=== PATIENT | female | born 2000 | race Caucasian/White ===

== ENCOUNTER 2019-04-20 00:37 | Emergency (ER) | payer OTHER, SELFPAY ==
[2019-04-20 00:39] VITALS: BP 120/84; PULSE 88; RESP 16; TEMP 36.6; O2SAT 99; BMI 23.7
--- NOTE | 2019-04-20 00:55 | ED.VIS.GEN ---
History of Present Illness Chief Complaint: Abd Pain Informant: Patient, Family Onset: Days - 4 days Context: Gradual Onset Timing: Waxes and wanes Current Severity: Mild Maximum Severity: Moderate Narrative: Patient presents for day history of GI symptoms. On Tuesday she had nausea and vomiting. The following day she had a fever to 101 with some diarrhea. Yesterday she felt okay but today has had some lower abdominal pain and cramping and return of nausea. She is had no vomiting. She denies urinary symptoms. She has had no fever the past 2 days. Past Medical History - Allergies and Home Meds Allergies/Adverse Reactions: Allergies No Known Allergies Allergy (Verified 04/20/19 00:38) Primary Care Physician: NOT,DEFINED [NON-STAFF] - Past Medical History: None Lives: With Family Smoking Status: Never smoker Review of Systems General: Reports: Fever Eyes: Denies: Visual changes - bilaterally ENT: Denies: Bilateral ear pain Cardiovascular: Denies: Chest pain Respiratory: Denies: Dyspnea, Cough Gastrointestinal: Reports: Abdominal pain, Nausea, Vomiting, Diarrhea Genitourinary: Denies: Dysuria, Hematuria, Frequency Musculoskeletal: Denies: Back pain, Extremity Pain Skin: Denies: Rash Neurological: Denies: Headache Hematologic: Denies: Easy bruising Allergy: Denies: Uticaria Physical Exam Vital Signs/Narrative: Vital Signs Temp Pulse Resp BP Pulse Ox 04/20/19 00:39 97.8 F 88 16 120/84 H 99 Inital Vital Signs reviewed: Yes General: Well nourished, Well developed Head: Normocephalic ENT: Moist mucous membranes Neck: Supple Cardiovascular: Regular rate, Regular rhythm Respiratory: No distress, CTA bilaterally Abdomen: Soft, Nontender, Hypoactive bowel sounds Extremities: Nontender Skin: Normal color, No rash Neurological: Alert, Oriented x3 Psychological: Normal affect Diagnostic/Tx/Re-eval Laboratory Results 04/20/19 04/20/19 04/20/19 00:51 00:51 01:11 WBC 8.0 RBC 4.95 Hgb 14.6 Hct 41.9 MCV 84.6 MCH 29.5 MCHC 34.8 RDW Std Deviation 35.5 RDW Coeff of Davin 11.5 L Plt Count 189 MPV 9.8 Immature Gran % (Auto) 0.300 Neut % (Auto) 62.9 Lymph % (Auto) 23.0 [place] % (Auto) 12.5 H Eos % (Auto) 0.9 Baso % (Auto) 0.4 Absolute Neuts (auto) 5.0 Absolute Lymphs (auto) 1.83 Nucleated RBC % 0 Sodium Potassium Chloride Carbon Dioxide Anion Gap BUN Creatinine Estim Creat Clear Calc Est GFR (MDRD) Af Amer Est GFR (MDRD) Non-Af BUN/Creatinine Ratio Glucose Calcium Total Bilirubin Direct Bilirubin AST ALT Alkaline Phosphatase Total Protein Albumin Globulin Urine Color Yellow Urine Clarity Clear Urine pH 7.0 Ur Specific [place] 1.010 Urine Protein Negative Urine Glucose (UA) Normal Urine Ketones Negative Urine Occult Blood Negative Urine Nitrite Negative Urine Bilirubin Negative Urine Urobilinogen Normal Ur Leukocyte Esterase Negative Urine RBC 0 SEEN Urine WBC 0 SEEN Ur Squamous Epith Cells 0-5 SEEN Urine Bacteria RARE Urine Mucus 0 SEEN Urine Test Negative 04/20/19 01:11 WBC RBC Hgb Hct MCV MCH MCHC RDW Std Deviation RDW Coeff of [place] Plt Count MPV Immature Gran % (Auto) Neut % (Auto) Lymph % (Auto) [place] % (Auto) Eos % (Auto) Baso % (Auto) Absolute Neuts (auto) Absolute Lymphs (auto) Nucleated RBC % Sodium 140 Potassium 3.6 Chloride 106 Carbon Dioxide 27.0 Anion Gap 7 BUN 9 Creatinine 0.80 Estim Creat Clear Calc 93.56 Est GFR (MDRD) Af Amer 117 Est GFR (MDRD) Non-Af 97 BUN/Creatinine Ratio 11.2 Glucose 96 Calcium 8.9 Total Bilirubin 1.80 H Direct Bilirubin 0.40 H AST 18 ALT 31 Alkaline Phosphatase 50 Total Protein 7.4 Albumin 3.8 Globulin 3.6 Urine Color Urine Clarity Urine pH Ur Specific [place] Urine Protein Urine Glucose (UA) Urine Ketones Urine Occult Blood Urine Nitrite Urine Bilirubin Urine Urobilinogen Ur Leukocyte Esterase Urine RBC Urine WBC Ur Squamous Epith Cells Urine Bacteria Urine Mucus Urine Test - Medical Decision Making Patient was given Toradol, Zofran, and IV fluids. On repeat evaluation she does feel improved. Test results are discussed with the patient. Her bilirubin levels are mildly elevated, she has no white count or fever here. She has no focal tenderness in the right upper quadrant. I believe she likely has viral gastroenteritis. She will continue to monitor her symptoms and if she worsens she will return. She states she cannot take pills but will take liquid ibuprofen at home for pain. I will give her Zofran ODT tabs to help with nausea as needed. ED Disposition - Plan for ED Patient: Disposition: Home or Assisted Living Diagnosis: Viral gastroenteritis Instructions: GASTROENTERITIS, Viral (5y-Adult) Prescriptions: Ondansetron [Zofran Odt] 4 mg PO Q8H PRN PRN #10 tablet PRN Reason: Nausea Referrals: NOT,DEFINED [NON-STAFF] -
[2019-04-20 01:01] LABS: Mucous, Urine 0 SEEN /hpf (<or=2+); Red Blood Cells-Urine 0 SEEN /hpf (0-5); White Blood Cells 0 SEEN /hpf (0-5)
[2019-04-20 01:07] LABS: Color, Urine Yellow (Yellow); Glucose, Dipstick Normal (Normal); Ketone-Dipstick Negative (Negative); Leukocyte Esterase-Dipstick Negative /ul (Negative); Nitrite-Dipstick Negative (Negative); Occult Blood-Urine Negative /ul (Negative); Protein-Dipstick Negative (Negative); Urine Bilirubin Dipstick Negative (Negative); Urine Clarity Clear (Clear); Urine Urobilinogen Normal (Normal)
[2019-04-20 01:10] LABS: Internal QC Validated? YES +Cl - CLEAR BKGD; Pregnancy, Urine Negative Negative
[2019-04-20] MEDS: Ketorolac 30 MG/ML Syringe IV (01:12)
[2019-04-20] MEDS: Ondansetron 4 MG/2 ML Vial IV (01:12)
[2019-04-20] MEDS: 0.9% Normal Saline 1,000 ML 1000 ML IV (01:12)
[2019-04-20 01:14] LABS: Bacteria RARE /hpf (None Seen); Squamous Epithelial Cells - UA 0-5 SEEN /hpf (5-10)
[2019-04-20 01:18] LABS: Absolute Lymphocyte Count 1.83 X10^3/uL (0.83-4.51); Basophil# 0.03 X10^3/uL; Basophil% 0.4 % (0-1); Eosinophil# 0.07 X10^3/uL; Eosinophils% 0.9 % (0-5); Hematocrit 41.9 % (37-47); Hemoglobin 14.6 g/dL (12.0-15.0); Lymphocyte # 1.83 X10^3/ul (4.0); Mean Corp Hgb Conc 34.8 g/dL (32-36); Mean Corpuscular Hgb 29.5 pg (27.0-32.0); Mean Corpuscular Volume 84.6 fL (81-99); Mean Platelet Vol. 9.8 fl (6.2-12.0); Monocyte% 12.5 % (0-10); NRBC Flagged by Analyzer 0 % (0-5); Neutrophil # 5.02 X10^3/uL (2.7-7.7); Neutrophil % 62.9 % (47-70); Platelet Count 189 K/mm3 (150-450); RBC Distribution Width CV 11.5 % (11.6-14.6); RBC Distribution Width SD 35.5 fl (35.1-43.9); Red Blood Count 4.95 M/mm3 (4.2-5.4)
[2019-04-20 01:35] LABS: AST(SGOT) 18 U/L (15-37); Alanine Aminotransfer ALT/SGPT 31 U/L (13-56); Albumin, Serum 3.8 g/dL (3.2-5.0); Alkaline Phosphatase 50 U/L (45-117); Anion Gap 7 (5-15); BUN 9 mg/dL (7-18); BUN/Creat Ratio 11.2 RATIO (10-20); Calcium,Total 8.9 mg/dL (8.5-10.1); Chloride 106 mmol/L (98-107); EST Glomerular Filtration Rate 97 mL/min (>60); Est Glom Filt Rate - Afr Amer 117 mL/min (>60); Estimated Creatinine Clearance 93.56 ml/min; Globulin 3.6 g/dL (2.2-4.2); Glucose 96 mg/dL (74-106); Potassium 3.6 mmol/L (3.5-5.1); Protein, Total 7.4 g/dL (6.4-8.2); Sodium Level 140 mmol/L (136-145)
[2019-04-20 02:03] VITALS: BP 116/70; PULSE 87; RESP 16; O2SAT 97
== END 2019-04-20 02:04 | disposition home or self-care (01) ==
PROVIDERS: Emergency Provider Emergency Medicine
DX: A08.4 Viral intestinal infection, unspecified (principal)
CPT/HCPCS: 80048; 80076; 81001; 81025; 85025; 96361; 96374; 96375; 99283; J7030; J2405

== ENCOUNTER 2024-09-28 08:48 | Outpatient (CLI) | payer OTHER, SELFPAY ==
[2024-09-28 08:56] VITALS: BMI 33.1
[2024-09-28 09:35] LABS: Absolute Lymphocyte Count 0.62 X10^3/uL (0.83-4.51); Absolute Neutrophil Count 9.1 X10^3/uL (2.0-7.7); Basophil# 0.02 X10^3/uL; Basophil% 0.2 % (0-1); Eosinophil# 0.01 X10^3/uL; Eosinophils% 0.1 % (0-5); Hematocrit 33.6 % (37-47); Hemoglobin 11.9 g/dL (12.0-15.0); Lymphocyte # 0.62 X10^3/ul (0.83-4.51); Lymphocyte % 5.7 % (19-41); Mean Corp Hgb Conc 35.4 g/dL (32-36); Mean Corpuscular Hgb 30.4 pg (27.0-32.0); Mean Corpuscular Volume 85.7 fL (81-99); Monocyte% 9.3 % (0-10); NRBC Flagged by Analyzer 0 % (0-5); Neutrophil # 9.06 X10^3/uL (2.7-7.7); Platelet Count 179 K/mm3 (150-450); RBC Distribution Width SD 37.7 fl (35.1-43.9); Red Blood Count 3.92 M/mm3 (4.2-5.4); White Blood Count 10.8 K/mm3 (4.4-11.0)
[2024-09-28 09:55] LABS: ALB/GLOB Ratio 1.3 RATIO (0.9-2.4); AST(SGOT) 18 U/L (<=31); Alanine Aminotransfer ALT/SGPT 15 U/L (<=34); Albumin, Serum 3.6 g/dL (3.5-5.0); Alkaline Phosphatase 54 U/L (35-104); Anion Gap 10 (5-15); BUN 7 mg/dL (4-19); BUN/Creat Ratio 14.3 RATIO (10-20); Calcium,Total 8.9 mg/dL (7.6-11.0); Carbon Dioxide 18.6 mmol/L (21.0-32.0); Chloride 104 mmol/L (98-108); Creatinine, Serum 0.48 mg/dL (0.70-1.20); EST Glomerular Filtration Rate 135 (>60); Estimated Creatinine Clearance 178.02 ml/min (50-250); Globulin 2.8 g/dL (2.2-4.2); Glucose 101 mg/dL (70-99); Potassium 3.6 mmol/L (3.3-5.1); Protein, Total 6.4 g/dL (5.9-8.4); Sodium Level 133 mmol/L (133-145); Total Bilirubin 0.65 mg/dL (0.00-1.30)
--- NOTE | 2024-10-09 13:48 | OB.TRI.NOTE ---
HPI - General General Date of Service: 09/28/24 HPI Narrative GEORGE CRAIG, is a 24 F who presents at with VIKTOR 12/24/24 at 27w5d. Presented for increased heart rate. PFSH PFSH Home Medications ?Medication ?Instructions ?Recorded ?Last Taken ?Type vitamin 1 tab PO DAILY 09/28/24 09/27/24 History no.76-iron,carbonyl 29 mg iron-folic acid 1 mg tablet (Prenatabs Rx) Allergy/AdvReac Type Severity Reaction Status Date / Time No Known Allergies Allergy Verified 09/28/24 08:57 Social History Smoking Status: Never smoker NST FHR Rate Baby A Baseline: 150 NST Reactive:: Appropriate for gestational age Assessment & Plan (1) Tachycardia: (2) 27 weeks gestation of : PLAN: Plan 1) EKG NSR 2) No signs of labor 3) D/C home and follow up outpatient
== END 2024-09-28 10:25 | disposition home or self-care (01) ==
LOC: WPOUT 08:52 → WP 08:53
PROVIDERS: Advanced Practice Midwife; PCP Family Medicine; Referring Provider Obstetrics & Gynecology; Visit Provider Obstetrics & Gynecology
DX: O99.891 Other specified diseases and conditions complicating pregnancy (principal); R00.0 Tachycardia, unspecified; Z3A.27 27 weeks gestation of pregnancy
CPT/HCPCS: 59050; 80053; 85025; 93005; 99221; G0378

== ENCOUNTER 2024-12-10 16:53 | Outpatient (CLI) | payer OTHER, SELFPAY ==
[2024-12-10 17:21] VITALS: BMI 33.3
--- NOTE | 2024-12-10 17:27 | OB.TRI.HP_ITS ---
HPI - General HPI Narrative GEORGE CRAIG, is a 24 F at 38 weeks gestation who was sent over from the office at the end of the day for NST. complicated by mild polyhydramnios, obesity and LGA. She is scheduled for induction of labor next week. Maternal Data Information VIKTOR Calculator Estimated Delivery Date Method Current WG Current Estimate 12/24/24 Manual 38w 0d PFSH PFSH Home Medications ?Medication ?Instructions ?Recorded ?Last Taken ?Type vitamin 1 tab PO DAILY 09/28/24 05/0 01/14 History no.76-iron,carbonyl 29 mg iron-folic acid 1 mg tablet (Prenatabs Rx) Allergy/AdvReac Type Severity Reaction Status Date / Time No Known Allergies Allergy Verified 09/28/24 08:57 Social History Smoking Status: Never smoker NST FHR Rate Baby A Baseline: 120 Variability:: Moderate Accelerations:: 15 x 15 Decelerations:: None NST Reactive:: Yes FHR Category:: Category I Uterine Activity:: occasional Assessment & Plan (1) 38 weeks gestation of : (2) Obesity affecting : (3) Polyhydramnios: PLAN: Plan NST reactive Positive movements D/C home with follow up in office next week Induction of labor scheduled for next week
== END 2024-12-10 18:05 | disposition home or self-care (01) ==
LOC: WPOUT 16:56 → WP 16:57
PROVIDERS: PCP Family Medicine; Referring Provider Advanced Practice Midwife; Visit Provider Advanced Practice Midwife
DX: O40.3XX0 Polyhydramnios, third trimester, not applicable or unspecified (principal); O99.213 Obesity complicating pregnancy, third trimester; Z3A.38 38 weeks gestation of pregnancy
CPT/HCPCS: 59025; 59050; 99221; G0378

== ENCOUNTER 2024-12-17 04:32 | Inpatient (IN) | payer OTHER, SELFPAY ==
[2024-12-17] VITALS (55 sets, daily range): BP systolic 109–194; BP diastolic 57–107; PULSE 87–115; RESP 16–18; TEMP 36.6–37.4; O2SAT 89–100; BMI 33.8
--- OUTSIDE RECORDS SUMMARY | 2024-12-17 03:00 | XMS RPT_ITS | CCD ---
Author Organization [facility] Care Team Providers Care Home Aide Name Role Phone Jackelyn Singer MD Primary Care Provider Jackelyn Singer MD Primary Care Provider Podlogar COMBATANT DIVER QUALIFIED.Marah SCOTT Unavailable Knoble COMBATANT DIVER QUALIFIED.WILDLIFE ENFORCEMENT MAJORRand Unavailable [place] COMBATANT DIVER QUALIFIED.Rand SCOTT Unavailable Andrew ROBLEDO, Dr. Baird Attending Provider Andrew ROBLEDO, Dr. Baird Referring Provider Enmanuel ROBLEDO, Dr. Holbrook Primary Care Provider Kn[place]le COMBATANT DIVER QUALIFIED.Rand SCOTT Unavailable [place] COMBATANT DIVER QUALIFIED.WILDLIFE ENFORCEMENT MAJORRand Unavailable Ant ROBLEDO, Dr. Lucero Attending Provider Ant ROBLEDO, Dr. Lucero Referring Provider Summer Garduno CNM Attending Provider Summer Garduno CNM Referring Provider JACKELYN SINGER Primary Care Unavailab RACHEL Kessler Referring Unavailable JACKELYN SINGER Primary Care Unavailab LIBBY Hinojosa Referring Unavailable JACKELYN SINGER Primary Care Unavailab LIBBY Hinojosa Referring Unavailable TRINITY BURROWS Attending Unavailable JACKELYN SINGER Primary Care Unavailab TRINITY Diaz Attending Unavailable JACKELYN SINGER Primary Care Unavailab LIBBY Hinojosa Attending Unavailable RACHEL MORALES Referring Unavailable CRYSTAL BERRY Attending Unavail able ENMANUEL, IONER B Primary Care Unavailab le ENMANUEL, CHRISTOPHER B Primary Care Unavailab LIBBY Hinojosa Attending Unavailable ENMANUEL, PITEROPHER B Primary Care Unavailab le ZEHRALEY, CHRISTOPHER B Primary Care Unavailab le LAUREEN, SUMMER Attending Unavailable ENMANUEL, PITEROPHER B Primary Care Unavailab SUMMER Gray Attending Unavailable ENMANUEL, CHRISTOPHER B Primary Care Unavailab KIRSTIE Andrew Attending Unavailable ENMANUEL, CHRISTOPHER B Primary Care Unavailab le PLOTRAJIV, SUMMER Attending Unavailable LORNE MORALESCA Kendra Referring Unavailable RACHEL MORALES L Attending Unavailable ENMANUEL, IONER B Primary Care Unavailab le ENMANUEL, CHRISTOPHER B Primary Care Unavailab le PLOTRAJIV, SUMMER Referring Unavailable BURSLEY, CHRISTOPHER B Primary Care Unavailab le LAUREEN, SUMMER Referring Unavailable ENMANUEL, CHRISTOPHER B Primary Care Unavailab KIRSTIE Andrew Attending Unavailable LORNE MORALESCA L Referring Unavailable CRYSTAL BERRY Attending Unavail able ENMANUEL, CHRISTOPHER B Primary Care Unavailab le ZEHRALEY, CHRISTOPHER B Primary Care Unavailab le ANDREW, RACHEL L Referring Unavailable BURSLEY, CHRISTOPHER B Primary Care Unavailab QUINN Reardon Attending Unavailable ENMANUEL, PITEROPHER B Primary Care Unavailab LIBBY Hinojosa Attending Unavailable ENMANUEL, CHRISTOPHER B Primary Care Unavailab liza MORALES RACHEL L Referring Unavailable AntNic owen Referring Unavailable Enmanuel, Yusef Primary Care Unavailable Nic Cain Attending Unavailable Rachel Morales Attending Unavailable Andrew Rachel Referring Unavailable Bursley, Yusef Primary Care Unavailable Plotts, Summer Attending Unavailable Plotts, Summer Referring Unavailable Bursley, Yusef Primary Care Unavailable Allergies Allergy Classification Reported Allergen(s) Allergy Type Date of Onset Reaction(s) Facility (20 sources) Escitalopram; Translations: [ESCITALOPRAM] Drug Allergy 11-24-2022 Other: See Comments [facility] Work Phone: Medications Current Medications Medication Drug Class(es) Dates Sig (Normalized) Sig (Original) aspirin 81 mg delayed release oral tablet (20 sources) Platelet Aggregation Inhibitor, Nonsteroidal Anti-inflammatory Drug Start: 05-09-2024 take 1 tablet by mouth once daily aspirin, enteric coated (ECOTRIN LOW STRENGTH) 81 mg EC tablet Indications: 7 weeks gestation of (HCC) Take 1 tablet by mouth once daily. 90 tablet 3 05/09/2024 Active omeprazole 20 mg delayed release oral capsule (17 sources) Proton Pump Inhibitor Start: 10-19-2024 take 1 capsule by mouth once daily omeprazole (PRILOSEC) 20 mg capsule Take 1 capsule by mouth once daily. 60 capsule 2 10/19/2024 Active Vit,Dzio92-Assn-Eq lic (Prenatabs Rx) 29 mg iron- 1 mg tablet (2 sources) Start: 09-28-2024 Vit,Haxj69-Rqhj-Y olic (Prenatabs Rx) 29 mg iron- 1 mg tablet Active 1 {tbl} PO DAILY September 28, 2024 12:00am vit37/iron/folic acid (PRENATA ORAL) (20 sources) take 2 capsules by mouth once daily vit37/iron/folic acid (PRENATA ORAL) Take 2 capsules by mouth once daily. Active sertraline 50 mg oral tablet (20 sources) Serotonin Reuptake Inhibitor Start: 03-14-2024 End: 03-14-2025 take 1 tablet by mouth once daily sertraline (ZOLOFT) 50 mg tablet Indications: Anxiety with depression TAKE 1 TABLET BY MOUTH EVERY DAY 90 tablet 1 08/09/2024 Active Start: 08-24-2023 End: 03-14-2024 sertraline (ZOLOFT) 50 mg ta blet Indications: Anxiety with depression Take 1/2 tablet daily for one week then increase to one tablet daily 30 tablet 5 08/24/2023 03/14/2024 Discontinued Comment on above: Take 1/2 tablet steven y for one week then increase to one tablet daily Completed/Discontinued Medications Medication Drug Class(es) Dates Sig (Normalized) Sig (Original) Control (2 sources) Start: 04-20-2019 End: 09-28-2024 Control Discontinued 1 {tbl} PO DAILY April 20, 2019 1:00am September 28, 2024 8:57am 24 hr buPROPion hydrochloride 150 mg extended release oral tablet (4 sources) Aminoketone Start: 01-22-2022 End: 11-10-2022 take 1 tablet by mouth once daily buPROPion XL (WELLBUTRIN XL) 150 mg 24 hr tablet Indications: Anxiety and depression Take 1 tablet by mouth once daily. 90 tablet 1 01/22/2022 11/10/2022 Discontinued Start: 10-19-2021 End: 01-22-2022 take 1 tablet by mouth once daily buPROPion SR (ZYBAN SR; WELLBUTRIN SR) 150 mg 12 hr tablet Take 150 mg by mouth once daily. 0 10/19/2021 01/22/2022 Discontinued Comment on above: Take 1 tablet by luz maria once daily. Take 150 mg by mouth once daily. cholecalciferol 1.25 mg oral capsule (6 sources) Vitamin D Start: 02-26-20 End: 10-26-19 take 1 capsule by mouth every week cholecalciferol, Vitamin D3, (VITAMIN D3) 1,250 mcg (50,000 unit) cap capsule Indications: Vitamin D deficiency Take 1 capsule by mouth one time a week. 12 capsule 0 02/25/2023 10/26/2023 Discontinued (Course of therapy completed) Comment on above: Take 1 capsule by mo [facility] one time a week. cyclobenzaprine hydrochloride 5 mg oral tablet (7 sources) Muscle Relaxant Start: 04-20-20 End: 05-09-20 take 1 tablet by mouth three times daily cyclobenzaprine (FLEXERIL) 5 mg tablet Indications: Acute bilateral low back pain without sciatica Take 1 tablet by mouth three times a day. 30 tablet 04/20/2023 05/09/2024 Discontinued (Discontinued by Patient) Comment on above: Take 1 tablet by luz [facility] three times a day. doxycycline hyclate 100 mg delayed release oral tablet (5 sources) Tetracycline-cla ss Drug Start: 11-08-19 End: 11-20-19 take 2 tablets by mouth once Doxycycline Hyclate 100 mg EC tablet TAKE 2 TABLETS BY MOUTH FOR A ONE TIME DOSE 2 tablet 11/07/2024 11/19/2024 Discontinued (Discontinued by Patient) Start: 11-06-2024 End: 11-06-2024 take 1 tablet by mouth once doxycycline hyclate 200 mg TbEC Take 1 tablet by mouth one time only for 1 dose. 1 tablet 11/06/2024 11/06/2024 escitalopram 10 mg oral tablet (2 sources) Serotonin Reuptake Inhibitor Start: 11-10-2022 End: 11-24-2022 take 1 tablet by mouth once daily escitalopram oxalate (LEXAPRO) 10 mg tablet Indications: Anxiety with depression Take 1 tablet by mouth once daily. 30 tablet 1 11/10/2022 11/24/2022 Discontinued (Course of therapy completed) Comment on above: Take 1 tablet by luz maria th once daily. famotidine 40 mg oral tablet (20 sources) Histamine-2 Receptor Antagonist Start: 10-03-2024 End: 11-02-2024 take 1 tablet by mouth once daily famotidine (PEPCID) 40 mg tablet Take 1 tablet by mouth once daily. 30 tablet 3 10/03/2024 10/19/2024 Discontinued Start: 07-30-2024 End: 10-03-2024 take 1 tablet by mouth at bedtime as needed famotidine (PEPCID) 20 mg tablet Indications: Heartburn Take 1 tablet by mouth at bedtime as needed. 90 tablet 3 08/17/2024 10/03/2024 Discontinued (Course of therapy completed) Start: 08-24-2023 End: 07-27-2024 take 1 tablet by mouth at bedtime as needed famotidine (PEPCID) 20 mg tablet Indications: Heartburn Take 1 tablet by mouth at bedtime as needed. 90 tablet 3 08/24/2023 07/27/2024 Discontinued Start: 05-20-2021 End: 11-10-2022 take 1 tablet by mouth at bedtime as needed famotidine (PEPCID) 20 mg tablet Indications: Heartburn Take 1 tablet by mouth at bedtime as needed. 90 tablet 3 04/12/2022 11/10/2022 Discontinued (Discontinued by Patient) Comment on above: Take 1 tablet by luz maria th at bedtime as needed. hydrOXYzine pamoate 25 mg oral capsule (10 sources) Antihistamine Start: 11-25-19 End: 05-09-20 take 1 capsule by mouth every eight hours as needed hydrOXYzine pamoate (VISTARIL) 25 mg capsule Take 1 capsule by mouth three times daily as needed. 90 capsule 11/24/2022 05/09/2024 Discontinued (Discontinued by Patient) Comment on above: Take 1 capsule by mo ut three times daily as needed. ondansetron 4 mg disintegrating oral tablet (2 sources) Serotonin-3 Receptor Antagonist Start: 04-20-20 End: 09-29-19 take 1 tablet by mouth every eight hours as needed for nausea Ondansetron 4 MG tablet Discontinued 4 mg PO EVERY 8 HOURS NEEDED as needed for Nausea April 20, 2019 1:00am September 28, 2024 8:58am Problems Active Problems Problem Classification Problem Date Documented Da te Episodic/Chronic Anxiety disorders (20 sources) Mixed anxiety and depressive disorder; Translations: [Anxiety disorder, unspecified] Onset: 4 Resolved: 5 04-29-2020 Chronic Bacterial infection; unspecified site (2 sources) Bacteria present; Translations: [Streptococcus, group B, as the cause of diseases classified elsewhere] Onset: 5 12-04-2024 Episodic Cardiac dysrhythmias (3 sources) Tachycardia; Translations: [Tachycardia, unspecified] Onset: 5 10-09-2024 Episodic E Codes: Natural/environment (2 sources) Tick bite; Translations: [Bitten or stung by nonvenomous insect and other nonvenomous arthropods, initial encounter] Onset: 5 11-05-2024 Episodic Esophageal disorders (20 sources) Gastroesophageal reflux disease; Translations: [Gastro-esophageal reflux disease without esophagitis] Onset: 9 11-19-2018 Chronic Hypertension complicating ; childbirth and the puerperium (20 sources) Hypertension complicating ; Translations: [Unspecified maternal hypertension, second trimester] Onset: 5 10-19-2024 Chronic Immunizations and screening for infectious disease (2 sources) Vaccination needed; Translations: [Encounter for immunization] Onset: 5 10-03-2024 Episodic Intestinal infection (2 sources) Viral gastroenteritis; Translations: [Viral intestinal infection, unspecified] 04-21-2019 Episodic Malposition; malpresentation (20 sources) Breech presentation; Translations: [Maternal care for breech presentation, not applicable or unspecified] Onset: 5 Resolved: 5 10-19-2024 Episodic Nutritional deficiencies (3 sources) Vitamin D deficiency; Translations: [Vitamin D deficiency, unspecified] 02-23-2023 Chronic Other bone disease and musculoskeletal deformities (20 sources) Juvenile osteochondritis; 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] Onset: 9 10-07-2008 Chronic Other complications of (17 sources) Gestational proteinuria; Translations: [Gestational proteinuria, third trimester] Onset: 5 10-16-2024 Episodic Other complications of (2 sources) Supervision of high risk , unspecified, third trimester; Translations: [Supervision of high risk in third trimester (HCC)] Onset: 5 Episodic Other complications of (1 source) Gestational proteinuria, third trimester; Translations: [Gestational proteinuria, third trimester (HCC)] Onset: 5 Episodic Other ear and sense organ disorders (1 source) Impacted cerumen in left ear; Translations: [Impacted cerumen, left ear] 08-24-2023 Episodic Other gastrointestinal disorders (8 sources) Heartburn; Translations: [Heartburn] Episodic Other nervous system disorders (1 source) Impaired cognition; Translations: [Other symptoms and signs involving cognitive functions and awareness] 02-23-2023 Episodic Other and delivery including normal (20 sources) with uncertain dates; Translations: [Encounter for supervision of normal , unspecified, unspecified trimester] Onset: 4 05-09-2024 Episodic Other skin disorders (1 source) Loss of hair; Translations: [Nonscarring hair loss, unspecified] 02-23-2023 Episodic Polyhydramnios and other problems of amniotic cavity (20 sources) Polyhydramnios; Translations: [Polyhydramnios, third trimester, not applicable or unspecified] Onset: 5 10-19-2024 Episodic Residual codes; unclassified (1 source) Gestation period, 7 weeks; Translations: [Less than 8 weeks gestation of ] 05-07-2024 Episodic Residual codes; unclassified (2 sources) Gestation period, 12 weeks; Translations: [12 weeks gestation of ] 06-13-2024 Episodic Residual codes; unclassified (1 source) Gestation period, 16 weeks; Translations: [16 weeks gestation of ] 07-11-2024 Episodic Residual codes; unclassified (1 source) Gestation period, 20 weeks; Translations: [20 weeks gestation of ] 08-08-2024 Episodic Residual codes; unclassified (1 source) Gestation period, 24 weeks; Translations: [24 weeks gestation of ] 09-05-2024 Episodic Residual codes; unclassified (1 source) Gestation period, 28 weeks; Translations: [28 weeks gestation of ] 10-03-2024 Episodic Residual codes; unclassified (1 source) Gestation period, 30 weeks; Translations: [30 weeks gestation of ] 10-19-2024 Episodic Residual codes; unclassified (1 source) Gestation period, 33 weeks; Translations: [33 weeks gestation of ] 11-05-2024 Episodic Residual codes; unclassified (1 source) Gestation period, 34 weeks; Translations: [34 weeks gestation of ] 11-14-2024 Episodic Residual codes; unclassified (1 source) Gestation period, 35 weeks; Translations: [35 weeks gestation of ] 11-19-2024 Episodic Residual codes; unclassified (1 source) Gestation period, 36 weeks; Translations: [36 weeks gestation of ] 11-30-2024 Episodic Residual codes; unclassified (1 source) Gestation period, 37 weeks; Translations: [37 weeks gestation of ] 12-04-2024 Episodic Residual codes; unclassified (2 sources) Gestation period, 27 weeks; Translations: [27 weeks gestation of ] 10-09-2024 Episodic Residual codes; unclassified (1 source) Gestation period, 38 weeks; Translations: [38 weeks gestation of ] 12-10-2024 Episodic Residual codes; unclassified (1 source) 38 weeks gestation of ; Translations: [38 weeks gestation of (HCC)] Onset: Episodic Residual codes; unclassified (1 source) 37 weeks gestation of ; Translations: [37 weeks gestation of (HCC)] Onset: Episodic Residual codes; unclassified (1 source) 36 weeks gestation of ; Translations: [36 weeks gestation of (HCC)] Onset: Episodic Residual codes; unclassified (1 source) 35 weeks gestation of ; Translations: [35 weeks gestation of (HCC)] Onset: Episodic Residual codes; unclassified (1 source) 34 weeks gestation of ; Translations: [34 weeks gestation of (HCC)] Onset: 5 Episodic Residual codes; unclassified (1 source) 33 weeks gestation of ; Translations: [33 weeks gestation of (HCC)] Onset: 5 Episodic Residual codes; unclassified (1 source) 30 weeks gestation of ; Translations: [30 weeks gestation of (HCC)] Onset: 5 Episodic Residual codes; unclassified (1 source) 29 weeks gestation of ; Translations: [29 weeks gestation of (HCC)] Onset: 5 Episodic Residual codes; unclassified (1 source) 28 weeks gestation of ; Translations: [28 weeks gestation of (HCC)] Onset: Episodic Spondylosis; intervertebral disc disorders; other back problems (1 source) Acute low back pain; Translations: [Acute bilateral low back pain without sciatica] 04-20-2023 Episodic Unclassified (20 sources) [facility] Education - COMMON Onset: 4 05-09-2024 Unclassified (20 sources) Education - [place] Onset: 05-09-2024 Past or Other Problems Problem Classification Problem Date Documented Da te Episodic/Chronic Nausea and vomiting (20 sources) Nausea; Translations: [Nausea] Onset: 05-09-2024 Resolved: 07-11-2024 05-09-2024 Episodic Other complications of (20 sources) High risk ; Translations: [Supervision of high risk , unspecified, third trimester] Onset: 05-09-2024 10-19-2024 Episodic Other congenital anomalies (20 sources) Congenital pes planus; Translations: [Congenital pes planus, unspecified foot] Onset: 01-21-2010 Resolved: 10-12-2024 01-21-2010 Chronic Other connective tissue disease (20 sources) Pain in limb; Translations: [Pain in unspecified limb] Onset: 10-07-2008 Resolved: 10-12-2024 10-07-2008 Episodic Other screening for suspected conditions (not mental disorders or infectious disease) (8 sources) Cancer cervix screening status; Translations: [Encounter for screening for malignant neoplasm of cervix] Onset: 06-13-2024 10-14-2023 Episodic Residual codes; unclassified (1 source) 24 weeks gestation of ; Translations: [24 weeks gestation of (HCC)] Onset: 09-05-2024 Episodic Residual codes; unclassified (1 source) 20 weeks gestation of ; Translations: [20 weeks gestation of ] Onset: 08-08-2024 Episodic Residual codes; unclassified (1 source) Less than 8 weeks gestation of ; Translations: [7 weeks gestation of ] Onset: 05-09-2024 Episodic Results Test Name Value Interpretation Reference Range Facility OB Triage Physician Noteon 0 12-10-[address] [facility] Medical Records Department [address] [place] [address] OB Triage Physician Note 12/10/24 1727 MR#: [id number] Acct: [id number] Name: TALI CRAIG Rep #: [id number] : 2000 24 From: Summer JEAN PCP: Dr. Yusef Singer MD Status:DEP [facility] Location: [facility] HPI - General HPI Narrative TALI CRAIG, is a 24 F at 38 weeks gestation who was sent over from the office at the end of the day for NST. complicated by mild polyhydramnios, obesity and LGA. She is scheduled for induction of labor next week. Maternal Data Information VIKTOR Calculator Estimated Delivery Date Method Current WG Current Estimate 12/24/24 Manual 38w 0d PFSH PFSH Home Medications ???Medication ???Instructions ???Recorded ???Last Taken ???Type vitamin 1 tab PO DAILY 09/28/24 09/27/24 H istory no.76-iron,carbonyl 29 mg iron-folic acid 1 mg tablet (Prenatabs Rx) Allergy/AdvReac Type Severity Reaction Status Date / Time No Known Allergies Allergy Verified 09/28/24 08:57 Social History Smoking Status: Never smoker NST FHR Rate Baby A Baseline: 120 Variability:: Moderate Accelerations:: 15 x 15 Decelerations:: None NST Reactive:: Yes FHR Category:: Category I Uterine Activity:: occasional Assessment Plan (1) 38 weeks gestation of : (2) Obesity affecting : (3) Polyhydramnios: PLAN: Plan NST reactive Positive movements D/C home with follow up in office next week Induction of labor scheduled for next week 12/10/24 1845 Date Summer Laureen ROBYN Cosigner Signature (if applicable): Date CC: ROBYN Garduno; Dr. Yusef Singer MD Signed Normal [facility] URINE OB DIP B/Oon Glucose Ql (U) Negative Neg mg/dL [facility] Protein.monoclonal (U) [Mass/Vol] Negative Neg mg/dL [facility] Examination level ultrasound on 12-05-2024 [facility] CNPNon 12-04-2024 CNPN Telephone (OBGYWM) ----- TALI GIBSON ([id number]) 89 F Date Time Provider Department 12/04/24 KIRSTIE STRAUSS During your visit today, we recorded the following information about you: Idalia Tong MA 12/04/2024 4:15 PM Signed Received FMLA from patient 12/04/2024, form is completed and in providers mailbox awaiting signature. JOSE Weiss Reanna, MA 12/07/2024 7:17 AM Signed FMLA completed and signed by provider 12/07/2024 Idalia Tong MA Allergies As of Date: 12/04/2024 Noted Allergy Reaction LEXAPRO (ESCITALOPRAM) 11/24/2022 14 - Other: See Comments Comments: Sleeping difficulty Date Reviewed: 12/04/2024 Reviewed by: Kirstie Strauss MD - Fully Assessed Prescriptions as of 12/07/2024 - omeprazole (PRILOSEC) 20 mg capsule Take 1 capsule by mouth once daily. - sertraline (ZOLOFT) 50 mg tablet TAKE 1 TABLET BY MOUTH EVERY DAY - aspirin, enteric coated (ECOTRIN LOW STRENGTH) 81 mg EC tablet Take 1 tablet by mouth once daily. - vit37/iron/folic acid (PRENATA ORAL) Take 2 capsules by mouth once daily. Problem List As Of Date 12/04/2024 Noted Resolved JUV OSTEOCHONDROSIS NEC [M92.8] 10/07/2008 Pain in limb [M79.609] 10/07/2008 10/12/2024 Congenital pes planus [Q66.50] 01/21/2010 10/12/2024 Acid reflux [K21.9] 11/19/2018 Anxiety and depression [F41.9, F32.A] Supervision of high risk in third tri*05/09/2024 Anxiety [F41.9] 05/09/2024 10/12/2024 Nausea [R11.0] 05/09/2024 07/11/2024 Elevated blood pressure affecting in *10/09/2024 Gestational proteinuria, third trimester (HCC) *10/09/2024 Polyhydramnios affecting in third tri*10/12/2024 Breech presentation, no version (HCC) [O32.1XX0]10/19/2024 11/19/2024 Encounter Status:Closed by IDALIA TONG on 12/07/24 Normal [facility] Examination level ultrasound on 12-04-2024 Radiology Study observation (narrative) [facility] URINE OB DIP B/Oon Glucose Ql (U) Negative Neg mg/dL [facility] Interpretation and review of laboratory results Normal [facility] Protein.monoclonal (U) [Mass/Vol] Negative Neg mg/dL [facility] ROUTINE, GROUP B ST REPTOCOCCUS BY PCRon 11-30-2024 ROUTINE, GROUP B STREPTOCOCCUS BY PCR Detected Abnormal [facility] Comment on above: Performed By: #### G BPCR ####[facility] LABCLIA [id number] [place] [id number] [facility] Jose 11-27-2024 CNPN Telephone (OBGYWM) ----- PAIGETALI ([id number]) 89 F Date Time Provider Department 11/27/24 QUINN DAVIS OBGYWM During your visit today, we recorded the following information about you: Brian Stratton RN 11/27/2024 9:49 AM Signed Call placed to Pt this AM to reschedule her OB appt that is scheduled on 11/29/24 with as Pt is 36w1d. Pt unable to come in to office today. Needs PM appointments d/t work. Please advise where we can place Pt this week for appt with ROBYN/. MAURO Can Rebecca L, MD 11/27/2024 10:10 AM Signed I can see her this afternoon in one of my openings. MD Andrew Staton Rebecca L, MD 11/27/2024 11:36 AM Signed Ok for any 10 min opening w/ anyone. Schedules are very full right now. We only have so many options we can accommodate. MD Humza Staton Tara, RN 11/27/2024 11:50 AM Signed Appt scheduled with ENA 11/30 at 2:40pm. Brian Stratton RN Allergies As of Date: 11/27/2024 Noted Allergy Reaction LEXAPRO (ESCITALOPRAM) 11/24/2022 14 - Other: See Comments Comments: Sleeping difficulty Date Reviewed: 11/19/2024 Reviewed by: Diana Araujo MA - Fully Assessed Reason for Visit: Appointment [[id number]] Prescriptions as of 11/27/2024 - omeprazole (PRILOSEC) 20 mg capsule Take 1 capsule by mouth once daily. - sertraline (ZOLOFT) 50 mg tablet TAKE 1 TABLET BY MOUTH EVERY DAY - aspirin, enteric coated (ECOTRIN LOW STRENGTH) 81 mg EC tablet Take 1 tablet by mouth once daily. - vit37/iron/folic acid (PRENATA ORAL) Take 2 capsules by mouth once daily. 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] 10/07/2008 Pain in limb [M79.609] 10/07/2008 10/12/2024 Congenital pes planus [Q66.50] 01/21/2010 10/12/2024 Acid reflux [K21.9] 11/19/2018 Anxiety and depression [F41.9, F32.A] Supervision of high risk in third tri*05/09/2024 Anxiety [F41.9] 05/09/2024 10/12/2024 Nausea [R11.0] 05/09/2024 07/11/2024 Elevated blood pressure affecting in *10/09/2024 Gestational proteinuria, third trimester (HCC) *10/09/2024 Polyhydramnios affecting in third tri*10/12/2024 Breech presentation, no version (HCC) [O32.1XX0]10/19/2024 11/19/2024 Encounter Status:Closed by BRIAN STRATTON on 11/27/24 Normal [facility] URINE OB DIP B/Oon Glucose Ql (U) Negative Neg mg/dL [facility] Protein.monoclonal (U) [Mass/Vol] Negative Neg mg/dL [facility] CNPNon 11-07-2024 CNPN Telephone (OBGYWM) ----- TALI GIBSON ([id number]) 89 F Date Time Provider Department 11/07/24 LIBBY BOB OBMEGHA During your visit today, we recorded the following information about you: Glynn Jeong MA 11/07/2024 1:22 PM Signed [employer] message sent to patient regarding updating insurance info to submit PA for Doxycycline. JOSE Rangel Jessica, APRN.CNM 11/07/2024 1:36 PM Signed Ok. Because this is time sensitive can discuss with her using self pay and good rx. Doxycycline Hyclate DR Smith, Coupons AND Savings Tips - Trinity Lucas RN 11/07/2024 3:33 PM Signed Called and spoke with patient. Inquired if she picked up the prescription. She did not and does not plan on taking. She did some online research and spoke with a few people and has decided she doesn't feel comfortable taking.MAURO Blanchard Jessica, APRN.CNM 11/07/2024 3:45 PM Signed Sounds good thank you. Libby Bob APRN.CNM Allergies As of Date: 11/07/2024 Noted Allergy Reaction LEXAPRO (ESCITALOPRAM) 11/24/2022 14 - Other: See Comments Comments: Sleeping difficulty Date Reviewed: 11/05/2024 Reviewed by: Glynn Jeong MA - Fully Assessed Prescriptions as of 11/07/2024 - Doxycycline Hyclate 100 mg EC tablet TAKE 2 TABLETS BY MOUTH FOR A ONE TIME DOSE - omeprazole (PRILOSEC) 20 mg capsule Take 1 capsule by mouth once daily. - sertraline (ZOLOFT) 50 mg tablet TAKE 1 TABLET BY MOUTH EVERY DAY - aspirin, enteric coated (ECOTRIN LOW STRENGTH) 81 mg EC tablet Take 1 tablet by mouth once daily. - vit37/iron/folic acid (PRENATA ORAL) Take 2 capsules by mouth once daily. Problem List As Of Date 11/07/2024 Noted Resolved JUV OSTEOCHONDROSIS NEC [M92.8] 10/07/2008 Pain in limb [M79.609] 10/07/2008 10/12/2024 Congenital pes planus [Q66.50] 01/21/2010 10/12/2024 Acid reflux [K21.9] 11/19/2018 Anxiety and depression [F41.9, F32.A] Supervision of high risk in third tri*05/09/2024 Anxiety [F41.9] 05/09/2024 10/12/2024 Nausea [R11.0] 05/09/2024 07/11/2024 Elevated blood pressure affecting in *10/09/2024 Gestational proteinuria, third trimester ([facility]) *10/09/2024 Polyhydramnios affecting in third tri*10/12/2024 Breech presentation, no version (HCC) [O32.1XX0]10/19/2024 Encounter Status:Closed by ESTHER RECINOS on 11/07/24 Normal [facility] Examination level ultrasound on 11-06-2024 [facility] Examination level ultrasound on 11-05-2024 Radiology Study observation (narrative) [facility] CNPNon 10-30-2024 CNPN Telephone (OBGYWM) ----- TALI GIBSON ([id number]) 89 F Date Time Provider Department 10/30/24 [facility] OBARINWM During your visit today, we recorded the following information about you: Trinity Ortiz RN 10/30/2024 4:04 PM Signed Received breast pump RX from [employer]. To CP to sign. MAURO Blanchard Trisha, RN 10/31/2024 8:39 AM Signed Signed and faxed. Esther Recinos RN Allergies As of Date: 10/30/2024 Noted Allergy Reaction LEXAPRO (ESCITALOPRAM) 11/24/2022 14 - Other: See Comments Comments: Sleeping difficulty Date Reviewed: 10/19/2024 Reviewed by: Quinn Davis APRN.WILDLIFE ENFORCEMENT MAJOR - Fully Assessed Reason for Visit: Breast Pump [Other] Prescriptions as of 10/31/2024 - omeprazole (PRILOSEC) 20 mg capsule Take 1 capsule by mouth once daily. - sertraline (ZOLOFT) 50 mg tablet TAKE 1 TABLET BY MOUTH EVERY DAY - aspirin, enteric coated (ECOTRIN LOW STRENGTH) 81 mg EC tablet Take 1 tablet by mouth once daily. - vit37/iron/folic acid (PRENATA ORAL) Take 2 capsules by mouth once daily. Problem List As Of Date 10/30/2024 Noted Resolved JUV OSTEOCHONDROSIS NEC [M92.8] 10/07/2008 Pain in limb [M79.609] 10/07/2008 10/12/2024 Congenital pes planus [Q66.50] 01/21/2010 10/12/2024 Acid reflux [K21.9] 11/19/2018 Anxiety and depression [F41.9, F32.A] Supervision of high risk in third tri*05/09/2024 Anxiety [F41.9] 05/09/2024 10/12/2024 Nausea [R11.0] 05/09/2024 07/11/2024 Elevated blood pressure affecting in *10/09/2024 Gestational proteinuria, third trimester (HCC) *10/09/2024 Polyhydramnios affecting in third tri*10/12/2024 Breech presentation, no version (HCC) [O32.1XX0]10/19/2024 Encounter Status:Closed by ESTHER RECINOS on 10/31/24 Normal [facility] OB Triage Physician Noteon 0 10-09-[address] [facility] Medical Records Department [address] [place] [id number] OB Triage Physician Note 10/09/24 1348 MR#: [id number] Acct: [id number] Name: TALI CRAIG Rep #: [id number] : 2000 24 From: Libby Bob CNM PCP: Dr. Yusef Singer MD Status:DEP CLI Y Location: [facility] HPI - General General Date of Service: 09/28/24 HPI Narrative TALI CRAIG, is a 24 F who presents at with VIKTOR 12/24/24 at 27w5d. Presented for increased heart rate. PFSH PFSH Home Medications ???Medication ???Instructions ???Recorded ???Last Taken ???Type vitamin 1 tab PO DAILY 09/28/24 09/27/24 H istory no.76-iron,carbonyl 29 mg iron-folic acid 1 mg tablet (Prenatabs Rx) Allergy/AdvReac Type Severity Reaction Status Date / Time No Known Allergies Allergy Verified 09/28/24 08:57 Social History Smoking Status: Never smoker NST FHR Rate Baby A Baseline: 150 NST Reactive:: Appropriate for gestational age Assessment Plan (1) Tachycardia: (2) 27 weeks gestation of : PLAN: Plan 1) EKG NSR 2) No signs of labor 3) D/C home and follow up outpatient 10/09/24 1353 Date Libby Bob CNM Cosigner Signature (if applicable): Date CC: ROBYN Bob; Dr. Yusef Singer MD Signed Normal [facility] Prot 24h Ur-mRateon 10-10-19 25 Protein (24H U) [Mass/Time] 0.16 g/24 Hr High <0.15 [facility] Comment on above: Order Comment: Speci men Type: URINE SPECIMENOrdering Facility: [facility] Address: [address] [place] [address] Result Comment: Adul t Proteinuria Categories: <0.15 g/24 hours is considered normal to mildly increased 0.15 - 0.50 g/24 hours is considered moderately increased >0.50 g/24 hours is considered severely increased KDIGO. (2013). KDIGO 2012 Clinical Practice Guideline for the Evaluation and Management of Chronic Kidney Disease. Official Journal of the International Society of Nephrology, 3(1), 1-150. Performed By: #### 2 889-4 ####[facility] LABCLIA [id number] [id number] [place] [address] LABCLIA [id number] [facility] [address] [place] OF [facility] Protein (24H U) [Mass/Time]o n 10-09-2024 PERIOD (HRS) 24 hr Normal [facility] Comment on above: Order Comment: Speci men Type: URINE SPECIMENOrdering Facility: [facility] Address: [address] [place] [address] Performed By: #### 2 889-4 ####[facility] LABCLIA [id number] [address] LABIA [id number] [address] Specimen volume (24H U) 3.15 L Normal [facility] Comment on above: Order Comment: Speci men Type: URINE SPECIMENOrdering Facility: [facility] Address: [address] [place] [address] Performed By: #### 2 889-4 ####[facility] LABCLIA [id number] [address] LABCLIA [id number] [address] CBC W Auto Differential pane l (Bld)on 10-03-2024 Basophils (Bld) [#/Vol] 0.03 10*3/uL Normal <0.11 [facility] Comment on above: Order Comment: Speci men Type: BLOOD SPECIMENOrdering Facility: [facility] Address: [address] [place] [address] Performed By: #### 5 7021-8 ####[facility]OWN[facility]IA [id number] [address] [place] Basophils/100 WBC (Bld) 0.3 % Normal [facility] Comment on above: Order Comment: Speci men Type: BLOOD SPECIMENOrdering Facility: [facility] Address: [address] [place] [address] Performed By: #### 5 7021-8 ####[facility] [id number] [place] [address] [place] Differential cell count method Nom (Bld) Auto Normal [facility] Comment on above: Order Comment: Speci men Type: BLOOD SPECIMENOrdering Facility: [facility] Address: [address] [place] [address] Performed By: #### 5 7021-8 ####[facility] [id number] [place] [address] [place] Eosinophils (Bld) [#/Vol] 0.06 10*3/uL Normal <0.46 [facility] Comment on above: Order Comment: Speci men Type: BLOOD SPECIMENOrdering Facility: [facility] Address: [address] [place] [address] Performed By: #### 5 7021-8 ####[facility] [id number] [place] [address] [place] Eosinophils/100 WBC (Bld) 0.5 % Normal [facility] Comment on above: Order Comment: Speci men Type: BLOOD SPECIMENOrdering Facility: [facility] Address: [address] [place] [address] Performed By: #### 5 7021-8 ####[facility] [id number] [place] [address] [place] Erythrocyte distribution width (RBC) [Ratio] 12.1 % Normal 11.5-15.0 [facility] Comment on above: Order Comment: Speci men Type: BLOOD SPECIMENOrdering Facility: [facility] Address: [address] [place] [address] Performed By: #### 5 7021-8 ####[facility] [id number] [place] [address] [place] Hematocrit (Bld) [Volume fraction] 34.9 % Low 36.0-46.0 [facility] Comment on above: Order Comment: Speci men Type: BLOOD SPECIMENOrdering Facility: [facility] Address: [address] [place] [address] Performed By: #### 5 7021-8 ####[facility] ERPANDA [id number] [place] [address] [place] Hemoglobin (Bld) [Mass/Vol] 12.4 g/dL Normal 11.5-15.5 [facility] Comment on above: Order Comment: Speci men Type: BLOOD SPECIMENOrdering Facility: [facility] Address: [address] [place] [address] Performed By: #### 5 7021-8 ####[facility]NCS[facility] [id number] [place] [address] [place] Immature granulocytes (Bld) [#/Vol] 0.07 10*3/uL Normal <0.10 [facility] Comment on above: Order Comment: Speci men Type: BLOOD SPECIMENOrdering Facility: [facility] Address: [address] [place] [address] Performed By: #### 5 7021-8 ####[facility] [id number] [place] [address] [place] Immature granulocytes/100 WBC (Bld) 0.6 % Normal [facility] Comment on above: Order Comment: Speci men Type: BLOOD SPECIMENOrdering Facility: [facility] Address: [address] [place] [address] Performed By: #### 5 7021-8 ####[facility] ERNCLIA [id number] [place] [address] [place] Lymphocytes (Bld) [#/Vol] 1.56 10*3/uL Normal 1.00-4.00 [facility] Comment on above: Order Comment: Speci men Type: BLOOD SPECIMENOrdering Facility: [facility] Address: [address] [place] [address] Performed By: #### 5 7021-8 ####[facility] ERNCLIA [id number] [place] [address] [place] Lymphocytes/100 WBC (Bld) 14.2 % Normal [facility] Comment on above: Order Comment: Speci men Type: BLOOD SPECIMENOrdering Facility: [facility] Address: [address] [place] [address] Performed By: #### 5 7021-8 ####[facility] ERKAYLINLIA [id number] [place] [address] [place] MCH (RBC) [Entitic mass] 30.1 pg Normal 26.0-34.0 [facility] Comment on above: Order Comment: Speci men Type: BLOOD SPECIMENOrdering Facility: [facility] Address: [address] [place] [address] Performed By: #### 5 7021-8 ####[facility] [id number] [place] [address] [place] MCHC (RBC) [Mass/Vol] 35.5 g/dL Normal 30.5-36.0 [facility] Comment on above: Order Comment: Speci men Type: BLOOD SPECIMENOrdering Facility: [facility] Address: [address] [place] [address] Performed By: #### 5 7021-8 ####[facility] ERKAYLINLIA [id number] [place] [address] [place] MCV (RBC) [Entitic vol] 84.7 fL Normal 80.0-100.0 [facility] Comment on above: Order Comment: Speci men Type: BLOOD SPECIMENOrdering Facility: [facility] Address: [address] [place], [place] [address] Performed By: #### 5 7021-8 ####[facility] ERNCLIA [id number] [place] [address] [place] Monocytes (Bld) [#/Vol] 0.99 10*3/uL High <0.87 [facility] Comment on above: Order Comment: Speci men Type: BLOOD SPECIMENOrdering Facility: [facility] Address: [address] [place] [address] Performed By: #### 5 7021-8 ####[facility] ERNCA [id number] [place] [address] [place] Monocytes/100 WBC (Bld) 9.0 % Normal [facility] Comment on above: Order Comment: Speci men Type: BLOOD SPECIMENOrdering Facility: [facility] Address: [address] [place] [address] Performed By: #### 5 7021-8 ####[facility] ERNCLI [id number] [place] [address] [place] Neutrophils (Bld) [#/Vol] 8.31 10*3/uL High 1.45-7.50 [facility] Comment on above: Order Comment: Speci men Type: BLOOD SPECIMENOrdering Facility: [facility] Address: [address] [place] [address] Performed By: #### 5 7021-8 ####[facility]ILIA [id number] [place] [address] [place] Neutrophils/100 WBC (Bld) 75.4 % Normal [facility] Comment on above: Order Comment: Speci men Type: BLOOD SPECIMENOrdering Facility: [facility] Address: [address] [place] [address] Performed By: #### 5 7021-8 ####[facility] ERNCLIA [id number] [place] [address] [place] Nucleated RBC (Bld) [#/Vol] 10*3/uL Normal <0.01 [facility] Comment on above: Order Comment: Speci men Type: BLOOD SPECIMENOrdering Facility: [facility] Address: [address] [place] [address] Performed By: #### 5 7021-8 ####[facility] MAHENDRAJILLIAN [id number] [place] [address] [place] Nucleated RBC/100 WBC (Bld) [Ratio] 0.0 /100 WBC Normal [facility] Comment on above: Order Comment: Speci men Type: BLOOD SPECIMENOrdering Facility: [facility] Address: [address] [place] [address] Performed By: #### 5 7021-8 ####[facility] MAHENDRAGLIDDENNCLIA [id number] [place] [address] [place] Platelet mean volume (Bld) [Entitic vol] 9.9 fL Normal 9.0-12.7 [facility] Comment on above: Order Comment: Speci men Type: BLOOD SPECIMENOrdering Facility: [facility] Address: [address] [place] [address] Performed By: #### 5 7021-8 ####[facility] ERNCLIA [id number] [place] [address] [place] Platelets (Bld) [#/Vol] 217 10*3/uL Normal 150-400 [facility] Comment on above: Order Comment: Speci men Type: BLOOD SPECIMENOrdering Facility: [facility] Address: [address] [place] [address] Performed By: #### 5 7021-8 ####[facility] ERNCLIA [id number] [place] [address] [place] RBC (Bld) [#/Vol] 4.12 10*6/uL Normal 3.90-5.20 [facility] Comment on above: Order Comment: Speci men Type: BLOOD SPECIMENOrdering Facility: [facility] Address: [address] [place] [address] Performed By: #### 5 7021-8 ####[facility] DELANDWNCL[facility] [id number] [place], [place] [address] [place] [address] [place] WBC (Bld) [#/Vol] 11.02 10*3/uL High 3.70-11.00 [facility] Comment on above: Order Comment: Speci men Type: BLOOD SPECIMENOrdering Facility: [facility] Address: [address] [place] [address] Performed By: #### 5 7021-8 ####[facility] ERNCLIA [id number] [address] [place] Comprehensive metabolic 2000 panelOrdered By: Marah Damon on 10-03-2024 Albumin [Mass/Vol] 3.6 g/dL Low 3.9 - 4.9 g/dL [facility] ALP [Catalytic activity/Vol] 59 U/L 34 - 123 U/L [facility] ALT [Catalytic activity/Vol] 17 U/L 7 - 38 U/L [facility] Anion gap [Moles/Vol] 13 mmol/L 8 - 15 mmol/L [facility] AST [Catalytic activity/Vol] 15 U/L 13 - 35 U/L [facility] Bilirubin [Mass/Vol] 0.9 mg/dL 0.2 - 1 .3 mg/dL [facility] Calcium [Mass/Vol] 8.8 mg/dL 8.5 - 10. 2 mg/dL [facility] Chloride [Moles/Vol] 103 mmol/L 98 - 10 7 mmol/L [facility] CO2 [Moles/Vol] 18 mmol/L Low 22 - 30 mmol/L [facility] Creatinine [Mass/Vol] 0.55 mg/dL Low 0.58 - 0.96 mg/dL [facility] GFR/1.73 sq M.predicted among non-blacks MDRD (S/P/Bld) [Vol rate/Area] 131 mL/min/{1.73_m2} - PINF [facility] Comment on above: Estimated Glomerular Filtration Rate (eGFR) is calculated using the 2020 CKD-EPI creatinine equation. This equation utilizes serum creatinine, sex, and age as parameters. The creatinine assay has traceable calibration to isotope dilution-mass spectrometry. Refer to KDIGO guidelines for clinical interpretation. In patients with unstable renal function, e.g. those with acute kidney injury, the eGFR may not accurately reflect actual GFR. Glucose [Mass/Vol] 120 mg/dL High 74 - 99 mg/dL [facility] Comment on above: The [place] Diabete s Association (ADA) provides guidance for cutoff values for fasting glucose and random glucose. The ADA defines fasting as no caloric intake for at least 8 hours. Fasting plasma glucose results between 100 to 125 mg/dL indicate increased risk for diabetes (prediabetes). Fasting plasma glucose results greater than or equal to 126 mg/dL meet the criteria for diagnosis of diabetes. In the absence of unequivocal hyperglycemia, results should be confirmed by repeat testing. In a patient with classic symptoms of hyperglycemia or hyperglycemic crisis, random plasma glucose results greater than or equal to 200 mg/dL meet the criteria for diagnosis of diabetes. Reference: Standards of Medical Care in Diabetes 2016, [place] Diabetes Association. Diabetes Care. 2016.39(Suppl 1). Interpretation and review of laboratory results Abnormal [facility] Potassium [Moles/Vol] 3.6 mmol/L Low 3.7 - 5.1 mmol/L [facility] Protein [Mass/Vol] 6.6 g/dL 6.3 - 8.0 g/dL [facility] Sodium [Moles/Vol] 134 mmol/L Low 136 - 144 mmol/L [facility] Urea nitrogen [Mass/Vol] 8 mg/dL 7 - 21 mg/dL [facility] Comprehensive metabolic 2000 panelon 10-03-2024 Albumin [Mass/Vol] 3.6 g/dL Low 3.9-4.9 [facility] Comment on above: Order Comment: Laurence castellanos Type: BLOOD SPECIMENOrdering Facility: [facility] Address: [address] [place] [address] Performed By: #### 3 084-1, 59076-5 ####[facility] SUKH [facility]ENTERPANDA [id number] [place] [address] [place] ALP [Catalytic activity/Vol] 59 U/L Normal 34-123 [facility] Comment on above: Order Comment: Laurence men Type: BLOOD SPECIMENOrdering Facility: [facility] Address: [address] [place] [address] Performed By: #### 3 084-1, 48324-0 ####[facility] SUKH AISLINNA [id number] [address] [place] ALT [Catalytic activity/Vol] 17 U/L Normal 7-38 [facility] Comment on above: Order Comment: Speci men Type: BLOOD SPECIMENOrdering Facility: [facility] Address: [address] [place] [address] Performed By: #### 3 084-1, 09756-8 ####[facility] NELNCECHOA [id number] [place] [address] [place] Anion gap [Moles/Vol] 13 mmol/L Normal 8-15 [facility] Comment on above: Order Comment: Speci men Type: BLOOD SPECIMENOrdering Facility: [facility] Address: [address] [place] [address] Performed By: #### 3 084-1, 70434-7 ####[facility] MAHENDRAGLIDDENJEDA [id number] [address] [place] AST [Catalytic activity/Vol] 15 U/L Normal 13-35 [facility] Comment on above: Order Comment: Speci men Type: BLOOD SPECIMENOrdering Facility: [facility] Address: [address] [place] [address] Performed By: #### 3 084-1, 17353-0 ####[facility] MAHENDRAGLIDDENNCLIA [id number] [place] [address] [place] Bilirubin [Mass/Vol] 0.9 mg/dL Normal 0.2-1.3 [facility] Comment on above: Order Comment: Speci men Type: BLOOD SPECIMENOrdering Facility: [facility] Address: [address] [place] [address] Performed By: #### 3 084-1, 37770-8 ####[facility] MILLTOWNCLIA [id number] [place] [address] [place] Calcium [Mass/Vol] 8.8 mg/dL Normal 8.5-10.2 [facility] Comment on above: Order Comment: Speci men Type: BLOOD SPECIMENOrdering Facility: [facility] Address: [address] [place] [address] Performed By: #### 3 084-1, 60680-5 ####[facility] MILLWNCLIA [id number] [place] [address] [place] Chloride [Moles/Vol] 103 mmol/L Normal 98-107 [facility] Comment on above: Order Comment: Speci men Type: BLOOD SPECIMENOrdering Facility: [facility] Address: [address] [place] [address] Performed By: #### 3 084-1, 80884-8 ####[facility] [id number] [place] [address] [place] CO2 [Moles/Vol] 18 mmol/L Low 22-30 [facility] Comment on above: Order Comment: Speci men Type: BLOOD SPECIMENOrdering Facility: [facility] Address: [address] [place] [address] Performed By: #### 3 084-1, 63491-3 ####[facility]CL[facility] [id number] [place] [address] [place] Creatinine [Mass/Vol] 0.55 mg/dL Low 0.58-0.96 [facility] Comment on above: Order Comment: Speci men Type: BLOOD SPECIMENOrdering Facility: [facility] Address: [address] [place] [address] Performed By: #### 3 084-1, 64319-3 ####[facility] MILLWNCLIA [id number] [place] [address] [place] Creatinine and Glomerular filtration rate.predicted panel (S/P/Bld) 131 mL/min/1.73m??? Normal >=60 [facility] Comment on above: Order Comment: Laurence castellanos Type: BLOOD SPECIMENOrdering Facility: [facility] Address: [address] [place] [address] Result Comment: Destiny mated Glomerular Filtration Rate (eGFR) is calculated using the 2020 CKD-EPI creatinine equation. This equation utilizes serum creatinine, sex, and age as parameters. The creatinine assay has traceable calibration to isotope dilution-mass spectrometry. Refer to KDIGO guidelines for clinical interpretation. In patients with unstable renal function, e.g. those with acute kidney injury, the eGFR may not accurately reflect actual GFR. Performed By: #### 3 084-1, 75504-5 ####[facility] [id number] [place] [address] [place] Glucose [Mass/Vol] 120 mg/dL High 74-99 [facility] Comment on above: Order Comment: Laurence castellanos Type: BLOOD SPECIMENOrdering Facility: [facility] Address: [address] [place] [address] Result Comment: The [place] Diabetes Association (ADA) provides guidance for cutoff values for fasting glucose and random glucose. The ADA defines fasting as no caloric intake for at least 8 hours. Fasting plasma glucose results between 100 to 125 mg/dL indicate increased risk for diabetes (prediabetes). Fasting plasma glucose results greater than or equal to 126 mg/dL meet the criteria for diagnosis of diabetes. In the absence of unequivocal hyperglycemia, results should be confirmed by repeat testing. In a patient with classic symptoms of hyperglycemia or hyperglycemic crisis, random plasma glucose results greater than or equal to 200 mg/dL meet the criteria for diagnosis of diabetes. Reference: Standards of Medical Care in Diabetes 2016, [place] Diabetes Association. Diabetes Care. 2016.39(Suppl 1). Performed By: #### 3 084-1, 95264-1 ####[facility] [id number] [place] [address] [place] Potassium [Moles/Vol] 3.6 mmol/L Low 3.7-5.1 [facility] Comment on above: Order Comment: Speci men Type: BLOOD SPECIMENOrdering Facility: [facility] Address: [address] [place] [address] Performed By: #### 3 084-1, 96152-5 ####[facility] [id number] [place] [address] [place] Protein [Mass/Vol] 6.6 g/dL Normal 6.3-8.0 [facility] Comment on above: Order Comment: Speci men Type: BLOOD SPECIMENOrdering Facility: [facility] Address: [address] [place] [address] Performed By: #### 3 084-1, 93660-5 ####[facility] [id number] [place] [address] [place] Sodium [Moles/Vol] 134 mmol/L Low 136-144 [facility] Comment on above: Order Comment: Speci men Type: BLOOD SPECIMENOrdering Facility: [facility] Address: [address] [place] [address] Performed By: #### 3 084-1, 70790-1 ####[facility] ERPANDA [id number] [place] [address] [place] Urea nitrogen [Mass/Vol] 8 mg/dL Normal 7-21 [facility] Comment on above: Order Comment: Speci men Type: BLOOD SPECIMENOrdering Facility: [facility] Address: [address] [place] [address] Performed By: #### 3 084-1, 30533-3 ####[facility] ERNCLIA [id number] [place] [address] [place] GESTATIONAL GLUCOSE SCREEN, 1-HOUR, 50 GRAM, NON-FASTINGon 10-03-2024 Glucose [Mass/Vol] 127 mg/dL Normal 74-134 [facility] Comment on above: Order Comment: Speci men Type: BLOOD SPECIMENOrdering Facility: [facility] Address: [address] [id number] Result Comment: [facility] Congress of Obstetricians and Gynecologists (Chanel/Lila) guidelines state a gestational diabetes mellitus positive screen is made, in women not previously diagnosed with overt diabetes, when the 1 hr plasma glucose level is equal to or above 140 mg/dL. The [facility] Commodity Director and [facility] [place] recommends a 135 mg/dL cutoff. Performed By: #### G LTGST ####[facility] [id number] [place] [address] [place] No Panel InformationOrdered By: Marah Damon on 10-03-2024 [facility] Prot/Creat Uron 10-03-2024 Protein/Creatinine (U) [Mass ratio] mg/g High <0.15 [facility] Comment on above: Order Comment: Speci men Type: URINE SPECIMENOrdering Facility: [facility] Address: [address] [place] [address] Result Comment: Adul t Proteinuria Categories: <0.15 mg/mg is considered normal to mildly increased 0.15 - 0.50 mg/mg is considered moderately increased >0.50 mg/mg is considered severely increased KDIGO. (2013). KDIGO 2012 Clinical Practice Guideline for the Evaluation and Management of Chronic Kidney Disease. Official Journal of the International Society of Nephrology, 3(1), 1-150. Performed By: #### 2 890-2 ####[facility] LABCLIA [id number] [place] [address] [place] Protein/Creatinine (U) [Mass ratio]on 10-03-2024 Creatinine (U) [Mass/Vol] 10.1 mg/dL Low 20.0-300.0 [facility] Comment on above: Order Comment: Speci men Type: URINE SPECIMENOrdering Facility: [facility] Address: [address] [place] [address] Performed By: #### 2 890-2 ####[facility] LABIA [id number] [place] [id number] [place] Protein (U) [Mass/Vol] mg/dL Normal 0-20 [facility] Comment on above: Order Comment: Speci men Type: URINE SPECIMENOrdering Facility: [facility] Address: [address] [place] [address] Performed By: #### 2 890-2 ####[facility] LABIA [id number] [place] [id number] [place] Reagin and Treponema pallidu m IgG and IgM [Interp]on 10-03-2024 T. pallidum IgG+IgM IA Ql (S) Non-Reactive Normal Nonreactive [facility] Comment on above: Order Comment: Speci men Type: BLOOD SPECIMENOrdering Facility: [facility] Address: [address] [place] [address] Performed By: #### 7 3752-8 ####[facility] [id number] [place] [address] [place] Reagin+T pallidum IgG+IgM Se rPl-Impon 10-03-2024 Reagin and Treponema pallidum IgG and IgM [Interp] Cannot exclude recent Treponemal infection if specimen collected within 7-10 days after appearance of suspect lesions or 2-3 weeks after an exposure. Clinical correlation is required. Normal [facility] Comment on above: Order Comment: Speci men Type: BLOOD SPECIMENOrdering Facility: [facility] Address: [address] [place] [address] Performed By: #### 7 3752-8 ####[facility] [id number] [place] [id number] [place] URIC ACIDon 10-03-2024 Urate [Mass/Vol] 3.5 mg/dL 2.5 - 6.6 mg/dL [facility] Urate SerPl-mCncon Urate [Mass/Vol] 3.5 mg/dL Normal 2.5-6.6 [facility] Comment on above: Order Comment: Speci men Type: BLOOD SPECIMENOrdering Facility: [facility] Address: [address] [place] [address] Performed By: #### 3 084-1, 32805-9 ####[facility] [id number] [address] [place] Urate [Mass/Vol]on 5 Interpretation and review of laboratory results Normal [facility] Absolute lymphocyte countOrd ered By: Libby Bob on 09-28-2024 Lymphocytes Auto (Unsp spec) [#/Vol] 0.62 10*3/uL Low 0.83-4.51 [facility] Absolute neutrophil countOrd ered By: Libby Bob on 09-28-2024 Neutrophils (Bld) [#/Vol] 9.1 10*3/uL High 2.0-7.7 [facility] Anion gap in Serum or Plasma Ordered By: Libby Bob on 09-28-2024 Anion gap [Moles/Vol] 10 mmol/L 5-15 [facility] Automated lymphocyte count a s percentage of total leukocytesOrdered By: Libby Bob on 09-28-2024 Lymphocytes/100 WBC Auto (Unsp spec) 5.7 % Low 19-41 [facility] BUN/creatinine ratioOrdered By: Libby Bob on 09-28-2024 Urea nitrogen/Creatinine [Mass ratio] 14.3 mg/mg 10-20 [facility] Basophil percentageOrdered B y: Libby Bob on 09-28-2024 Basophils/100 WBC (Bld) 0.2 % 0-1 [facility] Bilirubin, totalOrdered By: Libby Bob on 09-28-2024 Bilirubin [Mass/Vol] 0.65 mg/dL 0.00-1.30 [facility] CBC W/Diff, Automatedon Absolute Lymph 0.62 X10 3/uL Low 0.83-4.51 [facility] Comment on above: Performed By: #### L 100.0100 #### [facility] [address] [place], [address] Absolute Neut 9.1 X10 3/uL High 2.0-7.7 [facility] Comment on above: Performed By: #### L 100.0100 #### [facility] [address] [place], [address] Basophils/100 WBC (Bld) 0.2 % Normal 0-1 [facility] Comment on above: Performed By: #### L 100.0100 #### [facility] [address] [place], [address] Eosinophils/100 WBC (Bld) 0.1 % Normal 0-5 [facility] Comment on above: Performed By: #### L 100.0100 #### [facility] [address] [place], [address] Erythrocyte distribution width (RBC) [Ratio] 12.0 % Normal 11.6-14.6 [facility] Comment on above: Performed By: #### L 100.0100 #### [facility] [address] [place], [address] Hematocrit (Bld) [Volume fraction] 33.6 % Low 37-47 [facility] Comment on above: Performed By: #### L 100.0100 #### [facility] [address] [place], [address] Hemoglobin (Bld) [Mass/Vol] 11.9 g/dL Low 12.0-15.0 [facility] Comment on above: Performed By: #### L 100.0100 #### [facility] [address] [place], [address] IG% 0.700 Normal 0.0-0.9 [facility] Comment on above: Result Comment: IG% - Immature Granulocytes (promyelocytes, myelocytes and metamyelocytes) > 1% indicates that a LEFT SHIFT is Present. Performed By: #### L 100.0100 #### [facility] [address] [place], [address] Lymphocytes/100 WBC (Bld) 5.7 % Low 19-41 [facility] Comment on above: Performed By: #### L 100.0100 #### [facility] [address] [place], [address] MCH (RBC) [Entitic mass] 30.4 pg Normal 27.0-32.0 [facility] Comment on above: Performed By: #### L 100.0100 #### [facility] [address] [place], [address] MCHC (RBC) [Mass/Vol] 35.4 g/dL Normal 32-36 [facility] Comment on above: Performed By: #### L 100.0100 #### [facility] [address] [place], [address] MCV (RBC) [Entitic vol] 85.7 fL Normal 81-99 [facility] Comment on above: Performed By: #### L 100.0100 #### [facility] [address] [place], [address] Monocytes/100 WBC (Bld) 9.3 % Normal 0-10 [facility] Comment on above: Performed By: #### L 100.0100 #### [facility] [address] [place], [address] Neutrophils/100 WBC (Bld) 84.0 % High 47-70 [facility] Comment on above: Performed By: #### L 100.0100 #### [facility] [address] [place], [address] Nucleated RBC (Bld) [#/Vol] 0 10*3/uL Normal 0-5 [facility] Comment on above: Performed By: #### L 100.0100 #### [facility] [address] [place], [address] Platelet mean volume (Bld) [Entitic vol] 10.0 fL Normal 6.2-12.0 [facility] Comment on above: Performed By: #### L 100.0100 #### [facility] [address] [place], [address] Platelets (Bld) [#/Vol] 179 10*3/uL Normal 150-450 [facility] Comment on above: Performed By: #### L 100.0100 #### [facility] [address] [place], [address] RBC (Bld) [#/Vol] 3.92 10*6/uL Low 4.2-5.4 [facility] Comment on above: Performed By: #### L 100.0100 #### [facility] [address] [place], [address] RDW SD 37.7 fl Normal 35.1-43.9 [facility] Comment on above: Performed By: #### L 100.0100 #### [facility] [address] [place], [address] WBC (Bld) [#/Vol] 10.8 10*3/uL Normal 4.4-11.0 [facility] Comment on above: Performed By: #### L 100.0100 #### [facility] [address] [place], [address] Jose 09-28-2024 ESTEPHANIA Telephone (OBGYW) ----- CUTLIPTALI ([id number]) 89 F Date Time Provider Department 09/28/24 LIBBY BOB During your visit today, we recorded the following information about you: Trinity Ortiz, MAURO 09/28/2024 8:27 AM Signed 27w4d Patient called with c/o tachycardia and elevated BP. 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 She checked her watch and at it's peak it was 164. Currently 125-130. BP 148/84 checked by a coworker. Patient denies SOB and CP. States she is on her way to the ER with her mom. Has anxiety and takes Zoloft. Took it this AM. No panic or anxiety attacks yet this . She felt nauseated and hot when it happened. Ate a banana with peanut butter and marshallese toast sticks this morning. MAURO Griffith Jennifer, RN 09/28/2024 4:56 PM Signed Patient was seen at [facility]. Trinity Ortiz RN Allergies As of Date: 09/28/2024 Noted Allergy Reaction LEXAPRO (ESCITALOPRAM) 11/24/2022 14 - Other: See Comments Comments: Sleeping difficulty Date Reviewed: 09/05/2024 Reviewed by: Kelly Minor MA - Fully Assessed Reason for Visit: OB Tachycardia [Other] Prescriptions as of 10/01/2024 - famotidine (PEPCID) 20 mg tablet Take 1 tablet by mouth at bedtime as needed. - sertraline (ZOLOFT) 50 mg tablet TAKE 1 TABLET BY MOUTH EVERY DAY - aspirin, enteric coated (ECOTRIN LOW STRENGTH) 81 mg EC tablet Take 1 tablet by mouth once daily. - vit37/iron/folic acid (PRENATA ORAL) Take 2 capsules by mouth once daily. 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 PAIN IN LIMB [M79.609] 10/07/2008 Congenital Pes Planus [Q66.50] 01/21/2010 Acid reflux [K21.9] 11/19/2018 Anxiety and depression [F41.9, F32.A] Encounter for supervision of normal first pregn*05/09/2024 Anxiety [F41.9] 05/09/2024 Nausea [R11.0] 05/09/2024 07/11/2024 Encounter Status:Closed by ESTHER RECINOS on 10/01/24 Normal [facility] Carbon dioxide, total [Moles /volume] in Central venous bloodOrdered By: Libby Bob on 09-28-2024 CO2 [Moles/Vol] 18.6 mmol/L Low 21.0-32.0 [facility] Chloride assayOrdered By: Brett Bob on 09-28-2024 Chloride [Moles/Vol] 104 mmol/L 98-108 [facility] Comprehensive Metabolic Prof ilon 09-28-2024 Albumin [Mass/Vol] 3.6 g/dL Normal 3.5-5.0 [facility] Comment on above: Performed By: #### L 500.4050 #### [facility] [address] [place], [address] Albumin/Globulin [Mass ratio] 1.3 {ratio} Normal 0.9-2.4 [facility] Comment on above: Performed By: #### L 500.4050 #### [facility] [address] [place], [address] ALK PHOS 54 U/L Normal 35-104 [facility] Comment on above: Performed By: #### L 500.4050 #### [facility] [address] [place], [address] ALT [Catalytic activity/Vol] 15 U/L Normal <=34 [facility] Comment on above: Performed By: #### L 500.4050 #### [facility] [address] [place], [address] AST [Catalytic activity/Vol] 18 U/L Normal <=31 [facility] Comment on above: Performed By: #### L 500.4050 #### [facility] [address] [place], [address] Bilirubin [Mass/Vol] 0.65 mg/dL Normal 0.00-1.30 [facility] Comment on above: Performed By: #### L 500.4050 #### [facility] [address] [place], [address] BUN/CRE 14.3 RATIO Normal 10-20 [facility] Comment on above: Performed By: #### L 500.4050 #### [facility] [address] [place], [address] Calcium [Mass/Vol] 8.9 mg/dL Normal 7.6-11.0 [facility] Comment on above: Performed By: #### L 500.4050 #### [facility] [address] [place], [address] Chloride [Moles/Vol] 104 mmol/L Normal 98-108 [facility] Comment on above: Performed By: #### L 500.4050 #### [facility] [address] [place], [address] CO2 [Moles/Vol] 18.6 mmol/L Low 21.0-32.0 [facility] Comment on above: Performed By: #### L 500.4050 #### [facility] [address] [place], [address] Creatinine [Mass/Vol] 0.48 mg/dL Low 0.70-1.20 [facility] Comment on above: Performed By: #### L 500.4050 #### [facility] [address] [place], [address] ECRCL 178.02 ml/min Normal 50-250 [facility] Comment on above: Performed By: #### L 500.4050 #### [facility] [address] [place], [address] GAP 10 Normal 5-15 [facility] Comment on above: Performed By: #### L 500.4050 #### [facility] [address] [place], [address] GFR/1.73 sq M.predicted among non-blacks MDRD (S/P/Bld) [Vol rate/Area] 135 mL/min/{1.73_m2} Normal >60 [facility] Comment on above: Result Comment: mL/m in/1.73m2 CKD-EPI Creatinine Equation (2020) Performed By: #### L 500.4050 #### [facility] [address] [place], [address] Globulin (S) [Mass/Vol] 2.8 g/dL Normal 2.2-4.2 [facility] Comment on above: Performed By: #### L 500.4050 #### [facility] [address] [place], [address] Glucose [Mass/Vol] 101 mg/dL High 70-99 [facility] Comment on above: Performed By: #### L 500.4050 #### [facility] [address] [place], [address] Potassium [Moles/Vol] 3.6 mmol/L Normal 3.3-5.1 [facility] Comment on above: Performed By: #### L 500.4050 #### [facility] [address] [place], [address] Sodium [Moles/Vol] 133 mmol/L Normal 133-145 [facility] Comment on above: Performed By: #### L 500.4050 #### [facility] [address] [place], [address] T PROT 6.4 g/dL Normal 5.9-8.4 [facility] Comment on above: Performed By: #### L 500.4050 #### [facility] [address] [place], [address] Urea nitrogen [Mass/Vol] 7 mg/dL Normal 4-19 [facility] Comment on above: Performed By: #### L 500.4050 #### [facility] [address] [place], [address] Eosinophil percentageOrdered By: Libby Bob on 09-28-2024 Eosinophils/100 WBC (Bld) 0.1 % 0-5 [facility] Erythrocyte distribution wid th ratioOrdered By: Libby Bob on 09-28-2024 Erythrocyte distribution width (RBC) [Ratio] 12.0 % 11.6-14.6 [facility] Erythrocyte distribution wid th standard deviationOrdered By: Libby Bob on 09-28-2024 Erythrocyte distribution width (RBC) [Ratio] 37.7 fl 35.1-43.9 [facility] Glomerular filtration rate ( GFR) estimation/1.73 sq m using serum, plasma, or whole bOrdered By: Libby Bob on 09-28-2024 GFR/1.73 sq M.predicted among non-blacks MDRD (S/P/Bld) [Vol rate/Area] 135 mL/min/{1.73_m2} >60 [facility] Comment on above: mL/min/1.73m2 CKD-EP I Creatinine Equation (2020) Hematocrit Auto (Bld) [Volum e fraction]Ordered By: Libby Bob on 09-28-2024 Hematocrit (Bld) [Volume fraction] 33.6 % Low 37-47 [facility] Hemoglobin measurementOrdere d By: Libby Bob on 09-28-2024 Hemoglobin (Bld) [Mass/Vol] 11.9 g/dL Low 12.0-15.0 [facility] Immature granulocytes/100 WB C Auto (Bld)Ordered By: Libby Bob on 09-28-2024 Immature granulocytes/100 WBC (Bld) 0.700 % 0.0-0.9 [facility] Comment on above: IG% - Immature Granu locytes (promyelocytes, myelocytes and metamyelocytes) > 1% indicates that a LEFT SHIFT is Present. Laboratory - Chemistry and C hemistry - challengeOrdered By: Libby Bob on 09-28-2024 AST [Catalytic activity/Vol] 18 U/L <32 [facility] MCV (mean corpuscular volume ) determinationOrdered By: Libby Bob on 09-28-2024 MCV (RBC) [Entitic vol] 85.7 fL 81-99 [facility] Mean corpuscular hemoglobin (MCH) determinationOrdered By: Libby Bob on 09-28-2024 MCH (RBC) [Entitic mass] 30.4 pg 27.0-32.0 [facility] Mean corpuscular hemoglobin concentration (MCHC) determinationOrdered By: Libby Bob on 09-28-2024 MCHC (RBC) [Mass/Vol] 35.4 g/dL 32-36 [facility] Mean platelet volume determi nationOrdered By: Libby Bob on 09-28-2024 Platelet mean volume (Bld) [Entitic vol] 10.0 fL 6.2-12.0 [facility] Monocyte percentageOrdered B y: Libby Bob on 09-28-2024 Monocytes/100 WBC (Bld) 9.3 % 0-10 [facility] Neutrophil percentageOrdered By: Libby Bob on 09-28-2024 Neutrophils/100 WBC (Bld) 84.0 % High 47-70 [facility] Nucleated red blood cell per centageOrdered By: Libby Bob on 09-28-2024 Nucleated RBC/100 WBC (Bld) [Ratio] 0 % 0-5 [facility] Platelet countOrdered By: Brett Bob on 09-28-2024 Platelets (Bld) [#/Vol] 179 10*3/uL 150-450 [facility] Potassium measurement (mass/ volume)Ordered By: Libby Bob on 09-28-2024 Potassium (Unsp spec) [Mass/Vol] 3.6 mmol/L 3.3-5.1 [facility] RBC Auto (Bld) [#/Vol]Ordere d By: Libby Bob on 09-28-2024 RBC (Bld) [#/Vol] 3.92 10*6/uL Low 4.2-5.4 [facility] Serum creatinine measurement (mass/volume)Ordered By: Libby Bob on 09-28-2024 Creatinine [Mass/Vol] 0.48 mg/dL Low 0.70-1.20 [facility] Serum globulin measurementOr dered By: Libby Bob on 09-28-2024 Globulin (S) [Mass/Vol] 2.8 g/dL 2.2-4.2 [facility] Serum glucose measurement (m ass/volume)Ordered By: Libby Bob on 09-28-2024 Glucose [Mass/Vol] 101 mg/dL High 70-99 [facility] Serum or plasma alanine valdes otransferase (ALT) measurementOrdered By: Libby Bob on 09-28-2024 ALT [Catalytic activity/Vol] 15 U/L <35 [facility] Serum or plasma albumin thomas urement (mass/volume)Ordered By: Libby Bob on 09-28-2024 Albumin [Mass/Vol] 3.6 g/dL 3.5-5.0 [facility] Serum or plasma albumin/glob ulin mass ratioOrdered By: Libby Bob on 09-28-2024 Albumin/Globulin [Mass ratio] 1.3 {ratio} 0.9-2.4 [facility] Serum or plasma alkaline [place] sphatase measurementOrdered By: Libby Bob on 09-28-2024 ALP [Catalytic activity/Vol] 54 U/L 35-104 [facility] Serum or plasma calcium thomas urement (mass/volume)Ordered By: Libby Bob on 09-28-2024 Calcium [Mass/Vol] 8.9 mg/dL 7.6-11.0 [facility] Serum or plasma urea nitroge n measurement (mass/volume)Ordered By: Libby Bob on 09-28-2024 Urea nitrogen [Mass/Vol] 7 mg/dL 4-19 [facility] Sodium levelOrdered By: Brenda Bob on 09-28-2024 Sodium [Moles/Vol] 133 mmol/L 133-145 [facility] Total proteinOrdered By: Toña Bob on 09-28-2024 Protein [Mass/Vol] 6.4 g/dL 5.9-8.4 [facility] White blood cell (WBC) count Ordered By: Libby Bob on 09-28-2024 WBC (Bld) [#/Vol] 10.8 10*3/uL 4.4-11.0 [facility] Examination level ultrasound on 08-08-2024 Indication Standard anatomic survey Impression REMOTE READ The patient is referred for a standard anatomic survey. - Single, live, intrauterine . - biometry is consistent with the established gestational age. - No malformations were visualized on a complete standard anatomic survey. - The amniotic fluid volume is normal amount. - The placenta is anterior, fundal. - The Transabdominal cervical length measures 32.9 mm with no evidence of funneling or other dynamic changes. - Not all structural malformations can be detected by ultrasound examination. Recommendations Additional follow-up as clinically indicated. Maternal Assessment Height 160 cm Height (ft) 5 ft Height (in) 3 in Physical Exam Initial weight (lb) 157 lb Initial BMI 27.81 kg/m Maternal assessment other: 1 Para 0 Method Transabdominal ultrasound examination. View: Adequate visualization Dodson . Number of fetuses: 1 Dating LMP on: 03/19/2024 GA by LMP 20 w + 2 d VIKTOR by LMP: 12/24/2024 GA by prior assessment 20 w + 2 d VIKTOR by prior assessment: 12/24/2024 Ultrasound examination on: 08/08/2024 GA by U/S based upon: AC, BPD, Femur, HC GA by U/S 20 w + 1 d VIKTOR by U/S: 12/25/2024 Assigned: based on stated VIKTOR, selected on 08/08/2024 Assigned GA 20 w + 2 d Assigned VIKTOR: 12/24/2024 General Evaluation Cardiac activity present. FHR 140 bpm. movements: present. Presentation: breech Placenta: Placental site: anterior, fundal Umbilical cord: Cord vessels: 3 vessel cord Amniotic fluid: Amount of AF: normal amount. MVP 5.8 cm Growth Overview Exam date GA BPD (mm) HC (mm) AC (mm) FL (mm) HL (mm) EFW (g) 08/08/2024 20w 2d 46.2 36% 172.2 34% 153.6 53% 32.2 55% 31.7 64% 339 40% Biometry Standard BPD 46.2 mm 20w 0d 36% Hadlock OFD 61.6 mm 19w 6d 51% Nicolaides HC 172.2 mm 19w 5d 34% Chloe Cerebellum tr 21.0 mm 20w 0d 61% Hill Nuchal fold 4.4 mm AC 153.6 mm 20w 4d 53% Hadlock Femur 32.2 mm 20w 1d 55% Chloe Humerus 31.7 mm 20w 4d 64% Chloe EFW 339 g 20w 1d 40% Hadlock EFW (lb) 0 lb EFW (oz) 12 oz EFW by: Hadlock (HC-AC-FL) Extended [employer] Upholsterer 5.8 mm CM 5.0 mm 49% Nicolaides Extremities / Bony Struc FL / HC 0.19 58% Hadlock Other Structures FHR 140 bpm Anatomy Cranium: normal Lateral ventricles: normal Choroid plexus: normal Midline falx: normal Cavum septi pellucidi: normal Cerebellum: normal Cisterna magna: normal Head / Neck Vermis: Normal but not required for a standard anatomy exam Neck: Normal but not required for a standard anatomy exam Nuchal fold: Normal but not required for a standard anatomy exam Lips: normal Profile: Normal but not required for a standard anatomy exam Nose: Normal but not required for a standard anatomy exam Face Maxilla: Normal but not required for a standard anatomy exam Mandible: Normal but not required for a standard anatomy exam Orbits: Normal but not required for a standard anatomy exam Lens: Normal but not required for a standard anatomy exam 4-chamber view: normal RVOT view: normal LVOT view: normal 3-vessel view: normal 2-cthwnr-dqrcvyw view: normal Heart / Thorax Situs: situs solitus (normal) Aortic arch view: Normal but not required for a standard anatomy exam SVC: Normal but not required for a standard anatomy exam IVC: Normal but not required for a standard anatomy exam Cardiac axis: normal Rt lung: Normal but not required for a standard anatomy exam Lt lung: Normal but not required for a standard anatomy exam Diaphragm: Normal but not required for a standard anatomy exam Cord insertion: normal Stomach: normal Kidneys: normal Bladder: normal Genitals: normal Abdomen Abdom. wall: normal Cervical spine: normal Thoracic spine: normal Lumbar spine: normal Sacral spine: normal Arms: normal Legs: normal Rt upper arm: normal Rt forearm: normal Rt hand: normal Rt fingers: normal Lt upper arm: normal Lt forearm: normal Lt hand: normal Lt fingers: normal Rt upper leg: normal Rt lower leg: normal Rt foot: normal Lt upper leg: normal Lt lower leg: normal Lt foot: normal sex: female Wants to know sex: yes Maternal Structures Uterus / Cervix Uterus: Visualized Cervix: Visualized Approach: Transabdominal Cervical length 32.9 mm Other: Patient declined transvaginal ultrasound for cervical length. Ovaries / Tubes / Adnexa Rt ovary: Not visualized Lt ovary: Not visualized Performed By: Lanny Santoyo, SHAUN, RVT Read By: Reshma Lentz M.D. MATERNAL MEDICINE [facility] Radiology Study observation (narrative) [facility] CBC W Auto Differential pane l (Bld)on 06-13-2024 Basophils (Bld) [#/Vol] 10*3/uL Normal <0.11 [facility] Comment on above: Order Comment: Speci men Type: BLOOD SPECIMENOrdering Facility: [facility] Address: [address] [place] [address] Performed By: #### 5 7021-8 ####[facility] [id number] [place] [address] [place] Basophils/100 WBC (Bld) 0.2 % Normal [facility] Comment on above: Order Comment: Speci men Type: BLOOD SPECIMENOrdering Facility: [facility] Address: [address] [place] [address] Performed By: #### 5 7021-8 ####[facility] [id number] [place] [address] [place] Differential cell count method Nom (Bld) Auto Normal [facility] Comment on above: Order Comment: Speci men Type: BLOOD SPECIMENOrdering Facility: [facility] Address: [address] [place] [address] Performed By: #### 5 7021-8 ####[facility] ERNCA [id number] [place] [address] [place] Eosinophils (Bld) [#/Vol] 0.06 10*3/uL Normal <0.46 [facility] Comment on above: Order Comment: Speci men Type: BLOOD SPECIMENOrdering Facility: [facility] Address: [address] [place] [address] Performed By: #### 5 7021-8 ####[facility] MAHENDRAJILLIAN [id number] [place] [address] [place] Eosinophils/100 WBC (Bld) 0.5 % Normal [facility] Comment on above: Order Comment: Speci men Type: BLOOD SPECIMENOrdering Facility: [facility] Address: [address] [place] [address] Performed By: #### 5 7021-8 ####[facility] ERNCNEL [id number] [place] [address] [place] Erythrocyte distribution width (RBC) [Ratio] 12.0 % Normal 11.5-15.0 [facility] Comment on above: Order Comment: Speci men Type: BLOOD SPECIMENOrdering Facility: [facility] Address: [address] [place] [address] Performed By: #### 5 7021-8 ####[facility] ERJEDA [id number] [place] [address] [place] Hematocrit (Bld) [Volume fraction] 38.1 % Normal 36.0-46.0 [facility] Comment on above: Order Comment: Speci men Type: BLOOD SPECIMENOrdering Facility: [facility] Address: [address] [place] [address] Performed By: #### 5 7021-8 ####[facility] ERNCLIA [id number] [place] [address] [place] Hemoglobin (Bld) [Mass/Vol] 13.7 g/dL Normal 11.5-15.5 [facility] Comment on above: Order Comment: Speci men Type: BLOOD SPECIMENOrdering Facility: [facility] Address: [address] [place] [address] Performed By: #### 5 7021-8 ####[facility] MILLWNCLIA [id number] [place] [address] [place] Immature granulocytes (Bld) [#/Vol] 0.05 10*3/uL Normal <0.10 [facility] Comment on above: Order Comment: Speci men Type: BLOOD SPECIMENOrdering Facility: [facility] Address: [address] [place] [address] Performed By: #### 5 7021-8 ####[facility] [id number] [place] [address] [place] Immature granulocytes/100 WBC (Bld) 0.4 % Normal [facility] Comment on above: Order Comment: Speci men Type: BLOOD SPECIMENOrdering Facility: [facility] Address: [address] [place] [address] Performed By: #### 5 7021-8 ####[facility] [id number] [place] [address] [place] Lymphocytes (Bld) [#/Vol] 2.38 10*3/uL Normal 1.00-4.00 [facility] Comment on above: Order Comment: Speci men Type: BLOOD SPECIMENOrdering Facility: [facility] Address: [address] [place] [address] Performed By: #### 5 7021-8 ####[facility] [id number] [place] [address] [place] Lymphocytes/100 WBC (Bld) 18.2 % Normal [facility] Comment on above: Order Comment: Speci men Type: BLOOD SPECIMENOrdering Facility: [facility] Address: [address] [place] [address] Performed By: #### 5 7021-8 ####[facility] [id number] [place] [address] [place] MCH (RBC) [Entitic mass] 30.2 pg Normal 26.0-34.0 [facility] Comment on above: Order Comment: Speci men Type: BLOOD SPECIMENOrdering Facility: [facility] Address: [address] [place] [address] Performed By: #### 5 7021-8 ####[facility]NCS[facility] [id number] [place] [address] [place] MCHC (RBC) [Mass/Vol] 36.0 g/dL Normal 30.5-36.0 [facility] Comment on above: Order Comment: Speci men Type: BLOOD SPECIMENOrdering Facility: [facility] Address: [address] [place] [address] Performed By: #### 5 7021-8 ####[facility] ERNCS[facility] [id number] [place] [address] [place] MCV (RBC) [Entitic vol] 84.1 fL Normal 80.0-100.0 [facility] Comment on above: Order Comment: Speci men Type: BLOOD SPECIMENOrdering Facility: [facility] Address: [address] [place] [address] Performed By: #### 5 7021-8 ####[facility] [id number] [place] [address] [place] Monocytes (Bld) [#/Vol] 0.98 10*3/uL High <0.87 [facility] Comment on above: Order Comment: Speci men Type: BLOOD SPECIMENOrdering Facility: [facility] Address: [address] [place], [place] [address] Performed By: #### 5 7021-8 ####[facility] [id number] [place] [address] [place] Monocytes/100 WBC (Bld) 7.5 % Normal [facility] Comment on above: Order Comment: Speci men Type: BLOOD SPECIMENOrdering Facility: [facility] Address: [address] [place] [address] Performed By: #### 5 7021-8 ####[facility] [id number] [place] [address] [place] Neutrophils (Bld) [#/Vol] 9.58 10*3/uL High 1.45-7.50 [facility] Comment on above: Order Comment: Speci men Type: BLOOD SPECIMENOrdering Facility: [facility] Address: [address] [place] [address] Performed By: #### 5 7021-8 ####[facility] [id number] [place] [address] [place] Neutrophils/100 WBC (Bld) 73.2 % Normal [facility] Comment on above: Order Comment: Speci men Type: BLOOD SPECIMENOrdering Facility: [facility] Address: [address] [place] [address] Performed By: #### 5 7021-8 ####[facility] [id number] [place] [address] [place] Nucleated RBC (Bld) [#/Vol] 10*3/uL Normal <0.01 [facility] Comment on above: Order Comment: Speci men Type: BLOOD SPECIMENOrdering Facility: [facility] Address: [address] [place] [address] Performed By: #### 5 7021-8 ####[facility] [id number] [place] [address] [place] Nucleated RBC/100 WBC (Bld) [Ratio] 0.0 /100 WBC Normal [facility] Comment on above: Order Comment: Speci men Type: BLOOD SPECIMENOrdering Facility: [facility] Address: [address] [place] [address] Performed By: #### 5 7021-8 ####[facility] [id number] [place] [address] [place] Platelet mean volume (Bld) [Entitic vol] 10.3 fL Normal 9.0-12.7 [facility] Comment on above: Order Comment: Speci men Type: BLOOD SPECIMENOrdering Facility: [facility] Address: [address] [place] [address] Performed By: #### 5 7021-8 ####[facility] MAHENDRAGLIDDENJEDA [id number] [place] [address] [place] Platelets (Bld) [#/Vol] 217 10*3/uL Normal 150-400 [facility] Comment on above: Order Comment: Speci men Type: BLOOD SPECIMENOrdering Facility: [facility] Address: [address] [place] [address] Performed By: #### 5 7021-8 ####[facility] [id number] [place] [address] [place] RBC (Bld) [#/Vol] 4.53 10*6/uL Normal 3.90-5.20 [facility] Comment on above: Order Comment: Speci men Type: BLOOD SPECIMENOrdering Facility: [facility] Address: [address] [place] [address] Performed By: #### 5 7021-8 ####[facility] ERKAYLINLIA [id number] [place] [address] [place] WBC (Bld) [#/Vol] 13.07 10*3/uL High 3.70-11.00 [facility] Comment on above: Order Comment: Speci men Type: BLOOD SPECIMENOrdering Facility: [facility] Address: [address] [place] [address] Performed By: #### 5 7021-8 ####[facility] ERNCLIA [id number] [place] [address] [place] nuchal translucency me asured by USon 06-13-2024 Indication First trimester anatomic survey Impression REMOTE READ The patient is referred for a first trimester anatomy scan including nuchal translucency measurement as clinically indicated. - Single, live, intrauterine . - Madison rump length measurement is consistent with the established gestational age. - A qualitative screen of the nuchal translucency and other anatomic structures was unremarkable on an incomplete first trimester anatomic assessment. - Not all structural malformations can be detected by ultrasound examination. Maternal Structures: Right Ovary: Size 34 mm x 21 mm x 16 mm Left Ovary: Size 35 mm x 37 mm x 25 mm Recommendations Return for anatomy ultrasound Maternal Assessment Height 160 cm Height (ft) 5 ft Height (in) 3 in Physical Exam Initial weight (lb) 157 lb Initial BMI 27.81 kg/m Maternal assessment other: 1 Para 0 Method Transabdominal ultrasound examination Dodson . Number of fetuses: 1 Dating LMP on: 03/19/2024 GA by LMP 12 w + 2 d VIKTOR by LMP: 12/24/2024 GA by prior assessment 12 w + 2 d VIKTOR by prior assessment: 12/24/2024 Ultrasound examination on: 06/13/2024 GA by U/S based upon: CRL GA by U/S 12 w + 6 d VIKTOR by U/S: 12/20/2024 Assigned: based on stated VIKTOR, selected on 06/13/2024 Assigned GA 12 w + 2 d Assigned VIKTOR: 12/24/2024 General Evaluation Cardiac activity present Placenta: anterior Cord vessels: 3 vessel cord Amniotic fluid: normal amount Biometry Standard FHR 163 bpm CRL 65.8 mm 12w 6d 84% Hadlock First Trimester Anatomy Calvarium: normal Falx cerebri: normal Choroid plexus: visualized Profile: suboptimal Nasal bone: normal Retronasal triangle: normal Maxilla: normal Mandible: normal Nuchal translucency: Unremarkable Situs: normal Cardiac position: normal Cardiac axis: normal 4-chamber view: suboptimal 4-chamber view with color: suboptimal 3-pufveo-rgqfnoo view: suboptimal Abdominal cord insertion: normal Stomach: normal Kidneys: suboptimal Bladder: normal Color doppler of perivesical umbilical arteries: normal Vertebral alignment: normal Arms: normal Hands: normal Legs: normal Feet: normal Maternal Structures Uterus / Cervix Uterus: Visualized Uterus length 109 mm Uterus width 115 mm Uterus height 68 mm Uterus Vol 442.3 cm Ovaries / Tubes / Adnexa Rt ovary: Visualized Rt ovary D1 34 mm Rt ovary D2 21 mm Rt ovary D3 16 mm Rt ovary Vol 6.0 cm Lt ovary: Visualized Lt ovary D1 35 mm Lt ovary D2 37 mm Lt ovary D3 25 mm Lt ovary Vol 16.5 cm Performed By: Lanny Santoyo, SHAUN, RVT Read By: Reshma Lentz M.D. MATERNAL MEDICINE [facility] Radiology Study observation (narrative) [facility] HBV surface Ag Ser Qlon 05-24 HBV surface Ag Ql (S) Negative Normal Negative [facility] Comment on above: Order Comment: Speci men Type: BLOOD SPECIMENOrdering Facility: [facility] Address: [address] [place] [address] Performed By: #### 7 3752-8, 66569-4, 5195-3 ####[facility]ITAL[facility] [id number] [place] [address] [place] HCV Ab Ser Qlon 06-13-2024 HCV Ab Ql (S) Negative Normal Negative [facility] Comment on above: Order Comment: Speci men Type: BLOOD SPECIMENOrdering Facility: [facility] Address: [address] [place] [address] Result Comment: The result suggests no evidence of active infection with Hepatitis C virus. Should recent infection be suspected, repeat testing may be considered 4-6 weeks after this draw. Performed By: #### 1 6128-1 ####[facility] LABIA [id number] [place] [address] [place] HIV 1+2 Ab IA Qlon HIV 1 and 2 Ab IA.rapid Nom (S/P/Bld) Normal [facility] Comment on above: Order Comment: Speci men Type: BLOOD SPECIMENOrdering Facility: [facility] Address: [address] [place] [address] Result Comment: Test not indicated. Performed By: #### 7 3752-8, 15593-0, 5194-3 ####[facility] LABCLIA [id number] [place] [address] [place] HIV 1+2 Ab+HIV1 p24 Ag IA Ql Non-Reactive Normal Nonreactive [facility] Comment on above: Order Comment: Speci men Type: BLOOD SPECIMENOrdering Facility: [facility] Address: [address] [place] [address] Performed By: #### 7 3752-8, 29540-0, 5194-07 ####[facility] LABIA [id number] [place] [address] [place] HIV immunoassay testing algorithm interpretation (S/P/Bld) [Interp] Normal [facility] Comment on above: Order Comment: Speci men Type: BLOOD SPECIMENOrdering Facility: [facility] Address: [address] [place] [address] Result Comment: No e vidence of HIV-1 or HIV-2 infection. Should recent infection be suspected, repeat testing may be considered 2-3 weeks after this draw. [place] Rev. Code 3701.243(E): This information has been disclosed to you from confidential records protected from disclosure by state law. ???You shall make no further disclosure of this information without the specific, written, and informed release of the individual to whom it pertains or as otherwise permitted by state law. A general authorization for the release of medical or other information is not sufficient for the purpose of the release of HIV test results or diagnoses. Performed By: #### 7 3752-8, 73790-7, 3 ####[facility] LABCLIA [id number] [place] [id number] [place] HbA1c (Bld)on 06-13-2024 Average glucose Estimated from glycated hemoglobin (Bld) [Mass/Vol] 77 mg/dL Normal [facility] Comment on above: Order Comment: Speci men Type: BLOOD SPECIMENOrdering Facility: [facility] Address: [address] [place] [address] Result Comment: eAG: (Estimated average glucose) is a calculated value from HgbA1c and is malt liquors sales representative of the average blood glucose level in the last 2-3 month period. Performed By: #### 5 5454-3 ####[facility] LABCLIA [id number] [place] [address] [place] HbA1c (Bld) [Mass fraction] 4.3 % Normal 4.3-5.6 [facility] Comment on above: Order Comment: Speci men Type: BLOOD SPECIMENOrdering Facility: [facility] Address: [address] [place] [address] Result Comment: [place] Diabetes Association guidelines indicate that patients with HgbA1c in the range 5.7-6.4% are at increased risk for development of diabetes, and intervention by lifestyle modification may be beneficial. HgbA1c greater or equal to 6.5% is considered diagnostic of diabetes. Performed By: #### 5 5454-3 ####[facility] LABCLIA [id number] [place] [address] [place] [id number] PLUSon 06-13-2024 Cell-free DNA./Cell-free DNA.total Dosage of chromosome-specific cfDNA (cfDNA) [Molar fraction] 19% Normal [facility] Comment on above: Order Comment: Speci men Type: BLOOD SPECIMENOrdering Facility: [facility] Address: [address] [place] [address] Performed By: #### M AT21 ####[facility] LABCLIA [id number] [place] [address] Chr 13+18+21+X+Y aneuploidy Dosage of chromosome-specific cfDNA Ql (cfDNA) Negative Normal [facility] Comment on above: Order Comment: Speci men Type: BLOOD SPECIMENOrdering Facility: [facility] Address: [address] [place] [address] Performed By: #### M AT21 ####[facility]Blue Water Technologies[facility] LABCLIA [id number] [place] [address] Chr 21 trisomy Dosage of chromosome-specific cfDNA Ql (cfDNA) Negative Normal [facility] Comment on above: Order Comment: Speci men Type: BLOOD SPECIMENOrdering Facility: [facility] Address: [address] [place] [address] Performed By: #### M AT21 ####[facility] LABCLIA [id number] [place] [address] Chr X and Y aneuploidy risk Sequencing Ql (cfDNA) [Interp] Not detected Normal [facility] Comment on above: Order Comment: Speci men Type: BLOOD SPECIMENOrdering Facility: [facility] Address: [address] [place] [address] Result Comment: Not Detected Not Detected Performed By: #### M AT21 ####[facility] LABCLIA [id number] [place] [address] Citation Juan Ramon (Reference lab test) Comment Normal [facility] Comment on above: Order Comment: Speci men Type: BLOOD SPECIMENOrdering Facility: [facility] Address: [address] [place] [address] Result Comment: 1. P george HUGGINS, et al. Jina Med. 2012;14(3):296-305. 2. Devi RODRIGUEZ, et al. Prenat Diag. 2013;33(6):591-597. 3. Bryson C, et al. Clin Chem. 2015 Apr;61(4):608-616. 4. Glo HUGGINS, et al. Jina Med. 2011;13(11):913-920. 5. ACOG/SMFM Practice Bulletin No. 226, Feb 2020. Performed By: #### M AT21 ####[facility] LABCLIA [id number] [place] [address] Gestational age Estimated from conception date Dodson Normal [facility] Comment on above: Order Comment: Speci men Type: BLOOD SPECIMENOrdering Facility: [facility] Address: [address] [place] [address] Performed By: #### M AT21 ####[facility] LABCLIA [id number] [place] [address] GESTATIONALAGE AGE > OR = 9W Yes Normal [facility] Comment on above: Order Comment: Laurence castellanos Type: BLOOD SPECIMENOrdering Facility: [facility] Address: [address] [place] [address] Performed By: #### M AT21 ####[facility] LABCLIA [id number] [place] [id number] Laboratory comment Juan Ramon (Report) Comment Normal [facility] Comment on above: Order Comment: Laurence castellanos Type: BLOOD SPECIMENOrdering Facility: [facility] Address: [address] [place] [address] Result Comment: The MaterniT(R) 21 PLUS laboratory-developed test (LDT) analyzes circulating cell-free DNA from a maternal blood sample. This test is used for screening purposes and not diagnostic. Clinical correlation is recommended. Validation data on twin pregnancies is limited and the ability of this test to detect aneuploidy in higher multiple gestations has not yet been validated. Performed By: #### M AT21 ####[employer] V[employer] Micro FinanceIA [id number] [place] [id number] director it name Nom (Provider) Comment Normal [facility] Comment on above: Order Comment: Laurence castellanos Type: BLOOD SPECIMENOrdering Facility: [facility] Address: [address] [place] [address] Result Comment: This specimen showed an expected representation of chromosome 21, 18 and 13 material. Clinical correlation is suggested. Comment Ari Sheppard MD, PhD, Director, crossvertise Performed By: #### M AT21 ####[employer] LABSyntonic WirelessIA [id number] [place] [id number] LIMITATIONS OF THE TEST Comment Normal [facility] Comment on above: Order Comment: Laurence castellanos Type: BLOOD SPECIMENOrdering Facility: [facility] Address: [address] [place] [address] Result Comment: Julian blanco the results of these tests are highly reliable, discordant results, including inaccurate sex prediction, may occur due to placental, maternal, or mosaicism or neoplasm; vanishing twin; prior maternal organ transplant; or other causes. These tests are screening tests and not diagnostic; they do not replace the accuracy and precision of diagnosis with CVS or amniocentesis. A patient with a positive test result should be referred for genetic counseling and offered invasive diagnosis for confirmation of test results.[5] The results of this testing, including the benefits and limitations, should be discussed with a qualified healthcare provider. management decisions, including termination of the , should not be based on the results of these tests alone. The healthcare provider is responsible for the use of this information in the management of their patient. Sex chromosomal aneuploidies are not reportable for known multiple gestations. A negative result does not ensure an unaffected nor does it exclude the possibility of other chromosomal abnormalities or defects which are not a part of these tests. An uninformative result may be reported, the causes of which may include, but are not limited to, insufficient sequencing coverage, noise or artifacts in the region, amplification or sequencing bias, or insufficient fraction. These tests are not intended to identify pregnancies at risk for neural tube defects or ventral wall defects. Testing for whole chromosome abnormalities (including sex chromosomes) and for subchromosomal abnormalities could lead to the potential discovery of both and maternal genomic abnormalities that could have major, minor, or no, clinical significance. Evaluating the significance of a positive or a non-reportable result may involve both invasive testing and additional studies on the mother. Such investigations may lead to a diagnosis of maternal chromosomal or subchromosomal abnormalities, which on occasion may be associated with benign or malignant maternal neoplasms. These tests may not accurately identify triploidy, balanced rearrangements, or the precise location of subchromosomal duplications or deletions; these may be detected by diagnosis with CVS or amniocentesis. The ability to report results may be impacted by maternal BMI, maternal weight, maternal systemic lupus erythematosus (SLE) and/or by certain pharmaceutical agents such as low molecular weight heparin (for example: Lovenox(R), Xaparin(R), Clexane(R) and Fragmin(R)). Performed By: #### M AT21 ####[employer] LABCLIA [id number] [facility] [place] [address] Monosomy X risk Dosage of chromosome-specific cfDNA Ql (Plasma cell-free+WBC DNA) [Interp] Not detected Normal [facility] Comment on above: Order Comment: Speci men Type: BLOOD SPECIMENOrdering Facility: [facility] Address: [address] [place] [address] Performed By: #### M AT21 ####[facility] LABCLIA [id number] [place] [address] NEGATIVE PREDICTIVE VALUE Note Normal [facility] Comment on above: Order Comment: Speci men Type: BLOOD SPECIMENOrdering Facility: [facility] Address: [address] [place] [address] Result Comment: The Negative Predictive Value (NPV) for trisomy 21, 18, and 13 is greater than 99%. The NPV for SCA and ESS cannot be calculated as SCA and ESS are only reported when an abnormality is detected. Performed By: #### M AT21 ####[facility] LABCLIA [id number] [place] [address] NOTE Comment Normal [facility] Comment on above: Order Comment: Speci men Type: BLOOD SPECIMENOrdering Facility: [facility] Address: [address] [place] [address] Result Comment: See Notes [facility]. is a subsidiary of [employer], using the brand [employer]. This test was developed and its performance characteristics determined by [employer]. It has not been cleared or approved by the Food and Drug Administration. This laboratory is certified under the Clinical Laboratory Improvement Amendments (CLIA) as qualified to perform high complexity clinical laboratory testing and accredited by the [employer] (CAP). If there is future clinical need for adding MaterniT GENOME testing, this specimen will be available until term. [facility] samples will not be retained beyond 60 days. [facility] patients will have to send a new sample for re-sequencing ([facility] Test Code: 516572). Performed By: #### M AT21 ####[facility] LABCLIA [id number] [place] [address] PERFORMANCE CHARACTERISTICS Note Normal [facility] Comment on above: Order Comment: Speci men Type: BLOOD SPECIMENOrdering Facility: [facility] Address: [address] [place] [address] Result Comment: ! Sex ! Accuracy: 99.4% ! ! ! ! Region (associated syndrome) ! Est. Sens# ! Est. Spec ! ! ! ! Trisomy 21 (Down Syndrome) ! 99.1% ! 99.9% ! ! ! ! Trisomy 18 (Herrmann Syndrome) ! >99.9% ! 99.6% ! ! ! ! Trisomy 13 (Patau Syndrome) ! 91.7% ! 99.7% ! ! ! ! Sex Chromosome Aneuploidies## ! 96.2% ! 99.7% ! ! ! * As reported in [facility] database nstd37 [https://www.ncbi.nlm.nih.gov/dbvar/studies/nstd37/ ] # Estimated Sensitivity. Sensitivity estimated across the observed size distribution of each syndrome [per [facility] database nstd37] and across the range of fractions observed in routine clinical NIPT. Actual sensitivity can also be influenced by other factors such as the size of the event, total sequence counts, amplification bias, or sequence bias. ## Dodson gestation only. Performed By: #### M AT21 ####[employer] LABCLIA [id number] [place] [address] POSITIVE PREDICTIVE VALUE N/A Normal [facility] Comment on above: Order Comment: Speci men Type: BLOOD SPECIMENOrdering Facility: [facility] Address: [address] [place] [address] Performed By: #### M AT21 ####[employer] LABCLIA [id number] [place] [address] Reference Lab Test Method Comment Normal [facility] Comment on above: Order Comment: Speci men Type: BLOOD SPECIMENOrdering Facility: [facility] Address: [address] [place] [address] Result Comment: See Notes Circulating cell-free DNA was purified from the plasma component of maternal blood. The extracted DNA was then converted into a genomic DNA library for aneuploidy analysis of chromosomes 21, 18, and 13 via next generation sequencing.[1] Optional findings based on the test order include sex chromosome aneuploidy (SCA)[2], and enhanced sequencing series (ESS)[3], which will only be reported on as an additional finding when an abnormality is detected. SCA testing includes information on X and Y representation, while ESS testing includes deletions in selected regions (22q, 15q, 11q, 8q, 5p, 4p, 1p) and trisomy of chromosomes 16 and 22. Performed By: #### M AT21 ####[facility] LABCLIA [id number] [place] [address] Sex Dosage of chromosome-specific cfDNA Nom (cfDNA) Comment Normal [facility] Comment on above: Order Comment: Speci men Type: BLOOD SPECIMENOrdering Facility: [facility] Address: [address] [place] [address] Result Comment: Cons istent with Female Performed By: #### M AT21 ####[facility] LABCLIA [id number] [place] [address] Test performance information Juan Ramon (Unsp spec) Comment Normal [facility] Comment on above: Order Comment: Speci men Type: BLOOD SPECIMENOrdering Facility: [facility] Address: [address] [place] [address] Result Comment: The performance characteristics of the MaterniT(R) 21 PLUS laboratory-developed test (LDT) have been determined in a clinical validation study with women at increased risk for chromosomal aneuploidy.[1-4] Performed By: #### M AT21 ####[facility] LABCLIA [id number] [place] [address] Trisomy 13 risk Dosage of chromosome-specific cfDNA Ql (cfDNA) [Interp] Negative Normal [facility] Comment on above: Order Comment: Speci men Type: BLOOD SPECIMENOrdering Facility: [facility] Address: [address] [place] [address] Performed By: #### M AT21 ####[facility] LABCLIA [id number] [place] [address] Trisomy 18 risk Dosage of chromosome-specific cfDNA Ql (Plasma cell-free+WBC DNA) [Interp] Negative Normal [facility] Comment on above: Order Comment: Speci men Type: BLOOD SPECIMENOrdering Facility: [facility] Address: [address] [place] [address] Performed By: #### M AT21 ####[facility] LABCLIA [id number] [place] [address] RUBELLA IGG ANTIBODYon 06-13 RUBELLA IGG AB, QUAL Positive Normal Positive [facility] Comment on above: Order Comment: Lakishai emanuel Type: BLOOD SPECIMENOrdering Facility: [facility] Address: [address] [place] [address] Result Comment: The result suggests recent or past exposure to Rubella virus or history of Rubella vaccination. Positive result may also be seen due to presence of passively-transferred antibodies. Please correlate with patient's history. Performed By: #### R UBIGG ####[facility] LABCLIA [id number] [place] [address] [place] Reagin and Treponema pallidu m IgG and IgM [Interp]on 06-13-2024 T. pallidum IgG+IgM IA Ql (S) Non-Reactive Normal Nonreactive [facility] Comment on above: Order Comment: Speci men Type: BLOOD SPECIMENOrdering Facility: [facility] Address: [address] [place] [address] Performed By: #### 7 3752-8, 17502-2, 5195-3 ####[facility] LABCLIA [id number] [place] [address] [place] Reagin+T pallidum IgG+IgM Se rPl-Impon 06-13-2024 Reagin and Treponema pallidum IgG and IgM [Interp] Cannot exclude recent Treponemal infection if specimen collected within 7-10 days after appearance of suspect lesions or 2-3 weeks after an exposure. Clinical correlation is required. Normal [facility] Comment on above: Order Comment: Speci men Type: BLOOD SPECIMENOrdering Facility: [facility] Address: [address] [place] [address] Performed By: #### 7 3752-8, 07636-1, 5195-3 ####[facility] LABIA [id number] [place] [address] [place] TYPE + SCREEN PRENATALon ABO A Normal [facility] Comment on above: Order Comment: Speci men Type: BLOOD SPECIMENOrdering Facility: [facility] Address: [address] [place] [address] Result Comment: Trino ected result: Previously reported as Invalid on 06/14/2024 at 11:50 AM EST. Performed By: #### T SPN ####[facility] BLOOD BANKIA [id number] [address] Rh Nom (Bld) Positive Normal [facility] Comment on above: Order Comment: Speci men Type: BLOOD SPECIMENOrdering Facility: [facility] Address: [address] [place] [address] Result Comment: Trino ected result: Previously reported as Invalid on 06/14/2024 at 11:50 AM EST. Performed By: #### T SPN ####[facility] BLOOD BANKIA [id number] [address] TYPE AND SCREEN EXPIRATION 06/16/2024 23:59 Normal [facility] Comment on above: Order Comment: Speci men Type: BLOOD SPECIMENOrdering Facility: [facility] Address: [address] [place] [address] Performed By: #### T SPN ####CC MAIN BLOOD BANKCLIA [id number] [address] CNPNon 06-12-2024 CNPN Telephone (OBGYWM) ----- TALI GIBSON ([id number]) 89 F Date Time Provider Department 06/12/24 RACHEL MORALES OBGYWM During your visit today, we recorded the following information about you: Tabitha Herman 06/12/2024 2:04 PM Signed Patient called asking what all is going to happen at her appointment on 06/13 Also asking about genetic testing and ultrasound Can be reached at [phone] Please advise Esther Recinos RN 06/12/2024 2:36 PM Signed Spoke to patient and questions answered. She will try to contact [employer] today regarding carrier screen. Esther Giauque, RN Allergies As of Date: 06/12/2024 Noted Allergy Reaction LEXAPRO (ESCITALOPRAM) 11/24/2022 14 - Other: See Comments Comments: Sleeping difficulty Date Reviewed: 05/09/2024 Reviewed by: Glynn Jeong MA - Fully Assessed Reason for Visit: Patient Question [0427] Cmt: What will happen at her apt on 06/13 Prescriptions as of 06/12/2024 - aspirin, enteric coated (ECOTRIN LOW STRENGTH) 81 mg EC tablet Take 1 tablet by mouth once daily. - vit37/iron/folic acid (PRENATA ORAL) Take 2 capsules by mouth once daily. - famotidine (PEPCID) 20 mg tablet Take 1 tablet by mouth at bedtime as needed. 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] 10/07/2008 PAIN IN LIMB [M79.609] 10/07/2008 Congenital Pes Planus [Q66.50] 01/21/2010 Acid reflux [K21.9] 11/19/2018 Anxiety and depression [F41.9, F32.A] Encounter for supervision of normal first pregn*05/09/2024 Anxiety [F41.9] 05/09/2024 Nausea [R11.0] 05/09/2024 Encounter Status:Closed by ESTHER RECINOS on 06/12/24 Normal [facility] Bacteria Ur Culton Bacteria identified Cx Nom (U) CULTURE, URINE: No growth (<1,000 CFU/ml) Normal [facility] Comment on above: Performed By: #### 6 30-4 ####[facility] LABCLIA [id number] [facility] [id number] [place] [address] [place] C. trachomatis+N. gonorrhoea e DNA NAHUM+probe Ql (Unsp spec)on 05-09-2024 C. trachomatis rRNA NAHUM+probe Ql (Unsp spec) Not detected Normal Not detected [facility] Comment on above: Order Comment: Speci men Type: SWABOrdering Facility: [facility] Address: [address] [place] [address] [place] [address] Performed By: #### 3 6902-5 ####[facility] LABCLIA [id number] [place] [address] [place] N. gonorrhoeae rRNA NAHUM+probe Ql (Unsp spec) Not detected Normal Not detected [facility] Comment on above: Order Comment: Speci men Type: SWABOrdering Facility: [facility] Address: [address] [place] [address] Performed By: #### 3 6902-5 ####[facility] LABCLIA [id number] [place] [address] [place] POC JEWEL INSERTER ULTRASOUNDon 05-09-20 Indication Viability; confirm cardiac activity Impression Single intrauterine gestational sac, CRL is appropriate for clinical dates, corresponding to VIKTOR cardiac activity is visualized Recommendations Follow up for NT scan if desired Method Transvaginal ultrasound examination Dodson . Number of embryos: 1 Dating LMP on: 03/19/2024 GA by LMP 7 w + 2 d VIKTOR by LMP: 12/24/2024 Ultrasound examination on: 05/09/2024 GA by U/S based upon: CRL GA by U/S 7 w + 0 d VIKTOR by U/S: 12/26/2024 Assigned: based on the LMP, selected on 05/09/2024 Assigned GA 7 w + 2 d Assigned VIKTOR: 12/24/2024 Biometry Standard CRL 9.7 mm 7w 0d 38% [facility]lock Assessment Gestational sac: visualized Location: intrauterine Yolk sac: visualized Embryo: visualized CRL 9.7 mm 7w 0d 38% [place] Cardiac activity: present General Evaluation Cardiac activity present Performed By: Summer Garduno CNM Read By: Summer Garduno CNM MATERNAL MEDICINE [facility] Radiology Study observation (narrative) [facility] CBC W Auto Differential pane l (Bld)on 02-23-2023 Basophils (Bld) [#/Vol] 0.03 10*3/uL <0.11 k/uL [facility] Basophils/100 WBC (Bld) 0.4 % [facility] Differential cell count method Nom (Bld) Auto [facility] Eosinophils (Bld) [#/Vol] 0.07 10*3/uL <0.46 k/uL [facility] Eosinophils/100 WBC (Bld) 0.9 % [facility] Erythrocyte distribution width (RBC) [Ratio] 11.9 % 11.5 - 15.0 % [facility] Hematocrit (Bld) [Volume fraction] 44.0 % 36.0 - 46.0 % [facility] Hemoglobin (Bld) [Mass/Vol] 15.1 g/dL 11.5 - 15.5 g/dL [facility] Immature granulocytes (Bld) [#/Vol] <0.10 k/uL [facility] Immature granulocytes/100 WBC (Bld) 0.1 % [facility] Lymphocytes (Bld) [#/Vol] 1.96 10*3/uL 1.00 - 4.00 k/uL [facility] Lymphocytes/100 WBC (Bld) 24.7 % [facility] MCH (RBC) [Entitic mass] 29.8 pg 26.0 - 34.0 pg [facility] MCHC (RBC) [Mass/Vol] 34.3 g/dL 30.5 - 36.0 g/dL [facility] MCV (RBC) [Entitic vol] 87.0 fL 80.0 - 100.0 fL [facility] Monocytes (Bld) [#/Vol] 0.79 10*3/uL <0.87 k/uL [facility] Monocytes/100 WBC (Bld) 10.0 % [facility] Neutrophils (Bld) [#/Vol] 5.07 10*3/uL 1.45 - 7.50 k/uL [facility] Neutrophils/100 WBC (Bld) 63.9 % [facility] Nucleated RBC (Bld) [#/Vol] <0.01 k/uL [facility] Nucleated RBC/100 WBC (Bld) [Ratio] 0.0 /100 WBC [facility] Platelet mean volume (Bld) [Entitic vol] 10.7 fL 9.0 - 12.7 fL [facility] Platelets (Bld) [#/Vol] 228 10*3/uL 150 - 400 k/uL [facility] RBC (Bld) [#/Vol] 5.06 10*6/uL 3.90 - 5.2 0 m/uL [facility] WBC (Bld) [#/Vol] 7.93 10*3/uL 3.70 - 11. 00 k/uL [facility] Comprehensive metabolic 2000 panelon 02-23-2023 Albumin [Mass/Vol] 4.5 g/dL 3.9 - 4.9 g/dL [facility] ALP [Catalytic activity/Vol] 60 U/L 34 - 123 U/L [facility] ALT [Catalytic activity/Vol] 17 U/L 7 - 38 U/L [facility] Anion gap [Moles/Vol] 13 mmol/L 9 - 18 mmol/L [facility] AST [Catalytic activity/Vol] 17 U/L 13 - 35 U/L [facility] Bilirubin [Mass/Vol] 1.2 mg/dL 0.2 - 1 .3 mg/dL [facility] Calcium [Mass/Vol] 9.7 mg/dL 8.5 - 10. 2 mg/dL [facility] Chloride [Moles/Vol] 103 mmol/L 97 - 10 5 mmol/L [facility] CO2 [Moles/Vol] 24 mmol/L 22 - 30 mmol/L [facility] Creatinine [Mass/Vol] 0.71 mg/dL 0.58 - 0.96 mg/dL [facility] Estimated Glomerular Filtration Rate 123 mL/min/1.73m >=60 mL/min/1.73m [facility] Glucose [Mass/Vol] 84 mg/dL 74 - 99 mg/dL [facility] Potassium [Moles/Vol] 4.6 mmol/L 3.7 - 5.1 mmol/L [facility] Protein [Mass/Vol] 7.5 g/dL 6.3 - 8.0 g/dL [facility] Sodium [Moles/Vol] 140 mmol/L 136 - 144 mmol/L [facility] Urea nitrogen [Mass/Vol] 11 mg/dL 7 - 21 mg/dL [facility] FERRITIN [facility] 02-23-2023 Ferritin [Mass/Vol] 68.0 ng/mL 14.7 - 2 05.1 ng/mL [facility] Iron and Iron binding capaci ty panelon 02-23-2023 Iron [Mass/Vol] 52 ug/dL 41 - 186 ug/dL [facility] Iron binding capacity [Mass/Vol] 294 ug/dL 232 - 386 ug/dL [facility] Iron/TIBC [Molar ratio] 17.7 % 15.0 - 57.0 % [facility] TSH BLDon 02-23-2023 TSH Qn 1.250 m[IU]/L 0.270 - 4.200 mIU/L [facility] VITAMIN B12 BLOODon 02-24-20 Cobalamin (Vitamin B12) [Mass/Vol] 368 pg/mL 232 - 1,245 pg/mL [facility] VITAMIN D 25 HYDROXYon 02-23 25-hydroxyvitamin D3 [Mass/Vol] 21.7 ng/mL Low 31.0 - 80.0 ng/mL [facility] CORONAVIRUS 2019 BY PCRon SARS-CoV-2 (COVID-19) RNA NAHUM+probe Ql (Unsp spec) Detected Abnormal Not Detected [facility] Comment on above: Order Comment: [employer] +COVID CALLED MEGAN KIRK, 01/02/2021 04:38 Result Comment: . This assay is designed to detect the N, ORF1ab and/or S genes of SARS-CoV-2 via nucleic acid amplification. A Negative (NOT DETECTED) result does not preclude 2019-nCoV infection since the adequacy of sample collection and/or low viral burden may result in presence of viral nucleic acids below the clinical sensitivity of this test method. Negative (NOT DETECTED) result should not be used as the sole basis for treatment or other patient management decisions. Rather negative results should be combined with clinical observations, patient history, and epidemiological information to make patient management decisions. Fact sheet for providers: https://www.fda.gov/media/268469/download Fact sheet for patients: https://www.fda.gov/media/744502/download This test has received FDA Emergency Use Authorization (EUA) and has been verified by [facility] ([facility]). This test is only authorized for the duration of time that circumstances exist to justify the authorization of the emergency use of in vitro diagnostic tests for the detection of SARS-CoV-2 virus and/or diagnosis of COVID-19 infection under section 564(b)(1) of the Act, 21 U.S.C. 360bbb-3(b)(1), unless the authorization is terminated or revoked sooner. [facility] is certified under CLIA-88 as qualified to perform high complexity testing. Testing is performed in the [facility] laboratories located at [address] [place] [address]. +COVID CALLED MEGAN KIRK 01/02/2021 04:38 Performed By: #### C OV19 #### [facility] [address] [place] [address] CORONAVIRUS 2019 BY PCRon DATE OF SYMPTOM ONSET [[id number]]? N/A Normal [facility] Comment on above: Order Comment: [employer] +COVID CALLED MEGAN KIRK, 01/02/2021 04:38 Performed By: #### C OV19 #### [facility] [address] [place] [address] Lab Specimen Source Nasal, Nasopharyngeal [facility] Comment on above: Order Comment: [employer]EE +COVID CALLED MEGAN KIRK, 01/02/2021 04:38 Performed By: #### C OV19 #### [facility] [address] [place] [address] Coronavirus 2019 RNA by PCR, Symptomaticon 01-01-2021 Date and time of symptom onset N/A -[facility] Work Phone: Coronavirus 2019 RNA by PCR, Symptomatic Detected Abnormal See Below [facility] [place] Work Phone: Comment on above: SOURCE: Nasal, Nasop haryngealReference Range: Not Detected.This assay is designed to detect the N, ORF1ab and/or S genes of SARS-CoV-2 via nucleic acid amplification. A Negative (NOT DETECTED) result does not preclude 2019-nCoV infection since the adequacy of sample collection and/or low viral burden may result in presence of viral nucleic acids below the clinical sensitivity of this test method. Negative (NOT DETECTED) result should not be used as the sole basis for treatment or other patient management decisions. Rather negative results should be combined with clinical observations, patient history, and epidemiological information to make patient management decisions.Fact sheet for providers: https://www.fda.gov/media/386740/downloadFact sheet for patients: https://www.fda.gov/media/576221/downloadThis test has received FDA Emergency Use Authorization (EUA) and has been verified by [facility] ([facility]). This test is only authorized for the duration of time that circumstances exist to justify the authorization of the emergency use of in vitro diagnostic tests for the detection of SARS-CoV-2 virus and/or diagnosis of COVID-19 infection under section 564(b)(1) of the Act, 21 U.S.C. 360bbb-3(b)(1), unless the authorization is terminated or revoked sooner. [facility] is certified under CLIA-88 as qualified to perform high complexity testing. Testing is performed in the [facility] laboratories located at [address] [place] [address].+COVID CALLED MEGAN KIRK, 01/02/2021 04:38 Provider Note - ED v2on 12-22 Provider Note - ED v2 Provider Note - ED v2: Chart Review: ED NOTES ED NOTES: Patient came in with complaints of sore throat. Patient says she woke up this morning with it. Patient denies any headaches blurred vision nausea vomiting fever cough shortness of breath chest pain constipation diarrhea. HISTORY OF PRESENTING ILLNESS TALI is a 19 year old Female and was seen by me at 16-Jan-2020 13:37. The historian is the patient. Triage Information: Most recent Vital Sign Value Date PAST MEDICAL HISTORY ATTESTATION: I have reviewed and confirmed nurse's/medic's notes for patient's medications, allergies, medical history, and surgical history PSYCHOSOCIAL SCREENING: NO: concerns for safety at home, feelings of depression, feels like hurting others and feels like hurting self ALLERGIES/INTOLERANCES: No Known Allergies HEALTH HISTORY: No documented data. OUTPATIENT MEDICATIONS: Home Medications Review Status for Reconciliation: Complete Med Status: Patient Currently Takes Medications Drug Name: BIRTHCONTROL Instructions: once a day SIGNIFICANT EVENTS: Past Medical History Description:NONE PER PT Past Surgical History Description:WISDOM TEETH X 4 IMPROVEMENT RN: Is : no Is : no REVIEW OF SYSTEMS ENMT Throat/Neck: POSITIVE for: throat pain All other systems reviewed and are negative RESULTS/VITAL SIGNS VITAL SIGNS: T PRBP SpO2O2(LPM) %FiO2 Method 16-Jan-2020 13:22:[id number] PHYSICAL EXAM CONSTITUTIONAL: Well appearing, well nourished, awake, alert, oriented to person, place, time/situation and in no apparent distress. HENMT: Airway patent, ears with clear tympanic membranes bilaterally. Nasal mucosa clear. Mouth with normal mucosa. Throat has no vesicles, no oropharyngeal exudates and uvula is midline. Face with no lymph node enlargement. EYES: pupils are accommodating CARDIOVASCULAR: Normal rate, regular rhythm. RESPIRATORY: Breath sounds clear and equal bilaterally and unlabored. no Rales rhonchi or crackles. MUSCULOSKELETAL: range of motion is not limited, no muscle or joint tenderness. NEUROLOGICAL: Alert and oriented, no focal deficits, no motor or sensory deficits. SKIN: Skin normal color for race, warm, dry and intact. No evidence of trauma. PSYCHIATRIC: Alert and oriented to person, place, time/situation. normal mood and affect. No apparent risk to self or others. HEME/LYMPH: No cervical adenopathy. CLINICAL IMPRESSION Diagnosis/Annotation: ED Dx Name:Sore throat Code:J02.9 Dispostion: discharged Type: home ATTESTATION Comments/Additional Findings: At this time patient's throat looks okay. Patient was instructed to monitor for signs and symptoms of worsening. Patient was instructed to follow-up in 2-3 days if symptoms seem to be getting worse not better. Patient was okay with this care plan. CRITICAL CARE TIME Is this a critically ill patient: no Electronic Signatures: Siri Strauss (COMBATANT DIVER QUALIFIED-WILDLIFE ENFORCEMENT MAJOR) (Signed 16-Jan-2020 13:38) Authored: Provider Note - ED v2 Last Updated: 16-Jan-2020 13:38 by Siri Strauss (COMBATANT DIVER QUALIFIED-WILDLIFE ENFORCEMENT MAJOR) [facility] Vital Signs Date Time Vital Sign Value Performing Clinician Antonio de la rosa 12-10-2024 17:21-0400 Body height 162.[address] Rachel Morales MD Work Phone: [facility] 12-10-2024 17:21-0400 Body mass index (BMI) [Ratio] 33.3 kg/m2 Dr. Rachel Morales MD Work Phone: [facility] 12-10-2024 17:21-0400 Body weight 87.[address] Rachel Morales MD Work Phone: [facility] 12-10-2024 16:16-0400 Body mass index (BMI) [Ratio] 34.37 kg/m2 Crystal Liao MD Work Phone: [facility] 12-10-2024 16:16-0400 Body weight 88 kg Crystal Liao MD Work Phone: [facility] 12-10-2024 16:16-0400 Diastolic blood pressure 70 mm[Hg] Crystal Liao MD Work Phone: [facility] 12-10-2024 16:16-0400 Systolic blood pressure 120 mm[Hg] Crystal Liao MD Work Phone: [facility] 12-04-2024 14:54-0400 Body mass index (BMI) [Ratio] 34.01 kg/m2 Kirstie Strauss MD Work Phone: [facility] 12-04-2024 14:54-0400 Body weight 87.09 kg Kirstie Strauss MD Work Phone: [facility] 12-04-2024 14:54-0400 Diastolic blood pressure 68 mm[Hg] Kirstie Strauss MD Work Phone: [facility] 12-04-2024 14:54-0400 Systolic blood pressure 120 mm[Hg] Kirstie Strauss MD Work Phone: [facility] 11-30-2024 14:40-0400 Body mass index (BMI) [Ratio] 34.01 kg/m2 Kirstie Strauss MD Work Phone: [facility] 11-30-2024 14:40-0400 Body weight 87.09 kg Kirstie Strauss MD Work Phone: [facility] 11-30-2024 14:40-0400 Diastolic blood pressure 76 mm[Hg] Kirstie Strauss MD Work Phone: [facility] 11-30-2024 14:40-0400 Systolic blood pressure 122 mm[Hg] Kirstie Strauss MD Work Phone: [facility] 11-19-2024 15:06-0400 Body mass index (BMI) [Ratio] 33.3 kg/m2 Summer Garduno APRN.CNM Work Phone: [facility] 11-19-2024 15:06-0400 Body weight 85.28 kg Summer Wurajiv COMBATANT DIVER QUALIFIED.CNM Work Phone: [facility] 11-19-2024 15:06-0400 Diastolic blood pressure 76 mm[Hg] Summer Wurajiv COMBATANT DIVER QUALIFIED.CNM Work Phone: [facility] 11-19-2024 15:06-0400 Systolic blood pressure 118 mm[Hg] Summer Garduno COMBATANT DIVER QUALIFIED.CNM Work Phone: [facility] 11-14-2024 15:26-0400 Body mass index (BMI) [Ratio] 33.3 kg/m2 Trinity Burrows MD Work Phone: [facility] 11-14-2024 15:26-0400 Body weight 85.28 kg Trinity Burrows MD Work Phone: [facility] 11-14-2024 15:26-0400 Diastolic blood pressure 68 mm[Hg] Trinity Burrows MD Work Phone: [facility] 11-14-2024 15:26-0400 Systolic blood pressure 114 mm[Hg] Trinity Burrows MD Work Phone: [facility] 11-05-2024 15:00-0400 Body mass index (BMI) [Ratio] 32.95 kg/m2 Libby Bob COMBATANT DIVER QUALIFIED.CNM Work Phone: [facility] 11-05-2024 15:00-0400 Body weight 84.37 kg Libby Bob COMBATANT DIVER QUALIFIED.CNM Work Phone: [facility] 11-05-2024 15:00-0400 Diastolic blood pressure 68 mm[Hg] Libby Bob COMBATANT DIVER QUALIFIED.CNM Work Phone: [facility] 11-05-2024 15:00-0400 Systolic blood pressure 114 mm[Hg] Libby Bob COMBATANT DIVER QUALIFIED.CNM Work Phone: [facility] 10-19-2024 15:39-0400 Body mass index (BMI) [Ratio] 32.06 kg/m2 Quinn Sharmacarla COMBATANT DIVER QUALIFIED.WILDLIFE ENFORCEMENT MAJOR Work Phone: [facility] 10-19-2024 15:39-0400 Body weight 82.1 kg Quinn Sharmacarla COMBATANT DIVER QUALIFIED.WILDLIFE ENFORCEMENT MAJOR Work Phone: [facility] 10-19-2024 15:39-0400 Diastolic blood pressure 66 mm[Hg] Quinn Sharmacarla COMBATANT DIVER QUALIFIED.WILDLIFE ENFORCEMENT MAJOR Work Phone: [facility] 10-19-2024 15:39-0400 Heart rate 98 /min Quinn Sharmacarla COMBATANT DIVER QUALIFIED.WILDLIFE ENFORCEMENT MAJOR Work Phone: [facility] 10-19-2024 15:39-0400 Systolic blood pressure 110 mm[Hg] Quinn Sharmacarla COMBATANT DIVER QUALIFIED.WILDLIFE ENFORCEMENT MAJOR Work Phone: [facility] 10-03-2024 10:27-0400 Body mass index (BMI) [Ratio] 31.71 kg/m2 Libby Bob COMBATANT DIVER QUALIFIED.CNM Work Phone: [facility] 10-03-2024 10:27-0400 Body weight 81.19 kg Libby Bob COMBATANT DIVER QUALIFIED.CNM Work Phone: [facility] 10-03-2024 10:27-0400 Diastolic blood pressure 72 mm[Hg] Libby Bob COMBATANT DIVER QUALIFIED.CNM Work Phone: [facility] 10-03-2024 10:27-0400 Systolic blood pressure 110 mm[Hg] Libby Bob COMBATANT DIVER QUALIFIED.CNM Work Phone: [facility] 09-28-2024 08:56-0400 Body height 157.[address] Rachel Morales MD Work Phone: [facility] 09-28-2024 08:56-0400 Body mass index (BMI) [Ratio] 33.1 kg/m2 Dr. Rachel Morales MD Work Phone: [facility] 09-28-2024 08:56-0400 Body weight 82.[address] Rachel Morales MD Work Phone: [facility] 09-05-2024 15:44-0400 Body mass index (BMI) [Ratio] 31 kg/m2 Crystal Liao MD Work Phone: [facility] 09-05-2024 15:44-0400 Body weight 79.38 kg Crystal Liao MD Work Phone: [facility] 09-05-2024 15:44-0400 Diastolic blood pressure 64 mm[Hg] Crystal Liao MD Work Phone: [facility] 09-05-2024 15:44-0400 Systolic blood pressure 116 mm[Hg] Crystal Liao MD Work Phone: [facility] 08-08-2024 16:06-0400 Body mass index (BMI) [Ratio] 29.76 kg/m2 Libby Bob APRN.CNM Work Phone: [facility] 08-08-2024 16:06-0400 Body weight 76.2 kg Libby Bob APRN.CNM Work Phone: [facility] 08-08-2024 16:06-0400 Diastolic blood pressure 66 mm[Hg] Libby Bob COMBATANT DIVER QUALIFIED.CNM Work Phone: [facility] 08-08-2024 16:06-0400 Systolic blood pressure 118 mm[Hg] Libby Bob APRN.CNM Work Phone: [facility] 07-11-2024 14:58-0500 Body mass index (BMI) [Ratio] 29.33 kg/m2 Summer Garduno COMBATANT DIVER QUALIFIED.CNM Work Phone: [facility] 07-11-2024 14:58-0500 Body weight 75.12 kg Summer Garduno COMBATANT DIVER QUALIFIED.CNM Work Phone: [facility] 07-11-2024 14:58-0500 Diastolic blood pressure 60 mm[Hg] Summer Garduno COMBATANT DIVER QUALIFIED.CNM Work Phone: [facility] 07-11-2024 14:58-0500 Systolic blood pressure 106 mm[Hg] Summer Plotts COMBATANT DIVER QUALIFIED.CNM Work Phone: [facility] 06-13-2024 13:11-0500 Body mass index (BMI) [Ratio] 27.99 kg/m2 Rachel Morales MD Work Phone: [facility] 06-13-2024 13:11-0500 Body weight 71.67 kg Rachel Morales MD Work Phone: [facility] 06-13-2024 13:11-0500 Diastolic blood pressure 68 mm[Hg] Rachel Morales MD Work Phone: [facility] 06-13-2024 13:11-0500 Systolic blood pressure 110 mm[Hg] Rachel Morales MD Work Phone: [facility] 05-09-2024 08:36-0500 Body height 160 cm Summer Plotts COMBATANT DIVER QUALIFIED.CNM Work Phone: [facility] 05-09-2024 08:36-0500 Body mass index (BMI) [Ratio] 27.81 kg/m2 Summer Plotts COMBATANT DIVER QUALIFIED.CNM Work Phone: [facility] 05-09-2024 08:36-0500 Body weight 71.22 kg Summer Plotts COMBATANT DIVER QUALIFIED.CNM Work Phone: [facility] 05-09-2024 08:36-0500 Diastolic blood pressure 64 mm[Hg] Summer Plotts COMBATANT DIVER QUALIFIED.CNM Work Phone: [facility] 05-09-2024 08:36-0500 Systolic blood pressure 118 mm[Hg] Summer Plotts COMBATANT DIVER QUALIFIED.CNM Work Phone: [facility] 10-26-2023 17:38-0400 Body height 164.8 cm Marah Garcia COMBATANT DIVER QUALIFIED.WILDLIFE ENFORCEMENT MAJOR Work Phone: [facility] 10-26-2023 17:38-0400 Body mass index (BMI) [Ratio] 25.02 kg/m2 Marah Woodardlogjennifer COMBATANT DIVER QUALIFIED.WILDLIFE ENFORCEMENT MAJOR Work Phone: [facility] 10-26-2023 17:38-0400 Body weight 67.95 kg Marah Podlogar COMBATANT DIVER QUALIFIED.WILDLIFE ENFORCEMENT MAJOR Work Phone: [facility] 10-26-2023 17:38-0400 Diastolic blood pressure 68 mm[Hg] Marah Podlogar COMBATANT DIVER QUALIFIED.WILDLIFE ENFORCEMENT MAJOR Work Phone: [facility] 10-26-2023 17:38-0400 Heart rate 77 /min Marah Podlogar COMBATANT DIVER QUALIFIED.WILDLIFE ENFORCEMENT MAJOR Work Phone: [facility] 10-26-2023 17:38-0400 Respiratory rate 16 /min Marah Podlogar COMBATANT DIVER QUALIFIED.WILDLIFE ENFORCEMENT MAJOR Work Phone: [facility] 10-26-2023 17:38-0400 SaO2% (BldA) [Mass fraction] 98 % Marah Podlogar COMBATANT DIVER QUALIFIED.WILDLIFE ENFORCEMENT MAJOR Work Phone: [facility] 10-26-2023 17:38-0400 Systolic blood pressure 96 mm[Hg] Marah Podlogar COMBATANT DIVER QUALIFIED.WILDLIFE ENFORCEMENT MAJOR Work Phone: [facility] 10-14-2023 13:16-0400 Body height 162.6 cm Crystal Liao MD Work Phone: [facility] 10-14-2023 13:16-0400 Body mass index (BMI) [Ratio] 25.23 kg/m2 Crystal Liao MD Work Phone: [facility] 10-14-2023 13:16-0400 Body weight 66.68 kg Crystal Liao MD Work Phone: [facility] 10-14-2023 13:16-0400 Diastolic blood pressure 76 mm[Hg] Crystal Liao MD Work Phone: [facility] 10-14-2023 13:16-0400 Systolic blood pressure 120 mm[Hg] Crystal Liao MD Work Phone: [facility] 08-24-2023 17:01-0400 Body weight 66.77 kg Marah Podlogar COMBATANT DIVER QUALIFIED.WILDLIFE ENFORCEMENT MAJOR Work Phone: [facility] 08-24-2023 17:01-0400 Diastolic blood pressure 82 mm[Hg] Marah Podlogar COMBATANT DIVER QUALIFIED.WILDLIFE ENFORCEMENT MAJOR Work Phone: [facility] 08-24-2023 17:01-0400 Heart rate 79 /min Marah Podlogar COMBATANT DIVER QUALIFIED.WILDLIFE ENFORCEMENT MAJOR Work Phone: [facility] 08-24-2023 17:01-0400 Respiratory rate 18 /min Marah Podlogar COMBATANT DIVER QUALIFIED.WILDLIFE ENFORCEMENT MAJOR Work Phone: [facility] 08-24-2023 17:01-0400 SaO2% (BldA) [Mass fraction] 98 % Marah Podlogar COMBATANT DIVER QUALIFIED.WILDLIFE ENFORCEMENT MAJOR Work Phone: [facility] 08-24-2023 17:01-0400 Systolic blood pressure 118 mm[Hg] Marah Podlogar COMBATANT DIVER QUALIFIED.WILDLIFE ENFORCEMENT MAJOR Work Phone: [facility] 04-20-2023 17:54-0500 Body weight 68.49 kg Marah Podlogar COMBATANT DIVER QUALIFIED.WILDLIFE ENFORCEMENT MAJOR Work Phone: [facility] 04-20-2023 17:54-0500 Diastolic blood pressure 74 mm[Hg] Marah Podlogar COMBATANT DIVER QUALIFIED.WILDLIFE ENFORCEMENT MAJOR Work Phone: [facility] 04-20-2023 17:54-0500 Heart rate 92 /min Marah Podlogar COMBATANT DIVER QUALIFIED.WILDLIFE ENFORCEMENT MAJOR Work Phone: [facility] 04-20-2023 17:54-0500 Respiratory rate 16 /min Marah Podlogar COMBATANT DIVER QUALIFIED.WILDLIFE ENFORCEMENT MAJOR Work Phone: [facility] 04-20-2023 17:54-0500 SaO2% (BldA) [Mass fraction] 95 % Marah Podlogar COMBATANT DIVER QUALIFIED.WILDLIFE ENFORCEMENT MAJOR Work Phone: [facility] 04-20-2023 17:54-0500 Systolic blood pressure 98 mm[Hg] Marah Podlogar COMBATANT DIVER QUALIFIED.WILDLIFE ENFORCEMENT MAJOR Work Phone: [facility] 02-23-2023 07:54-0400 Body weight 70.03 kg Marah Podlogar COMBATANT DIVER QUALIFIED.WILDLIFE ENFORCEMENT MAJOR Work Phone: [facility] 02-23-2023 07:54-0400 Diastolic blood pressure 80 mm[Hg] Marah Podlogar COMBATANT DIVER QUALIFIED.WILDLIFE ENFORCEMENT MAJOR Work Phone: [facility] 02-23-2023 07:54-0400 Heart rate 100 /min Marah Podlogar COMBATANT DIVER QUALIFIED.WILDLIFE ENFORCEMENT MAJOR Work Phone: [facility] 02-23-2023 07:54-0400 Respiratory rate 16 /min Marah Podlogar COMBATANT DIVER QUALIFIED.WILDLIFE ENFORCEMENT MAJOR Work Phone: [facility] 02-23-2023 07:54-0400 SaO2% (BldA) [Mass fraction] 98 % Marah Podlogar COMBATANT DIVER QUALIFIED.WILDLIFE ENFORCEMENT MAJOR Work Phone: [facility] 02-23-2023 07:54-0400 Systolic blood pressure 112 mm[Hg] Marah Podlogar COMBATANT DIVER QUALIFIED.WILDLIFE ENFORCEMENT MAJOR Work Phone: [facility] 01-22-2022 14:16-0400 Body weight 69.94 kg Marah Podlogar COMBATANT DIVER QUALIFIED.WILDLIFE ENFORCEMENT MAJOR Work Phone: [facility] 01-22-2022 14:16-0400 Diastolic blood pressure 78 mm[Hg] Marah Podlogar COMBATANT DIVER QUALIFIED.WILDLIFE ENFORCEMENT MAJOR Work Phone: [facility] 01-22-2022 14:16-0400 Heart rate 96 /min Marah Podlogar COMBATANT DIVER QUALIFIED.WILDLIFE ENFORCEMENT MAJOR Work Phone: [facility] 01-22-2022 14:16-0400 Respiratory rate 16 /min Marah Podlogar COMBATANT DIVER QUALIFIED.WILDLIFE ENFORCEMENT MAJOR Work Phone: [facility] 01-22-2022 14:16-0400 SaO2% (BldA) [Mass fraction] 98 % Marah Podlogar COMBATANT DIVER QUALIFIED.WILDLIFE ENFORCEMENT MAJOR Work Phone: [facility] 01-22-2022 14:16-0400 Systolic blood pressure 106 mm[Hg] Marah Podlogar COMBATANT DIVER QUALIFIED.WILDLIFE ENFORCEMENT MAJOR Work Phone: [facility] Encounters Encounter Date Encounter Type Care Provider Facility Start: 12-11-2024 End: 12-11-2024 ambulatory Cheryl Page MA [facility] Start: 12-11-2024 End: 12-11-2024 Patient encounter procedure Cheryl Page MA [facility] Comment on above: Population Health Na vigation Outreach (Ob/peds) Start: 12-10-2024 End: 12-10-2024 Patient encounter procedure Summer Wurajiv CN -[facility] Work Phone: Comment on above: Encounter for superv ision of high risk in third trimester, antepartum (HCC) (Primary Dx); Polyhydramnios affecting in third trimester (HCC); 38 weeks gestation of (HCC) Start: 12-10-2024 End: 12-10-[address] Rachel Morales MD Work Phone: -[facility] Start: 12-07-2024 End: 12-07-2024 ambulatory Kirstie Strauss MD Work Phone: OB/Gynecology Comment on above: FMLA paperwork Start: 12-07-2024 End: 12-07-2024 E-mail encounter from caregiver Kirstie Strauss MD Work Phone: OB/Gynecology Start: 12-04-2024 End: 12-04-2024 Patient encounter procedure Kirstie Strauss MD Work Phone: OB/Gynecology Comment on above: Polyhydramnios affec ting in third trimester (HCC) (Primary Dx); Encounter for supervision of high risk in third trimester, antepartum (HCC); Group beta Strep positive; 37 weeks gestation of (HCC) Elevated blood press ure affecting in second trimester, antepartum (HCC); Polyhydramnios affecting in third trimester (HCC); Supervision of high risk in third trimester (HCC) Start: 12-04-2024 End: 12-04-2024 ambulatory JACKELYN SINGER Facility:[facility] [place] Start: 12-04-2024 End: 12-07-2024 Telephone encounter Kirstie Strauss MD Work Phone: OB/Gynecology Start: 11-30-2024 End: 11-30-2024 Patient encounter procedure Kirstie Strauss MD Work Phone: OB/Gynecology Comment on above: 36 weeks gestation o f ([facility]) (Primary Dx); Encounter for supervision of high risk in third trimester, antepartum ([facility]); Polyhydramnios affecting in third trimester ([facility]) Start: 11-30-2024 End: 11-30-2024 ambulatory [facility] Facility:[facility] [place] Start: 11-27-2024 End: 11-27-2024 Telephone encounter Quinn Davis APRN.CNP Work Phone: OB/Gynecology Comment on above: Appointment Start: 11-19-2024 End: 11-19-2024 Patient encounter procedure Summer Garduno APRN.CNDurga Work Phone: OB/Gynecology Comment on above: Encounter for superv ision of high risk in third trimester, antepartum ([facility]) (Primary Dx); Polyhydramnios affecting in third trimester ([facility]); 35 weeks gestation of ([facility]) Start: 11-19-2024 End: 11-19-2024 [facility] Facility:[facility] [place] Start: 11-14-2024 End: 11-14-2024 Patient encounter procedure Trinity Burrows MD Work Phone: OB/Gynecology Comment on above: Encounter for superv ision of high risk in third trimester, antepartum ([facility]) (Primary Dx); Polyhydramnios affecting in third trimester ([facility]); Breech presentation, single or unspecified fetus (HCC); Gastroesophageal reflux disease without esophagitis; 34 weeks gestation of ([facility]) Start: 11-14-2024 End: 11-14-2024 ambulatory Summer Garduno APRN.CNDurga Work Phone: OB/Gynecology Comment on above: Abdominal pain Start: 11-07-2024 End: 11-07-2024 Telephone encounter Libby Bob APRN.CNM Work Phone: OB/Gynecology Start: 11-05-2024 End: 11-05-2024 Patient encounter procedure [employer] Geriatric Nursing Assistant [facility] Comment on above: Elevated blood press ure affecting in second trimester, antepartum (HCC); Polyhydramnios affecting in third trimester (HCC); Supervision of high risk in third trimester (HCC) Encounter for superv ision of high risk in third trimester, antepartum (HCC) (Primary Dx); 33 weeks gestation of (HCC); Polyhydramnios affecting in third trimester (HCC); Breech presentation, single or unspecified fetus (HCC); Gastroesophageal reflux disease without esophagitis; Tick bite, unspecified site, initial encounter Start: 11-05-2024 End: 11-06-2024 ambulatory Libby Bob APRN.CNM Work Phone: OB/Gynecology Comment on above: Tick bite treatment Start: 10-30-2024 End: 10-31-2024 Telephone encounter Summer Plotrajiv GABRIEL Work Phone: OB/Gynecology Comment on above: Breast Pump Start: 10-19-2024 End: 10-19-2024 Patient encounter procedure Quinn Davis APRN.WILDLIFE ENFORCEMENT MAJOR Work Phone: OB/Gynecology Comment on above: Encounter for superv ision of high risk in third trimester, antepartum (HCC) (Primary Dx); 30 weeks gestation of (HCC); Polyhydramnios affecting in third trimester (HCC); Elevated blood pressure affecting in second trimester, antepartum (HCC); Breech presentation, single or unspecified fetus (HCC); Gastroesophageal reflux disease without esophagitis Start: 10-19-2024 End: 10-19-2024 ambulatory JACKELYN SINGER Facility:[facility] [place] Start: 10-11-2024 End: 10-11-2024 ambulatory JACKELYN SINGER Facility:[facility] [place] Start: 10-03-2024 End: 10-03-2024 Patient encounter procedure Libby Bob APRN.CNM Work Phone: OB/Gynecology Comment on above: Encounter for superv ision of normal first in third trimester (HCC) (Primary Dx); 28 weeks gestation of (HCC); Anxiety with depression; Need for vaccination; Gastroesophageal reflux disease without esophagitis Start: 10-03-2024 End: 10-03-2024 ambulatory JACKELYN SINGER Facility:[facility] [place] Start: 09-28-2024 End: 10-01-2024 Telephone encounter Libby Bob APRN.CNM Work Phone: OB/Gynecology Comment on above: OB Tachycardia Start: 09-28-2024 End: 09-28-2024 ambulatory Nic Cain Facility:[facility] Start: 09-28-2024 End: 09-28-2024 Non-patient / Non-visit Dr. Nic Cain MD -[facility] Work Phone: Start: 09-28-2024 End: 09-28-[address] Rachel Morales MD Work Phone: [facility] Work Phone: Start: 09-28-2024 End: 09-28-[address] Rachel Morales MD [facility] Work Phone: Start: 09-05-2024 End: 09-05-2024 Patient encounter procedure Crystal Liao MD Work Phone: OB/Gynecology Comment on above: Encounter for superv ision of normal first in second trimester (HCC) (Primary Dx); 24 weeks gestation of (HCC); Screening for diabetes mellitus Start: 09-05-2024 End: 09-05-2024 ambulatory CRYSTAL LIAO Facility:[facility] [place] Start: 08-17-2024 End: 08-17-2024 Refill Marah Garcia APRN.WILDLIFE ENFORCEMENT MAJOR Work Phone: [facility] [place] Comment on above: Refill Request Start: 08-09-2024 End: 08-09-2024 Refill Summer Garduno APRN.CNM Work Phone: OB/Gynecology Comment on above: Med Change Request Start: 08-08-2024 End: 08-08-2024 ambulatory JACKELYN SINGER Facility:[facility] [place] Start: 08-08-2024 End: 08-08-2024 Patient encounter procedure Libby Bob APRN.CNM Work Phone: OB/Gynecology Comment on above: Encounter for superv ision of normal first in first trimester (Primary Dx); Anxiety and depression; Heartburn during in second trimester Encounter for anatomic survey (Primary Dx); 20 weeks gestation of Start: 08-08-2024 End: 08-08-2024 ambulatory [facility] Facility:[facility] [place] Start: 08-08-2024 End: 10-08-2024 Follow-up encounter Rachel Morales MD Work Phone: OB/Gynecology Start: 07-27-2024 End: 07-30-2024 Refill Marah Garcia APRN.WILDLIFE ENFORCEMENT MAJOR Work Phone: Family [facility] [place] Comment on above: Refill Request Start: 07-11-2024 End: 07-11-2024 ambulatory [facility] Facility:[facility] [place] Start: 07-11-2024 End: 07-11-2024 Patient encounter procedure Summer Garduno APRN.CNM Work Phone: OB/Gynecology Comment on above: 16 weeks gestation o f (Primary Dx); Encounter for supervision of normal first in first trimester; Anxiety with depression; Anxiety; Gastroesophageal reflux disease without esophagitis Start: 06-13-2024 End: 06-13-2024 Patient encounter procedure Whi Tech 1 Geriatric Nursing Assistant Mfm Wstr Mob Maternal Medicine Comment on above: Encounter for antena christopher screening for malformation using ultrasound (Primary Dx); 12 weeks gestation of Start: 06-13-2024 End: 06-13-2024 [facility] [place] Start: 06-13-2024 End: 06-13-2024 Patient encounter procedure Rachel Morales MD Work Phone: OB/Gynecology Comment on above: Encounter for superv ision of normal first in first trimester (Primary Dx); 12 weeks gestation of ; Encounter for screening of mother Start: 06-12-2024 End: 06-12-2024 Telephone encounter Rachel Morales MD Work Phone: OB/Gynecology Comment on above: Patient Question (Wh at will happen at her apt on 06/13) Start: 05-20-2024 End: 05-21-2024 ambulatory Crystal Liao MD Work Phone: OB/Gynecology Comment on above: Anxiety medication q uestion Start: 05-09-2024 End: 05-09-2024 ambulatory JACKELYN SHAHIDMICHAEL Facility:[facility] [place] Start: 05-09-2024 End: 05-09-2024 Patient encounter procedure Summer Wurajiv COMBATANT DIVER QUALIFIED.CNM Work Phone: OB/Gynecology Comment on above: 7 weeks gestation of (Primary Dx); with uncertain dates, antepartum; Encounter for supervision of normal first in first trimester; Gastroesophageal reflux disease without esophagitis; Anxiety; Nausea Start: 04-16-2024 End: 04-17-2024 ambulatory Marah Podlogar COMBATANT DIVER QUALIFIED.TYLER Work Phone: Family Medicine [place] Comment on above: Anxiety medication Start: 03-14-2024 End: 03-14-2024 Refill Marah Podlogar COMBATANT DIVER QUALIFIED.WILDLIFE ENFORCEMENT MAJOR Work Phone: Family [facility] [place] Comment on above: Refill Request Start: 10-26-2023 End: 10-26-2023 Patient encounter procedure Marah Podlogar COMBATANT DIVER QUALIFIED.WILDLIFE ENFORCEMENT MAJOR Work Phone: Family [facility] [place] Comment on above: Annual physical exam (Primary Dx); Vitamin D insufficiency; Anxiety with depression Start: 10-14-2023 End: 10-14-2023 Patient encounter procedure Crystal Liao MD Work Phone: OB/Gynecology Comment on above: Encounter for gyneco logical examination (general) (routine) without abnormal findings (Primary Dx); Screening for cervical cancer Start: 10-14-2023 End: 10-14-2023 Patient encounter status Crystal Liao MD Work Phone: [facility] Start: 08-24-2023 End: 08-24-2023 Patient encounter procedure Marah Podlogar COMBATANT DIVER QUALIFIED.WILDLIFE ENFORCEMENT MAJOR Work Phone: [facility] [place] Comment on above: Anxiety with depress ion (Primary Dx); Impacted cerumen of left ear; Heartburn Start: 04-20-2023 End: 04-20-2023 Patient encounter procedure Marah Podlogar COMBATANT DIVER QUALIFIED.WILDLIFE ENFORCEMENT MAJOR Work Phone: [facility] [place] Comment on above: Acute bilateral low back pain without sciatica (Primary Dx) Start: 02-25-2023 Telephone encounter Marah Podl ogar COMBATANT DIVER QUALIFIED.WILDLIFE ENFORCEMENT MAJOR Work Phone: [facility] [place] Comment on above: Results Start: 02-23-2023 End: 02-23-2023 Patient encounter procedure Marah Podlogar COMBATANT DIVER QUALIFIED.WILDLIFE ENFORCEMENT MAJOR Work Phone: [facility] [place] Comment on above: Hair loss (Primary D x); Brain fog; Vitamin D deficiency Start: 11-22-2022 ambulatory Marah Podlogar COMBATANT DIVER QUALIFIED.WILDLIFE ENFORCEMENT MAJOR Work Phone: [facility] [place] Comment on above: medication Start: 11-10-2022 End: 11-10-2022 ambulatory Marah Podlogar COMBATANT DIVER QUALIFIED.WILDLIFE ENFORCEMENT MAJOR Work Phone: [facility] [place] Comment on above: Anxiety with depress ion (Primary Dx) Start: 11-10-2022 End: 11-10-2022 Telemedicine consultation with patient Marah Podlogar COMBATANT DIVER QUALIFIED.WILDLIFE ENFORCEMENT MAJOR Work Phone: [facility] [place] Start: 04-12-2022 Refill Jackelyn Singer MD Work Phone: [facility] [place] Comment on above: Refill Request Start: 01-22-2022 End: 01-22-2022 Patient encounter procedure Marah Podlogar COMBATANT DIVER QUALIFIED.WILDLIFE ENFORCEMENT MAJOR Work Phone: [facility] [place] Comment on above: Anxiety and depressi on (Primary Dx) Start: 01-13-2022 Refill Jackelyn Singer MD Work Phone: [facility] [place] Start: 01-09-2022 Refill Marah Podlogar COMBATANT DIVER QUALIFIED.WILDLIFE ENFORCEMENT MAJOR Work Phone: [facility] [place] Comment on above: Refill Request Start: 09-25-2021 Telephone encounter Yusef Singer MD Work Phone: Family [facility] [place] Comment on above: Results Start: 09-21-2021 Refill Jackelyn Singer MD Work Phone: [facility] [place] Comment on above: Refill Request Start: 01-19-2021 Telephone encounter Yusef Singer MD Work Phone: [facility] [place] Comment on above: Appointment Start: 01-02-2021 Chart Update Skinny blankenship MD Work Phone: [facility] Work Phone: Procedures Date Procedure Procedure Detail Performing Clinician Start: 12-10-2024 Urnls dip stick/tabl et rgnt non-auto w/o micrscp Crystal Liao MD Work Phone: Start: 12-04-2024 Urnls dip stick/tabl et rgnt non-auto w/o micrscp Kirstie Strauss MD Work Phone: Start: 12-04-2024 Us preg uterus after 1st trimest 05/23 gestation Rachel Morales MD Work Phone: Start: 11-14-2024 Urnls dip stick/tabl et rgnt non-auto w/o micrscp Trinity Burrows MD Work Phone: Start: 11-05-2024 Us preg uterus after 1st trimest 05/23 gestation Rachel Morales MD Work Phone: Start: 09-28-[address] Rachel Morales MD Work Phone: Start: 08-08-2024 Us preg uterus after 1st trimest 05/23 gestation Rachel Morales MD Work Phone: Start: 06-13-2024 Us nuchal francis slucency 1st gestation Summer Wurajiv PULIDON.CNM Work Phone: Start: 06-13-2024 Antibody screen TISH SINGER Comment on above: Order Comment: Speci men Type: BLOOD SPECIMENOrdering Facility: [facility] Address: [address] [place] [address] Result Comment: Trino ected result: Previously reported as Invalid on 06/14/2024 at 11:50 AM EST. Performed By: #### T SPN ####CC MAIN BLOOD BANKCLIA [id number] [place] [address] [place] Start: 05-09-2024 Us uterus l imited fetuses Summer Garduno COMBATANT DIVER QUALIFIED.CNM Work Phone: Start: 01-22-2022 Adult depression scr eening assessment Marah Garcia COMBATANT DIVER QUALIFIED.WILDLIFE ENFORCEMENT MAJOR Work Phone: Start: 02-02-2021 Adult depression scr eening assessment Jackelyn Singer MD Work Phone: Plan of Treatment Date Care Activity Detail Author Start: 10-03-2034 Urine microalbumin profile DTaP,Tdap,Td Vaccine (8 - Td or Tdap) [facility] Start: 10-13-2026 Screening for malign ant neoplasm of cervix Cervical Cancer Screening [facility] Start: 01-21-2025 Influenza vaccination Influenza Vacc ine (#1) [facility] Start: 12-31-2024 End: 12-31-2024 Patient encounter procedure 12/31/2024 3:10 PM EDT Routine Office Visit OB/Gynecology [address] [place] [address] Trinity Burrows MD [address] [place] [address] OB OB/Gynecology Comment on above: OB Start: 12-24-2024 End: 12-24-2024 Patient encounter procedure 12/24/2024 3:15 PM EDT Routine Office Visit OB/Gynecology [address] [place] [address] Summer Garduno APRN.CNM [address] [place] [address] OB OB/Gynecology Comment on above: OB Start: 12-17-2024 End: 12-17-2024 Patient encounter procedure 12/17/2024 3:10 PM EDT Routine Office Visit OB/Gynecology [address] [place] [address] Trinity Burrows MD [address] [place] [address] OB OB/Gynecology Comment on above: OB Start: 12-10-2024 Patient discharge [facility] Start: 12-10-2024 Nonstress test [facility] Start: 12-10-2024 Obstetric monitoring [facility] Start: 12-10-2024 Vital signs measurements [facility] Start: 12-10-2024 [facility] Start: 12-10-2024 End: 12-10-2024 Patient encounter procedure 12/10/2024 4:20 PM EDT Routine Office Visit OB/Gynecology [address] [place] [address] Crystal Berry MD [address] [place] [address] OB OB/Gynecology Comment on above: OB Start: 12-04-2024 End: 12-04-2024 Patient encounter procedure Maternal Medicine Comment on above: Growth Growth/OB Start: 11-30-2024 End: 11-30-2024 Patient encounter procedure 11/30/2024 2:40 PM EDT Routine Office Visit OB/Gynecology [address] [place] [address] Kirstie Strauss MD [address] [place] [address] OB OB/Gynecology Comment on above: OB Start: 11-29-2024 End: 11-29-2024 Patient encounter procedure 11/29/2024 3:45 PM EDT Routine Office Visit OB/Gynecology [address] [place] [address] Quinn Davsi APRN.WILDLIFE ENFORCEMENT MAJOR [address] [place] [address] OB OB/Gynecology Comment on above: OB Start: 11-19-2024 End: 11-19-2024 Patient encounter procedure 11/19/2024 3:15 PM EDT Routine Office Visit OB/Gynecology [address] [place] [address] Summer Garduno APRN.CNM [address] [place] [address] OB OB/Gynecology Comment on above: OB Start: 11-05-2024 End: 11-05-2024 Patient encounter procedure OB/Gynecology Comment on above: Growth US @3:30 / OB Growth Start: 10-19-2024 End: 10-19-2024 Patient encounter procedure 10/19/2024 3:45 PM EDT Routine Office Visit OB/Gynecology [address] [place] [address] Quinn Davis APRN.WILDLIFE ENFORCEMENT MAJOR [address] [place] [address] OB OB/Gynecology Comment on above: OB Start: 10-18-2024 End: 10-18-2024 Patient encounter procedure 10/18/2024 11:20 AM EDT Office Visit OB/Gynecology [address] [place] [address] Crystal Berry MD [address] [place] [address] Annual OB/Gynecology Comment on above: Annual Start: 10-05-2024 End: 01-04-2025 ANEMIA REFLEX PANEL ANEMIA REFLEX PANEL Lab Routine Encounter for supervision of normal first in second trimester (HCC) Expected: 10/05/2024, Expires: 01/04/2025 [facility] Comment on above: Expected: 10/05/2024 , Expires: 01/04/2025 Start: 10-05-2024 End: 09-05-2025 GESTATIONAL GLUCOSE SCREEN, 1-HOUR, 50 GRAM, NON-FASTING GESTATIONAL GLUCOSE SCREEN, 1-HOUR, 50 GRAM, NON-FASTING Lab Routine Screening for diabetes mellitus Expected: 10/05/2024, Expires: 09/05/2025 [facility] Work Phone: Comment on above: Expected: 10/05/2024 , Expires: 09/05/2025 Start: 10-05-2024 End: 09-05-2025 SYPHILIS TREPONEMAL W/REFLEX SYPHILIS TREPONEMAL W/REFLEX Lab Routine Encounter for supervision of normal first in second trimester (HCC) Expected: 10/05/2024, Expires: 09/05/2025 [facility] Comment on above: Expected: 10/05/2024 , Expires: 09/05/2025 Start: 10-03-2024 End: 01-02-2025 Protein/Creatinine [Mass Ratio] in Urine [facility] Work Phone: Comment on above: Expected: 10/03/2024 , Expires: 01/02/2025 Start: 10-03-2024 End: 10-03-2024 Patient encounter procedure 10/03/2024 10:30 AM EDT Routine Office Visit OB/Gynecology [address] [place] [address] Libby Bob APRN.CN [address] [place] [address] OB Routine OB/Gynecology Comment on above: OB Routine Start: 10-03-2024 End: 10-03-2024 ambulatory 10/03/2024 10:15 AM EDT Results Only [facility] [address] [place] [address] Glucose Test and LABs [facility] Comment on above: Glucose Test and LAB s Start: 09-28-2024 Nonstress test [facility] Start: 09-28-2024 Obstetric monitoring [facility] Start: 09-28-2024 Vital signs measurements [facility] Start: 09-28-2024 [facility] Start: 09-28-2024 Patient discharge [facility] Start: 09-05-2024 End: 09-05-2024 Patient encounter procedure 09/05/2024 3:50 PM EDT Routine Office Visit OB/Gynecology [address] [place] [address] Crystal Berry MD [address] [place] [address] OB OB/Gynecology Comment on above: OB Start: 08-08-2024 End: 08-08-2024 Patient encounter procedure Maternal Medicine Comment on above: Anatomy Scan OB Routine Start: 07-11-2024 End: 07-11-2024 Patient encounter procedure 07/11/2024 3:15 PM EST Routine Office Visit OB/Gynecology [address] [place] [address] Summer Garduno APRN.CN [address] [place] [address] OB Routine OB/Gynecology Comment on above: OB Routine Start: 06-13-2024 End: 06-13-2024 Patient encounter procedure 06/13/2024 2:30 PM EST Routine Office Visit Maternal Medicine [address] [place] [address] Nuchal Maternal Medicine Comment on above: Nuchal Start: 06-13-2024 End: 09-12-2024 Chromosome 21 trisomy [Presence] in Blood or Tissue by Cytogenetics [facility] Comment on above: Expected: 06/13/2024 , Expires: 09/12/2024 Start: 06-13-2024 End: 06-13-2025 OBSTETRIC ULTRASOUND WHI OBSTETRIC ULTRASOUND WHI Anc Imaging Routine Encounter for supervision of normal first in first trimester 12 weeks gestation of Expected: 06/13/2024, Expires: 06/13/2025 [facility] Work Phone: Comment on above: Expected: 06/13/2024 , Expires: 06/13/2025 Start: 06-13-2024 End: 06-13-2024 Patient encounter procedure 06/13/2024 1:10 PM EST Routine Office Visit OB/Gynecology [address] [place] [address] Rachel Morales MD [address] [place] [address] 1st OB OB/Gynecology Comment on above: 1st OB Start: 05-09-2024 End: 08-08-2024 ANEMIA REFLEX PANEL ANEMIA REFLEX PANEL Lab Routine 7 weeks gestation of Expected: 05/09/2024, Expires: 08/08/2024 [facility] Work Phone: Comment on above: Expected: 05/09/2024 , Expires: 08/08/2024 Start: 05-09-2024 End: 08-08-2024 Hemoglobin A1c in Blood HEMOGLOBIN A1C Lab Routine 7 weeks gestation of Expected: 05/09/2024, Expires: 08/08/2024 [facility] Comment on above: Expected: 05/09/2024 , Expires: 08/08/2024 Start: 05-09-2024 End: 08-08-2024 Hepatitis B virus surface Ag [Presence] in Serum HEPATITIS B SURFACE ANTIGEN Lab Routine 7 weeks gestation of Expected: 05/09/2024, Expires: 08/08/2024 [facility] Comment on above: Expected: 05/09/2024 , Expires: 08/08/2024 Start: 05-09-2024 End: 08-08-2024 Hepatitis C virus Ab [Presence] in Serum HEPATITIS C ANTIBODY IA WITH CONFIRMATION Lab Routine 7 weeks gestation of Expected: 05/09/2024, Expires: 08/08/2024 [facility] Comment on above: Expected: 05/09/2024 , Expires: 08/08/2024 Start: 05-09-2024 End: 08-08-2024 HIV 1+2 Ab [Presence] in Serum or Plasma by Immunoassay HIV 1/2 COMBO WITH REFLEX TO DIFFERENTIATION Lab Routine 7 weeks gestation of Expected: 05/09/2024, Expires: 08/08/2024 [facility] Comment on above: Expected: 05/09/2024 , Expires: 08/08/2024 Start: 05-09-2024 End: 05-09-2025 NUCHAL TRANSLUCENCY WHI NUCHAL TRANSLUCENCY WHI Anc Imaging Routine 7 weeks gestation of Expected: 05/09/2024, Expires: 05/09/2025 [facility] Comment on above: Expected: 05/09/2024 , Expires: 05/09/2025 Start: 05-09-2024 End: 05-09-2025 OBSTETRIC ULTRASOUND WHI OBSTETRIC ULTRASOUND WHI Anc Imaging Routine 7 weeks gestation of Expected: 05/09/2024, Expires: 05/09/2025 [facility] Comment on above: Expected: 05/09/2024 , Expires: 05/09/2025 Start: 05-09-2024 End: 08-08-2024 RUBELLA IGG ANTIBODY RUBELLA IGG ANTIBODY Lab Routine 7 weeks gestation of Expected: 05/09/2024, Expires: 08/08/2024 [facility] Comment on above: Expected: 05/09/2024 , Expires: 08/08/2024 Start: 05-09-2024 End: 08-08-2024 SYPHILIS TREPONEMAL W/REFLEX SYPHILIS TREPONEMAL W/REFLEX Lab Routine 7 weeks gestation of Expected: 05/09/2024, Expires: 08/08/2024 [facility] Comment on above: Expected: 05/09/2024 , Expires: 08/08/2024 Start: 05-09-2024 End: 08-08-2024 TYPE + SCREEN TYPE + SCREEN Blood Bank Routine 7 weeks gestation of Expected: 05/09/2024, Expires: 08/08/2024 [facility] Comment on above: Expected: 05/09/2024 , Expires: 08/08/2024 Start: 01-22-2024 Covid-19 Vaccine () Covid-19 Vaccine () [facility] Start: 01-22-2024 Covid-19 Vaccine () Covid-19 Vaccine () [facility] Start: 01-22-2024 Influenza vaccination C [facility] Start: 10-26-2023 End: 10-26-2023 Patient encounter procedure 10/26/2023 5:40 PM EDT Office Visit Family Medicine [place] [address] [place] [address] PodlogMarah rodriguez APRN.WILDLIFE ENFORCEMENT MAJOR [address] [place] [address] Physical Family Medicine [place] Comment on above: Physical Start: 10-26-2023 End: 01-25-2024 25-hydroxyvitamin D3 [Mass/volume] in Serum or Plasma VITAMIN D 25 HYDROXY Lab Routine Vitamin D insufficiency Expected: 10/26/2023, Expires: 01/25/2024 [facility] Work Phone: Comment on above: Expected: 10/26/2023 , Expires: 01/25/2024 Start: 06-30-2023 PAP TESTING PAP TESTING [facility] Start: 06-30-2023 Screening for malign ant neoplasm of cervix Pap Testing [facility] Start: 2023 End: 07-27-2023 25-hydroxyvitamin D3 [Mass/volume] in Serum or Plasma VITAMIN D 25 HYDROXY Lab Routine Vitamin D deficiency Expected: 2023, Expires: 07/27/2023 [facility] Work Phone: Comment on above: Expected: 2023 , Expires: 07/27/2023 Start: 01-22-2023 Adult depression screening assessment DEPRESSION SCREENING [facility] Start: 01-21-2023 Covid-19 Vaccine ( season) Covid-19 Vaccine ( season) [facility] Start: 01-21-2023 Influenza vaccination C [facility] Start: 02-02-2022 Adult depression screening assessment DEPRESSION SCREENING [facility] Start: 01-21-2022 Influenza vaccination C [facility] Start: 11-26-2021 Urine microalbumin profile [facility] Start: 10-09-2021 COVID-19 VACCINE (3 - Booster for Pfizer series) COVID-19 VACCINE (3 - Booster for Pfizer series) [facility] Start: 06-30-2021 CHLAMYDIA SCREENING (18-24) CHLAMYDIA SCREENING (18-24) [facility] Start: 06-30-2021 GC (GONORRHEA) SCREE WARREN (18-24) GC (GONORRHEA) SCREENING (18-24) [facility] Start: 2015 Meningococcal B Vacc ine: Consider Based On Risk (1 of 2 - Patient Seeks Protection) Meningococcal B Vaccine: Consider Based On Risk (1 of 2 - Patient Seeks Protection) [facility] Start: 2014 HPV Vaccine (1 - 3-d ose series) HPV Vaccine (1 - 3-dose series) [facility] Start: 2013 PEDS TO ADULT TRANSI TION ANNUAL ASSESSMENT PEDS TO ADULT TRANSITION ANNUAL ASSESSMENT [facility] Start: 2011 PEDS TO ADULT TRANSI TION INITIAL DISCUSSION PEDS TO ADULT TRANSITION INITIAL DISCUSSION [facility] Start: 2010 HPV VACCINE (1 - 2-d ose series) HPV VACCINE (1 - 2-dose series) [facility] Start: 2009 MENINGOCOCCAL B: Con machine fastener based on risk (1 of 2 - Risk Bexsero 2-dose series) MENINGOCOCCAL B: Consider based on risk (1 of 2 - Risk Bexsero 2-dose series) [facility] Start: 2008 HPV VACCINE (1 - 2-d ose series) HPV VACCINE (1 - 2-dose series) [facility] Bacteria identified in Urine by Culture URINE CULTURE Microbiology Routine 7 weeks gestation of 05/09/2024 9:26 AM EST [facility] Chlamydia trachomatis+Neisseria gonorrhoeae DNA [Presence] in Unspecified specimen by NAHUM with probe detection GONORRHEA/CHLAMYDIA NAAT Lab Routine 7 weeks gestation of 05/09/2024 9:26 AM EST [facility] PAP TEST PAP TEST Lab [facility] Screening for cervical cancer 10/14/2023 1:43 PM EDT [facility] Work Phone: Patient Education Kick Counts ED False Labor OB Triage: Return to Hospital or Notify Physician if you Experience: [facility] Work Phone: Patient referral [facility] Work Phone: Removal impacted cer umen instrumentation unilat REMOVAL OF IMPACTED CERUMEN - INSTRUMENTATION Procedures Routine Impacted cerumen of left ear Ordered: 08/24/2023 [facility] Work Phone: Comment on above: Ordered: 08/24/2023 ROUTINE, GR OUP B STREPTOCOCCUS BY PCR ROUTINE, GROUP B STREPTOCOCCUS BY PCR Microbiology Routine 36 weeks gestation of ([facility]) 11/30/2024 3:42 PM EDT [facility] URINE OB DIP B/O URINE OB DIP B/ O Lab Routine Encounter for supervision of high risk in third trimester, antepartum ([facility]) Polyhydramnios affecting in third trimester ([facility]) 35 weeks gestation of ([facility]) Ordered: 11/19/2024 [facility] Work Phone: Comment on above: Ordered: 11/19/2024 URINE OB DIP B/O URINE OB DIP B/ O Lab Routine 36 weeks gestation of ([facility]) Encounter for supervision of high risk in third trimester, antepartum ([facility]) Polyhydramnios affecting in third trimester ([facility]) Ordered: 11/30/2024 [facility] Work Phone: Comment on above: Ordered: 11/30/2024 [facility] Immunizations Immunization Date Immunization Notes Care Provider Santy loza 10-03-2024 tetanus toxoid, redu chantell diphtheria toxoid, and acellular pertussis vaccine, adsorbed Libby Bob COMBATANT DIVER QUALIFIED.CNM Work Phone: [facility] 06-20-2024 Seasonal trivalent influenza vaccine, adjuvanted, preservative free Summer Garduno COMBATANT DIVER QUALIFIED.CNM Work Phone: [facility] 06-20-2024 influenza virus vaccine, unspecified formulation Quinn Davis COMBATANT DIVER QUALIFIED.WILDLIFE ENFORCEMENT MAJOR Work Phone: [facility] 03-10-2022 influenza, injectabl e, quadrivalent, preservative free Rachel [place] MD Work Phone: [facility] 03-10-2022 influenza virus vaccine, unspecified formulation Marah Garcia COMBATANT DIVER QUALIFIED.WILDLIFE ENFORCEMENT MAJOR Work Phone: [facility] 10-05-2022 COVID-19 booster vaccine, age 12+ yr, bivalent (PFIZER-BIONTECH) Jackelyn Singer MD Work Phone: [facility] 02-24-2022 COVID-19 vaccine, ag e 12+ yr, bivalent (MODERNA) Rachel [place]ales MD Work Phone: [facility] 04-20-2021 COVID-19 vaccine, ag e 12+ yr (PFIZER-BIONTECH - PURPLE TOP) Jackelyn Singer MD Work Phone: [facility] 05-13-2020 influenza, injectabl e, quadrivalent, preservative free Rachel [place] MD Work Phone: [facility] 02-18-2019 Influenza, injectabl e, Madin [place] Canine Kidney, preservative free, quadrivalent Rachel [place]ales MD Work Phone: [facility] 12-29-2015 meningococcal polysaccharide (groups A, C, Y and W-135) diphtheria toxoid conjugate vaccine (MCV4P) Jackelyn Singer MD Work Phone: [facility] Work Phone: 12-08-2012 varicella virus vaccine Tarahi elle Singer MD Work Phone: [facility] 11-27-2011 Meningococcal, MCV4, unspecified conjugate formulation(groups A, C, Y and W-135) Jackelyn Singer MD Work Phone: [facility] Work Phone: 11-27-2011 tetanus toxoid, redu chantell diphtheria toxoid, and acellular pertussis vaccine, adsorbed Jackelyn Singer MD Work Phone: [facility] Work Phone: 04-01-2005 influenza virus vaccine, live, attenuated, for intranasal use Jackelyn Singer MD Work Phone: [facility] Work Phone: 10-30-2004 diphtheria, tetanus toxoids and acellular pertussis vaccine Jackelyn Singer MD Work Phone: [facility] Work Phone: 10-30-2004 measles, mumps and rubella virus vaccine Jackelyn Singer MD Work Phone: [facility] Work Phone: 10-30-2004 poliovirus vaccine, inactivated Jackelyn Singer MD Work Phone: [facility] Work Phone: 12-13-2000 haemophilus influenz ae type b vaccine, HbOC conjugate Jackelyn Singer MD Work Phone: [facility] Work Phone: 12-13-2000 pneumococcal conjuga te vaccine, 7 valent Jackelyn Singer MD Work Phone: [facility] Work Phone: 09-06-2000 diphtheria, tetanus toxoids and acellular pertussis vaccine Jackelyn Singer MD Work Phone: [facility] Work Phone: 09-06-2000 hepatitis B vaccine, pediatric or pediatric/adolescent dosage Jackelyn Singer MD Work Phone: [facility] Work Phone: 09-06-2000 poliovirus vaccine, inactivated Jackelyn Singer MD Work Phone: [facility] Work Phone: 05-31-2000 measles, mumps and rubella virus vaccine Jackelyn Singer MD Work Phone: [facility] Work Phone: 05-31-2000 pneumococcal conjuga te vaccine, 7 valent Jackelyn Singer MD Work Phone: [facility] Work Phone: 05-31-2000 varicella virus vaccine Melba Singer MD Work Phone: [facility] Work Phone: 02-29-2000 hepatitis B vaccine, pediatric or pediatric/adolescent dosage Jackelyn Singer MD Work Phone: [facility] Work Phone: 02-29-2000 pneumococcal conjuga te vaccine, 7 valent Jackelyn Singer MD Work Phone: [facility] Work Phone: 1999 diphtheria, tetanus toxoids and acellular pertussis vaccine Jackelyn Singer MD Work Phone: [facility] Work Phone: 1999 haemophilus influenz ae type b vaccine, HbOC conjugate Jackelyn Singer MD Work Phone: [facility] Work Phone: 1999 hepatitis B vaccine, pediatric or pediatric/adolescent dosage Jackelyn Singer MD Work Phone: [facility] Work Phone: 1999 diphtheria, tetanus toxoids and acellular pertussis vaccine Jackelyn Singer MD Work Phone: [facility] Work Phone: 1999 haemophilus influenz ae type b vaccine, HbOC conjugate Jackelyn Singer MD Work Phone: [facility] Work Phone: 1999 poliovirus vaccine, inactivated Jackelyn Singer MD Work Phone: [facility] Work Phone: 1999 diphtheria, tetanus toxoids and acellular pertussis vaccine Jackelyn Singer MD Work Phone: [facility] Work Phone: 1999 haemophilus influenz ae type b vaccine, HbOC conjugate Jackelyn Singer MD Work Phone: [facility] Work Phone: 1999 poliovirus vaccine, inactivated Jackelyn Singer MD Work Phone: [facility] Work Phone: Payers Date Payer Category Payer Self-pay 2018 Unknown MMO MMO [employer] [id number] 2018-Present [phone] [address] [place] [address] PPO [id number] 2018 Private Health Insurance MMO SUP [employer] PPO [id number] 2018 Unknown 2018 Unknown [id number] Unknown COMMERCIAL OTHER [id number] Unknown [id number] Unknown [id number] Unknown [id number] Social History Date Type Detail Facility Start: 04-19-2019 End: 01-22-2022 Tobacco smoking status NHIS Never smoked tobacco [facility] Start: 08-25-2021 End: 12-04-2024 Alcohol intake Current non-drinker of alcohol (finding) [facility] Start: 2000 Sex Assigned At Not on file [facility] Start: 08-07-2021 End: 08-17-2021 Exposure to SARS-CoV-2 (event) Not sure [facility] Start: 01-22-2022 Tobacco use and exposure Smokeless tobacco non-user [facility] Start: 11-09-2022 History SDOH Alcohol Frequency 2 [facility] Start: 11-09-2022 History SDOH Alcohol Binge 1 [facility] Start: 11-09-2022 History SDOH Social Connections Phone 5 [facility] Start: 11-09-2022 History SDOH Social Connections Get Together 3 [facility] Start: 11-09-2022 History SDOH Physical Activity MPS 6 [facility] Start: 11-09-2022 History SDOH Stress 4 [facility] Start: 11-08-2022 End: 08-24-2023 History of Social function [facility] Start: 11-08-2022 End: 08-24-2023 Social connection and isolation panel [facility] Do you belong to any clubs or organizations such as jehovah's witness groups, unions, fraternal or athletic groups, or school groups? No [facility] Are you now , , , , never or living with a partner? [facility] How often to you hav e a drink containing alcohol? Monthly or less [facility] How many standard dr inks containing alcohol do you have on a typical day? 3 or 4 [facility] How often do you hav e 6 or more drinks on 1 occasion? Never [facility] How hard is it for y ou to pay for the very basics like food, housing, medical care, and heating Not very hard [facility] Adult Depression Screening Assessment 2 [facility] Work Phone: Do you feel stress - tense, restless, nervous, or anxious, or unable to sleep at night because your mind is troubled all the time - these days [OSQ] Rather much [facility] (I/We) worried wheth er (my/our) food would run out before (I/we) got money to buy more. Never true [facility] Start: 05-07-2024 Education 15 [facility] Start: 04-02-2024 [facility] Start: 2000 Sex assigned at Female [facility] Start: 05-07-2024 Gender identity Identifies as female gender (finding) [facility] Start: 05-07-2024 Sexual orientation Heterosexual (finding) [facility] Start: 04-20-2019 Lives Lives [facility] Goals Date Patient Goal Desired Activity /State Personal health goal Functional Status Date Assessment Result Facility 12-26-2014 Are you deaf, or do you have serious difficulty hearing No 12/26/2014 7:59 AM EDT Randy Irving RN No [facility] 12-26-2014 Are you blind, or do you have serious difficulty seeing, even when wearing glasses No 12/26/2014 7:59 AM EDT Randy Irving RN No [facility] 12-26-2014 Do you have serious difficulty walking or climbing stairs No 12/26/2014 7:59 AM EDT Randy Irving RN No [facility] 12-26-2014 Do you have difficul ty dressing or bathing No 12/26/2014 7:59 AM EDT Randy Irving RN No [facility] 12-26-2014 Because of a physica l, mental, or emotional condition, do you have difficulty doing errands alone such as visiting a physician's office or shopping No 12/26/2014 7:59 AM EDT Randy Irving RN No [facility] Mental Status Date Assessment Result Facility 12-26-2014 Because of a physica l, mental, or emotional condition, do you have serious difficulty concentrating, remembering, or making decisions No 12/26/2014 7:59 AM EDT Randy Irving RN No [facility] Clinical Notes 09-21-2021 to 12-11-2024 Cheryl Page MA - 12/11/2024 2:44 PM EDTPrenatal Quick Notes - Crystal Berry MD - 12/10/2024 4:42 PM EDTPrenatal Quick Notes - Crystal Berry MD - 12/10/2024 4:42 PM EDT Note Date & Type Note Facility 12-11-2024 Note HNO ID: [id number] Author: CHERYL PAGE MA Service: ? Author Type: Biochemical Engineer Type: Progress Notes Filed: 12/11/2024 14:47 Note Text: POPULATION HEALTH NAVIGATION OUTREACH Action/FYI Called and spoke with pt and states she will outreach back via with selection. Reason for Outreach Medicaid OB/Peds Care Gaps due: N/A Patient Contacted: Spoke to patient/parent/or legal guardian Patient identified by name and : Yes Medicaid OB/Peds actions taken: Patient declined: Patient requested call back from navigator/ will call navigator back Navigation Signature: Cheyrl Wang MA December 11, 2024 2:45 PM [facility] 12-11-2024 History of Presen t illness Narrative POPULATION HEALTH NAVIGATION OUTREACH Action/FYI Called and spoke with pt and states she will outreach back via with selection. Reason for Outreach Medicaid OB/Peds Care Gaps due: N/A Patient Contacted: Spoke to patient/parent/or legal guardian Patient identified by name and : Yes Medicaid OB/Peds actions taken: Patient declined: Patient requested call back from navigator/ will call navigator back Navigation Signature: Cheryl Wang MA December 11, 2024 2:45 PM documented in this encounter [facility] 12-11-2024 Note Patient Outreach (NE TNAV) TALI GIBSON ([id number]) 89 F Date Time Provider Department 12/11/24 CHERYL PAGE During your visit today, we recorded the following information about you: Cheryl Page MA 12/11/2024 2:47 PM Signed POPULATION HEALTH NAVIGATION OUTREACH Action/FYI Called and spoke with pt and states she will outreach back via with selection. Reason for Outreach Medicaid OB/Peds Care Gaps due: N/A Patient Contacted: Spoke to patient/parent/or legal guardian Patient identified by name and : Yes Medicaid OB/Peds actions taken: Patient declined: Patient requested call back from navigator/ will call navigator back Navigation Signature: Cheryl Wang MA December 11, 2024 2:45 PM Allergies As of Date: 12/11/2024 Noted Allergy Reaction LEXAPRO (ESCITALOPRAM) 11/24/2022 14 - Other: See Comments Comments: Sleeping difficulty Date Reviewed: 12/10/2024 Reviewed by: Kelly Minor MA - Fully Assessed Reason for Visit: Population Health Navigation Outreach [3910] Cmt: Ob/peds Prescriptions as of 12/11/2024 - omeprazole (PRILOSEC) 20 mg capsule Take 1 capsule by mouth once daily. - sertraline (ZOLOFT) 50 mg tablet TAKE 1 TABLET BY MOUTH EVERY DAY - aspirin, enteric coated (ECOTRIN LOW STRENGTH) 81 mg EC tablet Take 1 tablet by mouth once daily. - vit37/iron/folic acid (PRENATA ORAL) Take 2 capsules by mouth once daily. Problem List As Of Date 12/11/2024 Noted Resolved JUV OSTEOCHONDROSIS NEC [M92.8] 10/07/2008 Pain in limb [M79.609] 10/07/2008 10/12/2024 Congenital pes planus [Q66.50] 01/21/2010 10/12/2024 Acid reflux [K21.9] 11/19/2018 Anxiety and depression [F41.9, F32.A] Supervision of high risk in third tri*05/09/2024 Anxiety [F41.9] 05/09/2024 10/12/2024 Nausea [R11.0] 05/09/2024 07/11/2024 Elevated blood pressure affecting in *10/09/2024 Gestational proteinuria, third trimester (HCC) *10/09/2024 Polyhydramnios affecting in third tri*10/12/2024 Breech presentation, no version (HCC) [O32.1XX0]10/19/2024 11/19/2024 Encounter Status:Closed by CHERYL PAGE on 12/11/24 [facility] 12-10-2024 Progress note Formatting of t his note might be different from the original. DM-Pt doing well. Denies vaginal Bleeding, Leaking fluid, or regular Contractions. Pt reports good movement Physical Exam: Gen: female in no apparent distress Abd: soft, Gravid. Non tender to palpation. See flow sheet Participation of a fellow, resident, medical student, or advanced practice provider student in performing the sensitive examination was discussed with the patient or authorized malt liquors sales representative. The patient or authorized malt liquors sales representative has agreed to proceed with the sensitive examination. @ 38 weeks Assessment & Plan Encounter for supervision of high risk in third trimester, antepartum (HCC) Orders: URINE OB DIP B/O Polyhydramnios affecting in third trimester (HCC) D/w patient LGA (AC>99%)/Obesity- will do NST today- at [facility] due to time at appt. - reviewed IOL 39-40 weeks pt agreeable and scheduled Orders: URINE OB DIP B/O 38 weeks gestation of (HCC) RTO next week Kick counts and labor reviewed Orders: URINE OB DIP B/O Crystal Cantrell MD [facility] 12-10-2024 Miscellaneous Notes DM-Pt doing well. Denies vaginal Bleeding, Leaking fluid, or regular Contractions. Pt reports good movement Physical Exam: Gen: female in no apparent distress Abd: soft, Gravid. Non tender to palpation. See flow sheet Participation of a fellow, resident, medical student, or advanced practice provider student in performing the sensitive examination was discussed with the patient or authorized malt liquors sales representative. The patient or authorized malt liquors sales representative has agreed to proceed with the sensitive examination. @ 38 weeks Assessment & Plan Encounter for supervision of high risk in third trimester, antepartum (HCC) Orders: URINE OB DIP B/O Polyhydramnios affecting in third trimester (HCC) D/w patient LGA (AC>99%)/Obesity- will do NST today- at [facility] due to time at appt. - reviewed IOL 39-40 weeks pt agreeable and scheduled Orders: URINE OB DIP B/O 38 weeks gestation of (HCC) RTO next week Kick counts and labor reviewed Orders: URINE OB DIP B/O Crystal Cantrell MD documented in this encounter [facility] 12-10-2024 Instructions Kelly Minor MA - 12/10/2024 4:10 PM EDT SEQUENTIAL SCREENINGS The [facility] offers sequential screenings for women who are interested in screenings for chromosomal abnormalities and certain defects during a . The sequential screen combines ultrasound and blood tests to determine the risk of chromosomal abnormalities, including Down's Syndrome (Trisomy 21) and Trisomy 18, as well as open neural tube defects including spina bifida. Ultrasound examination is performed between 11 weeks and 13 weeks gestational age. Blood tests are drawn after the ultrasound and again later in the between 15 and 21 weeks gestational age. Please let your physician know if you are interested in this testing. It will require an appointment with our boiler control technician. This is not an ultrasound performed by a physician in our office during a routine visit. SIGNS AND SYMPTOMS OF LABOR 1. Contractions every 10 minutes or more often 2. Clear, pink, or brownish fluid (water) leaking from vagina 3. Feeling that baby is pushing down, pressure 4. Low, dull backache 5. Cramps that feel like a period 6. Cramps with or without diarrhea If you notice any of the above symptoms, contact our office at [phone] and ask to speak with a nurse. After hours, you can call doctors registry at [phone] OR call [facility] at [phone] and ask to have the doctor agronomy supervisor paged. If you consider this an emergency, dial 9-1-1 or go to your nearest emergency department. NEED HELP? Are you dealing with a violent or abusive relationship? Are you a victim of rape or sexual assult? Call [facility] ([place]) 24 hour Crisis Hotline: 532.836.6036 or 537-693-6794. MANUAL Your Guide to a Healthy manual is now on-line. Visit [email or web address] [email or web address] to download your free copy documented in this encounter [facility] 12-07-2024 Telephone encounter Note FMLA completed and signed by provider 12/07/2024 Idalia Tong MA [facility] 12-07-2024 Miscellaneous Notes FMLA completed and signed by provider 12/07/2024 Idalia Tong MA Received FMLA from patient 12/04/2024, form is completed and in providers mailbox awaiting signature. Idalia Tong MA documented in this encounter [facility] 12-05-2024 Note Indication Evaluation of growth Impression - Single, live, intrauterine . - presentation is cephalic. - The biometry is consistent with the assigned gestational dating. - The EFW is 3320 g, at the 74%. AC is at the 99%. - Amniotic fluid volume is mild polyhydramnios with an MVP of 8 cm and JERRY of 22.9 cm. - The placenta is anterior, fundal. - No malformations visualized on a limited survey as detailed below. Recommendations Additional follow-up as clinically indicated. Maternal Assessment Height 160 cm Height (ft) 5 ft Height (in) 3 in Physical Exam Initial weight (lb) 157 lb Initial BMI 27.81 kg/m Maternal assessment other: 1 Para 0 REMOTE READ Method Transabdominal ultrasound examination [place] . Number of fetuses: 1 Dating LMP on: 03/19/2024 GA by LMP 37 w + 1 d VIKTOR by LMP: 12/24/2024 GA by prior assessment 37 w + 1 d VIKTOR by prior assessment: 12/24/2024 Ultrasound examination on: 12/04/2024 GA by U/S based upon: AC, BPD, Femur, HC GA by U/S 36 w + 1 d VIKTOR by U/S: 12/31/2024 Assigned: based on stated VIKTOR, selected on 12/04/2024 Assigned GA 37 w + 1 d Assigned VIKTOR: 12/24/2024 General Evaluation Cardiac activity present. FHR 144 bpm. movements: present. Presentation: cephalic Placenta: Placental site: anterior, fundal Umbilical cord: Cord vessels: 3 vessel cord Amniotic fluid: Amount of AF: mild polyhydramnios. MVP 8.0 cm. JERRY 22.9 cm. Q1 6.4 cm, Q2 8.0 cm, Q3 3.4 cm, Q4 5.1 cm Growth Overview Exam date GA BPD (mm) HC (mm) AC (mm) FL (mm) HL (mm) EFW (g) 08/08/2024 20w 2d 46.2 36% 172.2 34% 153.6 53% 32.2 55% 31.7 64% 339 40% 10/11/2024 29w 3d 73.2 36% 270.8 38% 262.5 73% 54.4 43% 1444 47% 11/05/2024 33w 0d 82.8 53% 308.4 59% 324.6 >99% 60.6 21% 2477 86% 12/04/2024 37w 1d 85 4% 318.5 20% 356.7 99% 70 48% 3320 74% Biometry Standard BPD 85.0 mm 34w 2d 4% Hadlock OFD 113.3 mm 35w 1d 36% Nicolaides HC 318.5 mm 35w 0d 20% Chloe AC 356.7 mm 39w 4d 99% Hadlock Femur 70.0 mm 35w 3d 48% Chloe EFW 3,320 g 38w 3d 74% Hadlock EFW (lb) 7 lb EFW (oz) 5 oz EFW by: Hadlock (HC-AC-FL) Extended Limousine [employer] Hearse Upholsterer 5.4 mm Extremities / Bony Struc FL / HC 0.22 Other Structures FHR 144 bpm Anatomy Lateral ventricles: normal Cavum septi pellucidi: normal Cerebellum: normal Cisterna magna: normal 4-chamber view: normal RVOT view: normal LVOT view: normal 3-vessel view: normal Heart / Thorax Situs: situs solitus (normal) Diaphragm: normal Stomach: normal Kidneys: normal Bladder: normal sex: female Wants to know sex: yes Performed By: Lanny Santoyo RDMS, RVT Read By: Kiley Villafana M.D. [facility] 12-04-2024 Telephone encounter Note Received FMLA from patient 12/04/2024, form is completed and in providers mailbox awaiting signature. Idalia Tong MA [facility] 12-04-2024 Progress note Formatting of t his note might be different from the original. KJ - S: Tali denies LOF, contractions or vaginal bleeding. O: 37w1d, see flow sheet SENSITIVE EXAM: Sensitive exam not performed. A/P: Assessment & Plan Polyhydramnios affecting in third trimester ([facility]) US today shows vertex, AGA infant at 74% with JERRY of 23. Encounter for supervision of high risk in third trimester, antepartum ([facility]) Orders: URINE OB DIP B/O Group beta Strep positive All questions answered & discussed treatment in labor. 37 weeks gestation of ([facility]) Orders: URINE OB DIP B/O Reviewed labor & FM precautions. Kirstie Strauss MD [facility] 12-04-2024 Miscellaneous Notes KJ - S: Tali denies LOF, contractions or vaginal bleeding. O: 37w1d, see flow sheet SENSITIVE EXAM: Sensitive exam not performed. A/P: Assessment & Plan Polyhydramnios affecting in third trimester ([facility]) US today shows vertex, AGA at 74% with JERRY of 23. Encounter for supervision of high risk in third trimester, antepartum ([facility]) Orders: URINE OB DIP B/O Group beta Strep positive All questions answered & discussed treatment in labor. 37 weeks gestation of ([facility]) Orders: URINE OB DIP B/O Reviewed labor & FM precautions. Kirstie Strauss MD documented in this encounter [facility] 12-04-2024 Instructions Idalia Tong MA - 12/04/2024 2:35 PM EDT SEQUENTIAL SCREENINGS The [facility] offers sequential screenings for women who are interested in screenings for chromosomal abnormalities and certain defects during a . The sequential screen combines ultrasound and blood tests to determine the risk of chromosomal abnormalities, including Down's Syndrome (Trisomy 21) and Trisomy 18, as well as open neural tube defects including spina bifida. Ultrasound examination is performed between 11 weeks and 13 weeks gestational age. Blood tests are drawn after the ultrasound and again later in the between 15 and 21 weeks gestational age. Please let your physician know if you are interested in this testing. It will require an appointment with our boiler control technician. This is not an ultrasound performed by a physician in our office during a routine visit. SIGNS AND SYMPTOMS OF LABOR 1. Contractions every 10 minutes or more often 2. Clear, pink, or brownish fluid (water) leaking from vagina 3. Feeling that baby is pushing down, pressure 4. Low, dull backache 5. Cramps that feel like a period 6. Cramps with or without diarrhea If you notice any of the above symptoms, contact our office at [phone] and ask to speak with a nurse. After hours, you can call [employer] registry at [phone] OR call [facility] at [phone] and ask to have the doctor agronomy supervisor paged. If you consider this an emergency, dial 9-1-6 or go to your nearest emergency department. NEED HELP? Are you dealing with a violent or abusive relationship? Are you a victim of rape or sexual assult? Call [facility] ([facility] 24 hour Crisis Hotline: 971.112.1207 or 505-670-5369. MANUAL Your Guide to a Healthy manual is now on-line. Visit [email or web address] [email or web address] to download your free copy documented in this encounter [facility] 11-30-2024 Progress note Formatting of t his note might be different from the original. KJ - S: Tali denies LOF, contractions or vaginal bleeding. O: 36w4d, see flow sheet SENSITIVE EXAM: The sensitive examination was discussed with the Patient or Patient's Authorized Wax Pumper. As applicable, any other physician, advance practice provider, medical student, or other health professional student that will be observing or involved in the sensitive examination for educational or training purposes was discussed with the Patient or Authorized Wax Pumper. The Patient or Authorized Wax Pumper has agreed to proceed with the sensitive examination. (Sensitive examination includes inspection and/or palpation of the breasts, pelvis, prostate and anorectal regions). A/P: Assessment & Plan 36 weeks gestation of ([facility]) Orders: URINE OB DIP B/O ROUTINE, GROUP B STREPTOCOCCUS BY PCR Encounter for supervision of high risk in third trimester, antepartum ([facility]) Orders: URINE OB DIP B/O Polyhydramnios affecting in third trimester ([facility]) Repeat US next week Orders: URINE OB DIP B/O Reviewed labor & FM precautions Kirstie Strauss MD [facility] 11-30-2024 Miscellaneous Notes KJ - S: Tali denies LOF, contractions or vaginal bleeding. O: 36w4d, see flow sheet SENSITIVE EXAM: The sensitive examination was discussed with the Patient or Patient's Authorized Wax Pumper. As applicable, any other physician, advance practice provider, medical student, or other health professional student that will be observing or involved in the sensitive examination for educational or training purposes was discussed with the Patient or Authorized Wax Pumper. The Patient or Authorized Wax Pumper has agreed to proceed with the sensitive examination. (Sensitive examination includes inspection and/or palpation of the breasts, pelvis, prostate and anorectal regions). A/P: Assessment & Plan 36 weeks gestation of ([facility]) Orders: URINE OB DIP B/O ROUTINE, GROUP B STREPTOCOCCUS BY PCR Encounter for supervision of high risk in third trimester, antepartum ([facility]) Orders: URINE OB DIP B/O Polyhydramnios affecting in third trimester ([facility]) Repeat US next week Orders: URINE OB DIP B/O Reviewed labor & FM precautions Kirstie Strauss MD documented in this encounter [facility] 11-30-2024 Instructions Diana Araujo MA - 11/30/2024 2:45 PM EDT SEQUENTIAL SCREENINGS The [facility] offers sequential screenings for women who are interested in screenings for chromosomal abnormalities and certain defects during a . The sequential screen combines ultrasound and blood tests to determine the risk of chromosomal abnormalities, including Down's Syndrome (Trisomy 21) and Trisomy 18, as well as open neural tube defects including spina bifida. Ultrasound examination is performed between 11 weeks and 13 weeks gestational age. Blood tests are drawn after the ultrasound and again later in the between 15 and 21 weeks gestational age. Please let your physician know if you are interested in this testing. It will require an appointment with our boiler control technician. This is not an ultrasound performed by a physician in our office during a routine visit. SIGNS AND SYMPTOMS OF LABOR 1. Contractions every 10 minutes or more often 2. Clear, pink, or brownish fluid (water) leaking from vagina 3. Feeling that baby is pushing down, pressure 4. Low, dull backache 5. Cramps that feel like a period 6. Cramps with or without diarrhea If you notice any of the above symptoms, contact our office at [phone] and ask to speak with a nurse. After hours, you can call doctors registry at [phone] OR call [facility] at [phone] and ask to have the doctor agronomy supervisor paged. If you consider this an emergency, dial 8-6-7 or go to your nearest emergency department. NEED HELP? Are you dealing with a violent or abusive relationship? Are you a victim of rape or sexual assult? Call [facility] ([place]) 24 hour Crisis Hotline: 625.924.9413 or 448-422-7036. MANUAL Your Guide to a Healthy manual is now on-line. Visit [email or web address] ancyGuide to download your free copy documented in this encounter [facility] 11-27-2024 Telephone encounter Note Appt scheduled with ENA 11/30 at 2:40pm. Brian Stratton RN [facility] 11-27-2024 Miscellaneous Notes Appt scheduled with ENA 11/30 at 2:40pm. Brian Stratton RN Ok for any 10 min opening w/ anyone. Schedules are very full right now. We only have so many options we can accommodate. Rachel Morales MD I can see her this afternoon in one of my openings. Rachel Morales MD Call placed to Pt this AM to reschedule her OB appt that is scheduled on 11/29/24 with EH as Pt is 36w1d. Pt unable to come in to office today. Needs PM appointments d/t work. Please advise where we can place Pt this week for appt with CNM/. Brian Stratton RN documented in this encounter [facility] 11-27-2024 Telephone encounter Note Ok for any 10 min opening w/ anyone. Schedules are very full right now. We only have so many options we can accommodate. Rachel Morales MD [facility] 11-27-2024 Telephone encounter Note I can see her this afternoon in one of my openings. Rachel Morales MD [facility] 11-27-2024 Telephone encounter Note Call placed to Pt this AM to reschedule her OB appt that is scheduled on 11/29/24 with EH as Pt is 36w1d. Pt unable to come in to office today. Needs PM appointments d/t work. Please advise where we can place Pt this week for appt with ROBYN/. Brian Stratton, RN T [facility] 11-19-2024 Progress note Formatting of t his note might be different from the original. S: Tali Gibson is a 24 year old female who presents at 35 weeks gestation for a routine visit. Positive movements. Denies any cramps or contractions. Denies headache, visual changes, chest pain, shortness of breath, vaginal bleeding, leakage of fluid, or dysuria. Feeling well, no complaints. O: See flow sheet Gen: No apparent distress Abd: Gravid, nontender ASSESSMENT/PLAN: 1. Encounter for supervision of high risk in third trimester 2. Polyhydramnios affecting in third trimester 3. 35 weeks gestation of - Growth US at 33 weeks- EFW 86% AC>99%- repeat in 2 weeks - JERRY 26 - mild polyhydramnios - Desires physiological onset of labor - Reviewed postdates IOL vs expectant management. Wanting unmedicated and to await spontaneous labor. Discussed recomendation for IOL at 41 weeks.Risks of stillbirth, aging placenta, macrosomia, meconium and distress discussed. Recommend twice weekly testing with BPP and NST if continues past 41 weeks. - PTL precautions and kick counts reviewed - Educated on cervical exams and expectations - RTO 1 week Summer Garduno APRN.CNM T [facility] 11-19-2024 Miscellaneous Notes S: Tali Gibson is a 24 year old female who presents at 35 weeks gestation for a routine visit. Positive movements. Denies any cramps or contractions. Denies headache, visual changes, chest pain, shortness of breath, vaginal bleeding, leakage of fluid, or dysuria. Feeling well, no complaints. O: See flow sheet Gen: No apparent distress Abd: Gravid, nontender ASSESSMENT/PLAN: 1. Encounter for supervision of high risk in third trimester 2. Polyhydramnios affecting in third trimester 3. 35 weeks gestation of - Growth US at 33 weeks- EFW 86% AC>99%- repeat in 2 weeks - JERRY 26 - mild polyhydramnios - Desires physiological onset of labor - Reviewed postdates IOL vs expectant management. Wanting unmedicated and to await spontaneous labor. Discussed recomendation for IOL at 41 weeks.Risks of stillbirth, aging placenta, macrosomia, meconium and distress discussed. Recommend twice weekly testing with BPP and NST if continues past 41 weeks. - PTL precautions and kick counts reviewed - Educated on cervical exams and expectations - RTO 1 week Summer Garduno APRN.CNM documented in this encounter [facility] 11-19-2024 Instructions Summer Garduno APRN.CNM - 11/19/2024 3:06 PM EDT Images from the original note were not included. Preparing for labor: Eat dates to promote spontaneous labor! Has an oxytocin-like effect on the body, leading to increased sensitivity of the uterus. Stimulates uterine contractions. Reduces hemorrhage the way oxytocin does. Date fruit contains saturated and unsaturated fatty acids such as oleic, linoleic, and linolenic acids, which are involved in saving and supplying energy and construction of prostaglandins. In addition, serotonin, tannin, and calcium in date fruit contribute to the contraction of smooth muscles of the uterus. Date fruit also has a laxative effect, which stimulates uterine contractions. Six dates per day is the magic number--provided that you re eating smaller deglet noor dates. Deglet noor dates are about 1 inch long. Medjool dates can be up to 2 inches long. If you re eating medjool dates, you only need about 3 dates to reach the 75 grams recommended in the studies. Not sure which type of date you have in your refrigerator? It s probably a deglet noor. How to Eat Dates During Dates are a healthy and delicious snack, so how can you add them to your diet? Add dates during in this awesome oatmeal recipe. Add dates to replace sugar in your favorite recipe or to art your homemade almond milk. Use dates and nuts to make an easy pie crust in the prepared foods service team member. Add soaked dates to homemade nut butter for a sweet treat. Add dates to art homemade salad dressing. Add dates during easily with these yummy (paleo friendly) bars made from dates. What Is Red Raspberry Arjay Tea? Red raspberry leaf tea comes from the leaves of the red raspberry plant. This herbal tea has been used for centuries to support respiratory, digestive and uterine health, particularly during and childbearing years. While usually known as a female herb, red raspberry leaf tea can also help support the prostate and various stomach ailments in children. How It Can Help and Red raspberry leaf tea can help to make labor faster and reduce complications and interventions during . One study found that women who consumed RRL tea regularly are less likely to go overdue or give prematurely. These women may also be less likely to receive an artificial rupture of their membranes or require a section, forceps, or vacuum than the women in the control group. Red raspberry leaf has many other benefits to , , and too. How Much Red Raspberry Arjay Tea to Drink? With your doctor or corporate communications associate s approval, start with 1 cup of red raspberry leaf tea per day starting in the second trimester. Watch for any uterine cramping or other reactions. If you don t experience any, you can talk to your healthcare provider about increasing to 2 cups per day. Again, watch for any uterine cramping. If you notice any, cut back on your dosage for two weeks and try again. Keep in mind, some moms have irritable uteruses and can only drink red raspberry leaf tea once they reach their due date because of uterine cramping. Is Red Raspberry Arjay Tea the Same as Raspberry Arjay Tea? How About Plain Old Raspberry Tea? Sometimes. You really need to look at the ingredients to be sure. Note that there is no difference between red raspberry leaf and raspberry leaf. [employer] or Cream Style Raspberry Arjay Tea are two good brands. The red raspberry leaf teas that we recommend are 100% red raspberry leaf. Other teas labeled as raspberry are often a blend of rosehips, hibiscus, raspberry leaves, and raspberry flavor. So they may not be as effective. The teas to avoid are raspberry-flavored herbal teas, which may have ingredients like hibiscus, dustin hips, apples, elderberries, natural and artificial raspberry flavors. Teas like this don t contain raspberry leaf at all and thus won t offer any of the potential benefits of RRLT outlined in this article. The [employer] www.Ubooly I named this 'circuit' after my friend Margret Mistry, who shared and discussed it with me when I was working with a client whose labor seemed to be stalled out and no longer progressing... This circuit is useful to help get the baby lined up, ideally, in the Left Occiput Anterior (RAMANA) Position, both before labor begins and when some corrections need to be done during labor. Prenatally, this position set can help to rotate a baby. As a natural method of induction, this can help get things going if baby just needed a gentle nudge of position to set things off. To the best of my knowledge, this group of positions will not hurt a baby that is already lined up correctly. - Radha Hall Before you Begin..... This circuit takes at least 90 minutes to complete so clear your schedule and make mental preparations so you can relax in your environment. The second step requires a lot of pillows so gather them up before beginning Before starting, you should empty your bladder! Have a nice drink nearby, and make sure it has a straw! If you are having contractions, this circuit should bedone through contractions, try not to change positions between steps Step One: Open-knee Chest Stay in this position for 30 minutes, start in cat/cow, then drop your chest as low as you can to the bed or the floor and your bottom as high as you can. Knees should be fairly wide apart, and the angle between the torso/thighs should be wider than 90 degrees. Wiggle around, prop with lots of pillows and use this time to get totally relaxed. This position allows the baby to scoot out of the pelvis a bit and gives them room to rotate, shift their head position, etc. If the person finds it helpful,careful positioning with a rebozo under the belly, with gentle tension from a support person behindcan help maintain this position for the full 30minutes. Step Two: Exaggerated Left Side Lying Roll to your left side, bringing your top leg as high as possible and keeping your bottom leg straight. Roll forward as much as possible,again using a lot of pillows. Sink into the bed and relax some more. If you fall asleep, that's totally okay and you can stay there! If not, stay here for at least another half an hour. Try and get your top right leg up towards your head and get as rolled over onto your belly as much as possible. If you repeat the circuit during labor, try alternating left and right sides. We know the photo the left is actually right side... just flip the image in your head. Step Three: Moving and Lunges Lunge, walk stairs facing sideways, 2 at a time, (have a dock manager downstairs of you!), take a walk outside with one foot on the curb and the other on the street, sit on a ball and hula- anything that's upright and putting your pelvis in open, asymmetrical positions. Spend at least 30 minutes doing this one as well to give your baby a chance to move down. If you are lunging or stair or curb walking, you should lunge/walk/go up stairs in the direction that feels better to you. The mccray with the lunge is that the toes of the higher leg and mom's belly button should be at right angles. Do not lunge over your knee, that closes the pelvis. Margret Mistry: Circuit Creator - [email or web address].Nubity Radha Hall, CD, BDT (LOC), LCCE, FACCE: Supporting Content - [email or web address] Quinn Leahy: Photography - [email or web address].AdMoment Bhumika Hillman CD/CDT (FRANCY): Print and Oss Architect - www.[email or web address].MarginLeft Circuit Masterminds The [employer] www.[email or web address].AdMoment SEQUENTIAL SCREENINGS The [facility] offers sequential screenings for women who are interested in screenings for chromosomal abnormalities and certain defects during a . The sequential screen combines ultrasound and blood tests to determine the risk of chromosomal abnormalities, including Down's Syndrome (Trisomy 21) and Trisomy 18, as well as open neural tube defects including spina bifida. Ultrasound examination is performed between 11 weeks and 13 weeks gestational age. Blood tests are drawn after the ultrasound and again later in the between 15 and 21 weeks gestational age. Please let your physician know if you are interested in this testing. It will require an appointment with our boiler control technician. This is not an ultrasound performed by a physician in our office during a routine visit. SIGNS AND SYMPTOMS OF LABOR 1. Contractions every 10 minutes or more often 2. Clear, pink, or brownish fluid (water) leaking from vagina 3. Feeling that baby is pushing down, pressure 4. Low, dull backache 5. Cramps that feel like a period 6. Cramps with or without diarrhea If you notice any of the above symptoms, contact our office at [phone] and ask to speak with a nurse. After hours, you can call doctors registry at [phone] OR call [facility] at [phone] and ask to have the doctor agronomy supervisor paged. If you consider this an emergency, dial 9-1-0 or go to your nearest emergency department. NEED HELP? Are you dealing with a violent or abusive relationship? Are you a victim of rape or sexual assult? Call [facility] ([place]) 24 hour Crisis Hotline: 261.591.1361 or 284-723-1680. MANUAL Your Guide to a Healthy manual is now on-line. Visit [email or web address] ancyGuide to download your free copy documented in this encounter [facility] 11-14-2024 Progress note Formatting of t his note might be different from the original. S: Tali Gibson is a 24 year old female who presents at 12/24/2024, by Last Menstrual Period for a routine visit. Denies headache, visual changes, chest pain, shortness of breath, vaginal bleeding, leakage of fluid, or dysuria. Feeling well, no complaints. Good movement, No contractions O: See flow sheet Gen: No apparent distress Abd: Gravid, nontender Pain over the left cornua. parts palpated in the area. No pain lateral to uterine fundus. Baby feels large No bleeding. No contractions Repeat growth scheduled in 2 weeks ASSESSMENT/PLAN: 1. Encounter for supervision of high risk in third trimester, antepartum ([facility]) - ICD9: V23.9, ICD10: O09.93 (primary diagnosis) - URINE OB DIP B/O 2. Polyhydramnios affecting in third trimester ([facility]) - ICD9: 657.03, ICD10: O40.3XX0 Repeat US at 36 weeks - URINE OB DIP B/O 3. Breech presentation, single or unspecified fetus ([facility]) - ICD9: 652.20, ICD10: O32.1XX0 Vtx today Has repeat at 36 weeks - URINE OB DIP B/O 4. Gastroesophageal reflux disease without esophagitis - ICD9: 530.81, ICD10: K21.9 - URINE OB DIP B/O 5. 34 weeks gestation of ([facility]) - ICD9: V22.2, ICD10: Z3A.34 - URINE OB DIP B/O Trinity Burrows MD [facility] 11-14-2024 Miscellaneous Notes S: Tali Gibson is a 24 year old female who presents at 12/24/2024, by Last Menstrual Period for a routine visit. Denies headache, visual changes, chest pain, shortness of breath, vaginal bleeding, leakage of fluid, or dysuria. Feeling well, no complaints. Good movement, No contractions O: See flow sheet Gen: No apparent distress Abd: Gravid, nontender Pain over the left cornua. parts palpated in the area. No pain lateral to uterine fundus. Baby feels large No bleeding. No contractions Repeat growth scheduled in 2 weeks ASSESSMENT/PLAN: 1. Encounter for supervision of high risk in third trimester, antepartum ([facility]) - ICD9: V23.9, ICD10: O09.93 (primary diagnosis) - URINE OB DIP B/O 2. Polyhydramnios affecting in third trimester ([facility]) - ICD9: 657.03, ICD10: O40.3XX0 Repeat US at 36 weeks - URINE OB DIP B/O 3. Breech presentation, single or unspecified fetus ([facility]) - ICD9: 652.20, ICD10: O32.1XX0 Vtx today Has repeat at 36 weeks - URINE OB DIP B/O 4. Gastroesophageal reflux disease without esophagitis - ICD9: 530.81, ICD10: K21.9 - URINE OB DIP B/O 5. 34 weeks gestation of ([facility]) - ICD9: V22.2, ICD10: Z3A.34 - URINE OB DIP B/O Trinity Burrows MD documented in this encounter [facility] 11-14-2024 Instructions Kelly Minor MA - 11/14/2024 3:21 PM EDT SEQUENTIAL SCREENINGS The [facility] offers sequential screenings for women who are interested in screenings for chromosomal abnormalities and certain defects during a . The sequential screen combines ultrasound and blood tests to determine the risk of chromosomal abnormalities, including Down's Syndrome (Trisomy 21) and Trisomy 18, as well as open neural tube defects including spina bifida. Ultrasound examination is performed between 11 weeks and 13 weeks gestational age. Blood tests are drawn after the ultrasound and again later in the between 15 and 21 weeks gestational age. Please let your physician know if you are interested in this testing. It will require an appointment with our boiler control technician. This is not an ultrasound performed by a physician in our office during a routine visit. SIGNS AND SYMPTOMS OF LABOR 1. Contractions every 10 minutes or more often 2. Clear, pink, or brownish fluid (water) leaking from vagina 3. Feeling that baby is pushing down, pressure 4. Low, dull backache 5. Cramps that feel like a period 6. Cramps with or without diarrhea If you notice any of the above symptoms, contact our office at [phone] and ask to speak with a nurse. After hours, you can call doctors registry at [phone] OR call [facility] at [phone] and ask to have the doctor agronomy supervisor paged. If you consider this an emergency, dial or go to your nearest emergency department. NEED HELP? Are you dealing with a violent or abusive relationship? Are you a victim of rape or sexual assult? Call [facility] ([place]) 24 hour Crisis Hotline: 288.759.7441 or 399-201-8602. MANUAL Your Guide to a Healthy manual is now on-line. Visit [email or web address]/HealthyPregn ancyGuide to download your free copy documented in this encounter [facility] 11-14-2024 Telephone encounter Note Patient called back and appointment given for appointment in office. Lanny Bhakta RN [facility] 11-14-2024 Miscellaneous Notes Patient called back and appointment given for appointment in office. Lanny Bhakta RN Patient 34w2d having abdomen pain in LUQ pain since 1230 that is constant and sharp. Currently rating pain at a 6-7 out of 10. Pain increases with touch and bending. Per patient baby is active, denies any contractions or cramping. Denies any vaginal bleeding or leaking. Patient currently at work and it would take her 30 minutes to get here. Do you want patient to be evaluated in the office? Next appointment is not until 11/19. Lanny Bhakta RN documented in this encounter [facility] 11-14-2024 Telephone encounter Note Patient 34w2d having abdomen pain in LUQ pain since 1230 that is constant and sharp. Currently rating pain at a 6-7 out of 10. Pain increases with touch and bending. Per patient baby is active, denies any contractions or cramping. Denies any vaginal bleeding or leaking. Patient currently at work and it would take her 30 minutes to get here. Do you want patient to be evaluated in the office? Next appointment is not until 11/19. Lanny Bhakta RN [facility] 11-07-2024 Telephone encounter Note Sounds good thank you. Libby Bob APRN.CNM [facility] 11-07-2024 Miscellaneous Notes Sounds good thank you. Libby Bob APRN.CNM Called and spoke with patient. Inquired if she picked up the prescription. She did not and does not plan on taking. She did some online research and spoke with a few people and has decided she doesn't feel comfortable taking.Trinity Ortiz RN Ok. Because this is time sensitive can discuss with her using self pay and good rx. Doxycycline Hyclate DR Smith, Coupons & Savings Tips - GoodRx [employer] message sent to patient regarding updating insurance info to submit PA for Doxycycline. Glynn Jeong MA documented in this encounter [facility] 11-07-2024 Telephone encounter Note Called and spoke with patient. Inquired if she picked up the prescription. She did not and does not plan on taking. She did some online research and spoke with a few people and has decided she doesn't feel comfortable taking.Trinity Ortiz RN [facility] 11-07-2024 Telephone encounter Note Ok. Because this is time sensitive can discuss with her using self pay and good rx. Doxycycline Hyclate DR Smith, Coupons & Savings Tips - GoodRx [facility] 11-07-2024 Telephone encounter Note [employer] message sent to patient regarding updating insurance info to submit PA for Doxycycline. Glynn Jeong MA [facility] 11-06-2024 Telephone encounter Note Sent. Libby Bob APRN.CNM [facility] 11-06-2024 Miscellaneous Notes Sent. Libby Bob APRN.CNM documented in this encounter [facility] 11-06-2024 Note Indication Evaluation of growth Impression - Single, live, intrauterine . - presentation is cephalic. - The biometry is consistent with the assigned gestational dating. - The EFW is 2477 g, at the 86%. AC is at the >99%. - Amniotic fluid volume is mild polyhydramnios with an MVP of 7.9 cm and JERRY of 26.7 cm. - The placenta is anterior, fundal. - No malformations visualized on a limited survey as detailed below. Recommendations - growth scan in 4 weeks - Additional follow up as clinically indicated. Maternal Assessment Height 160 cm Height (ft) 5 ft Height (in) 3 in Physical Exam Initial weight (lb) 157 lb Initial BMI 27.81 kg/m Maternal assessment other: 1 Para 0 REMOTE READ Method Transabdominal ultrasound examination [place] . Number of fetuses: 1 Dating LMP on: 03/19/2024 GA by LMP 33 w + 0 d VIKTOR by LMP: 12/24/2024 GA by prior assessment 33 w + 0 d VIKTOR by prior assessment: 12/24/2024 Ultrasound examination on: 11/05/2024 GA by U/S based upon: AC, BPD, Femur, HC GA by U/S 33 w + 5 d VIKTOR by U/S: 12/19/2024 Assigned: based on stated VIKTOR, selected on 10/11/2024 Assigned GA 33 w + 0 d Assigned VIKTOR: 12/24/2024 General Evaluation Cardiac activity present. FHR 141 bpm. movements: present. Presentation: cephalic Placenta: Placental site: anterior, fundal Umbilical cord: Cord vessels: 3 vessel cord Amniotic fluid: Amount of AF: mild polyhydramnios. MVP 7.9 cm. JERRY 26.7 cm. Q1 4.6 cm, Q2 7.9 cm, Q3 7.0 cm, Q4 7.1 cm Growth Overview Exam date GA BPD (mm) HC (mm) AC (mm) FL (mm) HL (mm) EFW (g) 08/08/2024 20w 2d 46.2 36% 172.2 34% 153.6 53% 32.2 55% 31.7 64% 339 40% 10/11/2024 29w 3d 73.2 36% 270.8 38% 262.5 73% 54.4 43% 1444 47% 11/05/2024 33w 0d 82.8 53% 308.4 59% 324.6 >99% 60.6 21% 2477 86% Biometry Standard BPD 82.8 mm 33w 2d 53% Hadlock OFD 110.5 mm 33w 2d 64% Nicolaides HC 308.4 mm 33w 3d 59% Chloe AC 324.6 mm 36w 3d >99% Hadlock Femur 60.6 mm 31w 3d 21% Chloe EFW 2,477 g 34w 3d 86% Hadlock EFW (lb) 5 lb EFW (oz) 7 oz EFW by: Hadlock (HC-AC-FL) Extended Limousine [employer]se Upholsterer 5.1 mm Extremities / Bony Struc FL / HC 0.20 Other Structures FHR 141 bpm Anatomy Lateral ventricles: normal Cavum septi pellucidi: normal Cerebellum: normal Cisterna magna: normal 4-chamber view: normal RVOT view: normal LVOT view: normal 3-vessel view: normal Heart / Thorax Situs: situs solitus (normal) Diaphragm: normal Stomach: normal Kidneys: normal Bladder: normal sex: female Wants to know sex: yes Performed By: Lanny Santoyo RDMS, RVT Read By: Kiley Villafana M.D. [facility] 11-05-2024 Note HNO ID: [id number] Author: LIBBY BOB APRN.CNM Service: ? Author Type: First Coat Operator Type: Progress Notes Filed: 11/07/2024 16:54 Note Text: JAMIE-S: Tali Gibson is a 24 year old female who presents at 28w2d with VIKTOR:12/24/2024, by Last Menstrual Period for a routine visit. Denies headache, visual changes, chest pain, shortness of breath, vaginal bleeding, leakage of fluid, or dysuria. Found a tick on her left ear today and pulled it off. 72hrs from tick bite. Does not think tick was bloated. O: See flow sheet Gen: No apparent distress Abd: Gravid, nontender ASSESSMENT/PLAN: 1. Encounter for supervision of normal first in third trimester 2. 33 weeks gestation of 3. Anxiety with depression -Continue Zoloft 50mg PO once daily 4.Gastroesophageal reflux disease without esophagitis -Improvement with omeprazole 5. Tick bite, unspecified site, initial encounter -Offered prophylaxis with single dose of doxycycline 200mg PO. Reviewed single dose unlikely to cause complications and can take if desires. Discussed potential risks vs benefit. She is uncertain but will notify office. PTL precautions reviewed and when to call Libby Bob APRN.CNM [facility] 11-05-2024 History of Presen t illness Narrative JAMIE-S: Tali Gibson is a 24 year old female who presents at 28w2d with VIKTOR:12/24/2024, by Last Menstrual Period for a routine visit. Denies headache, visual changes, chest pain, shortness of breath, vaginal bleeding, leakage of fluid, or dysuria. Found a tick on her left ear today and pulled it off. <Than 72hrs from tick bite. Does not think tick was bloated. O: See flow sheet Gen: No apparent distress Abd: Gravid, nontender ASSESSMENT/PLAN: 1. Encounter for supervision of normal first in third trimester 2. 33 weeks gestation of 3. Anxiety with depression -Continue Zoloft 50mg PO once daily 4.Gastroesophageal reflux disease without esophagitis -Improvement with omeprazole 5. Tick bite, unspecified site, initial encounter -Offered prophylaxis with single dose of doxycycline 200mg PO. Reviewed single dose unlikely to cause complications and can take if desires. Discussed potential risks vs benefit. She is uncertain but will notify office. PTL precautions reviewed and when to call Libby Bob APRN.CNM documented in this encounter [facility] 11-05-2024 Instructions Glynn Jeong MA - 11/05/2024 3:01 PM EDT SEQUENTIAL SCREENINGS The [facility] offers sequential screenings for women who are interested in screenings for chromosomal abnormalities and certain defects during a . The sequential screen combines ultrasound and blood tests to determine the risk of chromosomal abnormalities, including Down's Syndrome (Trisomy 21) and Trisomy 18, as well as open neural tube defects including spina bifida. Ultrasound examination is performed between 11 weeks and 13 weeks gestational age. Blood tests are drawn after the ultrasound and again later in the between 15 and 21 weeks gestational age. Please let your physician know if you are interested in this testing. It will require an appointment with our boiler control technician. This is not an ultrasound performed by a physician in our office during a routine visit. SIGNS AND SYMPTOMS OF LABOR 1. Contractions every 10 minutes or more often 2. Clear, pink, or brownish fluid (water) leaking from vagina 3. Feeling that baby is pushing down, pressure 4. Low, dull backache 5. Cramps that feel like a period 6. Cramps with or without diarrhea If you notice any of the above symptoms, contact our office at [phone] and ask to speak with a nurse. After hours, you can call [employer] registry at [phone] OR call [facility] at [phone] and ask to have the doctor agronomy supervisor paged. If you consider this an emergency, dial 9-1-1 or go to your nearest emergency department. NEED HELP? Are you dealing with a violent or abusive relationship? Are you a victim of rape or sexual assult? Call [facility] ([place]) 24 hour Crisis Hotline: 571.568.3717 or 819-190-7467. MANUAL Your Guide to a Healthy manual is now on-line. Visit [email or web address] ancyGuide to download your free copy documented in this encounter [facility] 10-31-2024 Telephone encounter Note Signed and faxed. Esther Recinos RN [facility] 10-31-2024 Miscellaneous Notes Signed and faxed. Esther Recinos RN Received breast pump RX from [employer]. To CP to sign. Trinity Ortiz RN documented in this encounter [facility] 10-30-2024 Telephone encounter Note Received breast pump RX from [employer]. To CP to sign. Trinity Ortiz RN [facility] 10-19-2024 Miscellaneous Notes EH - S: Tali is a 24 year old female who presents at 30w4d for a routine visit. Feeling movement. Denies headache, visual changes, chest pain, shortness of breath, vaginal bleeding, leakage of fluid, or dysuria. Feeling well, no complaints. O: See flow sheet Gen: No apparent distress Abd: Gravid, nontender, S>D ASSESSMENT/PLAN: 1. Encounter for supervision of high risk in third trimester, antepartum ([facility]) - ICD9: V23.9, ICD10: O09.93 (primary diagnosis) - Continue PNV and LDA 2. 30 weeks gestation of ([facility]) - ICD9: V22.2, ICD10: Z3A.30 3. Polyhydramnios affecting in third trimester ([facility]) - ICD9: 657.03, ICD10: O40.3XX0 - MVP 8.6 cm, JERRY 23.9 cm on 10/11 - Growth in 4 weeks 4. Elevated blood pressure affecting in second trimester, antepartum ([facility]) - ICD9: 642.93, ICD10: O16.2 - Has been keeping BP log at home - Averaging 110-120s/70s 5. Breech presentation, single or unspecified fetus ([facility]) - ICD9: 652.20, ICD10: O32.1XX0 - Recheck position at next growth - Discussed transition of care specialist and movements to promote cephalic position 6. Gastroesophageal reflux disease without esophagitis - ICD9: 530.81, ICD10: K21.9 - Pepcid not effective - Trial Omeprazole PTL precautions and kick counts reviewed. RTO in 2 weeks or sooner as needed. Quinn Davis APRN.WILDLIFE ENFORCEMENT MAJOR documented in this encounter [facility] 10-19-2024 Progress note Formatting of t his note might be different from the original. EH - S: Tali is a 24 year old female who presents at 30w4d for a routine visit. Feeling movement. Denies headache, visual changes, chest pain, shortness of breath, vaginal bleeding, leakage of fluid, or dysuria. Feeling well, no complaints. O: See flow sheet Gen: No apparent distress Abd: Gravid, nontender, S>D ASSESSMENT/PLAN: 1. Encounter for supervision of high risk in third trimester, antepartum ([facility]) - ICD9: V23.9, ICD10: O09.93 (primary diagnosis) - Continue PNV and LDA 2. 30 weeks gestation of ([facility]) - ICD9: V22.2, ICD10: Z3A.30 3. Polyhydramnios affecting in third trimester ([facility]) - ICD9: 657.03, ICD10: O40.3XX0 - MVP 8.6 cm, JERRY 23.9 cm on 10/11 - Growth in 4 weeks 4. Elevated blood pressure affecting in second trimester, antepartum ([facility]) - ICD9: 642.93, ICD10: O16.2 - Has been keeping BP log at home - Averaging 110-120s/70s 5. Breech presentation, single or unspecified fetus ([facility]) - ICD9: 652.20, ICD10: O32.1XX0 - Recheck position at next growth - Discussed transition of care specialist and movements to promote cephalic position 6. Gastroesophageal reflux disease without esophagitis - ICD9: 530.81, ICD10: K21.9 - Pepcid not effective - Trial Omeprazole PTL precautions and kick counts reviewed. RTO in 2 weeks or sooner as needed. Quinn Davis APRN.WILDLIFE ENFORCEMENT MAJOR [facility] 10-19-2024 Instructions Barbara Escalera LPN - 10/19/2024 3:34 PM EDT SEQUENTIAL SCREENINGS The [facility] offers sequential screenings for women who are interested in screenings for chromosomal abnormalities and certain defects during a . The sequential screen combines ultrasound and blood tests to determine the risk of chromosomal abnormalities, including Down's Syndrome (Trisomy 21) and Trisomy 18, as well as open neural tube defects including spina bifida. Ultrasound examination is performed between 11 weeks and 13 weeks gestational age. Blood tests are drawn after the ultrasound and again later in the between 15 and 21 weeks gestational age. Please let your physician know if you are interested in this testing. It will require an appointment with our boiler control technician. This is not an ultrasound performed by a physician in our office during a routine visit. SIGNS AND SYMPTOMS OF LABOR 1. Contractions every 10 minutes or more often 2. Clear, pink, or brownish fluid (water) leaking from vagina 3. Feeling that baby is pushing down, pressure 4. Low, dull backache 5. Cramps that feel like a period 6. Cramps with or without diarrhea If you notice any of the above symptoms, contact our office at [phone] and ask to speak with a nurse. After hours, you can call doctors registry at [phone] OR call [facility] at [phone] and ask to have the doctor agronomy supervisor paged. If you consider this an emergency, dial 9-1-4 or go to your nearest emergency department. NEED HELP? Are you dealing with a violent or abusive relationship? Are you a victim of rape or sexual assult? Call [facility] ([place]) 24 hour Crisis Hotline: 659.160.3864 or 937-204-6754. MANUAL Your Guide to a Healthy manual is now on-line. Visit [email or web address] ancyGuide to download your free copy documented in this encounter [facility] 10-03-2024 Progress note Formatting of t his note might be different from the original. JAMIE-S: Tali Gibson is a 24 year old female who presents at 28w2d with VIKTOR:12/24/2024, by Last Menstrual Period for a routine visit. Denies headache, visual changes, chest pain, shortness of breath, vaginal bleeding, leakage of fluid, or dysuria. Feeling well, no complaints. Was seen in L&D for tachycardia. EKG was normal sinus rhythm. Also states she had elevated BP 140/82 and at home 130/80. Not elevated in L&D or in office. O: See flow sheet Gen: No apparent distress Abd: Gravid, nontender ASSESSMENT/PLAN: 1. Encounter for supervision of normal first in third trimester - 1 hour GCT, CBC, and RPR today - A positive - LARC form reviewed and signed. Patient declines - Depression screen negative - Opioid screen negative - plan form discussed and given to patient. Does not plan to take CBE. Uncertain of labor and delivery plans. 2. 28 weeks gestation of 3. Anxiety with depression -Continue Zoloft 50mg PO once daily 4. Need for vaccination - TDAP today 5. Gastroesophageal reflux disease without esophagitis -Increase pepcid to 40mg PO once daily. If no improvement will switch to protonix PTL precautions reviewed and when to call RTO in 2 weeks Libby Bob APRN.CNM [facility] 10-03-2024 Miscellaneous Notes JAMIE-S: Tali Gibson is a 24 year old female who presents at 28w2d with VIKTOR:12/24/2024, by Last Menstrual Period for a routine visit. Denies headache, visual changes, chest pain, shortness of breath, vaginal bleeding, leakage of fluid, or dysuria. Feeling well, no complaints. Was seen in L&D for tachycardia. EKG was normal sinus rhythm. Also states she had elevated BP 140/82 and at home 130/80. Not elevated in L&D or in office. O: See flow sheet Gen: No apparent distress Abd: Gravid, nontender ASSESSMENT/PLAN: 1. Encounter for supervision of normal first in third trimester - 1 hour GCT, CBC, and RPR today - A positive - LARC form reviewed and signed. Patient declines - Depression screen negative - Opioid screen negative - plan form discussed and given to patient. Does not plan to take CBE. Uncertain of labor and delivery plans. 2. 28 weeks gestation of 3. Anxiety with depression -Continue Zoloft 50mg PO once daily 4. Need for vaccination - TDAP today 5. Gastroesophageal reflux disease without esophagitis -Increase pepcid to 40mg PO once daily. If no improvement will switch to protonix PTL precautions reviewed and when to call RTO in 2 weeks Libby Bob APRN.CNM documented in this encounter [facility] 10-03-2024 Note HNO ID: [id number] Author: GLYNN JEONG MA Service: ? Author Type: Resident Services Director Type: Progress Notes Filed: 10/03/2024 12:19 Note Text: Patient identified by name and date of . Tali Gibson presents today for a vaccination of Tdap. Patient denies an allergy to latex: yes Patient denies a severe (life-threatening) allergy to a previous dose of Tdap, DTP, DTaP, DT or Td vaccine. Yes Patient denies history of epilepsy or neurological problems: Yes Patient is afebrile and denies being moderately or severely ill: Yes Patient denies history of Guillain-Drake Syndrome (a severe paralytic illness): Yes Tdap Adacel injection was given without incident. See immunizations for details of immunizations administered today. VIS sheet provided: Yes Provider Libby Bob APRN CNM was present in office at time of injection. Glynn Jeong MA [facility] 10-03-2024 History of Presen t illness Narrative Patient identified by name and date of . Tali Gibson presents today for a vaccination of Tdap. Patient denies an allergy to latex: yes Patient denies a severe (life-threatening) allergy to a previous dose of Tdap, DTP, DTaP, DT or Td vaccine. Yes Patient denies history of epilepsy or neurological problems: Yes Patient is afebrile and denies being moderately or severely ill: Yes Patient denies history of Guillain-Drake Syndrome (a severe paralytic illness): Yes Tdap Adacel injection was given without incident. See immunizations for details of immunizations administered today. VIS sheet provided: Yes Provider Libby Bob APRN CNM was present in office at time of injection. Glynn Jeong MA documented in this encounter [facility] 10-03-2024 Instructions Libby Bob APRN.ROBYN - 10/03/2024 10:21 AM EDT If you have a severe, persistent headache, visual changes or severe right sided abdominal pain or any other changes please notify the office or go to labor and delivery for evaluation. If your blood pressure is above 160/100 twice within 30 minutes please notify us immediately or go to labor and delivery for evaluation. If 140/90 please notify the office the next morning COUNTING YOUR BABY'S MOVEMENTS Your Baby's regular movements are a sign of good health. Though babies may sleep for up to an hour, most of the time your baby is active and moving. On average, a healthy baby kicks or moves at least 10 times within a two-hour period. An easy way to check the health of your baby is to keep track of your baby's movements once a day (we call it kick counts). We think it is best to begin kick counts at 28 weeks of and continue once a day until your baby's . Please follow the directions below and record your baby's movements every day. Bring this Kick Count Record with you to all of your visits. How to count and record your baby's movements: Pick a time once a day to record your baby's movements. Your baby may be most active when you are at rest. Many women find after a meal to be the best time to record their baby's movements. Sit in a comfortable position and place your hands, palms down, on your baby. When you are ready to begin counting, look at the time. Andre the start time on the Kick Count Record. Count each time you feel your baby kick, move, roll, flutter, or swish. Continue counting until your baby has moved ten times. Andre the end time on the Kick Count Record. How many minutes did it take your baby to move ten times? Record this number in the box. If you do not count ten movements in two hours or less, call your health care provider right away for further instructions Day Date Day Start Start Start End End End Minutes to reach 10 kicks Minutes to reach 10 kicks Minutes to reach 10 kicks SIGNS AND SYMPTOMS OF LABOR 1. Contractions every 10 minutes or more often 2. Clear, pink, or brownish fluid (water) leaking from vagina 3. Feeling that baby is pushing down, pressure 4. Low, dull backache 5. Cramps that feel like a period 6. Cramps with or without diarrhea If you notice any of the above symptoms, contact our office at [phone] and ask to speak with a nurse. After hours, you can call doctors registry at [phone] OR call [facility] at [phone] and ask to have the doctor agronomy supervisor paged. If you consider this an emergency, dial or go to your nearest emergency department. NEED HELP? Are you dealing with a violent or abusive relationship? Are you a victim of rape or sexual assult? Call [facility] ([place]) 24 hour Crisis Hotline: 880.954.7780 or 503-771-7299. MANUAL Your Guide to a Healthy manual is now on-line. Visit [email or web address] ancyGuide to download your free copy documented in this encounter [facility] 09-28-2024 Telephone encounter Note Patient was seen at [facility]. Trinity Ortiz RN [facility] 09-28-2024 Miscellaneous Notes Patient was seen at [facility]. Trinity Ortiz RN 27w4d Patient called with c/o tachycardia and elevated BP. 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 She checked her watch and at it's peak it was 164. Currently 125-130. BP 148/84 checked by a coworker. Patient denies SOB and CP. States she is on her way to the ER with her mom. Has anxiety and takes Zoloft. Took it this AM. No panic or anxiety attacks yet this . She felt nauseated and hot when it happened. Ate a banana with peanut butter and marshallese toast sticks this morning. HANNY Ortiz RN documented in this encounter [facility] 09-28-2024 Evaluation note Diagnosis Onset Date Resolution 27 weeks gestation of acute September 28, 2024 8: 48am Tachycardia acute September 28, 2024 8:48am [facility] Work Phone: [phone]) 102-278505-09-2025 Telephone encounter Note* Telephone Encounter - Trinity Ortiz RN - 09/28/2024 8:24 AM EDT 27w4d Patient called with c/o tachycardia and elevated BP. 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 She checked her watch and at it's peak it was 164. Currently 125-130. BP 148/84 checked by a coworker. Patient denies SOB and CP. States she is on her way to the ER with her mom. Has anxiety and takes Zoloft. Took it this AM. No panic or anxiety attacks yet this . She felt nauseated and hot when it happened. Ate a banana with peanut butter and marshallese toast sticks this morning. HANNY Ortiz RN [facility]04-16-2025 Progress note* Quick Notes - Crystal Berry MD - 09/05/2024 4:28 PM EDT DM-Pt doing well. Denies vaginal Bleeding, Leaking fluid, or regular Contractions. Pt reports good movement Physical Exam: Gen: female in no apparent distress Abd: soft, Gravid. Non tender to palpation. See flow sheet @ 24.2 weeks Assessment & Plan Encounter for supervision of normal first in second trimester (HCC) Orders: SYPHILIS TREPONEMAL W/REFLEX; Future ANEMIA REFLEX PANEL; Future 24 weeks gestation of ([facility]) Screening for diabetes mellitus RTO 4 wks Orders: GESTATIONAL GLUCOSE SCREEN, 1-HOUR, 50 GRAM, NON-FASTING; Future Crystal Cantrell MD [facility]04-16-2025 Miscellaneous Notes* Quick Notes - Crystal Berry MD - 09/05/2024 4:28 PM EDT DM-Pt doing well. Denies vaginal Bleeding, Leaking fluid, or regular Contractions. Pt reports good movement Physical Exam: Gen: female in no apparent distress Abd: soft, Gravid. Non tender to palpation. See flow sheet @ 24.2 weeks Assessment & Plan Encounter for supervision of normal first in second trimester ([facility]CC) Orders: SYPHILIS TREPONEMAL W/REFLEX; Future ANEMIA REFLEX PANEL; Future 24 weeks gestation of ([facility]) Screening for diabetes mellitus RTO 4 wks Orders: GESTATIONAL GLUCOSE SCREEN, 1-HOUR, 50 GRAM, NON-FASTING; Future Crystal Cantrell MD [facility] Instructions* Patient Instructions* Kelly Minor MA - 09/05/2024 3:35 PM EDT SEQUENTIAL SCREENINGS The [facility] offers sequential screenings for women who are interested in screenings for chromosomal abnormalities and certain defects during a . The sequential screen combinesultrasound and blood tests to determine the risk of chromosomal abnormalities, including Down's Syndrome (Trisomy 21) and Trisomy 18, as well as open neural tube defects including spina bifida. Ultrasound examination is performed between 11 weeks and 13 weeks gestational age. Blood tests are drawn after the ultrasound and again later in the between 15 and 21 weeks gestational age. Please let your physician know if you are interested in this testing. It will require an appointment withour boiler control technician. This is not an ultrasound performed by a physician in our office during a routine visit. SIGNS AND SYMPTOMS OF LABOR 1. Contractions every 10 minutes or more often 2. Clear, pink, or brownish fluid (water) leaking from vagina 3. Feeling that baby is pushing down, pressure 4. Low, dull backache 5. Cramps that feel like a period 6. Cramps with or without diarrhea If you notice any of the above symptoms, contact our office at [phone] and ask to speak with anurse. After hours, you can call [employer] [facility] at [phone] OR call [facility] at [phone] ask to have the doctor agronomy supervisor paged. If you consider this an emergency, dial 9-1-1 or go to your nearest emergency department. NEED HELP? Are you dealing with a violent or abusive relationship? Are you a victim of rape or sexual assult? Call [facility] ([place]) 24 hour Crisis Hotline: 446.813.6491 or 509-522-8275. MANUAL Your Guide to a Healthy manual is now on-line. Visit [email or web address] to download your free copy [facility] Telephone encounter Note * Telephone Encounter - Isael Pike LPN - 08/17/2024 3:20 PM EDT Prescription Refill Information The patient has been identified by name and date of : Yes Caregiver verified no other encounters exist for this prescription request: Yes Caregiver confirmed with patient/requestor that no other refills are due, in the near future, with this provider at this time: Yes The last office visit in the department: 10/26/23 Does the patient have a future office visit with this provider/department: No Requested Prescriptions Pending Prescriptions Disp Refills famotidine (PEPCID) 20 mg tablet 90 tablet 3 Sig: Take 1 tablet by mouth at bedtime as needed. Isael Pike LPN August 17, 2024 3:21 PM [facility]03-28-2025 Miscellaneous Notes* Telephone Encounter - Isael Pike LPN - 08/17/2024 3:20 PM EDT Prescription Refill Information The patient has been identified by name and date of : Yes Caregiver verified no other encounters exist for this prescription request: Yes Caregiver confirmed with patient/requestor that no other refills are due, in the near future, with this provider at this time: Yes The last office visit in the department: 10/26/23 Does the patient have a future office visit with this provider/department: No Requested Prescriptions Pending Prescriptions Disp Refills famotidine (PEPCID) 20 mg tablet 90 tablet 3 Sig: Take 1 tablet by mouth at bedtime as needed. Isael Pike LPN August 17, 2024 3:21 PM documented in this [facility]03-20-2025 Telephone encounter Note * Telephone Encounter - Lanny Bhakta RN - 08/09/2024 12:42 PM EDT Request received from pharmacy for 90 day Rx. Patient 20w3d last seen in office on 08/08. Lanny Bhakta RN [facility]03-20-2025 Miscellaneous Notes* Telephone Encounter - Lanny Bhakta RN - 08/09/2024 12:42 PM EDT Request received from pharmacy for 90 day Rx. Patient 20w3d last seen in office on 08/08. Lanny Bhakta RN documented in this [facility]03-19-2025 Progress note* Result Encounter Note - Rachle Morales MD - 08/08/2024 4:52 PM EDT Anatomy ultrasound reviewed. No abnormalities identified. Follow up as clinically indicated. Pleaseplace copy in ob chart. Rachel Morales MD [facility]03-19-2025 Miscellaneous Notes* Result Encounter Note - Rachel Morales MD - 08/08/2024 4:52 PM EDT Anatomy ultrasound reviewed. No abnormalities identified. Follow up as clinically indicated. Pleaseplace copy in ob chart. Rachel Morales MD [facility] Progress note* Quick Notes - Libby Bob APRN.CNM - 08/08/2024 4:12 PM EDT JAMIE-S: Tali Gibson is a 24 year old female who presents at 20w2d with VIKTOR:12/24/2024, by Last Menstrual Period for a routine visit. Denies headache, visual changes, chest pain, shortness of breath,vaginal bleeding, leakage of fluid, or dysuria. Feeling well, no complaints. O: See flow sheet Gen: No apparent distress Abd: Gravid, nontender ASSESSMENT/PLAN: 1. Encounter for supervision of normal first in first trimester . -Continue PNV and ASA -Information given on CBE and classes 2. Anxiety and depression -Continue Zoloft 50mg PO once daily 3. Heartburn during in second trimester -Continue Pepcid PTL precautions reviewed and when to call RTO in 4 week Libby Bob APRN.CNM [facility]03-19-2025 Miscellaneous Notes* Quick Notes - Libby Bob APRN.CNM - 08/08/2024 4:12 PM EDT JAMIE-S: Tali Gibson is a 24 year old female who presents at 20w2d with VIKTOR:12/24/2024, by Last Menstrual Period for a routine visit. Denies headache, visual changes, chest pain, shortness of breath,vaginal bleeding, leakage of fluid, or dysuria. Feeling well, no complaints. O: See flow sheet Gen: No apparent distress Abd: Gravid, nontender ASSESSMENT/PLAN: 1. Encounter for supervision of normal first in first trimester . -Continue PNV and ASA -Information given on CBE and classes 2. Anxiety and depression -Continue Zoloft 50mg PO once daily 3. Heartburn during in second trimester -Continue Pepcid PTL precautions reviewed and when to call RTO in 4 week Libby Bob APRN.CNM [facility] this [facility] Telephone encounter Note * Telephone Encounter - Tabitha Alvarado LPN - 07/27/2024 2:52 PM EST Prescription Refill Information The patient has been identified by name and date of : Yes Caregiver verified no other encounters exist for this prescription request: Yes Caregiver confirmed with patient/requestor that no other refills are due, in the near future, with this provider at this time: Yes The last office visit in the department: 10/26/23 Does the patient have a future office visit with this provider/department: No Requested Prescriptions Pending Prescriptions Disp Refills famotidine (PEPCID) 20 mg tablet 90 tablet 3 Sig: Take 1 tablet by mouth at bedtime as needed. Tabitha Alvarado LPN July 27, 2024 2:52 PM [facility]03-07-2025 Miscellaneous Notes* Telephone Encounter - Tabitha Alvarado LPN - 07/27/2024 2:52 PM EST Prescription Refill Information The patient has been identified by name and date of : Yes Caregiver verified no other encounters exist for this prescription request: Yes Caregiver confirmed with patient/requestor that no other refills are due, in the near future, with this provider at this time: Yes The last office visit in the department: 10/26/23 Does the patient have a future office visit with this provider/department: No Requested Prescriptions Pending Prescriptions Disp Refills famotidine (PEPCID) 20 mg tablet 90 tablet 3 Sig: Take 1 tablet by mouth at bedtime as needed. Tabitha Alvarado LPN July 27, 2024 2:52 PM documented in this [facility] Progress note* Quick Notes - Summer Garduno APRN.CNM - 07/11/2024 3:05 PM EST S: Tali Gibson is a 24 year old female who presents at 16 weeks gestation for a routine visit.No movements to date. Anterior placenta. MaterniT 21 completed- negative and having a girl!. Pepcid helps with acid reflux and no longer has nausea. Denies headache, visual changes, chest pain,shortness of breath, vaginal bleeding, leakage of fluid, or dysuria. Started taking Zoloft 50 mg POdaily around 3 weeks ago and feels like anxiety has decreased. O: See flow sheet Gen: No apparent distress Abd: Gravid, nontender ASSESSMENT/PLAN: 1. 16 weeks gestation of 2. Encounter for supervision of normal first in first trimester 3. Anxiety 4. Heartburn in - Continue vitamin and ASA - Continue Pepcid 20 mg PO daily - Continue Zoloft 50 mg PO daily - Support provided - Continue with counseling - PTL / bleeding precautions reviewed - RTO 4 weeks for anatomy US with SARAH Garduno APRN.CNM [facility]02-19-2025 Miscellaneous Notes* Quick Notes - Summer Garduno APRN.CNM - 07/11/2024 3:05 PM EST S: Tali Gibson is a 24 year old female who presents at 16 weeks gestation for a routine visit.No movements to date. Anterior placenta. MaterniT 21 completed- negative and having a girl!. Pepcid helps with acid reflux and no longer has nausea. Denies headache, visual changes, chest pain,shortness of breath, vaginal bleeding, leakage of fluid, or dysuria. Started taking Zoloft 50 mg POdaily around 3 weeks ago and feels like anxiety has decreased. O: See flow sheet Gen: No apparent distress Abd: Gravid, nontender ASSESSMENT/PLAN: 1. 16 weeks gestation of 2. Encounter for supervision of normal first in first trimester 3. Anxiety 4. Heartburn in - Continue vitamin and ASA - Continue Pepcid 20 mg PO daily - Continue Zoloft 50 mg PO daily - Support provided - Continue with counseling - PTL / bleeding precautions reviewed - RTO 4 weeks for anatomy US with SARAH Garduno APRN.CNM documented in this [facility] Instructions* Patient Instructions* Cheryl Mejia MA - 07/11/2024 2:57 PM EST SEQUENTIAL SCREENINGS The [facility] offers sequential screenings for women who are interested in screenings for chromosomal abnormalities and certain defects during a . The sequential screen combinesultrasound and blood tests to determine the risk of chromosomal abnormalities, including Down's Syndrome (Trisomy 21) and Trisomy 18, as well as open neural tube defects including spina bifida. Ultrasound examination is performed between 11 weeks and 13 weeks gestational age. Blood tests are drawn after the ultrasound and again later in the between 15 and 21 weeks gestational age. Please let your physician know if you are interested in this testing. It will require an appointment withour boiler control technician. This is not an ultrasound performed by a physician in our office during a routine visit. SIGNS AND SYMPTOMS OF LABOR 1. Contractions every 10 minutes or more often 2. Clear, pink, or brownish fluid (water) leaking from vagina 3. Feeling that baby is pushing down, pressure 4. Low, dull backache 5. Cramps that feel like a period 6. Cramps with or without diarrhea If you notice any of the above symptoms, contact our office at [phone] and ask to speak with anurse. After hours, you can call doctors registry at [phone] OR call [facility] at [phone] ask to have the doctor agronomy supervisor paged. If you consider this an emergency, dial 9-0-3 or go to your nearest emergency department. NEED HELP? Are you dealing with a violent or abusive relationship? Are you a victim of rape or sexual assult? Call [facility] [place] ([facility] 24 hour Crisis Hotline: 551.653.2526 or 454-274-6592. MANUAL Your Guide to a Healthy manual is now on-line. Visit [email or web address] to download your free copy documented in this encounterGal[facility]01-[facility]25 Progress note* Quick Notes - Rachel Morales MD - 06/13/2024 1:28 PM EST RR- VB No. LOF No. CTXS No. Movement: present. Other c/o: No. Medication list reviewed. SENSITIVE EXAM: Sensitive exam not performed. Physical Exam See Flow Sheet Gen: no accute distress, well appearing A/P 12w2d Estimated Date of Delivery: 12/24/24 declines flu and covid vaccine today d/w her aneuploidy screening, elects for NIPT declines carrier screen for now Encounter for supervision of normal first in first trimester Orders: OBSTETRIC ULTRASOUND WHI; Future [id number] PLUS; Future 12 weeks gestation of Orders: OBSTETRIC ULTRASOUND WHI; Future Rachel Morales M.D. [facility]01-22-2025 Miscellaneous Notes* Quick Notes - Rachel Morales MD - 06/13/2024 1:28 PM EST RR- VB No. LOF No. CTXS No. Movement: present. Other c/o: No. Medication list reviewed. SENSITIVE EXAM: Sensitive exam not performed. Physical Exam See Flow Sheet Gen: no accute distress, well appearing A/P 12w2d Estimated Date of Delivery: 12/24/24 declines flu and covid vaccine today d/w her aneuploidy screening, elects for NIPT declines carrier screen for now <!--RTF_S--> Encounter for supervision of normal first in first trimester Orders: OBSTETRIC ULTRASOUND WHI; Future [id number] PLUS; Future 12 weeks gestation of Orders: OBSTETRIC ULTRASOUND WHI; Future <!--RTF_E--> Rachel Morales M.D. documented in this encounterGal[facility]01-22-2025 Instructions* Patient Instructions* Diana Araujo MA - 06/13/2024 1:09 PM EST SEQUENTIAL SCREENINGS The [facility] offers sequential screenings for women who are interested in screenings for chromosomal abnormalities and certain defects during a . The sequential screen combinesultrasound and blood tests to determine the risk of chromosomal abnormalities, including Down's Syndrome (Trisomy 21) and Trisomy 18, as well as open neural tube defects including spina bifida. Ultrasound examination is performed between 11 weeks and 13 weeks gestational age. Blood tests are drawn after the ultrasound and again later in the between 15 and 21 weeks gestational age. Please let your physician know if you are interested in this testing. It will require an appointment withour boiler control technician. This is not an ultrasound performed by a physician in our office during a routine visit. SIGNS AND SYMPTOMS OF LABOR 1. Contractions every 10 minutes or more often 2. Clear, pink, or brownish fluid (water) leaking from vagina 3. Feeling that baby is pushing down, pressure 4. Low, dull backache 5. Cramps that feel like a period 6. Cramps with or without diarrhea If you notice any of the above symptoms, contact our office at [phone] and ask to speak with anurse. After hours, you can call doctors registry at [phone] OR call [facility] at [phone] ask to have the doctor agronomy supervisor paged. If you consider this an emergency, dial 1-7-9 or go to your nearest emergency department. NEED HELP? Are you dealing with a violent or abusive relationship? Are you a victim of rape or sexual assult? Call [facility] ([place]) 24 hour Crisis Hotline: 501.514.3224 or 949-240-4445. MANUAL Your Guide to a Healthy manual is now on-line. Visit [email or web address] to download your free copy documented in this encounterGal[facility]01-[facility]25 Telephone encounter Note * Telephone Encounter - Esther Recinos RN - 06/12/2024 2:36 PM EST Spoke to patient and questions answered. She will try to contact [employer] today regarding carrier screen. Esther Recions RN [facility]01-21-2025 Miscellaneous Notes* Telephone Encounter - Esther Recinos RN - 06/12/2024 2:36 PM EST Spoke to patient and questions answered. She will try to contact [employer] today regarding carrier screen. Esther Recinos RN * Telephone Encounter - Tabitha Herman - 06/12/2024 2:01 PM EST Patient called asking what all is going to happen at her appointment on 06/13 Also asking about genetic testing and ultrasound Can be reached at [phone] Please advise documented in this encounterGalion [facility]01-[facility]-2025 Telephone encounter Note * Telephone Encounter - Tabitha Herman - 06/12/2024 2:01 PM EST Patient called asking what all is going to happen at her appointment on 06/13 Also asking about genetic testing and ultrasound Can be reached at [phone] Please advise [facility] Work Phone: 1(572) 804-622912-30-2024 Telephone encounter Note* Telephone Encounter - Trinity Ortiz RN - 05/21/2024 3:05 PM EST Patient notified. Trinity Ortiz RN [facility]12-30-2024 Miscellaneous Notes* Telephone Encounter - Trinity Ortiz RN - 05/21/2024 3:05 PM EST Patient notified. Trinity Ortiz RN * Telephone Encounter - Brian Stratton RN - 05/21/2024 2:57 PM EST Left message for patient to call office. Brian Stratton RN * Telephone Encounter - Crystal Berry MD - 05/21/2024 12:42 PM EST The patient can take sertraline if she needs to in - I never have them stop their medications if they are stable on them. She can restart her Zoloft (sertraline) I am happy to reorder for her if needed. She can take hydroxyzine but honestly if she was doing well with zoloft I would restart that and continue for remainder of and post . Try Magnesium 400mg at night first if that does not help then try Unisom 1/2 tab at night for sleepif needed. * Telephone Encounter - Brian Stratton RN - 05/21/2024 11:45 AM EST Please see Pt's [employer] message and address. [employer] message sent to Pt re: safe medications to help with sleep in . Brian Stratton RN documented in this encounterGalion [facility] Hospital12-30-2024 Telephone encounter Note * Telephone Encounter - Brian Stratton RN - 05/21/2024 2:57 PM EST Left message for patient to call office. Brian Stratton RN [facility]12-30-2024 Telephone encounter Note* Telephone Encounter - Crystal Berry MD - 05/21/2024 12:42 PM EST The patient can take sertraline if she needs to in - I never have them stop their medications if they are stable on them. She can restart her Zoloft (sertraline) I am happy to reorder for her if needed. She can take hydroxyzine but honestly if she was doing well with zoloft I would restart that and continue for remainder of and post . Try Magnesium 400mg at night first if that does not help then try Unisom 1/2 tab at night for sleepif needed. [facility] Work Phone: 1(303) 899-522312-30-2024 Telephone encounter Note* Telephone Encounter - Brian Stratton RN - 05/21/2024 11:45 AM EST Please see Pt's [employer] message and address. [employer] message sent to Pt re: safe medications to help with sleep in . Brian Stratton RN [facility]12-18-2024 Progress note* Quick Notes - Summer Garduno APRN.CNM - 05/09/2024 9:20 AM EST Patient seen for NOB. See progress note. Summer Garduno APRN.CNM [facility]12-18-2024 Miscellaneous Notes* Quick Notes - Summer Garduno APRN.CNM - 05/09/2024 9:20 AM EST Patient seen for NOB. See progress note. Summer Garduno APRN.CNM documented in this encounterGalion [facility] Hospital12-18-2024 NoteHNO ID: [id number] Author: GLYNN JEONG MA Service: ? Author Type: Resident Services Director Type: Progress Notes Filed: 05/09/2024 09:25 Note Text: OB point of care ultrasound was performed. See imaging tab for details. Glynn Jeong [facility]12-18-2024 History of Present illness Narrative* Glynn Jeong MA - 05/09/2024 7:57 AM EST OB point of care ultrasound was performed. See imaging tab for details. Glynn Jeong MA * Summer Garduno APRN.CN - 05/07/2024 3:04 PM EST INITIAL OB ASSESSMENT HPI: Tali is a 23 year old White Female here to establish Obstetrical Care. Patient's last menstrual period was 03/19/2024. from OB Dating Form. was unplanned but accepted Complaints: Occasional SOB, Heartburn, Nausea without emesis OB History T0 L0 SAB0 IAB0 Ectopic0 Multiple0 Live Births0 Previous history: Prior : never History of 4th degree laceration: NA History of shoulder dystocia: No History of Hypertensive disorders including pre-eclampsia or gestational hypertension: No History of gestational diabetes: NA Patient's Risk Screening for delivery: Have you had a prior dodson between 20w and 36w6d? No How many pregnancies have you had before? 0 Did you have a previous baby with a GBS Infection? No Please select all that apply for any prior : N/A MEDICAL/PSYCHOSOCIAL HISTORY: History of hemorrhage or bleeding concerns: No Thyroid Disease: No History of chronic hypertension: No History of pre-existing diabetes: No No results found for: ABORHD BMI 27.81 kg/(m^2) Last Pap: 10/31/2023 History of abnormal pap: No Prior treatment for cervical dysplasia: none. Last HPV: History of STDs: None Partner History of STDs: None Did you have a partner with Herpes? No Tobacco use: No E-Cigarette/Vaping Use: No Caffeine use: Yes Drug use: No Alcohol use: No Multivitamin with Folic acid: Yes Would refuse blood transfusion if medically necessary: No Social Needs: How often does this describe you? I don't have enough money to pay my bills: Never Within the past 12 months, have you worried that your food would run out before you had money to buy more? Never In the past 12 months, has lack of reliable transportation kept you from going to medical appointments or work, or from getting things needed for daily living? Never In the past 12 months, have you had any concerns about having a place to live, or about the condition or quality of your housing? Never Would you like more information on any of the following (please check all that apply)? Not interested Social History: Do you have any history of depression, anxiety, PTSD, or other mood problems? Yes Do you have a history of abuse or trauma that may impact your experience? No Are you currently employed? Yes Depression/Anxiety Screening: denies, admits to symptoms of depression. OB Depression and Anxiety Screening- This Encounter (since 05/08/2024) None Genetic Screening: Partner present: No Patient verbalized knowledge of partner family health history: Yes Do you or your partner have any personal or family history of defects not previously discussed: No Do you have history of a complicated by anomaly, genetic condition, or demise: No Preeclampsia Risk Screening: Screening for prevention of preeclampsia: High risk factors: None Moderate risk ractors: Nulliparity OB Risk Screening: Completed, no positive findings documented. 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 famotidine (PEPCID) 20 mg tablet Take 1 tablet by mouth at bedtime as needed. 90 tablet 3 sertraline (ZOLOFT) 50 mg tablet Take 1 tablet by mouth once daily. (Patient not taking: Reported on 05/07/2024) 90 tablet 3 cyclobenzaprine (FLEXERIL) 5 mg tablet Take 1 tablet by mouth three times a day. (Patient not taking: Reported on 05/07/2024) 30 tablet 0 hydrOXYzine pamoate (VISTARIL) 25 mg capsule Take 1 capsule by mouth three times daily as needed. (Patient not taking: Reported on 05/07/2024) 90 capsule 0 No current facility-administered medications for this visit. Allergies As of Date: 05/09/2024 Allergen Noted Reaction LEXAPRO [ESCITALOPRAM] 11/24/2022 Other: See Comments Fully Assessed 05/09/2024 Does patient have penicillin allergy: No REVIEW OF SYSTEMS: GENERAL: Negative for: Fever or Chills HEENT: Negative for: Headache, Impaired Vision, Ringing in Ears, Nosebleeds NECK: Negative for: Swelling, Pain, Stiffness RESPIRATORY: Negative for: Cough, Shortness of breath, Wheezing GASTROINTESTINAL: Negative for: Heartburn, Constipation, Diarrhea, Blood in stool, Vomiting and Positive for: Heartburn MUSCULOSKELETAL: Negative for: Muscle or joint pain, stiffness, Joint swelling NEUROLOGIC/PSYCHIATRIC: Negative for: Weakness, Paralysis, Numbness, Tingling, Tremor, Anxiety, Depression, Memory loss SKIN: Negative for: Rash, Itching GENITOURINARY: Negative for: vaginal itching, vaginal discharge, hematuria or dysuria and Positive for: urinary frequency SENSITIVE EXAM: The sensitive examination was discussed with the Patient or Patient's Authorized Wax Pumper. As applicable, any other physician, advance practice provider, medical student, or other health professional student that will be observing or involved in the sensitive examination for educational or training purposes was discussed with the Patient or Authorized Wax Pumper. The Patient or Authorized Wax Pumper has agreed to proceed with the sensitive examination. (Sensitive examination includes inspection and/or palpation of the breasts, pelvis, prostate and anorectal regions). PHYSICAL EXAM: BP 118/64 Ht 5' 3 (1.60m) Wt 157 lb (71.2kg) LMP 03/19/2024 BMI 27.82 kg/(m^2). GENERAL: pleasant in no apparent distress DERMATOLOGY: Normal and without lesions NECK: Supple and full range of motion CHEST: Normal inspiratory effort BREAST: deferred ABDOMEN: soft, non-tender, and no masses NEURO: alert and oriented x3,exam grossly non-focal PELVIS: External genitalia normal without lesions. Perineal body intact. No vaginal or cervical lesions. Cervix closed. Clinical Pelvimetry: Pelvimetry clinically assessed as adequate Limited OB ultrasound exam: single intrauterine , positive cardiac activity, and crown-rump length 7.1 week ASSESSMENT: 23 year old at 7w2d wks gestational age PLAN: 1) Patient oriented to practice. Patient given new OB orientation folder. Discussed nutrition, folic acid supplementation, dietary guidelines, exercise, smoking, alcohol, caffeine, and drug use. Discussed gestational weight gain guidelines. Discussed routine OB labs including STD/HIV. Discussed how to access Your guide to a health and the Automotive Engineering Technician. Reviewed midwifery and auctioneer automobile services that are available. 2) Screening: Hemoglobin A1C: declined Baby Aspirin: The patient has been counseled about the potential benefits of low dose aspirin in and our recommendation that this be offered to all patients, regardless of whether they meet the high risk criteria specified above. She Accepts Aneuploidy Screening: Discussed aneuploidy screening, nuchal translucency/first trimester early anatomy ultrasound and NIPT. The risks/benefits and limitations of NIPT/aneuploidy screening were reviewed including the potential for false negative and false positive results. The availability of genetic counseling was reviewed. Information on aneuploidy screening was provided. The patient is uncertain. She will call back if she wants to proceed with screening. Pt aware of timing. Myriad Carrier Screening: Discussed myriad carrier screening. We discussed the availability of professional-society guided carrier screening and reviewed the conditions screened and limitations of screening. The availability of genetic counseling was reviewed. Information on carrier screening was provided. The patient Declines 3) Patient offered option of Virtual Visits. Patient prefers in person visits. Follow up in 4 weeks for NT US , SARAH, and Labs Summer Garduno APRN.CNM documented [facility] NoteHNO ID: [id number] Author: SUMMER GARDUNO APRN.CNM Service: ? Author Type: First Coat Operator Type: Progress Notes Filed: 05/09/2024 09:25 Note Text: INITIAL OB ASSESSMENT HPI: Tali is a 23 year old White Female here to establish Obstetrical Care. Patient's last menstrual period was 03/19/2024. from OB Dating Form. was unplanned but accepted Complaints: Occasional SOB, Heartburn, Nausea without emesis OB History T0 L0 SAB0 IAB0 Ectopic0 Multiple0 Live Births0 Previous history: Prior : never History of 4th degree laceration: NA History of shoulder dystocia: No History of Hypertensive disorders including pre-eclampsia or gestational hypertension: No History of gestational diabetes: NA Patient's Risk Screening for delivery: Have you had a prior dodson between 20w and 36w6d? No How many pregnancies have you had before? 0 Did you have a previous baby with a GBS Infection? No Please select all that apply for any prior : N/A MEDICAL/PSYCHOSOCIAL HISTORY: History of hemorrhage or bleeding concerns: No Thyroid Disease: No History of chronic hypertension: No History of pre-existing diabetes: No No results found for: ABORHD BMI 27.81 kg/(m2) Last Pap: 10/31/2023 History of abnormal pap: No Prior treatment for cervical dysplasia: none. Last HPV: History of STDs: None Partner History of STDs: None Did you have a partner with Herpes? No Tobacco use: No E-Cigarette/Vaping Use: No Caffeine use: Yes Drug use: No Alcohol use: No Multivitamin with Folic acid: Yes Would refuse blood transfusion if medically necessary: No Social Needs: How often does this describe you? I don't have enough money to pay my bills: Never Within the past 12 months, have you worried that your food would run out before you had money to buy more? Never In the past 12 months, has lack of reliable transportation kept you from going to medical appointments or work, or from getting things needed for daily living? Never In the past 12 months, have you had any concerns about having a place to live, or about the condition or quality of your housing? Never Would you like more information on any of the following (please check all that apply)? Not interested Social History: Do you have any history of depression, anxiety, PTSD, or other mood problems? Yes Do you have a history of abuse or trauma that may impact your experience? No Are you currently employed? Yes Depression/Anxiety Screening: denies, admits to symptoms of depression. OB Depression and Anxiety Screening- This Encounter (since 05/08/2024) None Genetic Screening: Partner present: No Patient verbalized knowledge of partner family health history: Yes Do you or your partner have any personal or family history of defects not previously discussed: No Do you have history of a complicated by anomaly, genetic condition, or demise: No Preeclampsia Risk Screening: Screening for prevention of preeclampsia: High risk factors: None Moderate risk ractors: Nulliparity OB Risk Screening: Completed, no positive findings documented. 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 famotidine (PEPCID) 20 mg tablet Take 1 tablet by mouth at bedtime as needed. 90 tablet 3 sertraline (ZOLOFT) 50 mg tablet Take 1 tablet by mouth once daily. (Patient not taking: Reported on 05/07/2024) 90 tablet 3 cyclobenzaprine (FLEXERIL) 5 mg tablet Take 1 tablet by mouth three times a day. (Patient not taking: Reported on 05/07/2024) 30 tablet 0 hydrOXYzine pamoate (VISTARIL) 25 mg capsule Take 1 capsule by mouth three times daily as needed. (Patient not taking: Reported on 05/07/2024) 90 capsule 0 No current facility-administered medications for this visit. Allergies As of Date: 05/09/2024 Allergen Noted Reaction LEXAPRO [ESCITALOPRAM] 11/24/2022 Other: See Comments Fully Assessed 05/09/2024 Does patient have penicillin allergy: No REVIEW OF SYSTEMS: GENERAL: Negative for: Fever or Chills HEENT: Negative for: Headache, Impaired Vision, Ringing in Ears, Nosebleeds NECK: Negative for: Swelling, Pain, Stiffness RESPIRATORY: Negative for: Cough, Shortness of breath, Wheezing GASTROINTESTINAL: Negative for: Heartburn, Constipation, Diarrhea, Blood in (more content not included)...[facility]12-16-[facility]24 Instructions * Patient Instructions* Glynn Jeong MA - 05/07/2024 3:04 PM EST Please select the following link to access the [facility] Your Guide to a Healthy . [email or web address] Please select the following link to access the [facility] Your Guide to a Healthy . [email or web address] documented in this encounterGalion [facility]10-23-[facility] Telephone encounter Note * Telephone Encounter - Autumn Duff LPN - 03/14/2024 2:44 PM EDT The patient has been identified by name and date of : Yes Caregiver verified no other encounters exist for this prescription request: Yes Caregiver confirmed with patient/requestor that no other refills are due, in the near future, with this provider at this time: Yes The last office visit in the department: 10/26/2023 Does the patient have a future office visit with this provider/department: No pt to follow up in 1 year Requested Prescriptions Pending Prescriptions Disp Refills sertraline (ZOLOFT) 50 mg tablet 30 tablet 5 Sig: Take 1/2 tablet daily for one week then increase to one tablet daily Autumn Duff LPN March 14, 2024 2:44 PM [facility]10-[facility] Miscellaneous Notes* Telephone Encounter - Autumn Duff LPN - 03/14/2024 2:44 PM EDT The patient has been identified by name and date of : Yes Caregiver verified no other encounters exist for this prescription request: Yes Caregiver confirmed with patient/requestor that no other refills are due, in the near future, with this provider at this time: Yes The last office visit in the department: 10/26/2023 Does the patient have a future office visit with this provider/department: No pt to follow up in 1 year Requested Prescriptions Pending Prescriptions Disp Refills sertraline (ZOLOFT) 50 mg tablet 30 tablet 5 Sig: Take 1/2 tablet daily for one week then increase to one tablet daily Autumn Duff LPN March 14, 2024 2:44 PM documented in this encounterGal[facility]06-05-[facility]24 History of Present illness Narrative* Marah Garcia APRN.WILDLIFE ENFORCEMENT MAJOR - 10/26/2023 5:40 PM EDT 10/26/2023 Patient presents with: Physical SUBJECTIVE: This is a 23 year old that is here today for Above Complaints. Since last office visit has been in good health without ER visits or hospitalizations. GERD: Pepcid as needed which works. ANXIETY/DEPRESSION: taking Zoloft as prescribed and feels improved. Still going to counseling everytwo weeks. Rare use of vistaril. Denies SI, H or insomnia Admits to feeling tired after work PAST MEDICAL HISTORY Diagnosis Date Anxiety and depression Chest tightness 2013 Resolved-placed on Inhaler, None Since, EKG Normal Congenital pes planus 01/21/2010 NEGATIVE HISTORY OF 11/20/2009 Normal color vision Pain in limb 10/07/2008 Pneumonia, organism unspecified(486) @ 2months of age ALLERGIES Lexapro [Escitalopram] MEDICATIONS Current Outpatient Medications Medication Sig sertraline (ZOLOFT) 50 mg tablet Take 1/2 tablet daily for one week then increase to one tablet daily famotidine (PEPCID) 20 mg tablet Take 1 tablet by mouth at bedtime as needed. cyclobenzaprine (FLEXERIL) 5 mg tablet Take 1 tablet by mouth three times a day. cholecalciferol, Vitamin D3, (VITAMIN D3) 1,250 mcg (50,000 unit) cap capsule Take 1 capsule by mouth one time a week. hydrOXYzine pamoate (VISTARIL) 25 mg capsule Take 1 capsule by mouth three times daily as needed. No current facility-administered medications for this visit. Medications and allergies reviewed by this provider. SOCIAL HISTORY Social History Tobacco Use Smoking status: Never Smokeless tobacco: Never Vaping Use Vaping Use: Never used Substance Use Topics Alcohol use: No Drug use: No REVIEW OF SYSTEMS GENERAL: No weight loss, malaise or fevers HEENT: Negative for frequent or significant headaches, No changes in hearing or vision, no nose bleeds or other nasal problems NECK: Negative for lumps, goiter, pain and significant neck swelling RESPIRATORY: Negative for cough, hemoptysis, wheezing, COPD, dyspnea or shortness of breath CARDIOVASCULAR: Negative for chest pain, leg swelling, hypertension, CHF or palpitations GI: No nausea, vomiting, or diarrhea : No history of dysuria, frequency or incontinence, Feels she is urainting more frequently SPEECH LANGUAGE ASSISTANT: Negative for abnormal vaginal bleeding, abnormal vaginal discharge MUSCULOSKELETAL: Negative for joint pain or swelling, back pain or muscle pain SKIN: Negative for lesions, rash, and itching PSYCH: Negative for sleep disturbance, mood disorder and recent psychosocial stressors, See HPI HEMATOLOGY/LYMPHOLOGY: Negative for prolonged bleeding,or swollen nodes. Bruises easily ENDOCRINE: Negative for cold or heat intolerance, polyuria, polydipsia and goiter NEURO: No history of headaches, syncope, paralysis, seizures or tremors All other reviewed and negative other than HPI. OBJECTIVE: BP 96/68 Pulse 77 Resp 16 Ht 164.8 cm (5' 4.88) Wt 67.9 kg (149 lb 12.8 oz) LMP 09/30/2023 SpO2 98% BMI 25.02 kg/m . Vital signs reviewed by this provider. APPEARANCE Well appearing, alert, in no acute distress, well-hydrated, well nourished. EYES PERRLA, conjunctiva and sclera normal. EARS External ears normal, canals clear NECK Supple, no adenopathy; thyroid symmetric, normal size, no bruits HEART RRR with normal S1 and S2, no murmurs, no gallops, no JVD appreciated LUNG clear to auscultation. No wheezes, rhonchi or rales ABDOMEN bowel sounds normoactive, no bruits, soft, non-tender, non-distended EXTREMITIES Extremities normal, No deformities, No skin discoloration, and No edema SKIN Skin color, texture, turgor normal, no suspicious rashes or lesions to exposed skin HPV Vaccine(1 - 3-dose series) Never done Meningococcal B Vaccine: Consider Based On Risk(1 of 2 - Patient Seeks Protection) Never done DTaP,Tdap,Td Vaccine(7 - Td or Tdap) due on 11/26/2021 Covid-19 Vaccine( season) due on 01/21/2023 Pap Testing due on 06/30/2023 Influenza Vaccine(Season Ended) due on 01/22/2024 Hepatitis B Vaccine Completed Hepatitis C Screening Completed HIV Screening Completed ASSESSMENT/PLAN: 1. Annual physical exam - ICD9: V70.0, ICD10: Z00.00 (primary diagnosis) - Counseled on healthy diet and regular exercise - Follow up for annual exam in one year 2. Vitamin D insufficiency - ICD9: 268.9, ICD10: E55.9 - VITAMIN D 25 HYDROXY 3. Anxiety with depression - ICD9: 300.4, ICD10: F41.8 - stable on current regime - continue with counseling - follow-up as needed Marah Garcia APRN.TYLER Prescription instructions reviewed with patient as applicable. Patient advised if symptoms do not improve or if symptoms worsen sooner, to contact their primary care physician. Potential red flag symptoms discussed with the patient. Reviewed appropriate action plan to take if red flag symptoms occur. Patient agreeable to treatment plan. documented in [facility]05-[facility] History of Present illness Narrative* Crystal Berry MD - 10/14/2023 1:12 PM EDT Special Services Director offered: Patient declines. Tali is a 23 year old who presents for an annual gynecologic exam without complaints. Recently , doing home renovations. Menses: cycles every 28-30 days and 5-6 days of flow. Contraception: none HPV vaccine: No Last Pap: 07/10/2020 normal HPV: N/A History of abnormal pap: No Last mammogram: never Sexually active: Yes History of STDS: None Patient concerns for STD exposure: No. Pain with intercourse: yes but improved Postcoital bleeding: No Exercise: Diet: balanced OB History T0 L0 SAB0 IAB0 Ectopic0 Multiple0 Live Births0 Manager Public History LMP: 09/30/2023, Having periods Age at Menarche: Age at First : Age at Menopause: Manager Public History Comments: Sexual Activity: Yes; Male Contraception: No contraception data on record PAST MEDICAL HISTORY Diagnosis Date Anxiety and depression Chest tightness 2013 Resolved-placed on Inhaler, None Since, EKG Normal Congenital pes planus 01/21/2010 NEGATIVE HISTORY OF 11/20/2009 Normal color vision Pain in limb 10/07/2008 Pneumonia, organism unspecified(486) @ 2months of age PAST SURGICAL HISTORY Procedure Laterality Date NONE FAMILY HISTORY Problem Relation Age of Onset None Mother Diabetes Father Type II other (elevated BP) Sister obesity Hypertension Maternal Grandmother Diabetes Maternal Grandfather Diet controlled Hypertension Maternal Grandfather Breast Cancer Paternal Grandmother Lipids Paternal Grandmother Diet controlled None Paternal Grandfather Depression Other mom, sister, MGM, [place] Anxiety disorder Other mom, sister, MGM, [place] SOCIAL HISTORY Social History Tobacco Use Smoking status: Never Smokeless tobacco: Never Vaping Use Vaping Use: Never used Substance Use Topics Alcohol use: No Drug use: No REVIEW OF SYSTEMS Abdomen: has bloating- thinks more diet related. Bladder: No dysuria, gross hematuria, urinary frequency, urinary urgency, or incontinence. Breast: No breast lumps, nipple d/c, overlying skin changes, redness or skin retraction. Allergies and current medication updated:Yes EXAM: BP 120/76 Ht 5' 4 (1.63m) Wt 147 lb (66.7kg) LMP 09/30/2023 BMI 25.22 kg/(m^2). GENERAL: pleasant, female in no apparent distress HEENT: Normocephalic, atraumatic, mucus membranes moist, and no lesions NECK: Supple, full range of motion, no adenopathy, and thyroid normal DERMATOLOGY: Normal, without lesions, non-icteric, and non-hirsute BREAST: soft, non-tender, symmetric, no dominant mass, normal nipple-areolar complex, no lymphadenopathy, and no nipple discharge ABDOMEN: soft, non-tender, and no masses PELVIC: external genitalia normal, normal Bartholin's glands, urethra, Boyd's glands, no vulvar lesions, no cervical lesions, good vaginal support, physiologic discharge present, normal appearing perineal body and perianal region BIMANUAL: uterus normal size, shape and consistency, no adnexal masses, and non-tender RECTOVAGINAL: deferred. NEURO: alert and oriented x3,exam grossly non-focal EXTREMITIES: normal ASSESSMENT/PLAN: 1) Health maintenance: Pap done with reflex HPV. Nutrition, exercise and routine health maintenance exams reviewed. Calcium/Vitamin D supplementation information provided. HPV vaccine: discussed, not interested 2) Contraception: none. Contraceptive options reviewed and information provided. 3) STD screening: Declined STD check. 4) Follow up one year or sooner as needed 5) elimination diet reviewed Crystal Cantrell MD documented in this encounterGal[facility]04-[facility] History of Present illness Narrative* Podlogar, KORY Crystal.WILDLIFE ENFORCEMENT MAJOR - 08/24/2023 5:03 PM EDT 08/24/2023 Patient presents with: Anxiety Ear Problem: Would like ears cleaned SUBJECTIVE: This is a 23 year old that is here today for Above Complaints.. Wants to get back on daily medicine for anxiety. Is currently seeing counselor at [facility]. 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 Denies SI,HI or insomnia PHQ9: 9 LOU : 8 Ears feels clogged. Thinks she may need them cleaned out. Hearing is muffled Needs refill for Pepcid. Takes as needed PAST MEDICAL HISTORY Diagnosis Date Anxiety and depression Chest tightness 2013 Resolved-placed on Inhaler, None Since, EKG Normal Congenital pes planus 01/21/2010 NEGATIVE HISTORY OF 11/20/2009 Normal color vision Pain in limb 10/07/2008 Pneumonia, organism unspecified(486) @ 2months of age ALLERGIES Lexapro [Escitalopram] MEDICATIONS Current Outpatient Medications Medication Sig cyclobenzaprine (FLEXERIL) 5 mg tablet Take 1 tablet by mouth three times a day. cholecalciferol, Vitamin D3, (VITAMIN D3) 1,250 mcg (50,000 unit) cap capsule Take 1 capsule by mouth one time a week. hydrOXYzine pamoate (VISTARIL) 25 mg capsule Take 1 capsule by mouth three times daily as needed. No current facility-administered medications for this visit. Medications and allergies reviewed by this provider. SOCIAL HISTORY Social History Tobacco Use Smoking status: Never Smokeless tobacco: Never Vaping Use Vaping Use: Never used Substance Use Topics Alcohol use: No Drug use: No REVIEW OF SYSTEMS All other reviewed and negative other than HPI. OBJECTIVE: BP 118/82 Pulse 79 Resp 18 Wt 66.8 kg (147 lb 3.2 oz) LMP 06/23/2021 SpO2 98% BMI 25.27kg/m . Vital signs reviewed by this provider. APPEARANCE Well appearing, alert, in no acute distress, well-hydrated, well nourished. EYES conjunctiva and sclera normal. EARS external ear bilaterally WNL. Left ear with small amount of non-obstructing cerumen. Right earwith large amount of obstructing cerumen. Bilateral ear canal clear after irrigation. TM's WNL SKIN Skin color, texture, turgor normal, no suspicious rashes or lesions to exposed skin PSYCH: Posture and motor behavior: normal posture and motor behavior Dress, grooming, personal hygiene: normal dress and grooming Facial expression: good eye contact Speech: normal speech Mood: cheerful Coherency and relevance of thought: normal thought processes Memory: normal memory HPV Vaccine(1 - 3-dose series) Never done Meningococcal B Vaccine: Consider Based On Risk(1 of 2 - Patient Seeks Protection) Never done DTaP,Tdap,Td Vaccine(7 - Td or Tdap) due on 11/26/2021 Covid-19 Vaccine( - 2022- season) due on 01/21/2023 Pap Testing due on 06/30/2023 Influenza Vaccine(Season Ended) due on 01/22/2024 Hepatitis B Vaccine Completed Hepatitis C Screening Completed HIV Screening Completed ASSESSMENT/PLAN: 1. Anxiety with depression - ICD9: 300.4, ICD10: F41.8 (primary diagnosis) - continue with counseling - SERTRALINE 50 MG TABLET - follow-up if symptoms fail to improve 2. Impacted cerumen of left ear - ICD9: 380.4, ICD10: H61.22 - resolved - REMOVAL OF IMPACTED CERUMEN - INSTRUMENTATION 3. Heartburn - ICD9: 787.1, ICD10: R12 - FAMOTIDINE 20 MG TABLET Marah Garcia, KORY.WILDLIFE ENFORCEMENT MAJOR Prescription instructions reviewed with patient as applicable. Patient advised if symptoms do not improve or if symptoms worsen sooner, to contact their primary care physician. Potential red flag symptoms discussed with the patient. Reviewed appropriate action plan to take if red flag symptoms occur. Patient agreeable to treatment plan. Medical Decision Making: Problems: Low: Acute, uncomplicated illness or injury Moderate: 1+ chronic illnesses with change Risk: Moderate: Drug management Medical Decision Making Level: 4 - Moderate documented in this encounterGal[facility]11[facility]29[facility] History of Present illness Narrative* Marah Garcia APRN.TYLER - 04/20/2023 5:50 PM EST 04/20/2023 Patient presents with: Back Pain: Low back pain x1 month, no injury aware of. 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 SUBJECTIVE: This is a 22 year old that is here today for Above Complaints. 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 Denies hx of back injury or surgery, saddle anaesthesia, extremity numbness, tingling, weakness, urinary/bowel incontinence or inability PAST MEDICAL HISTORY Diagnosis Date Anxiety and depression Chest tightness 2013 Resolved-placed on Inhaler, None Since, EKG Normal Congenital pes planus 01/21/2010 NEGATIVE HISTORY OF 11/20/2009 Normal color vision Pain in limb 10/07/2008 Pneumonia, organism unspecified(486) @ 2months of age ALLERGIES Lexapro [Escitalopram] MEDICATIONS Current Outpatient Medications Medication Sig cholecalciferol, Vitamin D3, (VITAMIN D3) 1,250 mcg (50,000 unit) cap capsule Take 1 capsule by mouth one time a week. hydrOXYzine pamoate (VISTARIL) 25 mg capsule Take 1 capsule by mouth three times daily as needed. No current facility-administered medications for this visit. Medications and allergies reviewed by this provider. SOCIAL HISTORY Social History Tobacco Use Smoking status: Never Smokeless tobacco: Never Vaping Use Vaping Use: Never used Substance Use Topics Alcohol use: No Drug use: No REVIEW OF SYSTEMS All other reviewed and negative other than HPI. OBJECTIVE: BP 98/74 Pulse 92 Resp 16 Wt 68.5 kg (151 lb) LMP 06/23/2021 SpO2 95% BMI 25.92 kg/m . Vital signs reviewed by this provider. APPEARANCE Well appearing, alert, in no acute distress, well-hydrated, well nourished. EYES conjunctiva and sclera normal. BACK: Normal exam, good flexion and extension, negative SLR test EXTREMITIES Extremities normal, No deformities, No skin discoloration, and No edema NEURO Awake, alert and oriented x 3, Reflexes symmetrical, Normal gait, No involuntary motions., and negative findings: gait, including heel, toe, and tandem walking normal, muscle tone normal, muscle strength normal, reflexes normal and symmetric, plantar response downgoing bilaterally SKIN Skin color, texture, turgor normal, no suspicious rashes or lesions to exposed skin HPV Vaccine(1 - 2-dose series) Never done Meningococcal B Vaccine: Consider Based On Risk(1 of 2 - Patient Seeks Protection) Never done GC (Gonorrhea) Screening (18-24) due on 06/30/2021 Chlamydia Screening (18-24) due on 06/30/2021 DTaP,Tdap,Td Vaccine(7 - Td or Tdap) due on 11/26/2021 Influenza Vaccine(1) due on 01/21/2023 Covid-19 Vaccine(4 - 2022- season) due on 01/21/2023 Pap Testing due on 06/30/2023 Hepatitis B Vaccine Completed Hepatitis C Screening Completed HIV Screening Completed ASSESSMENT/PLAN: 1. Acute bilateral low back pain without sciatica - ICD9: 724.2, 338.19, ICD10: M54.50 - no red flag symptoms or exam findings - red flag symptoms discussed, verbalizes understanding - recommend OTC NSAID and topical products as directed on packaging. May also use heat for 15 minutes at a time- advised not to sleep on heating pad- verbalizes understanding - CYCLOBENZAPRINE 5 MG TABLET- discussed not to drive or operate heavy machinery while taking as medication can cause drowsiness, verbalizes understanding - follow-up if symptoms fail to improve to ER with red flag symptoms Marah Podlogar, COMBATANT DIVER QUALIFIED.WILDLIFE ENFORCEMENT MAJOR Prescription instructions reviewed with patient as applicable. Patient advised if symptoms do not improve or if symptoms worsen sooner, to contact their primary care physician. Potential red flag symptoms discussed with the patient. Reviewed appropriate action plan to take if red flag symptoms occur. Patient agreeable to treatment plan. I spent a total of 25 minutes on the date of the service which included preparing to see the patient, [id number] patient care, completing clinical documentation, obtaining and/or reviewing separately obtained history, performing a medically appropriate examination, counseling and educating the pat ient/family/caregiver, and ordering medications, tests, or procedures. documented in this encounterGalion [facility] Hospital10-06-2023 Miscellaneous Notes* Telephone Encounter - Pratibha Sanchez - 02/25/2023 9:13 AM EDT Pt informed, verbalized understanding Pratibha Sanchez * Telephone Encounter - Marah Garcia APRN.CNP - 02/25/2023 8:53 AM EDT Prescription sent to requested pharmacy. Marah Garcia APRN.CNP * Telephone Encounter - Kaitlynn Key LPN - 02/25/2023 8:27 AM EDT Patient notified of message below. Asking if you could send the medication to [facility] in [place] on [address] [employer]. Kaitlynn Key LPN * Telephone Encounter - Marah Garcia APRN.CNP - 02/25/2023 6:44 AM EDT Vitamin D low, will replace with 97525 units weekly. Will send in prescription. Is to take one tablet WEEKLY for 12 weeks then repeat level one week after completion. The rest of her blood work is normal. Marah Garcia APRN.CNP documented in this encounterGalion [facility] Hospital10-04-2023 History of Present illness Narrative* Marah Garcia APRN.CNP - 02/23/2023 7:55 AM EDT 02/23/2023 Patient presents with: Hair Loss: Concerned it may be thyroid issues. Accompanied with brain fog and fatigue. SUBJECTIVE: This is a 22 year old that is here today for Above Complaints. Concerned for hair loss more than she has had before. More coming out when washes. Does not think has bald spots. Denies using new hair products or chemical treating products. May use flat iron or curling iron once a week. Denies weight changes, diarrhea/constipation, brittle nails, or dry skin Feels her memory is terrible and brain fog. Forgot an appointment. Seems to be more short term- shereports it is hard to describe. Does have some anxiety for which she occasionally takes vistaril for. No recent COVID-19 infection. Not forgetting peoples names or getting lost while driving. No problems with job performance. Denies depressive symptoms, increasing anxiety or new stressors. She thinks the whites of her eyes are yellow some times. Denies yellowing of skin, dark urine, skinitching, levi colored stools, or abdominal pain PAST MEDICAL HISTORY Diagnosis Date Anxiety and depression Chest tightness 2013 Resolved-placed on Inhaler, None Since, EKG Normal Congenital pes planus 01/21/2010 NEGATIVE HISTORY OF 11/20/2009 Normal color vision Pain in limb 10/07/2008 Pneumonia, organism unspecified(486) @ 2months of age ALLERGIES Lexapro [Escitalopram] MEDICATIONS Current Outpatient Medications Medication Sig hydrOXYzine pamoate (VISTARIL) 25 mg capsule Take 1 capsule by mouth three times daily as needed. No current facility-administered medications for this visit. Medications and allergies reviewed by this provider. SOCIAL HISTORY Social History Tobacco Use Smoking status: Never Smokeless tobacco: Never Vaping Use Vaping Use: Never used Substance Use Topics Alcohol use: No Drug use: No REVIEW OF SYSTEMS All other reviewed and negative other than HPI. OBJECTIVE: BP 112/80 Pulse 100 Resp 16 Wt 70 kg (154 lb 6.4 oz) LMP 06/23/2021 SpO2 98% BMI 26.50 kg/m . Vital signs reviewed by this provider. APPEARANCE Well appearing, alert, in no acute distress, well-hydrated, well nourished. HAIR: no balding areas observed. Hair distribution normal. Negative hair pull test EYES conjunctiva and sclera normal. EARS External ears normal, canals clear NECK Supple, no adenopathy; thyroid symmetric, normal size HEART RRR with normal S1 and S2, no murmurs, no gallops, no JVD appreciated LUNG clear to auscultation. No wheezes, rhonchi or rales ABDOMEN bowel sounds normoactive, no bruits, soft, non-tender, non-distended EXTREMITIES Extremities normal, No deformities, No skin discoloration, and No edema SKIN Skin color, texture, turgor normal, no suspicious rashes or lesions to exposed skin HPV Vaccine(1 - 2-dose series) Never done Meningococcal B Vaccine: Consider Based On Risk(1 of 2 - Patient Seeks Protection) Never done GC (Gonorrhea) Screening (18-24) due on 06/30/2021 Chlamydia Screening (18-24) due on 06/30/2021 DTaP,Tdap,Td Vaccine(7 - Td or Tdap) due on 11/26/2021 Influenza Vaccine(1) due on 01/21/2023 Pap Testing due on 06/30/2023 Hepatitis B Vaccine Completed Hepatitis C Screening Completed HIV Screening Completed Covid-19 Vaccine Completed ASSESSMENT/PLAN: 1. Hair loss - ICD9: 704.00, ICD10: L65.9 (primary diagnosis) - hair appears normal without any balding areas - discussed avoiding hair dyes or using hot styling tools which can contribute to hair breakage - TSH BLD - follow-up as needed 2. Brain fog - ICD9: 799.59, ICD10: R41.89 - no red flag symptoms or exam findings - red flag symptoms discussed, verbalizes understanding - CBC + DIFF - FERRITIN BLD - IRON + TIBC - COMP METABOLIC PANEL - VITAMIN B12 BLOOD - follow-up as needed 3. Vitamin D deficiency - ICD9: 268.9, ICD10: E55.9 - VITAMIN D 25 HYDROXY Marah Podlogar, COMBATANT DIVER QUAL[employer]IED.WILDLIFE ENFORCEMENT MAJOR Prescription instructions reviewed with patient as applicable. Patient advised if symptoms do not improve or if symptoms worsen sooner, to contact their primary care physician. Potential red flag symptoms discussed with the patient. Reviewed appropriate action plan to take if red flag symptoms occur. Patient agreeable to treatment plan. I spent a total of 25 minutes on the date of the service which included preparing to see the patient, [id number] patient care, completing clinical documentation, obtaining and/or reviewing separately obtained history, performing a medically appropriate examination, counseling and educating the pat ient/family/caregiver, and ordering medications, tests, or procedures. documented in this encounterGalion Community Hospital06-21-2023 Instructions* Patient Instructions* Marah Garcia APRN.CNP - 11/10/2022 6:06 PM EDT Counseling and Psychiatry Services Replaced By [facility] [address] [place] [address] *counseling [facility] [address] [facility] [address] *counseling [address] [address] *counseling [facility] [address] [place] [address] *counseling and psychiatry [address] [address] *counseling [address] [address] *counseling [place] [address] [facility] [address] *counseling [place] [address] [place] [address] *counseling [facility] [address] [place] [address] [facility] [address] [facility] [address] [place] [address] *counseling [facility] [address] [place] [address] [facility] [address] [place], [place] [address] *counseling [facility] [address] [place] [address] [employer] [address] [facility] [place] [address] *counseling [facility] [address] [facility] [place] [address] *counseling [facility] [address] [place] [address] *counseling and psychiatry [facility], [address] [place], [place] [address] *psychiatry [facility] [phone] *grief counseling, individual and groups *If you ever experience a mental health crisis please call [phone] 911, Please verify with insurance provider for coverage documented in this encounterGalion Community Hospital06-21-2023 History of Present illness Narrative* Marah Garcia APRN.CNP - 11/10/2022 5:56 PM EDT 11/10/2022 Patient presents with: Depression I have communicated my name and active licensure. The patient's identity and physical location wereverified at the time of this visit. Either the patient or their legal malt liquors sales representative has been informed of the risks and benefits of -- and alternatives to -- treatment through a remote evaluation andconsents to proceed with the evaluation remotely. SUBJECTIVE: This is a 22 year old that is here today for Above Complaints.. Stopped her bupropion a few months ago. Increased stress in life at this time. Not attending counseling. Denies SI, HI or insomnia LOU:12 PHQ9: 8 PAST MEDICAL HISTORY Diagnosis Date Anxiety and depression Chest tightness 2013 Resolved-placed on Inhaler, None Since, EKG Normal Congenital pes planus 01/21/2010 NEGATIVE HISTORY OF 11/20/2009 Normal color vision Pain in limb 10/07/2008 Pneumonia, organism unspecified(486) @ 2months of age ALLERGIES Patient has no known allergies. MEDICATIONS Current Outpatient Medications Medication Sig escitalopram oxalate (LEXAPRO) 10 mg tablet Take 1 tablet by mouth once daily. famotidine (PEPCID) 20 mg tablet Take 1 tablet by mouth at bedtime as needed. No current facility-administered medications for this visit. Medications and allergies reviewed by this provider. SOCIAL HISTORY Social History Tobacco Use Smoking status: Never Smokeless tobacco: Never Vaping Use Vaping Use: Never used Substance Use Topics Alcohol use: No Drug use: No REVIEW OF SYSTEMS All other reviewed and negative other than HPI. OBJECTIVE: LMP 06/23/2021 . Vital signs reviewed by this provider. APPEARANCE Well appearing, alert, in no acute distress, well-hydrated, well nourished.PSYCH: Posture and motor behavior: normal posture and motor behavior Dress, grooming, personal hygiene: normal dress and grooming Facial expression: smiling and good eye contact Speech: normal speech Mood: cheerful Coherency and relevance of thought: normal thought processes Memory: normal memory HPV VACCINE(1 - 2-dose series) Never done MENINGOCOCCAL B: Consider based on risk(1 of 2 - Risk Bexsero 2-dose series) Never done GC (GONORRHEA) SCREENING (18-24) due on 06/30/2021 CHLAMYDIA SCREENING (18-24) due on 06/30/2021 DTAP,TDAP,TD(7 - Td or Tdap) due on 11/26/2021 PAP TESTING due on 06/30/2023 HEPATITIS B Completed INFLUENZA Completed HEPATITIS C SCREENING Completed HIV SCREENING Completed COVID-19 VACCINE Completed ASSESSMENT/PLAN: 1. Anxiety with depression - ICD9: 300.4, ICD10: F41.8 - medication options discussed - ESCITALOPRAM 10 MG TABLET- common side effects discussed, verbalizes understanding - counseling encouraged - follow-up if symptoms fail to improve Marah Garcia APRN.CNP Prescription instructions reviewed with patient as applicable. Patient advised if symptoms do not improve or if symptoms worsen sooner, to contact their primary care physician. Potential red flag symptoms discussed with the patient. Reviewed appropriate action plan to take if red flag symptoms occur. Patient agreeable to treatment plan. I spent a total of 15 minutes on the date of the service which included preparing to see the patient, [id number] patient care, completing clinical documentation, obtaining and/or reviewing separately obtained history, performing a medically appropriate examination, counseling and educating the pat ient/family/caregiver, and ordering medications, tests, or procedures. documented in this encounterGalion Community Hospital11-21-2022 Miscellaneous Notes* Telephone Encounter - Michelle Duff [facility] - 04/12/2022 11:50 AM EST Patient has been identified by name and date of : Yes Requested Prescriptions Pending Prescriptions Disp Refills famotidine (PEPCID) 20 mg tablet 90 tablet 3 Sig: Take 1 tablet by mouth at bedtime as needed. RANDA-01/22/22 Labs-08/29/21 NOV-none med filled 01/13/22 RX INSTRUCTIONS: Patient aware RX will be sent to pharmacy. No need to notify patient. Michelle Duff Pss documented in this encounterGalion Community Hospital09-02-2022 History of Present illness Narrative* Marah Garcia, KORY.WILDLIFE ENFORCEMENT MAJOR - 01/22/2022 2:33 PM EDT 01/22/2022 Patient presents with: Recheck SUBJECTIVE: This is a 21 year old that is here today for Above Complaints.. Started on Wellbutrin at last visit. Taking it daily instead of twice a day. Patient reports she wondered why she had so many left over. Feels improved and has lost some weight. Not feeling bloated like before. Denies SI, HI or insomnia LOU: 4 PHQ9: 3 PAST MEDICAL HISTORY Diagnosis Date Anxiety and depression Chest tightness 2013 Resolved-placed on Inhaler, None Since, EKG Normal Congenital pes planus 01/21/2010 NEGATIVE HISTORY OF 11/20/2009 Normal color vision Pain in limb 10/07/2008 Pneumonia, organism unspecified(486) @ 2months of age ALLERGIES Patient has no known allergies. MEDICATIONS Current Outpatient Medications Medication Sig buPROPion SR (ZYBAN SR; WELLBUTRIN SR) 150 mg 12 hr tablet Take 150 mg by mouth once daily. famotidine (PEPCID) 20 mg tablet Take 1 tablet by mouth at bedtime as needed. No current facility-administered medications for this visit. Medications and allergies reviewed by this provider. SOCIAL HISTORY Social History Tobacco Use Smoking status: Never Smokeless tobacco: Never Vaping Use Vaping Use: Never used Substance Use Topics Alcohol use: No Drug use: No REVIEW OF SYSTEMS All other reviewed and negative other than HPI. OBJECTIVE: BP 106/78 Pulse 96 Resp 16 Wt 69.9 kg (154 lb 3.2 oz) LMP 06/23/2021 SpO2 98% BMI 26.47kg/m . Vital signs reviewed by this provider. APPEARANCE Well appearing, alert, in no acute distress, well-hydrated, well nourished. EYES PERRLA, conjunctiva and sclera normal. HEART RRR with normal S1 and S2, no murmurs, no gallops, no JVD appreciated LUNG clear to auscultation SKIN Skin color, texture, turgor normal, no suspicious rashes or lesions to exposed skin PSYCH: Posture and motor behavior: normal posture and motor behavior Dress, grooming, personal hygiene: normal dress and grooming Facial expression: good eye contact Speech: normal speech Mood: cheerful Coherency and relevance of thought: normal thought processes Memory: normal memory MENINGOCOCCAL B: Consider based on risk(1 of 2 - Risk Bexsero 2-dose series) Never done HPV VACCINE(1 - 2-dose series) Never done GC (GONORRHEA) SCREENING (18-24) due on 06/30/2021 CHLAMYDIA SCREENING (18-24) due on 06/30/2021 COVID-19 VACCINE(3 - Booster for Pfizer series) due on 10/09/2021 DTAP,TDAP,TD(7 - Td or Tdap) due on 11/26/2021 INFLUENZA(1) due on 01/21/2022 DEPRESSION SCREENING due on 02/02/2022 PAP TESTING due on 06/30/2023 HEPATITIS B Completed HEPATITIS C SCREENING Completed HIV SCREENING Completed ASSESSMENT/PLAN: 1. Anxiety and depression - ICD9: 300.00, 311, ICD10: F41.9, F32.A - improved - changed to extended release since she is only taking it once a day - BUPROPION XL 150 MG TAB - follow-up yearly and as needed Marah Garcia APRN.CNP Prescription instructions reviewed with patient as applicable. Patient advised if symptoms do not improve or if symptoms worsen sooner, to contact their primary care physician. Potential red flag symptoms discussed with the patient. Reviewed appropriate action plan to take if red flag symptoms occur. Patient agreeable to treatment plan. I spent a total of 23 minutes on the date of the service which included preparing to see the patient, [id number] patient care, completing clinical documentation, obtaining and/or reviewing separately obtained history, performing a medically appropriate examination, counseling and educating the pat ient/family/caregiver, and ordering medications, tests, or procedures. documented in this encounterGalion Community Hospital08-24-2022 Miscellaneous Notes* Telephone Encounter - Анна Pollard - 01/13/2022 3:52 PM EDT Patient called and scheduled her appt for 01/22. Patient is asking if she can get her refill complete. Please return call to patient. documented in this encounterGalion Community Hospital08-20-2022 Miscellaneous Notes* Telephone Encounter - Jackelyn Singer MD - 01/09/2022 9:41 AM EDT Overdue for 3 month follow up. Please call to schedule OV. * Telephone Encounter - Tabitha Alvarado LPN - 01/09/2022 8:42 AM EDT NOV no upcoming appt scheduled * Telephone Encounter - Margret Johansen Pss - 01/09/2022 8:31 AM EDT Patient has been identified by name and date of : Yes Last office visit in this department: 07/27/2021 RX INSTRUCTIONS: Patient aware RX will be sent to pharmacy. No need to notify patient. Patient phones requesting refills as follows: Requested Prescriptions Pending Prescriptions Disp Refills famotidine (PEPCID) 20 mg tablet 90 tablet 0 Sig: Take 1 tablet by mouth at bedtime as needed. Please review and advise. Margret Johansen Pss documented in this encounterGalion Community Hospital05-06-2022 Miscellaneous Notes* Telephone Encounter - Bren Blood RN - 09/25/2021 10:00 AM EDT Patient notified of results and provider's instructions. Patient verbalizes understanding. Bren Blood RN * Telephone Encounter - Natty Perry Ma - 09/25/2021 9:53 AM EDT Tried calling patient no answer and not set up Natty Perry Ma * Telephone Encounter - Natty Perry Ma - 09/25/2021 9:53 AM EDT ----- Message from Jackelyn Singer MD sent at 09/25/2021 9:00 AM EDT ----- Lactose intolerance testing and celiac disease testing both negative. documented in this encounterGalion Community Hospital05-06-2022 Miscellaneous Notes* Telephone Encounter - Anny Mcgovern LPN - 09/25/2021 9:48 AM EDT Patient notified and voiced her understanding. * Telephone Encounter - SANDEE Pritchett - 09/25/2021 9:07 AM EDT TC to patient with no answer. VM is not yet set up, unable to leave a message. Please call again later. SANDEE Pritchett * Telephone Encounter - Jackelyn Singer MD - 09/25/2021 9:01 AM EDT Lactose intolerance testing and celiac disease testing both negative/normal. Continue dietary changes as discussed. documented in this encounterGalion Community Hospital05-02-2022 Miscellaneous Notes* Telephone Encounter - Durga Wang RN - 09/21/2021 10:12 AM EDT Patient has been identified by name and date of : Yes Pharmacy phones for refill(s): Pending Prescriptions Disp Refills FAMOTIDINE 20 MG TABLET 90 tablet 0 Sig: Take 1 tablet by mouth at bedtime as needed. IVAN: No Date of last office visit with pcp: 07-27-21. Next appt: 10-27-21 Last 2 Encounter Wt Readings: Date: Wt: 07/27/2021 75.3 kg (166 lb) 07/14/2021 73 kg (161 lb) Previous labs/tests for medication: Blood Pressure: BUN (mg/dL) Date Value 06/13/2021 13 Sodium (mmol/L) Date Value 06/13/2021 137 Last 1 Encounter BP Readings: Date: BP: 07/27/2021 120/70 Liver Function: ALT (U/L) Date Value 06/13/2021 23 AST (U/L) Date Value 06/13/2021 19 Please advise. Thank you. Durga Wang RN documented in [facility]Hol[facility]* Diagnosis Heartburn documented in this encounter [facility]* Diagnosis Heartburn documented in this encounter [facility]* Diagnosis Heartburn documented in this encounter [facility]* Diagnosis Anxiety and depression- Primary Dysthymic disorder documented in this encounter [facility]* Diagnosis Heartburn documented in this encounter [facility]* Diagnosis Anxiety with depression- Primary documented in this encounter [facility]* Diagnosis Hair loss- Primary Alopecia, unspecified Brain fog Vitamin D deficiency Unspecified vitamin D deficiency documented [facility] this encounter [facility]* Diagnosis Vitamin D deficiency- Primary Unspecified vitamin D deficiency documented [facility] this encounter [facility]* Diagnosis Acute bilateral low back pain without sciatica- Primary documented [facility] encounter [facility]* Diagnosis Anxiety with depression- Primary Impacted cerumen of left ear Impacted cerumen Heartburn documented in this encounter [facility]* Diagnosis Encounter for gynecological examination (general) (routine) without abnormal findings- Primary Screening for cervical cancer Screening for malignant neoplasm of the cervix documented in this encounter [facility]* Diagnosis Annual physical exam- Primary Routine general medical examination at a health care facility Vitamin D insufficiency Unspecified vitamin D deficiency Anxiety with depression documented in this encounter [facility]* Diagnosis Anxiety with depression [facility]* Diagnosis 7 weeks gestation of - Primary state, incidental with uncertain dates, antepartum state, incidental Encounter for supervision of normal first in first trimester Supervision of normal first Gastroesophageal reflux disease without esophagitis Esophageal reflux Anxiety Anxiety state, unspecified Nausea Nausea alone documented in this encounter [facility]* Diagnosis Encounter for supervision of normal first in first trimester- Primary Supervision of normal first 12 weeks gestation of state, incidental Encounter for screening of mother Unspecified screening * Assessment & Plan Note - Rachel Morales MD - 06/13/2024 1:31 PM EST Associated Problem(s): Encounter for supervision of normal first in first trimester Orders: OBSTETRIC ULTRASOUND WHI; Future [id number] PLUS; Future [facility]* Diagnosis Encounter for supervision of normal first in first trimester- Primary Supervision of normal first 12 weeks gestation of state, incidental Encounter for screening of mother Unspecified screening Encounter for screening for malformation using ultrasound- Primary 12 weeks gestation of state, incidental documented in this encounter [facility]* Diagnosis Encounter for supervision of normal first in first trimester- Primary Supervision of normal first 12 weeks gestation of state, incidental Encounter for screening of mother Unspecified screening 16 weeks gestation of - Primary state, incidental Encounter for supervision of normal first in first trimester Supervision of normal first Anxiety with depression Anxiety Anxiety state, unspecified Gastroesophageal reflux disease without esophagitis Esophageal reflux documented in this encounter [facility]* Diagnosis Encounter for supervision of normal first in first trimester- Primary Supervision of normal first 12 weeks gestation of state, incidental Encounter for screening of mother Unspecified screening Heartburn [facility]* Diagnosis Encounter for supervision of normal first in first trimester- Primary Supervision of normal first 12 weeks gestation of state, incidental Encounter for screening of mother Unspecified screening Encounter for supervision of normal first in first trimester- Primary Supervision of normal first Anxiety and depression Dysthymic disorder Heartburn during in second trimester documented in this encounter [facility] note* Diagnosis Encounter for supervision of normal first in first trimester- Primary Supervision of normal first 12 weeks gestation of state, incidental Encounter for screening of mother Unspecified screening Encounter for anatomic survey- Primary 20 weeks gestation of state, incidental documented in this encounter [facility] note* Diagnosis Encounter for supervision of normal first in first trimester- Primary Supervision of normal first 12 weeks gestation of state, incidental Encounter for screening of mother Unspecified screening Anxiety with depression documented in this encounter [facility] note* Diagnosis Encounter for supervision of normal first in first trimester (HCC)- Primary Supervision of normal first 12 weeks gestation of ([facility]) state, incidental Encounter for screening of mother ([facility]) Unspecified screening Heartburn documented in this encounter [facility] note* Diagnosis Encounter for supervision of normal first in first trimester (HCC)- Primary Supervision of normal first 12 weeks gestation of ([facility]) state, incidental Encounter for screening of mother ([facility]) Unspecified screening Encounter for supervision of normal first in second trimester ([facility])- Primary Supervision of normal first 24 weeks gestation of ([facility]) state, incidental Screening for diabetes mellitus * Assessment & Plan Note - Crystal Berry MD - 09/05/2024 4:28 PM EDT Associated Problem(s): Encounter for supervision of normal first in first trimester (HCC) Orders: SYPHILIS TREPONEMAL W/REFLEX; Future ANEMIA REFLEX PANEL; Future documented in this encounter [facility] noteNo assessment information availableWTrumbull [facility] Hospital Work Phone: Evaluation note* Diagnosis Encounter for supervision of normal first in first trimester (HCC)- Primary Supervision of normal first 12 weeks gestation of ([facility]) state, incidental Encounter for screening of mother ([facility]) Unspecified screening Encounter for supervision of normal first in second trimester ([facility])- Primary Supervision of normal first 24 weeks gestation of ([facility]) state, incidental Screening for diabetes mellitus Encounter for supervision of normal first in third trimester ([facility])- Primary Supervision of normal first 28 weeks gestation of ([facility]) state, incidental Anxiety with depression Need for vaccination Need for prophylactic vaccination and inoculation against unspecified single disease Gastroesophageal reflux disease without esophagitis Esophageal reflux [facility]* Diagnosis Encounter for supervision of normal first in first trimester ([facility])- Primary Supervision of normal first 12 weeks gestation of ([facility]) state, incidental Encounter for screening of mother ([facility]) Unspecified screening Encounter for supervision of normal first in second trimester ([facility])- Primary Supervision of normal first 24 weeks gestation of ([facility]) state, incidental Screening for diabetes mellitus Encounter for supervision of high risk in third trimester, antepartum ([facility])- Primary 30 weeks gestation of ([facility]) state, incidental Polyhydramnios affecting in third trimester ([facility]) Elevated blood pressure affecting in second trimester, antepartum ([facility]) Breech presentation, single or unspecified fetus ([facility]) Gastroesophageal reflux disease without esophagitis Esophageal reflux documented in this encounter [facility] note* Diagnosis Encounter for supervision of normal first in first trimester ([facility])- Primary Supervision of normal first 12 weeks gestation of ([facility]) state, incidental Encounter for screening of mother ([facility]) Unspecified screening Encounter for supervision of normal first in second trimester ([facility])- Primary Supervision of normal first 24 weeks gestation of ([facility]) state, incidental Screening for diabetes mellitus Elevated blood pressure affecting in second trimester, antepartum ([facility]) Polyhydramnios affecting in third trimester ([facility]) Supervision of high risk in third trimester ([facility]) Unspecified high-risk documented in this encounter [facility] note* Diagnosis Encounter for supervision of normal first in first trimester ([facility])- Primary Supervision of normal first 12 weeks gestation of ([facility]) state, incidental Encounter for screening of mother ([facility]) Unspecified screening Encounter for supervision of normal first in second trimester ([facility])- Primary Supervision of normal first 24 weeks gestation of ([facility]) state, incidental Screening for diabetes mellitus Encounter for supervision of high risk in third trimester, antepartum ([facility])- Primary 33 weeks gestation of ([facility]) state, incidental Polyhydramnios affecting in third trimester ([facility]) Breech presentation, single or unspecified fetus (HCC) Gastroesophageal reflux disease without esophagitis Esophageal reflux Tick bite, unspecified site, initial encounter [facility]* Diagnosis Encounter for supervision of normal first in first trimester ([facility])- Primary Supervision of normal first 12 weeks gestation of ([facility]) state, incidental Encounter for screening of mother ([facility]) Unspecified screening Encounter for supervision of normal first in second trimester ([facility])- Primary Supervision of normal first 24 weeks gestation of ([facility]) state, incidental Screening for diabetes mellitus Encounter for supervision of high risk in third trimester, antepartum ([facility])- Primary Polyhydramnios affecting in third trimester ([facility]) Breech presentation, single or unspecified fetus ([facility]) Gastroesophageal reflux disease without esophagitis Esophageal reflux 34 weeks gestation of ([facility]) state, incidental documented in this encounter [facility] note* Diagnosis Encounter for supervision of normal first in first trimester ([facility])- Primary Supervision of normal first 12 weeks gestation of ([facility]) state, incidental Encounter for screening of mother ([facility]) Unspecified screening Encounter for supervision of normal first in second trimester ([facility])- Primary Supervision of normal first 24 weeks gestation of ([facility]) state, incidental Screening for diabetes mellitus Encounter for supervision of high risk in third trimester, antepartum ([facility])- Primary Polyhydramnios affecting in third trimester ([facility]) 35 weeks gestation of ([facility]) state, incidental [facility]* Diagnosis Encounter for supervision of normal first in first trimester ([facility])- Primary Supervision of normal first 12 weeks gestation of ([facility]) state, incidental Encounter for screening of mother ([facility]) Unspecified screening Encounter for supervision of normal first in second trimester ([facility])- Primary Supervision of normal first 24 weeks gestation of ([facility]) state, incidental Screening for diabetes mellitus 36 weeks gestation of ([facility])- Primary state, incidental Encounter for supervision of high risk in third trimester, antepartum ([facility]) Polyhydramnios affecting in third trimester ([facility]) * Assessment & Plan Note - Kirstie Strauss MD - 11/30/2024 4:12 PM EDTAssociated Problem(s): Polyhydramnios affecting in third trimester (HCC) Repeat US next week Orders: URINE OB DIP B/O documented in this encounter [facility] note* Diagnosis Encounter for supervision of normal first in first trimester ([facility])- Primary Supervision of normal first 12 weeks gestation of ([facility]) state, incidental Encounter for screening of mother ([facility]) Unspecified screening Encounter for supervision of normal first in second trimester ([facility])- Primary Supervision of normal first 24 weeks gestation of ([facility]) state, incidental Screening for diabetes mellitus 36 weeks gestation of ([facility])- Primary state, incidental Encounter for supervision of high risk in third trimester, antepartum ([facility]) Polyhydramnios affecting in third trimester ([facility]) Polyhydramnios affecting in third trimester ([facility])- Primary Encounter for supervision of high risk in third trimester, antepartum ([facility]) Group beta Strep positive 37 weeks gestation of ([facility]) state, incidental * Assessment & Plan Note - Kirstie Strauss MD - 12/04/2024 3:04 PM EDTAssociated Problem(s): Polyhydramnios affecting in third trimester (HCC) US today shows vertex, AGA infant at 74% with JERRY of 23. * Assessment & Plan Note - Kirstie Strauss MD - 12/04/2024 3:04 PM EDTAssociated Problem(s): Acid reflux All questions answered & discussed treatment in labor. documented in this encounter [facility] note* Diagnosis Encounter for supervision of normal first in first trimester ([facility])- Primary Supervision of normal first 12 weeks gestation of ([facility]) state, incidental Encounter for screening of mother ([facility]) Unspecified screening Encounter for supervision of normal first in second trimester ([facility])- Primary Supervision of normal first 24 weeks gestation of ([facility]) state, incidental Screening for diabetes mellitus 36 weeks gestation of ([facility])- Primary state, incidental Encounter for supervision of high risk in third trimester, antepartum ([facility]) Polyhydramnios affecting in third trimester ([facility]) Elevated blood pressure affecting in second trimester, antepartum ([facility]) Polyhydramnios affecting in third trimester ([facility]) Supervision of high risk in third trimester ([facility]) Unspecified high-risk Polyhydramnios affecting in third trimester ([facility])- Primary Encounter for supervision of high risk in third trimester, antepartum ([facility]) Group beta Strep positive 37 weeks gestation of ([facility]) state, incidental [facility]* Diagnosis Encounter for supervision of normal first in first trimester ([facility])- Primary Supervision of normal first 12 weeks gestation of ([facility]) state, incidental Encounter for screening of mother ([facility]) Unspecified screening Encounter for supervision of normal first in second trimester ([facility])- Primary Supervision of normal first 24 weeks gestation of ([facility]) state, incidental Screening for diabetes mellitus 36 weeks gestation of ([facility])- Primary state, incidental Encounter for supervision of high risk in third trimester, antepartum ([facility]) Polyhydramnios affecting in third trimester ([facility]) Polyhydramnios affecting in third trimester ([facility])- Primary Encounter for supervision of high risk in third trimester, antepartum ([facility]) Group beta Strep positive 37 weeks gestation of ([facility]) state, incidental Encounter for supervision of high risk in third trimester, antepartum ([facility])- Primary Polyhydramnios affecting in third trimester ([facility]) 38 weeks gestation of ([facility]) state, incidental * Assessment & Plan Note - Crystal Berry MD - 12/10/2024 4:44 PM EDT Associated Problem(s): Polyhydramnios affecting in third trimester ([facility]) D/w patient LGA (AC>99%)/Obesity- will do NST today- at [facility] due to time at appt. - reviewed IOL 39-40 weeks pt agreeable and scheduled Orders: URINE OB DIP B/O documented in this encounter [facility] for referral (narrative)* Diagnostic Procedure Only (Routine) - Authorized Specialty Diagnoses / Procedures Referred By Contac t Referred To Contact [facility] Diagnoses 7 weeks gestation of Procedures NUCHAL TRANSLUCENCY WHI US NUCHAL TRANSLUCENCY 1ST GESTATION Summer Garduno APRN.CNM [address] [place] [address] [place] [id number] Referral ID Status Reason Start Date Expiration Date Visits Requested Visits Authorized [id number] Authorized Auto-Generat ed Referral 4 05/09/2025 1 1 * Diagnostic Procedure Only (Routine) - New Request Specialty Diagnoses / Procedures Referred By Contac t Referred To Contact [facility] Diagnoses 7 weeks gestation of Procedures OBSTETRIC ULTRASOUND WHI US PREG UTERUS AFTER 1ST TRIMEST GESTATION Summer Garduno APRN.CNM [address] [place] [address] [address] Referral ID Status Reason Start Date Expiration Date Visits Requested Visits Authorized [id number] New Request Auto-Generat ed Referral 4 05/09/2025 1 1 [facility] Diagnostic Procedure Only (Routine) - Authorized Specialty Diagnoses / Procedures Referred By Contac t Referred To Contact [facility] Diagnoses Encounter for supervision of normal first in first trimester 12 weeks gestation of Procedures OBSTETRIC ULTRASOUND WHI US PREG UTERUS AFTER 1ST TRIMEST GESTATION Rachel Morales MD [address] [place] [address] [facility] [address] [place] [address] Referral ID Status Reason Start Date Expiration Date Visits Requested Visits Authorized [id number] Authorized Auto-Generat ed Referral 06/13/2024 06/13/2025 1 1 [facility] for referral (narrative)No reason for referral information availableWTrumbull Memorial Hospital Work Phone: Summary Purpose Family History No Family History Records FoundNo Family History Records FoundNo Family History Records Found Advance Directives No Advanced Directives Records FoundNo Advanced Directives Records FoundNo Advanced Directives Records Found Chief Complaint and Reason for Visit Chief Complaint Admit Date ELEVATED HEART RATE September 28, 2024 8:48am Chief Complaint Admit Date ELEVATED HEART RATE September 28, 2024 8:48am EKG September 28, 2024 10:06a m NST December 10, 2024 4:53 pm Reason for Visit Admit Date 27 weeks gestation of September 28, 2024 8:48am Tachycardia September 28, 2024 8:48am Additional Source Comments INFORMATION SOURCE (unrecogn ized section and content) DATE CREATED AUTHOR 01/03/2021 [facility] DATE CREATED AUTHOR AUTHOR'S ORGANIZ ATION 12/15/2024 [facility] DATE CREATED AUTHOR AUTHOR'S ORGANIZ ATION 12/16/[address] [facility] Source Comments (unrecognize d section and content) In the event this informatio n is protected by the Federal Confidentiality of Alcohol and Drug Abuse Patient Records regulations: The Federal rules restrict any use of the information to criminally investigate or prosecute any alcohol or drug abuse patient.[facility] the event this information is protected by the Federal Confidentiality of Alcohol and Drug Abuse Patient Records regulations: The Federal rules restrict any use of the information to criminally investigate or prosecute any alcohol or drug abuse patient.[facility] the event this information is protected by the Federal Confidentiality of Alcohol and Drug Abuse Patient Records regulations: The Federal rules restrict any use of the information to criminally investigate or prosecute any alcohol or drug abuse patient.[facility]In the event this information is protected by the Federal Confidentiality of Alcohol and Drug Abuse Patient Records regulations: The Federal rules restrict any use of the information to criminally investigate or prosecute any alcohol or drug abuse patient.[facility] HospitalIn the event this information is protected by the Federal Confidentiality of Alcohol and Drug Abuse Patient Records regulations: The Federal rules restrict any use of the information to criminally investigate or prosecute any alcohol or drug abuse patient.[facility] HospitalIn the event this information is protected by the Federal Confidentiality of Alcohol and Drug Abuse Patient Records regulations: The Federal rules restrict any use of the information to criminally investigate or prosecute any alcohol or drug abuse patient.[facility] HospitalIn the event this information is protected by the Federal Confidentiality of Alcohol and Drug Abuse Patient Records regulations: The Federal rules restrict any use of the information to criminally investigate or prosecute any alcohol or drug abuse patient.[facility] HospitalIn the event this information is protected by the Federal Confidentiality of Alcohol and Drug Abuse Patient Records regulations: The Federal rules restrict any use of the information to criminally investigate or prosecute any alcohol or drug abuse patient.[facility] HospitalIn the event this information is protected by the Federal Confidentiality of Alcohol and Drug Abuse Patient Records regulations: The Federal rules restrict any use of the information to criminally investigate or prosecute any alcohol or drug abuse patient.[facility] HospitalIn the event this information is protected by the Federal Confidentiality of Alcohol and Drug Abuse Patient Records regulations: The Federal rules restrict any use of the information to criminally investigate or prosecute any alcohol or drug abuse patient.[facility] HospitalIn the event this information is protected by the Federal Confidentiality of Alcohol and Drug Abuse Patient Records regulations: The Federal rules restrict any use of the information to criminally investigate or prosecute any alcohol or drug abuse patient.[facility] HospitalIn the event this information is protected by the Federal Confidentiality of Alcohol and Drug Abuse Patient Records regulations: The Federal rules restrict any use of the information to criminally investigate or prosecute any alcohol or drug abuse patient.[facility] HospitalIn the event this information is protected by the Federal Confidentiality of Alcohol and Drug Abuse Patient Records regulations: The Federal rules restrict any use of the information to criminally investigate or prosecute any alcohol or drug abuse patient.[facility] HospitalIn the event this information is protected by the Federal Confidentiality of Alcohol and Drug Abuse Patient Records regulations: The Federal rules restrict any use of the information to criminally investigate or prosecute any alcohol or drug abuse patient.[facility] HospitalIn the event this information is protected by the Federal Confidentiality of Alcohol and Drug Abuse Patient Records regulations: The Federal rules restrict any use of the information to criminally investigate or prosecute any alcohol or drug abuse patient.[facility] HospitalIn the event this information is protected by the Federal Confidentiality of Alcohol and Drug Abuse Patient Records regulations: The Federal rules restrict any use of the information to criminally investigate or prosecute any alcohol or drug abuse patient.[facility] HospitalIn the event this information is protected by the Federal Confidentiality of Alcohol and Drug Abuse Patient Records regulations: The Federal rules restrict any use of the information to criminally investigate or prosecute any alcohol or drug abuse patient.[facility] HospitalIn the event this information is protected by the Federal Confidentiality of Alcohol and Drug Abuse Patient Records regulations: The Federal rules restrict any use of the information to criminally investigate or prosecute any alcohol or drug abuse patient.[facility] HospitalIn the event this information is protected by the Federal Confidentiality of Alcohol and Drug Abuse Patient Records regulations: The Federal rules restrict any use of the information to criminally investigate or prosecute any alcohol or drug abuse patient.[facility] HospitalIn the event this information is protected by the Federal Confidentiality of Alcohol and Drug Abuse Patient Records regulations: The Federal rules restrict any use of the information to criminally investigate or prosecute any alcohol or drug abuse patient.[facility] HospitalIn the event this information is protected by the Federal Confidentiality of Alcohol and Drug Abuse Patient Records regulations: The Federal rules restrict any use of the information to criminally investigate or prosecute any alcohol or drug abuse patient.[facility] HospitalIn the event this information is protected by the Federal Confidentiality of Alcohol and Drug Abuse Patient Records regulations: The Federal rules restrict any use of the information to criminally investigate or prosecute any alcohol or drug abuse patient.[facility] HospitalIn the event this information is protected by the Federal Confidentiality of Alcohol and Drug Abuse Patient Records regulations: The Federal rules restrict any use of the information to criminally investigate or prosecute any alcohol or drug abuse patient.[facility] HospitalIn the event this information is protected by the Federal Confidentiality of Alcohol and Drug Abuse Patient Records regulations: The Federal rules restrict any use of the information to criminally investigate or prosecute any alcohol or drug abuse patient.[facility] HospitalIn the event this information is protected by the Federal Confidentiality of Alcohol and Drug Abuse Patient Records regulations: The Federal rules restrict any use of the information to criminally investigate or prosecute any alcohol or drug abuse patient.[facility] HospitalIn the event this information is protected by the Federal Confidentiality of Alcohol and Drug Abuse Patient Records regulations: The Federal rules restrict any use of the information to criminally investigate or prosecute any alcohol or drug abuse patient.[facility] HospitalIn the event this information is protected by the Federal Confidentiality of Alcohol and Drug Abuse Patient Records regulations: The Federal rules restrict any use of the information to criminally investigate or prosecute any alcohol or drug abuse patient.[facility] HospitalIn the event this information is protected by the Federal Confidentiality of Alcohol and Drug Abuse Patient Records regulations: The Federal rules restrict any use of the information to criminally investigate or prosecute any alcohol or drug abuse patient.[facility] HospitalIn the event this information is protected by the Federal Confidentiality of Alcohol and Drug Abuse Patient Records regulations: The Federal rules restrict any use of the information to criminally investigate or prosecute any alcohol or drug abuse patient.[facility] HospitalIn the event this information is protected by the Federal Confidentiality of Alcohol and Drug Abuse Patient Records regulations: The Federal rules restrict any use of the information to criminally investigate or prosecute any alcohol or drug abuse patient.[facility] HospitalIn the event this information is protected by the Federal Confidentiality of Alcohol and Drug Abuse Patient Records regulations: The Federal rules restrict any use of the information to criminally investigate or prosecute any alcohol or drug abuse patient.[facility] HospitalIn the event this information is protected by the Federal Confidentiality of Alcohol and Drug Abuse Patient Records regulations: The Federal rules restrict any use of the information to criminally investigate or prosecute any alcohol or drug abuse patient.[facility] HospitalIn the event this information is protected by the Federal Confidentiality of Alcohol and Drug Abuse Patient Records regulations: The Federal rules restrict any use of the information to criminally investigate or prosecute any alcohol or drug abuse patient.[facility] HospitalIn the event this information is protected by the Federal Confidentiality of Alcohol and Drug Abuse Patient Records regulations: The Federal rules restrict any use of the information to criminally investigate or prosecute any alcohol or drug abuse patient.[facility] HospitalIn the event this information is protected by the Federal Confidentiality of Alcohol and Drug Abuse Patient Records regulations: The Federal rules restrict any use of the information to criminally investigate or prosecute any alcohol or drug abuse patient.[facility] HospitalIn the event this information is protected by the Federal Confidentiality of Alcohol and Drug Abuse Patient Records regulations: The Federal rules restrict any use of the information to criminally investigate or prosecute any alcohol or drug abuse patient.[facility] HospitalIn the event this information is protected by the Federal Confidentiality of Alcohol and Drug Abuse Patient Records regulations: The Federal rules restrict any use of the information to criminally investigate or prosecute any alcohol or drug abuse patient.[facility] HospitalIn the event this information is protected by the Federal Confidentiality of Alcohol and Drug Abuse Patient Records regulations: The Federal rules restrict any use of the information to criminally investigate or prosecute any alcohol or drug abuse patient.[facility] HospitalIn the event this information is protected by the Federal Confidentiality of Alcohol and Drug Abuse Patient Records regulations: The Federal rules restrict any use of the information to criminally investigate or prosecute any alcohol or drug abuse patient.[facility] HospitalIn the event this information is protected by the Federal Confidentiality of Alcohol and Drug Abuse Patient Records regulations: The Federal rules restrict any use of the information to criminally investigate or prosecute any alcohol or drug abuse patient.[facility] HospitalIn the event this information is protected by the Federal Confidentiality of Alcohol and Drug Abuse Patient Records regulations: The Federal rules restrict any use of the information to criminally investigate or prosecute any alcohol or drug abuse patient.[facility] HospitalIn the event this information is protected by the Federal Confidentiality of Alcohol and Drug Abuse Patient Records regulations: The Federal rules restrict any use of the information to criminally investigate or prosecute any alcohol or drug abuse patient.[facility] HospitalIn the event this information is protected by the Federal Confidentiality of Alcohol and Drug Abuse Patient Records regulations: The Federal rules restrict any use of the information to criminally investigate or prosecute any alcohol or drug abuse patient.[facility] HospitalIn the event this information is protected by the Federal Confidentiality of Alcohol and Drug Abuse Patient Records regulations: The Federal rules restrict any use of the information to criminally investigate or prosecute any alcohol or drug abuse patient.[facility] HospitalIn the event this information is protected by the Federal Confidentiality of Alcohol and Drug Abuse Patient Records regulations: The Federal rules restrict any use of the information to criminally investigate or prosecute any alcohol or drug abuse patient.[facility] HospitalIn the event this information is protected by the Federal Confidentiality of Alcohol and Drug Abuse Patient Records regulations: The Federal rules restrict any use of the information to criminally investigate or prosecute any alcohol or drug abuse patient.[facility] HospitalIn the event this information is protected by the Federal Confidentiality of Alcohol and Drug Abuse Patient Records regulations: The Federal rules restrict any use of the information to criminally investigate or prosecute any alcohol or drug abuse patient.[facility] HospitalIn the event this information is protected by the Federal Confidentiality of Alcohol and Drug Abuse Patient Records regulations: The Federal rules restrict any use of the information to criminally investigate or prosecute any alcohol or drug abuse patient.[facility] HospitalIn the event this information is protected by the Federal Confidentiality of Alcohol and Drug Abuse Patient Records regulations: The Federal rules restrict any use of the information to criminally investigate or prosecute any alcohol or drug abuse patient.[facility] HospitalIn the event this information is protected by the Federal Confidentiality of Alcohol and Drug Abuse Patient Records regulations: The Federal rules restrict any use of the information to criminally investigate or prosecute any alcohol or drug abuse patient.[facility] Reason for Visit (unrecogniz ed section and content) Reason Onset Date Comments Refill Request 09/21/2021 Reason Comments Results Reason Comments Appointment Reason Onset Date Comments Refill Request 01/09/2022 Reason Comments Recheck Reason Comments Refill Request Reason Comments Depression Reason Comments Hair Loss Concerned it may be thyroid issues. Accompanied with brain fog and fatigue. Reason Comments Back Pain Low back pain x1 mon th, no injury aware of. 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 Reason Comments Anxiety Ear Problem Would like ears sam lien Reason Comments Yearly Exam Reason Comments Physical Reason Onset Date Comments Refill Request 03/14/2024 Reason Comments Initial OB Visit Reason Comments Patient Question What will happen at her apt on 06/13 Reason Onset Date Comments Care 06/13/2024 Reason Comments US Specialty Diagnoses / Procedures Referred By Percy t Referred To Contact [facility] Diagnoses 7 weeks gestation of Procedures NUCHAL TRANSLUCENCY WHI US NUCHAL TRANSLUCENCY 1ST GESTATION Summer Garduno APRN.[facility] [address] [place] [address] [address] Referral ID Status Reason Start Date Expiration Date V isits Requested Visits Authorized [id number] Closed Auto-Generate d Referral 05/09/2024 05/09/2025 1 1 Reason Onset Date Comments Care 07/11/2024 Reason Onset Date Comments Refill Request 07/27/2024 Specialty Diagnoses / Procedures Referred By Percy t Referred To Contact [facility] Diagnoses Encounter for supervision of normal first in first trimester 12 weeks gestation of Procedures OBSTETRIC ULTRASOUND WHI US PREG UTERUS AFTER 1ST TRIMEST GESTATION Rachel Morales MD [address] [place] [address] Phone: tel: fax: [address] [address] Referral ID Status Reason Start Date Expiration Date V isits Requested Visits Authorized [id number] Closed Auto-Generate d Referral 06/13/2024 06/13/2025 1 1 Reason Comments Med Change Request Reason Onset Date Comments Refill Request 08/17/2024 Reason Onset Date Comments Care 09/05/2024 Reason Comments OB Tachycardia Reason Onset Date Comments Care 10/03/2024 Reason Onset Date Comments Care 10/19/2024 Reason Comments Breast Pump Specialty Diagnoses / Procedures Referred By Percy t Referred To Contact [facility] Diagnoses Elevated blood pressure affecting in second trimester, antepartum (HCC) Polyhydramnios affecting in third trimester (HCC) Supervision of high risk in third trimester (HCC) Procedures OBSTETRIC ULTRASOUND WHI US PREG UTERUS AFTER 1ST TRIMEST GESTATION Rachel Morales MD [address] [place] [address] Phone: tel: fax: [facility] [address] [place] [address] Referral ID Status Reason Start Date Expiration Date V isits Requested Visits Authorized [id number] Closed Auto-Generate d Referral 10/12/2024 10/12/2025 3 1 Reason Onset Date Comments Care 11/05/2024 Reason Onset Date Comments Care 11/14/2024 Reason Onset Date Comments Care 11/19/2024 Reason Onset Date Comments Care 11/30/2024 Reason Onset Date Comments Care 12/04/2024 Reason Onset Date Comments Care 12/10/2024 Reason Onset Date Comments Population Health Navigation Outreach 12/11/2024 Ob/peds Care Teams (unrecognized sec tion and content) Home Aide Relationship Specialty Start Date End Date Jackelyn Singer MD [address] [place], [place] [address] PCP - General Family Practice 07/28/20 Home Aide Relationship Specialty Start Date End Date Jackelyn Singer MD [address] [place], [place] [address] [phone] PCP - General Family Practice 07/28/20 Home Aide Relationship Specialty Start Date End Date Jackelyn Singer MD [address] [place], [place] [address] [phone] PCP - General Family Practice 07/28/20 Home Aide Relationship Specialty Start Date End Date Jackelyn Singer MD [address] [place], [place] [address] [phone] PCP - General Family Practice 07/28/20 Home Aide Relationship Specialty Start Date End Date Jackelyn Singer MD [address] [place] [address] PCP - General Family Practice 07/28/20 Home Aide Relationship Specialty Start Date End Date Jackelyn Singer MD [address] [place] [place] [address] PCP - General Family Medicine 07/28/20 Home Aide Relationship Specialty Start Date End Date Jackelyn Singer MD [address] [place] [place] [address] PCP - General Family Medicine 07/28/20 Home Aide Relationship Specialty Start Date End Date Jackelyn Singer MD [address] [place] [address] PCP - General Family Medicine 07/28/20 Home Aide Relationship Specialty Start Date End Date Jackelyn Singer MD [address] [place] [address] PCP - General Family Medicine 07/28/20 Home Aide Relationship Specialty Start Date End Date Jackelyn Singer MD [address] [place] [address] PCP - General Family Medicine 07/28/20 Home Aide Relationship Specialty Start Date End Date Jackelyn Singer MD [address] [place] [address] PCP - General Family Medicine 07/28/20 Home Aide Relationship Specialty Start Date End Date Jackelyn Singer MD [address] [place] [address] PCP - General Family Medicine 07/28/20 Home Aide Relationship Specialty Start Date End Date Jackelyn Singer MD [address] [place] [address] PCP - General Family Medicine 07/28/20 Home Aide Relationship Specialty Start Date End Date Jackelyn Singer MD [address] [facility], [place] [address] PCP - General Family Medicine 07/28/20 Podlogar, Marah COMBATANT DIVER QUALIFIED.WILDLIFE ENFORCEMENT MAJOR [address] [place] [place] [address] Electrophysiology Scientist Family Medicine 04/28/24 Home Aide Relationship Specialty Start Date End Date Jackelyn Singer MD [address] [place] [address] PCP - General Family Medicine 07/28/20 Podlogar, Marah COMBATANT DIVER QUALIFIED.WILDLIFE ENFORCEMENT MAJOR [address] [place] [place] [address] Electrophysiology Scientist Family Medicine 04/28/24 Home Aide Relationship Specialty Start Date End Date Jackelyn Singer MD [address] [place] [address] PCP - General Family Medicine 07/28/20 Podlogar, Marah, COMBATANT DIVER QUALIFIED.WILDLIFE ENFORCEMENT MAJOR [address] [place] [address] Electrophysiology Scientist Family Medicine 04/28/24 Home Aide Relationship Specialty Start Date End Date Jackelyn Singer MD [address] [place] [address] PCP - General Family Medicine 07/28/20 Podlogar, Marah, COMBATANT DIVER QUALIFIED.WILDLIFE ENFORCEMENT MAJOR [address] [place] [address] Electrophysiology Scientist Family Medicine 04/28/24 Home Aide Relationship Specialty Start Date End Date Jackelyn Singer MD [address] [place] [address] PCP - General Family Medicine 07/28/20 Podlogar, Marah, COMBATANT DIVER QUALIFIED.WILDLIFE ENFORCEMENT MAJOR [address] [place] [address] Electrophysiology Scientist Family Medicine 04/28/24 Home Aide Relationship Specialty Start Date End Date Jackelyn Singer MD [address] [place] [address] PCP - General Family Medicine 07/28/20 Podlogar, Marah, COMBATANT DIVER QUALIFIED.WILDLIFE ENFORCEMENT MAJOR [address] [place] [address] Electrophysiology Scientist Family Medicine 04/28/24 Home Aide Relationship Specialty Start Date End Date Jackelyn Singer MD [address] [place] [address] PCP - General Family Medicine 07/28/20 Podlogar, Marah, COMBATANT DIVER QUALIFIED.WILDLIFE ENFORCEMENT MAJOR [address] [place] [address] Electrophysiology Scientist Family Medicine 04/28/24 Rand Ashley, COMBATANT DIVER QUALIFIED.WILDLIFE ENFORCEMENT MAJOR [address] [facility] [place] [address] Electrophysiology Scientist Family Medicine 08/03/24 Home Aide Relationship Specialty Start Date End Date Jackelyn Singer MD [address] [place] [place] [address] PCP - General Family Medicine 07/28/20 Podlogar, Marah, COMBATANT DIVER QUALIFIED.WILDLIFE ENFORCEMENT MAJOR [address] [place] [address] Electrophysiology Scientist Family Medicine 04/28/24 Rand Ashley APRN.WILDLIFE ENFORCEMENT MAJOR [address] [place] [address] Electrophysiology Scientist Family Medicine 08/03/24 Home Aide Relationship Specialty Start Date End Date Jackelyn Singer MD [address] [place] [address] PCP - General Family Medicine 07/28/20 PodlogMarah rodriguez APRN.WILDLIFE ENFORCEMENT MAJOR [address] [place] [address] Electrophysiology Scientist Family Medicine 04/28/24 Rand Ashley APRN.WILDLIFE ENFORCEMENT MAJOR [address] [place] [address] Electrophysiology Scientist Family Medicine 08/13/24 Home Aide Relationship Specialty Start Date End Date Jackelyn Singer MD [address] [place] [address] PCP - General Family Medicine 07/28/20 PodlogarMarah APRN.WILDLIFE ENFORCEMENT MAJOR [address] [place] [address] Electrophysiology Scientist Family Medicine 04/28/24 Rand Ashley APRN.WILDLIFE ENFORCEMENT MAJOR [address] [place] [address] Electrophysiology Scientist Family Medicine 08/13/24 Team Status: Active Member Role Status Dates No Primary Care Physician Family Provider Active Dr. Yusef Singer MD Primary Care Provider Acti ve Team Status: Inactive Member Role Status Dates Dr. Rachel Morales MD Attending Provider Active Start: September 28, 2024 End: September 28, 2024 Dr. Rachel Morales MD Referring Provider Active Start: September 28, 2024 End: September 28, 2024 Dr. Yusef Singer MD Primary Care Provider Acti ve Start: September 28, 2024 End: September 28, 2024 Home Aide Relationship Specialty Start Date End Date Jackelyn Singer MD [address] [place] [place] [address] PCP - General Family Medicine 07/28/20 PodlogarMarah APRN.WILDLIFE ENFORCEMENT MAJOR [address] [place] [address] Electrophysiology Scientist Family Medicine 04/28/24 Rand Ashley APRN.WILDLIFE ENFORCEMENT MAJOR [address] [place] [address] Electrophysiology Scientist Family Medicine 08/13/24 Home Aide Relationship Specialty Start Date End Date Jackelyn Singer MD [address] [place] [address] PCP - General Family Medicine 07/28/20 PodlogarMarah COMBATANT DIVER QUALIFIED.WILDLIFE ENFORCEMENT MAJOR [address] [place] [address] Electrophysiology Scientist Family Medicine 04/28/24 Rand Ashley COMBATANT DIVER QUALIFIED.WILDLIFE ENFORCEMENT MAJOR [address] [place] [address] [facility] Medicine 08/13/24 Home Aide Relationship Specialty Start Date End Date Jackelyn Singer MD [address] [place] [address] PCP - General Family Medicine 07/28/20 PodlogarMarah APRN.WILDLIFE ENFORCEMENT MAJOR [address] [place], [place] [address] Electrophysiology Scientist Family [facility] 04/28/24 Rand Ashley, COMBATANT DIVER QUALIFIED.WILDLIFE ENFORCEMENT MAJOR [address] [place], [place] [address] [facility] 08/03/24 08/12/24 Rand Ashley, COMBATANT DIVER QUALIFIED.WILDLIFE ENFORCEMENT MAJOR [address] [place], [place] [address] [facility] Home Aide Relationship Specialty Start Date End Date Jackelyn Singer MD [address] [place] [address] PCP - General Family Medicine 07/28/20 PodlogarMarah, COMBATANT DIVER QUALIFIED.WILDLIFE ENFORCEMENT MAJOR [address] [place] [address] [facility] 04/28/24 Home Aide Relationship Specialty Start Date End Date Jackelyn Singer MD [address] [place], [place] [address] PCP - General Family Medicine 07/28/20 PodlogarMarah, COMBATANT DIVER QUALIFIED.WILDLIFE ENFORCEMENT MAJOR [address] [place] [address] [facility] Medicine 04/28/24 Home Aide Relationship Specialty Start Date End Date Jackelyn Singer MD [address] [place] [address] PCP - General Family Medicine 07/28/20 Podlogar, KORY Crystal.WILDLIFE ENFORCEMENT MAJOR [address] [place] [address] Electrophysiology Scientist Family Medicine 04/28/24 Rand Ashley APRN.WILDLIFE ENFORCEMENT MAJOR [address] [place], [place] [address] [facility] 11/01/24 Home Aide Relationship Specialty Start Date End Date Jackelyn Singer MD [address] [place] [address] PCP - General Family Medicine 07/28/20 Podlogar, KORY Crystal.WILDLIFE ENFORCEMENT MAJOR [address] [place] [address] [facility] 04/28/24 Rand Ashely COMBATANT DIVER QUALIFIED.WILDLIFE ENFORCEMENT MAJOR [address] [place] [address] [facility] 11/01/24 Home Aide Relationship Specialty Start Date End Date Jackelyn Singer MD [address] [place] [address] PCP - General Family Medicine 07/28/20 PodlogarMarah COMBATANT DIVER QUALIFIED.WILDLIFE ENFORCEMENT MAJOR [address] [place] [address] [facility] Family Medicine 04/28/24 Rand Ashley APRN.WILDLIFE ENFORCEMENT MAJOR [address] [place] [address] [facility] Medicine 11/01/24 Home Aide Relationship Specialty Start Date End Date Jackelyn Singer MD [address] [place] [place] [address] PCP - General Family Medicine 07/28/20 PodlogarMarah APRN.WILDLIFE ENFORCEMENT MAJOR [address] [place] [address] Electrophysiology Scientist Family Medicine 04/28/24 Rand Ashley APRN.WILDLIFE ENFORCEMENT MAJOR [address] [facility] [place] [address] Electrophysiology Scientist Family Medicine 11/01/24 Home Aide Relationship Specialty Start Date End Date Jackelyn Singer MD [address] [facility] [place] [address] PCP - General Family Medicine 07/28/20 Podlogar, Marah COMBATANT DIVER QUALIFIED.WILDLIFE ENFORCEMENT MAJOR [address] [place] [address] Electrophysiology Scientist Family Medicine 04/28/24 Rand Ashley COMBATANT DIVER QUALIFIED.WILDLIFE ENFORCEMENT MAJOR [address] [facility] [place] [address] Electrophysiology Scientist Family Medicine 11/01/24 Home Aide Relationship Specialty Start Date End Date Jackelyn Singer MD [address] [place] [address] PCP - General Family Medicine 07/28/20 PodlogarMarah APRN.WILDLIFE ENFORCEMENT MAJOR [address] [place] [place] [address] Electrophysiology Scientist Family Medicine 04/28/24 Rand Ashley APRN.WILDLIFE ENFORCEMENT MAJOR [address] [place] [address] Electrophysiology Scientist Family Medicine 11/01/24 Home Aide Relationship Specialty Start Date End Date Jackelyn Singer MD [address] [place] [address] PCP - General Family Medicine 07/28/20 Podlogar, KORY Crystal.WILDLIFE ENFORCEMENT MAJOR [address] [place] [address] Electrophysiology Scientist Family Medicine 04/28/24 Rand Ashley APRN.WILDLIFE ENFORCEMENT MAJOR [address] [place] [address] [facility] 11/01/24 Home Aide Relationship Specialty Start Date End Date Jackelyn Singer MD [address] [place] [address] PCP - General Family Medicine 07/28/20 PodlogarMarah APRN.WILDLIFE ENFORCEMENT MAJOR [address] [place] [address] Electrophysiology Scientist Family Medicine 04/28/24 Rand Ashley COMBATANT DIVER QUALIFIED.WILDLIFE ENFORCEMENT MAJOR [address] [place] [address] Electrophysiology Scientist Family Medicine 11/01/24 Home Aide Relationship Specialty Start Date End Date Jackelyn Singer MD [address] [place] [address] PCP - General Family Medicine 07/28/20 Podlogar, Marah COMBATANT DIVER QUALIFIED.WILDLIFE ENFORCEMENT MAJOR [address] [place] [address] Electrophysiology Scientist Family Medicine 04/28/24 Rand Ashley COMBATANT DIVER QUALIFIED.WILDLIFE ENFORCEMENT MAJOR [address] [place] [address] [facility] 11/01/24 Home Aide Relationship Specialty Start Date End Date Jackelyn Singer MD [address] [place] [address] PCP - General Family Medicine 07/28/20 PodlogarMarah COMBATANT DIVER QUALIFIED.WILDLIFE ENFORCEMENT MAJOR [address] [place] [address] Electrophysiology Scientist Family Medicine 04/28/24 Rand Ashley COMBATANT DIVER QUALIFIED.WILDLIFE ENFORCEMENT MAJOR [address] [place] [address] [facility] 11/01/24 Home Aide Relationship Specialty Start Date End Date Jackelyn Singer MD [address] [place] [address] PCP - General Family Medicine 07/28/20 PodlogarMarah COMBATANT DIVER QUALIFIED.WILDLIFE ENFORCEMENT MAJOR [address] [place] [address] Electrophysiology Scientist Family Medicine 04/28/24 Rand Ashley, COMBATANT DIVER QUALIFIED.WILDLIFE ENFORCEMENT MAJOR [address] [place] [address] [facility] Medicine 11/01/24 Home Aide Relationship Specialty Start Date End Date Jackelyn Singer MD [address] [place] [address] PCP - General Family Medicine 07/28/20 Marah Gracia, COMBATANT DIVER QUALIFIED.WILDLIFE ENFORCEMENT MAJOR [address] [place], [place] [id number] [facility] 04/28/24 Rand Ashley, COMBATANT DIVER QUALIFIED.WILDLIFE ENFORCEMENT MAJOR [address] [place], [place] [address] [facility] 11/01/24 Team Status: Active Member Role/Relationship Status Dates No Primary Care Physician Family Provider Active Dr. Yusef Singer MD Primary Care Provider Acti ve Team Status: Inactive Member Role/Relationship Status Dates Dr. Rachel Morales MD Attending Provider Active Start: September 28, 2024 End: September 28, 2024 Dr. Rachel Morales MD Referring Provider Active Start: September 28, 2024 End: September 28, 2024 Dr. Yusef Singer MD Primary Care Provider Acti ve Start: September 28, 2024 End: September 28, 2024 Team Status: Active Member Role/Relationship Status Dates Dr. Yusef Singer MD Primary Care Provider Acti ve Start: September 28, 2024 End: September 28, 2024 Dr. Nic Cain MD Attending Provider Active Start: September 28, 2024 End: September 28, 2024 Dr. Nic Cain MD Referring Provider Active Start: September 28, 2024 End: September 28, 2024 Team Status: Inactive Member Role/Relationship Status Dates Dr. Yusef Singer MD Primary Care Provider Acti ve Start: December 10, 2024 End: December 10, 2024 Summer Garduno CNM Attending Provider Active Start: December 10, 2024 End: December 10, 2024 Summer Garduno CNM Referring Provider Active Start: December 10, 2024 End: December 10, 2024 Home Aide Relationship Specialty Start Date End Date Jackelyn Singer MD [address] [place], [place] [id number] PCP - General Family Medicine 07/28/20 VancelogarMarah APRN.WILDLIFE ENFORCEMENT MAJOR [address] [place], [place] [address] [facility] 04/28/24 Rand Ashley APRN.WILDLIFE ENFORCEMENT MAJOR [address] [place], [place] [id number] [facility] 11/01/24 Home Aide Relationship Specialty Start Date End Date Jackelyn Singer MD [address] [place], [place] [id number] PCP - General Family Medicine 07/28/20 PodlogarMarah APRN.WILDLIFE ENFORCEMENT MAJOR [address] [place], [place] [id number] [facility] 04/28/24 Rand Ashley APRN.WILDLIFE ENFORCEMENT MAJOR [address] [place] [id number] [facility] 11/01/24 Goals (unrecognized section and content) Goals may be documented in a n alternate sectionGoals may be documented in an alternate section FOR RECORDS PERTAINING TO PATIENTS WHO ARE OR HAVE BEEN ENROLLED IN A CHEMICAL DEPENDENCY/SUBSTANCEABUSE PROGRAM, SOME INFORMATION MAY BE OMITTED. This clinical summary was aggregated from multiple sources. Caution should be exercised in using it in the provision of clinical care. This summary normalizes information from multiple sources, and as a consequence, information in this document may materially change the coding, format and clinical context of patient data. In addition, data may be omitted in some cases. CLINICAL DECISIONS SHOULD BE BASED ON THE PRIMARY CLINICAL RECORDS. [employer] provides no warranty or guarantee of the accuracy or completeness of information in this document.
[2024-12-17] MEDS: Lactated Ringers 1,000 ML 999 ML IV (04:45)
[2024-12-17] MEDS: Lactated Ringers 1,000 ML 50 ML IV (04:45)
--- OUTSIDE RECORDS SUMMARY | 2024-12-17 04:57 | XMS RPT_ITS | CCD ---
Author Organization [facility] Care Team Providers Care Bioengineer Name Role Phone Jackelyn Singer MD Primary Care Provider Jackelyn Singer MD Primary Care Provider Podlogar FINAL INSPECTOR TRUCK TRAILER.[employer] FACTORY WORKERMarah Unavailable Knoble FINAL INSPECTOR TRUCK TRAILER.[employer] FACTORY WORKERRand Unavailable Knoble FINAL INSPECTOR TRUCK TRAILER.[employer] FACTORY WORKERRand Unavailable Andrew ROBLEDO, Dr. Baird Attending Provider Dr. Rachel Morales MD Referring Provider Enmanuel ROBLEDO, Dr. Holbrook Primary Care Provider Knoble FINAL INSPECTOR TRUCK TRAILER.[employer] FACTORY WORKERRand Unavailable Knoble FINAL INSPECTOR TRUCK TRAILER.[employer] FACTORY WORKERRand Unavailable Ant ROBLEDO, Dr. Lucero Attending Provider [...] Referring Unavailable CRYSTAL BERRY Attending Unavail able BURSLEY, CHRISTOPHER B Primary Care Unavailab le BURSLEY, CHRISTOPHER B Primary Care Unavailab LIBBY Hinojosa Attending Unavailable BURSLEY, CHRISTOPHER B Primary Care Unavailab le BURSLEY, CHRISTOPHER B Primary Care Unavailab le PLOTTS, SUMMER Attending Unavailable BURSLEY, CHRISTOPHER B Primary Care Unavailab SUMMER Gray Attending Unavailable BURSLEY, CHRISTOPHER B Primary Care Unavailab KIRSTIE Andrew Attending Unavailable BURSLEY, CHRISTOPHER B Primary Care Unavailab le PLOTTS, SUMMER Attending Unavailable RACHEL MORALES Referring Unavailable ANDREW RACHEL L Attending Unavailable BURSLEY, CHRISTOPHER B Primary Care Unavailab le BURSLEY, CHRISTOPHER B Primary Care Unavailab le PLOTTS, SUMMER Referring Unavailable BURSLEY, CHRISTOPHER B Primary Care Unavailab le PLOTTS, SUMMER Referring Unavailable BURSLEY, CHRISTOPHER B Primary Care Unavailab KIRSTIE Andrew Attending Unavailable RACHEL MORALES L Referring Unavailable CRYSTAL BERRY Attending Unavail able BURSLEY, CHRISTOPHER B Primary Care Unavailab le BURSLEY, CHRISTOPHER B Primary Care Unavailab le ANDREW RACHEL L Referring Unavailable BURSLEY, CHRISTOPHER B Primary Care Unavailab QUINN Reardon Attending Unavailable BURSLEY, CHRISTOPHER B Primary Care Unavailab LIBBY Hinojosa Attending Unavailable BURSLEY, CHRISTOPHER B Primary Care Unavailab le LORNE MORALESCA L Referring Unavailable Plotts, Summer Attending Unavailable Plotts, Summer Referring Unavailable Bursley, Yusef Primary Care Unavailable Plotts, Summer Admitting Unavailable PlottsSummer Attending Unavailable Plotts, Summer Referring Unavailable Bursley, Yusef Primary Care Unavailable Rachel Morales Attending Unavailable Andrew Rachel Referring Unavailable Bursley, Yusef Primary Care Unavailable Nic Cain Attending Unavailable Nic Cain Referring Unavailable Bursley, Yusef Primary Care Unavailable Allergies Allergy Classification Reported Allergen(s) Allergy Type Date of Onset Reaction(s) Facility (20 sources) Escitalopram; Translations: [ESCITALOPRAM] Drug Allergy 3 Other: See Comments [facility] Work Phone: (1 source) Escitalopram Drug Allergy 5 [facility] Repository Medications Current Medications Medication Drug Class(es) Dates [...] once daily. 60 capsule 2 10/19/2024 Active Vit,Jcoa59-Maot-Ft lic (Prenatabs Rx) 29 mg iron- 1 mg tablet (2 sources) Start: 09-28-2024 Vit,Lihm15-Dktn-Y olic (Prenatabs Rx) 29 mg iron- 1 [...] on above: Take [address] [facility] one time a week. cyclobenzaprine hydrochloride 5 [...] above: Take 1 tablet by luz maria three times a day. doxycycline hyclate 100 [...] (2 sources) Serotonin-3 Receptor Antagonist Start: 04-20-20 19 End: 09-29-19 take 1 tablet by mouth [...] high risk in third trimester (HCC)] Onset: Episodic Other complications of (1 source) Gestational proteinuria, third trimester; Translations: [Gestational proteinuria, third trimester (HCC)] Onset: Episodic Other ear and sense organ disorders [...] Translations: [35 weeks gestation of (HCC)] Onset: 5 Episodic Residual codes; unclassified (1 source) 34 [...] Unclassified (20 sources) Education - [place] Onset: 4 05-09-2024 Past or Other Problems Problem Classification [...] Noteon 0 12-10-2024 OB Triage Physician Note [facility] Medical Records Department [address] [place] [address] OB Triage Physician Note 12/10/24 1727 MR#: [id number] Acct: [id number] Name: TALI CRAIG Rep #: [id number] : 2000 24 From: Summer Garduno [facility] PCP: Dr. Yusef Singer MD Status:DEP CL Y Location: [facility] HPI - General HPI Narrative TALI CRAIG, [...] Induction of labor scheduled for next week 12/10/241844 Date Summer Felipeignjulianne Signature (if applicable): Date CC: ROBYN Garduno; Dr. Yusef Singer MD Signed Normal [facility] URINE OB DIP B/Oon Glucose Ql (U) Negative Neg mg/dL [facility] Protein.monoclonal (U) [Mass/Vol] Negative Neg mg/dL [facility] Examination level ultrasound on 12-05-2024 [facility] CNPNon 12-04-2024 CNPN Telephone (OBGYWM) ----- TALI GIBSON ([id number]) 89 F Date Time Provider Department 12/04/24 KIRSTIE STRAUSS OBGYWM During your visit today, we recorded [...] Status:Closed by IDALIA TONG on 12/07/24 Normal [facility] Examination level ultrasound on 12-04-2024 Radiology Study observation (narrative) [facility] URINE OB DIP B/Oon Glucose Ql (U) Negative Neg mg/dL [facility] Interpretation and review of laboratory results Normal [facility] Protein.monoclonal (U) [Mass/Vol] Negative Neg mg/dL [facility] ROUTINE, GROUP B ST REPTOCOCCUS BY PCRon 11-30-2024 ROUTINE, GROUP B STREPTOCOCCUS BY PCR Detected Abnormal [facility] Comment on above: Performed By: #### G BPCR ####[facility] LABCLIA [id number] [address] [place] CNPNon 11-27-2024 CNPN Telephone (OBGYWM) ----- PAIGETALI Calixto ([id number]) 89 F Date Time Provider Department 11/27/24 [...] 11/27/2024 11:50 AM Signed Appt scheduled with 11/30 at 2:40pm. Brian Stratton RN Allergies [...] Status:Closed by BRIAN STRATTON on 11/27/24 Normal [facility] URINE OB DIP B/Oon Glucose Ql (U) Negative Neg mg/dL [facility] Protein.monoclonal (U) [Mass/Vol] Negative Neg mg/dL [facility] CNPNon 11-07-2024 CNPN Telephone (OBGYWM) ----- TALI GIBSON ([id number]) 89 F Date Time Provider Department 11/07/24 LIBBY BOB During your visit today, we recorded the following information about you: Glynn Jeong MA 11/07/2024 1:22 PM Signed [employer] message sent to patient regarding updating insurance [...] Status:Closed by ESTHER RECINOS on 11/07/24 Normal [facility] Examination level ultrasound on 11-06-2024 [facility] Examination level ultrasound on 11-05-2024 Radiology Study observation (narrative) [facility] Jose 10-30-2024 CNPN Telephone (OBGYWM) ----- TALI GIBSON ([id number]) 89 F Date Time Provider Department 10/30/24 SUMMER GARDUNO OBGYWM During your visit today, we recorded the following information about you: Trinity Ortiz RN 10/30/2024 4:04 PM Signed Received breast pump RX from [employer]. To to sign. MAURO Blanchard Trisha, RN 10/31/2024 8:39 AM Signed Signed and faxed. Esther Recinos RN Allergies As of Date: 10/30/2024 Noted Allergy Reaction LEXAPRO (ESCITALOPRAM) 11/24/2022 14 - Other: See Comments Comments: Sleeping difficulty Date Reviewed: 10/19/2024 Reviewed by: Quinn Davis 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 - Fully Assessed Reason for Visit: Breast [...] Status:Closed by ESTHER RECINOS on 10/31/24 Normal [facility] OB Triage Physician Noteon 0 10-09-2024 OB Triage Physician Note [facility] Medical Records Department [address] [place] [address] OB Triage Physician Note 10/09/24 1348 MR#: [id number] Acct: [id number] Name: TALI CRAIG Rep #: [id number] : 2000 24 From: Libby Bob CNM PCP: Dr. Yusef Singer MD Status:DEP CLI Y Location: [facility] HPI - General General Date of Service: [...] Bob; Dr. Yusef Singer MD Signed Normal [facility] Prot 24h Ur-mRateon 10-10-19 25 Protein (24H U) [Mass/Time] 0.16 g/24 Hr High <0.15 [facility] Comment on above: Order Comment: Speci men Type: URINE SPECIMENOrdering Facility: [facility] Address: [address] [place] [address] Result Comment: Adul t Proteinuria Categories: <0.15 g/24 hours is considered normal to mildly increased 0.15 - 0.50 g/24 hours is considered moderately increased >0.50 g/24 hours is considered severely increased KDIGO. (2013). KDIGO 2012 Clinical Practice Guideline for the Evaluation and Management of Chronic Kidney Disease. Official Journal of the International Society of Nephrology, 3(1), 1-150. Performed By: #### 2 889-4 ####[facility] LABCLIA [id number] [address] OF [facility] [place] LABIA [id number] [place] [id number] [place] Protein (24H U) [Mass/Time]o n 10-09-2024 PERIOD (HRS) 24 hr Normal [facility] Comment on above: Order Comment: Speci men Type: URINE SPECIMENOrdering Facility: [facility] Address: [address] [place] [address] Performed By: #### 2 889-4 ####[facility] LABIA [id number] [address] [facility] [id number] [place] [id number] [place] [facility] Specimen volume (24H U) 3.15 L Normal [facility] Comment on above: Order Comment: Speci men Type: URINE SPECIMENOrdering Facility: [facility] Address: [address] [place] [address] Performed By: #### 2 889-4 ####[facility] LABCLIA [id number] [address] [facility] [id number] [place] [id number] [place] CBC W Auto Differential pane l (Bld)on 10-03-2024 Basophils (Bld) [#/Vol] 0.03 10*3/uL Normal <0.11 [facility] Comment on above: Order Comment: Speci men Type: BLOOD SPECIMENOrdering Facility: [facility] Address: [address] [place] [address] Performed By: #### 5 7021-8 ####[facility] [id number] [place] [address] [place] Basophils/100 WBC (Bld) 0.3 % Normal [facility] Comment on above: Order Comment: Speci men Type: BLOOD SPECIMENOrdering Facility: [facility] Address: [address] [place] [address] Performed By: #### 5 7021-8 ####[facility] MAHENDRAPERRYKAYLINLIA [id number] [place] [address] [place] Differential cell count method Nom (Bld) Auto Normal [facility] Comment on above: Order Comment: Speci men Type: BLOOD SPECIMENOrdering Facility: [facility] Address: [address] [place] [address] Performed By: #### 5 7021-8 ####[facility]OS[facility]ITALKAYLINLIA [id number] [place] [address] [place] Eosinophils (Bld) [#/Vol] 0.06 10*3/uL Normal <0.46 [facility] Comment on above: Order Comment: Speci men Type: BLOOD SPECIMENOrdering Facility: [facility] Address: [address] [place] [address] Performed By: #### 5 7021-8 ####[facility] HOSPITALJEDA [id number] [place] [address] [place] Eosinophils/100 WBC (Bld) 0.5 % Normal [facility] Comment on above: Order Comment: Speci men Type: BLOOD SPECIMENOrdering Facility: [facility] Address: [address] [place] [address] Performed By: #### 5 7021-8 ####[facility] HOSPITALKAYLINLIA [id number] [place] [address] [place] Erythrocyte distribution width (RBC) [Ratio] 12.1 % Normal 11.5-15.0 [facility] Comment on above: Order Comment: Speci men Type: BLOOD SPECIMENOrdering Facility: [facility] Address: [address] [place] [address] Performed By: #### 5 7021-8 ####[facility] HOSPITALNCLIA [id number] [place] [address] [place] Hematocrit (Bld) [Volume fraction] 34.9 % Low 36.0-46.0 [facility] Comment on above: Order Comment: Speci men Type: BLOOD SPECIMENOrdering Facility: [facility] Address: [address] [place] [address] Performed By: #### 5 7021-8 ####[facility] HOSPITALNCNEL [id number] [place] [address] [place] Hemoglobin (Bld) [Mass/Vol] 12.4 g/dL Normal 11.5-15.5 [facility] Comment on above: Order Comment: Speci men Type: BLOOD SPECIMENOrdering Facility: [facility] Address: [address] [place] [address] Performed By: #### 5 7021-8 ####[facility] HOSPITALNCLIJenna [id number] [place] [address] [place] Immature granulocytes (Bld) [#/Vol] 0.07 10*3/uL Normal <0.10 [facility] Comment on above: Order Comment: Speci men Type: BLOOD SPECIMENOrdering Facility: [facility] Address: [address] [place] [address] Performed By: #### 5 7021-8 ####[facility] HOSPITALNCLIA [id number] [place] [address] [place] Immature granulocytes/100 WBC (Bld) 0.6 % Normal [facility] Comment on above: Order Comment: Speci men Type: BLOOD SPECIMENOrdering Facility: [facility] Address: [address] [place] [address] Performed By: #### 5 7021-8 ####[facility] HOSPITALNCLIA [id number] [place] [address] [place] Lymphocytes (Bld) [#/Vol] 1.56 10*3/uL Normal 1.00-4.00 [facility] Comment on above: Order Comment: Speci men Type: BLOOD SPECIMENOrdering Facility: [facility] Address: [address] [place] [address] Performed By: #### 5 7021-8 ####[facility] ALAN [id number] [place] [address] [place] Lymphocytes/100 WBC (Bld) 14.2 % Normal [facility] Comment on above: Order Comment: Speci men Type: BLOOD SPECIMENOrdering Facility: [facility] Address: [address] [place] [address] Performed By: #### 5 7021-8 ####[facility] HOSPITALNCNEL [id number] [place] [address] [place] MCH (RBC) [Entitic mass] 30.1 pg Normal 26.0-34.0 [facility] Comment on above: Order Comment: Speci men Type: BLOOD SPECIMENOrdering Facility: [facility] Address: [address] [place] [address] Performed By: #### 5 7021-8 ####[facility] HOSPITALNCNEL [id number] [place] [address] [place] MCHC (RBC) [Mass/Vol] 35.5 g/dL Normal 30.5-36.0 [facility] Comment on above: Order Comment: Speci men Type: BLOOD SPECIMENOrdering Facility: [facility] Address: [address] [place] [address] Performed By: #### 5 7021-8 ####[facility] HOSPITALNCLIA [id number] [place] [address] [place] MCV (RBC) [Entitic vol] 84.7 fL Normal 80.0-100.0 [facility] Comment on above: Order Comment: Speci men Type: BLOOD SPECIMENOrdering Facility: [facility] Address: [address] [place] [address] Performed By: #### 5 7021-8 ####[facility] MILLWNCLIA [id number] [place] [address] [place] Monocytes (Bld) [#/Vol] 0.99 10*3/uL High <0.87 [facility] Comment on above: Order Comment: Speci men Type: BLOOD SPECIMENOrdering Facility: [facility] Address: [address] [place] [address] Performed By: #### 5 7021-8 ####[facility] CENTERLIA [id number] [place] [address] [place] Monocytes/100 WBC (Bld) 9.0 % Normal [facility] Comment on above: Order Comment: Speci men Type: BLOOD SPECIMENOrdering Facility: [facility] Address: [address] [place] [address] Performed By: #### 5 7021-8 ####[facility] CENTERLIA [id number] [place] [address] [place] Neutrophils (Bld) [#/Vol] 8.31 10*3/uL High 1.45-7.50 [facility] Comment on above: Order Comment: Speci men Type: BLOOD SPECIMENOrdering Facility: [facility] Address: [address] [place] [address] Performed By: #### 5 7021-8 ####[facility] & BABIESWNCLIA [id number] [place] [address] [place] Neutrophils/100 WBC (Bld) 75.4 % Normal [facility] Comment on above: Order Comment: Speci men Type: BLOOD SPECIMENOrdering Facility: [facility] Address: [address] [place] [address] Performed By: #### 5 7021-8 ####[facility] HOSPITALNCLIA [id number] [place] [address] [place] Nucleated RBC (Bld) [#/Vol] 10*3/uL Normal <0.01 [facility] Comment on above: Order Comment: Speci men Type: BLOOD SPECIMENOrdering Facility: [facility] Address: [address] [place] [address] Performed By: #### 5 7021-8 ####[facility]DR[facility] HOSPITALNCA [id number] [place] [address] [place] Nucleated RBC/100 WBC (Bld) [Ratio] 0.0 /100 WBC Normal [facility] Comment on above: Order Comment: Speci men Type: BLOOD SPECIMENOrdering Facility: [facility] Address: [address] [place] [address] Performed By: #### 5 7021-8 ####[facility] HOSPITALNCBRIGHAM [facility] [id number] [place] [address] [place] Platelet mean volume (Bld) [Entitic vol] 9.9 fL Normal 9.0-12.7 [facility] Comment on above: Order Comment: Speci men Type: BLOOD SPECIMENOrdering Facility: [facility] Address: [address] [place] [address] Performed By: #### 5 7021-8 ####[facility] HOSPITALNCLIA [id number] [place] [address] [place] Platelets (Bld) [#/Vol] 217 10*3/uL Normal 150-400 [facility] Comment on above: Order Comment: Speci men Type: BLOOD SPECIMENOrdering Facility: [facility] Address: [address] [place] [address] Performed By: #### 5 7021-8 ####[facility] HOSPITALNCLIA [id number] [place] [address] [place] RBC (Bld) [#/Vol] 4.12 10*6/uL Normal 3.90-5.20 [facility] Comment on above: Order Comment: Speci men Type: BLOOD SPECIMENOrdering Facility: [facility] Address: [facility] [place] [address] Performed By: #### 5 7021-8 ####[facility] & BABIESWNCLIA [id number] [address] OF [facility] WBC (Bld) [#/Vol] 11.02 10*3/uL High 3.70-11.00 [facility] Comment on above: Order Comment: Speci men Type: BLOOD SPECIMENOrdering Facility: [facility] Address: [address] [place], [place] [address] [address] Performed By: #### 5 7021-8 ####[facility] HOSPITALNCLIA [id number] [address] OF [facility] Comprehensive metabolic 2000 panelOrdered By: Marah Damon on 10-03-2024 Albumin [Mass/Vol] 3.6 g/dL Low 3.9 - 4.9 g/dL [facility] ALP [Catalytic activity/Vol] 59 U/L 34 - 123 U/L [facility] ALT [Catalytic activity/Vol] 17 U/L 7 - 38 U/L [facility] Anion gap [Moles/Vol] 13 mmol/L 8 - 15 mmol/L [facility] AST [Catalytic activity/Vol] 15 U/L 13 - 35 U/L [facility] Bilirubin [Mass/Vol] 0.9 mg/dL 0.2 - 1 .3 mg/dL [facility] Calcium [Mass/Vol] 8.8 mg/dL 8.5 - 10. 2 mg/dL [facility] Chloride [Moles/Vol] 103 mmol/L 98 - 10 7 mmol/L [facility] CO2 [Moles/Vol] 18 mmol/L Low 22 - 30 mmol/L [facility] Creatinine [Mass/Vol] 0.55 mg/dL Low 0.58 - 0.96 mg/dL [facility] GFR/1.73 sq M.predicted among non-blacks MDRD (S/P/Bld) [Vol rate/Area] 131 mL/min/{1.73_m2} - PINF [facility] Comment on above: Estimated Glomerular Filtration Rate [...] 120 mg/dL High 74 - 99 mg/dL [facility] Comment on above: The [place] Diabete s Association (ADA) provides guidance for [...] Standards of Medical Care in Diabetes 2016, [place] Diabetes Association. Diabetes Care. 2016.39(Suppl 1). Interpretation and review of laboratory results Abnormal [facility] Potassium [Moles/Vol] 3.6 mmol/L Low 3.7 - 5.1 mmol/L [facility] Protein [Mass/Vol] 6.6 g/dL 6.3 - 8.0 g/dL [facility] Sodium [Moles/Vol] 134 mmol/L Low 136 - 144 mmol/L [facility] Urea nitrogen [Mass/Vol] 8 mg/dL 7 - 21 mg/dL [facility] Comprehensive metabolic 2000 panelon 10-03-2024 Albumin [Mass/Vol] 3.6 g/dL Low 3.9-4.9 [facility] Comment on above: Order Comment: Speci men Type: BLOOD SPECIMENOrdering Facility: [facility] Address: [address] [place] [address] Performed By: #### 3 084-1, 83544-9 ####[facility] [id number] [address] [place] ALP [Catalytic activity/Vol] 59 U/L Normal 34-123 [facility] Comment on above: Order Comment: Speci men Type: BLOOD SPECIMENOrdering Facility: [facility] Address: [address] [place] [address] Performed By: #### 3 084-1, 18321-5 ####[facility] MILLTOWNCLIA [id number] [place] [address] [place] ALT [Catalytic activity/Vol] 17 U/L Normal 7-38 [facility] Comment on above: Order Comment: Speci men Type: BLOOD SPECIMENOrdering Facility: [facility] Address: [address] [place] [address] Performed By: #### 3 084-1, 78465-0 ####[facility]ITALNCLIA [id number] [place] [address] [place] Anion gap [Moles/Vol] 13 mmol/L Normal 8-15 [facility] Comment on above: Order Comment: Speci men Type: BLOOD SPECIMENOrdering Facility: [facility] Address: [address] [place] [address] Performed By: #### 3 084-1, 62217-4 ####[facility] & BABIESWKAYLINLIA [id number] [address] STATES OF [facility] AST [Catalytic activity/Vol] 15 U/L Normal 13-35 [facility] Comment on above: Order Comment: Speci men Type: BLOOD SPECIMENOrdering Facility: [facility] Address: [address] [place] [address] Performed By: #### 3 084-1, 53771-8 ####[facility] HOS[facility]ITALNCLIA [id number] [place] [address] [place] Bilirubin [Mass/Vol] 0.9 mg/dL Normal 0.2-1.3 [facility] Comment on above: Order Comment: Speci men Type: BLOOD SPECIMENOrdering Facility: [facility] Address: [address] [place] [address] Performed By: #### 3 084-1, 14010-4 ####[facility] SUKH PHILLIPS [id number] [place] [address] [place] Calcium [Mass/Vol] 8.8 mg/dL Normal 8.5-10.2 [facility] Comment on above: Order Comment: Speci men Type: BLOOD SPECIMENOrdering Facility: [facility] Address: [address] [place] [address] Performed By: #### 3 084-1, 41950-8 ####[facility] [facility] MAHENDRAJILLIAN [id number] [place] [address] [place] Chloride [Moles/Vol] 103 mmol/L Normal 98-107 [facility] Comment on above: Order Comment: Speci men Type: BLOOD SPECIMENOrdering Facility: [facility] Address: [address] [place] [address] Performed By: #### 3 084-1, 26659-4 ####[facility] MAHENDRAMARISSALIA [id number] [place] [address] [place] CO2 [Moles/Vol] 18 mmol/L Low 22-30 [facility] Comment on above: Order Comment: Speci men Type: BLOOD SPECIMENOrdering Facility: [facility] Address: [address] [place] [address] Performed By: #### 3 084-1, 72504-9 ####[facility] MAHENDRAPERRYNCLIA [id number] [place] [address] [place] Creatinine [Mass/Vol] 0.55 mg/dL Low 0.58-0.96 [facility] Comment on above: Order Comment: Speci men Type: BLOOD SPECIMENOrdering Facility: [facility] Address: [address] [place] [address] Performed By: #### 3 084-1, 39896-7 ####[facility] [id number] [place] [address] [place] Creatinine and Glomerular filtration rate.predicted panel (S/P/Bld) 131 mL/min/1.73m??? Normal >=60 [facility] Comment on above: Order Comment: Laurence castellanos Type: BLOOD SPECIMENOrdering Facility: [facility] Address: [address] [place] [address] Result Comment: Destiny mated Glomerular Filtration Rate [...] actual GFR. Performed By: #### 3 084-1, 51814-2 ####[facility] [id number] [place] [address] [place] Glucose [Mass/Vol] 120 mg/dL High 74-99 [facility] Comment on above: Order Comment: Laurence castellanos Type: BLOOD SPECIMENOrdering Facility: [facility] Address: [address] [place] [address] Result Comment: The [place] Diabetes Association (ADA) provides guidance for cutoff [...] Standards of Medical Care in Diabetes 2016, [place] [employer] Association. Diabetes Care. 2016.39(Suppl 1). Performed By: #### 3 084-1, 06842-4 ####[facility] MILLTOWNCLIA [id number] [place] [address] [place] Potassium [Moles/Vol] 3.6 mmol/L Low 3.7-5.1 [facility] Comment on above: Order Comment: Speci men Type: BLOOD SPECIMENOrdering Facility: [facility] Address: [address] [place] [address] Performed By: #### 3 084-1, 91309-1 ####[facility] MILLTOWNCLIA [id number] [place] [address] [place] Protein [Mass/Vol] 6.6 g/dL Normal 6.3-8.0 [facility] Comment on above: Order Comment: Speci men Type: BLOOD SPECIMENOrdering Facility: [facility] Address: [address] [place] [address] Performed By: #### 3 084-1, 45464-5 ####[facility] MILLWNCLIA [id number] [place] [address] [place] Sodium [Moles/Vol] 134 mmol/L Low 136-144 [facility] Comment on above: Order Comment: Speci men Type: BLOOD SPECIMENOrdering Facility: [facility] Address: [address] [place] [address] Performed By: #### 3 084-1, 97198-1 ####[facility] MILLTOWNCLIA [id number] [place] [address] [place] Urea nitrogen [Mass/Vol] 8 mg/dL Normal 7-21 [facility] Comment on above: Order Comment: Speci men Type: BLOOD SPECIMENOrdering Facility: [facility] Address: [address] [place] [address] Performed By: #### 3 084-1, 17741-8 ####[facility] MILLTOWNCLIA [id number] [place] [address] [place] GESTATIONAL GLUCOSE SCREEN, 1-HOUR, 50 GRAM, NON-FASTINGon 10-03-2024 Glucose [Mass/Vol] 127 mg/dL Normal 74-134 [facility] Comment on above: Order Comment: Specben castellanos Type: BLOOD SPECIMENOrdering Facility: [facility] Address: [address] [place] [address] Result Comment: [facility] Congress of Obstetricians and Gynecologists (Chanel/Lila) guidelines state a gestational diabetes mellitus positive screen is made, in women not previously diagnosed with overt diabetes, when the 1 hr plasma glucose level is equal to or above 140 mg/dL. [facility] [employer] [facility] [place] recommends a 135 mg/dL cutoff. Performed By: #### G LTGST ####[facility] [id number] [address] [place] No Panel InformationOrdered By: Marah Damon on 10-03-2024 [facility] Prot/Creat Uron 10-03-2024 Protein/Creatinine (U) [Mass ratio] mg/g High <0.15 [facility] Comment on above: Order Comment: Speci men Type: URINE SPECIMENOrdering Facility: [facility] Address: [address] [place] [address] Result Comment: Adul t Proteinuria Categories: <0.15 mg/mg is considered normal to mildly increased 0.15 - 0.50 mg/mg is considered moderately increased >0.50 mg/mg is considered severely increased KDIGO. (2013). KDIGO 2012 Clinical Practice Guideline for the Evaluation and Management of Chronic Kidney Disease. Official Journal of the International Society of Nephrology, 3(1), 1-150. Performed By: #### 2 890-2 ####[facility] LABCLIA [id number] [address] [place] Protein/Creatinine (U) [Mass ratio]on 10-03-2024 Creatinine (U) [Mass/Vol] 10.1 mg/dL Low 20.0-300.0 [facility] Comment on above: Order Comment: Speci men Type: URINE SPECIMENOrdering Facility: [facility] Address: [address] [place] [address] Performed By: #### 2 890-2 ####[facility] LABIA [id number] [address] [place] [address] [place] Protein (U) [Mass/Vol] mg/dL Normal 0-20 [facility] Comment on above: Order Comment: Speci men Type: URINE SPECIMENOrdering Facility: [facility] Address: [address] [place] [address] Performed By: #### 2 890-2 ####[facility] LABIA [id number] [place] [address] [place] Reagin and Treponema pallidu m IgG and IgM [Interp]on 10-03-2024 T. pallidum IgG+IgM IA Ql (S) Non-Reactive Normal Nonreactive [facility] Comment on above: Order Comment: Speci men Type: BLOOD SPECIMENOrdering Facility: [facility] Address: [address] [place] [address] Performed By: #### 7 3752-8 ####[facility] LABIA [id number] [place] [id number] [place] Reagin+T pallidum IgG+IgM Se rPl-Impon 10-03-2024 Reagin and Treponema pallidum IgG and IgM [Interp] Cannot exclude recent Treponemal infection if specimen collected within 7-10 days after appearance of suspect lesions or 2-3 weeks after an exposure. Clinical correlation is required. Normal [facility] Comment on above: Order Comment: Speci men Type: BLOOD SPECIMENOrdering Facility: [facility] Address: [address] [place] [address] Performed By: #### 7 3752-8 ####[facility] LABIA [id number] [place] [id number] [place] URIC ACIDon 10-03-2024 Urate [Mass/Vol] 3.5 mg/dL 2.5 - 6.6 mg/dL [facility] Urate SerPl-mCncon Urate [Mass/Vol] 3.5 mg/dL Normal 2.5-6.6 [facility] Comment on above: Order Comment: Speci men Type: BLOOD SPECIMENOrdering Facility: [facility] Address: [address] [id number] Performed By: #### 3 084-1, 74749-8 ####[facility] SUKHSUMMIT [facility] EDMONDLIA [id number] [place] [address] [place] Urate [Mass/Vol]on Interpretation and review of laboratory results Normal [facility] Absolute lymphocyte countOrd ered By: Libby Bob on 09-28-2024 Lymphocytes Auto (Unsp spec) [#/Vol] 0.62 10*3/uL Low 0.83-4.51 [facility] Absolute neutrophil countOrd ered By: Libby Bob on 09-28-2024 Neutrophils (Bld) [#/Vol] 9.1 10*3/uL High 2.0-7.7 [facility] Anion gap in Serum or Plasma Ordered By: Libby Bob on 09-28-2024 Anion gap [Moles/Vol] 10 mmol/L 5-15 [facility] Automated lymphocyte count a s percentage of total leukocytesOrdered By: Libby Bob on 09-28-2024 Lymphocytes/100 WBC Auto (Unsp spec) 5.7 % Low 19-41 [facility] BUN/creatinine ratioOrdered By: Libby Bob on 09-28-2024 Urea nitrogen/Creatinine [Mass ratio] 14.3 mg/mg 10-20 [facility] Basophil percentageOrdered B y: Libby Bob on 09-28-2024 Basophils/100 WBC (Bld) 0.2 % 0-1 [facility] Bilirubin, totalOrdered By: Libby Bob on 09-28-2024 Bilirubin [Mass/Vol] 0.65 mg/dL 0.00-1.30 [facility] CBC W/Diff, Automatedon 05-0 9-5 Absolute Lymph 0.62 X10 3/uL Low 0.83-4.51 [facility] Comment on above: Performed By: #### L 100.0100 #### [facility] [address] [place], [address] Absolute Neut 9.1 X10 3/uL High 2.0-7.7 [facility] Comment on above: Performed By: #### L 100.0100 #### [facility] [address] [place], [address] Basophils/100 WBC (Bld) 0.2 % Normal 0-1 [facility] Comment on above: Performed By: #### L 100.0100 #### [facility] [address] [place], [address] Eosinophils/100 WBC (Bld) 0.1 % Normal 0-5 [facility] Comment on above: Performed By: #### L 100.0100 #### [facility] [address] [place], [address] Erythrocyte distribution width (RBC) [Ratio] 12.0 % Normal 11.6-14.6 [facility] Comment on above: Performed By: #### L 100.0100 #### [facility] [address] [place], [address] Hematocrit (Bld) [Volume fraction] 33.6 % Low 37-47 [facility] Comment on above: Performed By: #### L 100.0100 #### [facility] [address] [place], [address] Hemoglobin (Bld) [Mass/Vol] 11.9 g/dL Low 12.0-15.0 [facility] Comment on above: Performed By: #### L 100.0100 #### [facility] [address] [place], [address] IG% 0.700 Normal 0.0-0.9 [facility] Comment on above: Result Comment: IG% - Immature Granulocytes (promyelocytes, myelocytes and metamyelocytes) > 1% indicates that a LEFT SHIFT is Present. Performed By: #### L 100.0100 #### [facility] [address] [place], [address] Lymphocytes/100 WBC (Bld) 5.7 % Low 19-41 [facility] Comment on above: Performed By: #### L 100.0100 #### [facility] [address] [place], [address] MCH (RBC) [Entitic mass] 30.4 pg Normal 27.0-32.0 [facility] Comment on above: Performed By: #### L 100.0100 #### [facility] [address] [place], [address] MCHC (RBC) [Mass/Vol] 35.4 g/dL Normal 32-36 [facility] Comment on above: Performed By: #### L 100.0100 #### [facility] [address] [place], [address] MCV (RBC) [Entitic vol] 85.7 fL Normal 81-99 [facility] Comment on above: Performed By: #### L 100.0100 #### [facility] [address] [place], [address] Monocytes/100 WBC (Bld) 9.3 % Normal 0-10 [facility] Comment on above: Performed By: #### L 100.0100 #### [facility] [address] [place], [address] Neutrophils/100 WBC (Bld) 84.0 % High 47-70 [facility] Comment on above: Performed By: #### L 100.0100 #### [facility] [address] [place], [address] Nucleated RBC (Bld) [#/Vol] 0 10*3/uL Normal 0-5 [facility] Comment on above: Performed By: #### L 100.0100 #### [facility] [address] [place], [address] Platelet mean volume (Bld) [Entitic vol] 10.0 fL Normal 6.2-12.0 [facility] Comment on above: Performed By: #### L 100.0100 #### [facility] [address] [place], [address] Platelets (Bld) [#/Vol] 179 10*3/uL Normal 150-450 [facility] Comment on above: Performed By: #### L 100.0100 #### [facility] [address] [place], [address] RBC (Bld) [#/Vol] 3.92 10*6/uL Low 4.2-5.4 [facility] Comment on above: Performed By: #### L 100.0100 #### [facility] [address] [place], [address] RDW SD 37.7 fl Normal 35.1-43.9 [facility] Comment on above: Performed By: #### L 100.0100 #### [facility] [address] [place], [address] WBC (Bld) [#/Vol] 10.8 10*3/uL Normal 4.4-11.0 [facility] Comment on above: Performed By: #### L 100.0100 #### [facility] [address] [place], [address] Jose 09-28-2024 ESTEPHANIA Telephone (OBGYWM) ----- JESUS MANUELTALI KURTZ ([id number]) 89 F Date Time Provider Department 09/28/24 CRYSTAL LIBBYCLARISSA GONZALEZ During your visit today, we recorded the [...] Ate a banana with peanut butter and stateless toast sticks this morning. MAURO Griffith Jennifer, MAURO 09/28/2024 4:56 PM Signed Patient was seen at [facility]. Trinity Ortiz RN Allergies As of Date: [...] Status:Closed by ESTHER RECINOS on 10/01/24 Normal [facility] Carbon dioxide, total [Moles /volume] in Central venous bloodOrdered By: Libby Bob on 09-28-2024 CO2 [Moles/Vol] 18.6 mmol/L Low 21.0-32.0 [facility] Chloride assayOrdered By: Brett Bob on 09-28-2024 Chloride [Moles/Vol] 104 mmol/L 98-108 [facility] Comprehensive Metabolic Prof ilon 09-28-2024 Albumin [Mass/Vol] 3.6 g/dL Normal 3.5-5.0 [facility] Comment on above: Performed By: #### L 500.4050 #### [facility] [address] [place], [place], [id number] [phone] Albumin/Globulin [Mass ratio] 1.3 {ratio} Normal 0.9-2.4 [facility] Comment on above: Performed By: #### L 500.4050 #### [facility] [address] [place], [address] ALK PHOS 54 U/L Normal 35-104 [facility] Comment on above: Performed By: #### L 500.4050 #### [facility] [address] [place], [address] ALT [Catalytic activity/Vol] 15 U/L Normal <=34 [facility] Comment on above: Performed By: #### L 500.4050 #### [facility] [address] [place], [address] AST [Catalytic activity/Vol] 18 U/L Normal <=31 [facility] Comment on above: Performed By: #### L 500.4050 #### [facility] [address] [place], [address] Bilirubin [Mass/Vol] 0.65 mg/dL Normal 0.00-1.30 [facility] Comment on above: Performed By: #### L 500.4050 #### [facility] [address] [place], [address] BUN/CRE 14.3 RATIO Normal 10-20 [facility] Comment on above: Performed By: #### L 500.4050 #### [facility] [address] [place], [address] Calcium [Mass/Vol] 8.9 mg/dL Normal 7.6-11.0 [facility] Comment on above: Performed By: #### L 500.4050 #### [facility] [address] [place], [address] Chloride [Moles/Vol] 104 mmol/L Normal 98-108 [facility] Comment on above: Performed By: #### L 500.4050 #### [facility] [address] [place], [address] CO2 [Moles/Vol] 18.6 mmol/L Low 21.0-32.0 [facility] Comment on above: Performed By: #### L 500.4050 #### [facility] [address] [place], [address] Creatinine [Mass/Vol] 0.48 mg/dL Low 0.70-1.20 [facility] Comment on above: Performed By: #### L 500.4050 #### [facility] [address] [place], [address] ECRCL 178.02 ml/min Normal 50-250 [facility] Comment on above: Performed By: #### L 500.4050 #### [facility] [address] [place], [address] GAP 10 Normal 5-15 [facility] Comment on above: Performed By: #### L 500.4050 #### [facility] [address] [place], [address] GFR/1.73 sq M.predicted among non-blacks MDRD (S/P/Bld) [Vol rate/Area] 135 mL/min/{1.73_m2} Normal >60 [facility] Comment on above: Result Comment: mL/m in/1.73m2 CKD-EPI Creatinine Equation (2020) Performed By: #### L 500.4050 #### [facility] [address] [place], [address] Globulin (S) [Mass/Vol] 2.8 g/dL Normal 2.2-4.2 [facility] Comment on above: Performed By: #### L 500.4050 #### [facility] [address] [place], [address] Glucose [Mass/Vol] 101 mg/dL High 70-99 [facility] Comment on above: Performed By: #### L 500.4050 #### [facility] [address] [place], [address] Potassium [Moles/Vol] 3.6 mmol/L Normal 3.3-5.1 [facility] Comment on above: Performed By: #### L 500.4050 #### [facility] [address] [place], [address] Sodium [Moles/Vol] 133 mmol/L Normal 133-145 [facility] Comment on above: Performed By: #### L 500.4050 #### [facility] [address] [place], [address] T PROT 6.4 g/dL Normal 5.9-8.4 [facility] Comment on above: Performed By: #### L 500.4050 #### [facility] [address] [place], [place], [id number] Urea nitrogen [Mass/Vol] 7 mg/dL Normal 4-19 [facility] Comment on above: Performed By: #### L 500.4050 #### [facility] [address] [place], [place], [address] Eosinophil percentageOrdered By: Libby Bob on 09-28-2024 Eosinophils/100 WBC (Bld) 0.1 % 0-5 [facility] Erythrocyte distribution wid th ratioOrdered By: Libby Bob on 09-28-2024 Erythrocyte distribution width (RBC) [Ratio] 12.0 % 11.6-14.6 [facility] Erythrocyte distribution wid th standard deviationOrdered By: Libby Bob on 09-28-2024 Erythrocyte distribution width (RBC) [Ratio] 37.7 fl 35.1-43.9 [facility] Glomerular filtration rate ( GFR) estimation/1.73 sq m using serum, plasma, or whole bOrdered By: Libby Bob on 09-28-2024 GFR/1.73 sq M.predicted among non-blacks MDRD (S/P/Bld) [Vol rate/Area] 135 mL/min/{1.73_m2} >60 [facility] Comment on above: mL/min/1.73m2 CKD-EP I Creatinine Equation (2020) Hematocrit Auto (Bld) [Volum e fraction]Ordered By: Libby Bob on 09-28-2024 Hematocrit (Bld) [Volume fraction] 33.6 % Low 37-47 [facility] Hemoglobin measurementOrdere d By: Libby Bob on 09-28-2024 Hemoglobin (Bld) [Mass/Vol] 11.9 g/dL Low 12.0-15.0 [facility] Immature granulocytes/100 WB C Auto (Bld)Ordered By: Libby Bob on 09-28-2024 Immature granulocytes/100 WBC (Bld) 0.700 % 0.0-0.9 [facility] Comment on above: IG% - Immature Granu locytes (promyelocytes, myelocytes and metamyelocytes) > 1% indicates that a LEFT SHIFT is Present. Laboratory - Chemistry and C hemistry - challengeOrdered By: Libby Bob on 09-28-2024 AST [Catalytic activity/Vol] 18 U/L <32 [facility] MCV (mean corpuscular volume ) determinationOrdered By: Libby Bob on 09-28-2024 MCV (RBC) [Entitic vol] 85.7 fL 81-99 [facility] Mean corpuscular hemoglobin (MCH) determinationOrdered By: Libby Bob on 09-28-2024 MCH (RBC) [Entitic mass] 30.4 pg 27.0-32.0 [facility] Mean corpuscular hemoglobin concentration (MCHC) determinationOrdered By: Libby Bob on 09-28-2024 MCHC (RBC) [Mass/Vol] 35.4 g/dL 32-36 [facility] Mean platelet volume determi nationOrdered By: Libby Bob on 09-28-2024 Platelet mean volume (Bld) [Entitic vol] 10.0 fL 6.2-12.0 [facility] Monocyte percentageOrdered B y: Libby Bob on 09-28-2024 Monocytes/100 WBC (Bld) 9.3 % 0-10 [facility] Neutrophil percentageOrdered By: Libby Bob on 09-28-2024 Neutrophils/100 WBC (Bld) 84.0 % High 47-70 [facility] Nucleated red blood cell per centageOrdered By: Libby Bob on 09-28-2024 Nucleated RBC/100 WBC (Bld) [Ratio] 0 % 0-5 [facility] Platelet countOrdered By: Brett Bob on 09-28-2024 Platelets (Bld) [#/Vol] 179 10*3/uL 150-450 [facility] Potassium measurement (mass/ volume)Ordered By: Libby Bob on 09-28-2024 Potassium (Unsp spec) [Mass/Vol] 3.6 mmol/L 3.3-5.1 [facility] RBC Auto (Bld) [#/Vol]Ordere d By: Libby Bob on 09-28-2024 RBC (Bld) [#/Vol] 3.92 10*6/uL Low 4.2-5.4 [facility] Serum creatinine measurement (mass/volume)Ordered By: Libby Bob on 09-28-2024 Creatinine [Mass/Vol] 0.48 mg/dL Low 0.70-1.20 [facility] Serum globulin measurementOr dered By: Libby Bob on 09-28-2024 Globulin (S) [Mass/Vol] 2.8 g/dL 2.2-4.2 [facility] Serum glucose measurement (m ass/volume)Ordered By: Libby Bob on 09-28-2024 Glucose [Mass/Vol] 101 mg/dL High 70-99 [facility] Serum or plasma alanine valdes otransferase (ALT) measurementOrdered By: Libby Bob on 09-28-2024 ALT [Catalytic activity/Vol] 15 U/L <35 [facility] Serum or plasma albumin thomas urement (mass/volume)Ordered By: Libby Bob on 09-28-2024 Albumin [Mass/Vol] 3.6 g/dL 3.5-5.0 [facility] Serum or plasma albumin/glob ulin mass ratioOrdered By: Libby Bob on 09-28-2024 Albumin/Globulin [Mass ratio] 1.3 {ratio} 0.9-2.4 [facility] Serum or plasma alkaline [place] sphatase measurementOrdered By: Libby Bob on 09-28-2024 ALP [Catalytic activity/Vol] 54 U/L 35-104 [facility] Serum or plasma calcium thomas urement (mass/volume)Ordered By: Libby Bob on 09-28-2024 Calcium [Mass/Vol] 8.9 mg/dL 7.6-11.0 [facility] Serum or plasma urea nitroge n measurement (mass/volume)Ordered By: Libby Bob on 09-28-2024 Urea nitrogen [Mass/Vol] 7 mg/dL 4-19 [facility] Sodium levelOrdered By: Brenda Bob on 09-28-2024 Sodium [Moles/Vol] 133 mmol/L 133-145 [facility] Total proteinOrdered By: Toña Bob on 09-28-2024 Protein [Mass/Vol] 6.4 g/dL 5.9-8.4 [facility] White blood cell (WBC) count Ordered By: Libby Bob on 09-28-2024 WBC (Bld) [#/Vol] 10.8 10*3/uL 4.4-11.0 [facility] Examination level ultrasound on 08-08-2024 Indication Standard [...] 12 oz EFW by: Hadlock (HC-AC-FL) Extended Shoe Repairer Helper 5.8 mm CM 5.0 mm 49% Nicolaides [...] normal LVOT view: normal 3-vessel view: normal 9-vteopl-xvjekfz view: normal Heart / Thorax Situs: situs [...] Lt ovary: Not visualized Performed By: Lanny Santoyo RDMS, RVT Read By: Reshma Lentz M.D. MATERNAL MEDICINE [facility] Radiology Study observation (narrative) [facility] CBC W Auto Differential pane l (Bld)on 06-13-2024 Basophils (Bld) [#/Vol] 10*3/uL Normal <0.11 [facility] Comment on above: Order Comment: Speci men Type: BLOOD SPECIMENOrdering Facility: [facility] Address: [address] [place] [address] Performed By: #### 5 7021-8 ####[facility] [id number] [place] [address] [place] Basophils/100 WBC (Bld) 0.2 % Normal [facility] Comment on above: Order Comment: Speci men Type: BLOOD SPECIMENOrdering Facility: [facility] Address: [address] [place] [address] Performed By: #### 5 7021-8 ####[facility] BABIESWNCLIA [id number] [place] [address] [place] Differential cell count method Nom (Bld) Auto Normal [facility] Comment on above: Order Comment: Speci men Type: BLOOD SPECIMENOrdering Facility: [facility] Address: [address] [place] [address] Performed By: #### 5 7021-8 ####[facility]ITALNCLIA [id number] [place] [address] [place] Eosinophils (Bld) [#/Vol] 0.06 10*3/uL Normal <0.46 [facility] Comment on above: Order Comment: Speci men Type: BLOOD SPECIMENOrdering Facility: [facility] Address: [address] [place] [address] Performed By: #### 5 7021-8 ####[facility] HOSPITALNCECHOA [id number] [place] [address] [place] Eosinophils/100 WBC (Bld) 0.5 % Normal [facility] Comment on above: Order Comment: Speci men Type: BLOOD SPECIMENOrdering Facility: [facility] Address: [address] [place] [address] Performed By: #### 5 7021-8 ####[facility]ITALNCBRIGH[facility] [id number] [place] [address] [place] Erythrocyte distribution width (RBC) [Ratio] 12.0 % Normal 11.5-15.0 [facility] Comment on above: Order Comment: Speci men Type: BLOOD SPECIMENOrdering Facility: [facility] Address: [address] [place] [address] Performed By: #### 5 7021-8 ####[facility]ITALNCBRIGH[facility] [id number] [place] [address] [place] Hematocrit (Bld) [Volume fraction] 38.1 % Normal 36.0-46.0 [facility] Comment on above: Order Comment: Speci men Type: BLOOD SPECIMENOrdering Facility: [facility] Address: [address] [place] [address] Performed By: #### 5 7021-8 ####[facility] HOSPITALNCLIA [id number] [place] [address] [place] Hemoglobin (Bld) [Mass/Vol] 13.7 g/dL Normal 11.5-15.5 [facility] Comment on above: Order Comment: Speci men Type: BLOOD SPECIMENOrdering Facility: [facility] Address: [address] [place] [address] Performed By: #### 5 7021-8 ####[facility] ALAN [id number] [place] [address] [place] Immature granulocytes (Bld) [#/Vol] 0.05 10*3/uL Normal <0.10 [facility] Comment on above: Order Comment: Speci men Type: BLOOD SPECIMENOrdering Facility: [facility] Address: [address] [place] [address] Performed By: #### 5 7021-8 ####[facility] [id number] [place] [address] [place] Immature granulocytes/100 WBC (Bld) 0.4 % Normal [facility] Comment on above: Order Comment: Speci men Type: BLOOD SPECIMENOrdering Facility: [facility] Address: [address] [place] [address] Performed By: #### 5 7021-8 ####[facility] [id number] [place] [address] [place] Lymphocytes (Bld) [#/Vol] 2.38 10*3/uL Normal 1.00-4.00 [facility] Comment on above: Order Comment: Speci men Type: BLOOD SPECIMENOrdering Facility: [facility] Address: [address] [place] [address] Performed By: #### 5 7021-8 ####[facility] CENTERLIA [id number] [place] [address] [place] Lymphocytes/100 WBC (Bld) 18.2 % Normal [facility] Comment on above: Order Comment: Speci men Type: BLOOD SPECIMENOrdering Facility: [facility] Address: [address] [place] [address] Performed By: #### 5 7021-8 ####[facility] HOS[facility]ITALNCLIA [id number] [place] [address] [place] MCH (RBC) [Entitic mass] 30.2 pg Normal 26.0-34.0 [facility] Comment on above: Order Comment: Speci men Type: BLOOD SPECIMENOrdering Facility: [facility] Address: [address] [place] [address] Performed By: #### 5 7021-8 ####[facility] [id number] [place] [address] [place] MCHC (RBC) [Mass/Vol] 36.0 g/dL Normal 30.5-36.0 [facility] Comment on above: Order Comment: Speci men Type: BLOOD SPECIMENOrdering Facility: [facility] Address: [address] [place] [address] Performed By: #### 5 7021-8 ####[facility] [id number] [place] [address] [place] MCV (RBC) [Entitic vol] 84.1 fL Normal 80.0-100.0 [facility] Comment on above: Order Comment: Speci men Type: BLOOD SPECIMENOrdering Facility: [facility] Address: [address] [place] [address] Performed By: #### 5 7021-8 ####[facility] [id number] [place] [address] [place] Monocytes (Bld) [#/Vol] 0.98 10*3/uL High <0.87 [facility] Comment on above: Order Comment: Speci men Type: BLOOD SPECIMENOrdering Facility: [facility] Address: [address] [place] [address] Performed By: #### 5 7021-8 ####[facility]OSPITALNCBRIGH[facility] [id number] [place] [address] [place] Monocytes/100 WBC (Bld) 7.5 % Normal [facility] Comment on above: Order Comment: Speci men Type: BLOOD SPECIMENOrdering Facility: [facility] Address: [address] [place] [address] Performed By: #### 5 7021-8 ####[facility] CENTERLIA [id number] [place] [address] [place] Neutrophils (Bld) [#/Vol] 9.58 10*3/uL High 1.45-7.50 [facility] Comment on above: Order Comment: Speci men Type: BLOOD SPECIMENOrdering Facility: [facility] Address: [address] [place] [address] Performed By: #### 5 7021-8 ####[facility] [id number] [place] [address] [place] Neutrophils/100 WBC (Bld) 73.2 % Normal [facility] Comment on above: Order Comment: Speci men Type: BLOOD SPECIMENOrdering Facility: [facility] Address: [address] [place] [address] Performed By: #### 5 7021-8 ####[facility] CENTERLIA [id number] [place] [address] [place] Nucleated RBC (Bld) [#/Vol] 10*3/uL Normal <0.01 [facility] Comment on above: Order Comment: Speci men Type: BLOOD SPECIMENOrdering Facility: [facility] Address: [address] [place] [address] Performed By: #### 5 7021-8 ####[facility] [id number] [place] [address] [place] Nucleated RBC/100 WBC (Bld) [Ratio] 0.0 /100 WBC Normal [facility] Comment on above: Order Comment: Speci men Type: BLOOD SPECIMENOrdering Facility: [facility] Address: [address] [place] [address] Performed By: #### 5 7021-8 ####[facility] NELNCNEL [id number] [place] [address] [place] Platelet mean volume (Bld) [Entitic vol] 10.3 fL Normal 9.0-12.7 [facility] Comment on above: Order Comment: Speci men Type: BLOOD SPECIMENOrdering Facility: [facility] Address: [address] [place] [address] Performed By: #### 5 7021-8 ####[facility] HOSPITALNCA [id number] [place] [address] [place] Platelets (Bld) [#/Vol] 217 10*3/uL Normal 150-400 [facility] Comment on above: Order Comment: Speci men Type: BLOOD SPECIMENOrdering Facility: [facility] Address: [address] [place] [address] Performed By: #### 5 7021-8 ####[facility] HOSPITALNCLIA [id number] [place] [address] [place] RBC (Bld) [#/Vol] 4.53 10*6/uL Normal 3.90-5.20 [facility] Comment on above: Order Comment: Speci men Type: BLOOD SPECIMENOrdering Facility: [facility] Address: [address] [place] [address] Performed By: #### 5 7021-8 ####[facility] HOSPITALNCLIA [id number] [place] [address] [place] WBC (Bld) [#/Vol] 13.07 10*3/uL High 3.70-11.00 [facility] Comment on above: Order Comment: Speci men Type: BLOOD SPECIMENOrdering Facility: [facility] Address: [address] [place], [place] [address] Performed By: #### 5 7021-8 ####[facility] [id number] [place] [id number] [place] nuchal translucency me asured by Nisha 06-13-2024 Indication First trimester anatomic survey Impression REMOTE READ The patient is referred for a first trimester anatomy scan including nuchal translucency measurement as clinically indicated. - Single, live, intrauterine . - [place] rump length measurement is consistent with the [...] view: suboptimal 4-chamber view with color: suboptimal 4-muejfk-lstimhj view: suboptimal Abdominal cord insertion: normal Stomach: [...] ovary Vol 16.5 cm Performed By: Lanny Santoyo RDMS, RVT Read By: Reshma Lentz M.D. MATERNAL MEDICINE [facility] Radiology Study observation (narrative) [facility] HBV surface Ag Ser Qlon 05-24 HBV surface Ag Ql (S) Negative Normal Negative [facility] Comment on above: Order Comment: Speci men Type: BLOOD SPECIMENOrdering Facility: [facility] Address: [address] [place] [address] Performed By: #### 7 3752-8, 30252-3, 5195-3 ####[facility] [id number] [place] [address] [place] HCV Ab Ser Qlon 06-13-2024 HCV Ab Ql (S) Negative Normal Negative [facility] Comment on above: Order Comment: Speci men Type: BLOOD SPECIMENOrdering Facility: [facility] Address: [address] [place] [address] Result Comment: The result suggests no evidence of active infection with Hepatitis C virus. Should recent infection be suspected, repeat testing may be considered 4-6 weeks after this draw. Performed By: #### 1 6128-1 ####[facility] [id number] [place] [address] [place] HIV 1+2 Ab IA Qlon HIV 1 and 2 Ab IA.rapid Nom (S/P/Bld) Normal [facility] Comment on above: Order Comment: Speci men Type: BLOOD SPECIMENOrdering Facility: [facility] Address: [address] [place] [address] Result Comment: Test not indicated. Performed By: #### 7 3752-8, 82597-6, 5195-3 ####[facility] TOL[facility] [id number] [place] [address] [place] HIV 1+2 Ab+HIV1 p24 Ag IA Ql Non-Reactive Normal Nonreactive [facility] Comment on above: Order Comment: Speci men Type: BLOOD SPECIMENOrdering Facility: [facility] Address: [address] [place] [address] Performed By: #### 7 3752-8, 22710-4, 5195-3 ####[facility] TOL[facility] [id number] [place] [address] [place] HIV immunoassay testing algorithm interpretation (S/P/Bld) [Interp] Normal [facility] Comment on above: Order Comment: Speci men Type: BLOOD SPECIMENOrdering Facility: [facility] Address: [address] [place] [address] Result Comment: No e vidence of HIV-1 or HIV-2 infection. Should recent infection be suspected, repeat testing may be considered 2-3 weeks after this draw. [place] Rev. Code 3701.243(E): This information has been [...] or diagnoses. Performed By: #### 7 3752-8, 75551-9, 5195-3 ####[facility] LABIA [id number] [place] [address] [place] HbA1c (Bld)on 06-13-2024 Average glucose Estimated from glycated hemoglobin (Bld) [Mass/Vol] 77 mg/dL Normal [facility] Comment on above: Order Comment: Speci men Type: BLOOD SPECIMENOrdering Facility: [facility] Address: [address] [place] [address] Result Comment: eAG: (Estimated average glucose) is a calculated value from HgbA1c and is assistance representative of the average blood glucose level in the last 2-3 month period. Performed By: #### 5 5454-3 ####[facility] LABCLIA [id number] [place] [address] [place] HbA1c (Bld) [Mass fraction] 4.3 % Normal 4.3-5.6 [facility] Comment on above: Order Comment: Speci men Type: BLOOD SPECIMENOrdering Facility: [facility] Address: [address] [place] [address] Result Comment: Amer [place] Diabetes Association guidelines indicate that patients with HgbA1c in the range 5.7-6.4% are at increased risk for development of diabetes, and intervention by lifestyle modification may be beneficial. HgbA1c greater or equal to 6.5% is considered diagnostic of diabetes. Performed By: #### 5 5454-3 ####[facility] LABCLIA [id number] [place] [address] [place] [id number] PLUSon 06-13-2024 Cell-free DNA./Cell-free DNA.total Dosage of chromosome-specific cfDNA (cfDNA) [Molar fraction] 19% Normal [facility] Comment on above: Order Comment: Speci men Type: BLOOD SPECIMENOrdering Facility: [facility] Address: [address] [place] [address] Performed By: #### M AT21 ####[facility] [facility] LABCLIA [id number] [facility] [place] [address] Chr 13+18+21+X+Y aneuploidy Dosage of chromosome-specific cfDNA Ql (cfDNA) Negative Normal [facility] Comment on above: Order Comment: Speci men Type: BLOOD SPECIMENOrdering Facility: [facility] Address: [address] [place] [address] Performed By: #### M AT21 ####[facility] LABCLIA [id number] [place] [address] Chr 21 trisomy Dosage of chromosome-specific cfDNA Ql (cfDNA) Negative Normal [facility] Comment on above: Order Comment: Speci men Type: BLOOD SPECIMENOrdering Facility: [facility] Address: [address] [place] [address] Performed By: #### M AT21 ####[facility] LABCLIA [id number] [place] [address] Chr X and Y aneuploidy risk Sequencing Ql (cfDNA) [Interp] Not detected Normal [facility] Comment on above: Order Comment: Speci men Type: BLOOD SPECIMENOrdering Facility: [facility] Address: [address] [place] [address] Result Comment: Not Detected Not Detected Performed By: #### M AT21 ####[facility] LABCLIA [id number] [place] [id number] Citation Juan Ramon (Reference lab test) Comment Normal [facility] Comment on above: Order Comment: Speci men Type: BLOOD SPECIMENOrdering Facility: [facility] Address: [address] [place] [address] Result Comment: 1. P george HUGGINS, et al. Jina Med. 2012;14(3):296-305. 2. Devi RODRIGUEZ et al. Prenat Diag. 2013;33(6):591-597. 3. Bryson C, et al. Clin Chem. 2015 Apr;61(4):608-616. 4. Glo HUGGINS et al. Jina Med. 2011;13(11):913-920. 5. ACOG/SMFM Practice Bulletin No. 226, Feb 2020. Performed By: #### M AT21 ####[facility] [facility] LABCLIA [id number] [place] [address] Gestational age Estimated from conception date Dodson Normal [facility] Comment on above: Order Comment: Speci men Type: BLOOD SPECIMENOrdering Facility: [facility] Address: [address] [place] [address] Performed By: #### M AT21 ####[facility] LABCLIA [id number] [place] [address] GESTATIONALAGE AGE > OR = 9W Yes Normal [facility] Comment on above: Order Comment: Laurence castellanos Type: BLOOD SPECIMENOrdering Facility: [facility] Address: [address] [place] [address] Performed By: #### M AT21 ####[facility] LABCLIA [id number] [place] [id number] Laboratory comment Juan Ramon (Report) Comment Normal [facility] Comment on above: Order Comment: Laurence castellanos Type: BLOOD SPECIMENOrdering Facility: [facility] Address: [address] [place] [address] Result Comment: The MaterniT(R) 21 PLUS laboratory-developed test (LDT) analyzes circulating cell-free DNA from a maternal blood sample. This test is used for screening purposes and not diagnostic. Clinical correlation is recommended. Validation data on twin pregnancies is limited and the ability of this test to detect aneuploidy in higher multiple gestations has not yet been validated. Performed By: #### M AT21 ####[facility] LABCLIA [id number] [place] [id number] childcare director name Nom (Provider) Comment Normal [facility] Comment on above: Order Comment: Laurence castellanos Type: BLOOD SPECIMENOrdering Facility: [facility] Address: [address] [place] [address] Result Comment: This specimen showed an expected representation of chromosome 21, 18 and 13 material. Clinical correlation is suggested. Comment Ari Sheppard MD, PhD, Director, [employer] Performed By: #### M AT21 ####[facility] LABCLIA [id number] [place] [id number] LIMITATIONS OF THE TEST Comment Normal [facility] Comment on above: Order Comment: Laurence castellanos Type: BLOOD SPECIMENOrdering Facility: [facility] Address: [address] [place] [address] Result Comment: Whil e the results of these tests are highly [...] and Fragmin(R)). Performed By: #### M AT21 ####[facility] LABCLIA [id number] [place] [address] Monosomy X risk Dosage of chromosome-specific cfDNA Ql (Plasma cell-free+WBC DNA) [Interp] Not detected Normal [facility] Comment on above: Order Comment: Speci men Type: BLOOD SPECIMENOrdering Facility: [facility] Address: [address] [place] [address] Performed By: #### M AT21 ####[facility] [facility] LABCLIA [id number] [place] [address] NEGATIVE PREDICTIVE VALUE Note Normal [facility] Comment on above: Order Comment: Speci men Type: BLOOD SPECIMENOrdering Facility: [facility] Address: [address] [place] [address] Result Comment: The Negative Predictive Value (NPV) for trisomy 21, 18, and 13 is greater than 99%. The NPV for SCA and ESS cannot be calculated as SCA and ESS are only reported when an abnormality is detected. Performed By: #### M AT21 ####[facility] LABCLIA [id number] [place] [address] NOTE Comment Normal [facility] Comment on above: Order Comment: Speci men Type: BLOOD SPECIMENOrdering Facility: [facility] Address: [address] [place] [address] Result Comment: See Notes [employer] is a subsidiary of [employer], using the brand [employer]. This test was developed and its performance characteristics determined by [employer]. It has not been cleared or approved by the Food and Drug Administration. This laboratory is certified under the Clinical Laboratory Improvement Amendments (CLIA) as qualified to perform high complexity clinical laboratory testing and accredited by the [employer] (CAP). If there is future clinical need for adding MaterniT GENOME testing, this specimen will be available until term. [facility] samples will not be retained beyond 60 days. [facility] patients will have to send a new sample for re-sequencing ([facility] Test Code: [id number]). Performed By: #### M AT21 ####[facility] [facility] LABCLIA [id number] [place] [address] PERFORMANCE CHARACTERISTICS Note Normal [facility] Comment on above: Order Comment: Speci men Type: BLOOD SPECIMENOrdering Facility: [facility] Address: [address], [place] [address] Result Comment: ! Sex ! Accuracy: 99.4% [...] ! ! ! * As reported in [facility] database nstd37 [https://www.ncbi.nlm.nih.gov/dbvar/studies/nstd37/ ] # Estimated Sensitivity. Sensitivity estimated across the observed size distribution of each syndrome [per [employer] database nstd37] and across the range of fractions observed in routine clinical NIPT. Actual sensitivity can also be influenced by other factors such as the size of the event, total sequence counts, amplification bias, or sequence bias. ## Dodson gestation only. Performed By: #### M AT21 ####[facility] [id number] [place] [address] POSITIVE PREDICTIVE VALUE N/A Normal [facility] Comment on above: Order Comment: Specben castellanos Type: BLOOD SPECIMENOrdering Facility: [facility] Address: [address] [place] [address] Performed By: #### M AT21 ####[employer] LABmobilePeopleIA [id number] [place] [address] Reference Lab Test Method Comment Normal [facility] Comment on above: Order Comment: Laurence castellanos Type: BLOOD SPECIMENOrdering Facility: [facility] Address: [address] [place] [address] Result Comment: See Notes Circulating cell-free DNA [...] and 22. Performed By: #### M AT21 ####[employer] LABmobilePeopleIA [id number] [place] [address] Sex Dosage of chromosome-specific cfDNA Nom (cfDNA) Comment Normal [facility] Comment on above: Order Comment: Speci men Type: BLOOD SPECIMENOrdering Facility: [facility] Address: [address] [place] [address] Result Comment: Cons istent with Female Performed By: #### M AT21 ####[facility] LABCLIA [id number] [place] [address] Test performance information Juan Ramon (Unsp spec) Comment Normal [facility] Comment on above: Order Comment: Speci men Type: BLOOD SPECIMENOrdering Facility: [facility] Address: [address] [place] [address] Result Comment: The performance characteristics of the MaterniT(R) 21 PLUS laboratory-developed test (LDT) have been determined in a clinical validation study with women at increased risk for chromosomal aneuploidy.[1-4] Performed By: #### M AT21 ####[facility] LABCLIA [id number] [place] [address] Trisomy 13 risk Dosage of chromosome-specific cfDNA Ql (cfDNA) [Interp] Negative Normal [facility] Comment on above: Order Comment: Speci men Type: BLOOD SPECIMENOrdering Facility: [facility] Address: [address] [place] [address] Performed By: #### M AT21 ####[facility] LABCLIA [id number] [place] [address] Trisomy 18 risk Dosage of chromosome-specific cfDNA Ql (Plasma cell-free+WBC DNA) [Interp] Negative Normal [facility] Comment on above: Order Comment: Speci men Type: BLOOD SPECIMENOrdering Facility: [facility] Address: [address] [place] [address] Performed By: #### M AT21 ####[facility] [facility] LABCLIA [id number] [place] [address] RUBELLA IGG ANTIBODYon 06-13 RUBELLA IGG AB, QUAL Positive Normal Positive [facility] Comment on above: Order Comment: Speci men Type: BLOOD SPECIMENOrdering Facility: [facility] Address: [address] [place] [address] Result Comment: The result suggests recent or past exposure to Rubella virus or history of Rubella vaccination. Positive result may also be seen due to presence of passively-transferred antibodies. Please correlate with patient's history. Performed By: #### R UBIGG ####[facility] LABCLIA [id number] [place] [address] [place] Reagin and Treponema pallidu m IgG and IgM [Interp]on 06-13-2024 T. pallidum IgG+IgM IA Ql (S) Non-Reactive Normal Nonreactive [facility] Comment on above: Order Comment: Speci men Type: BLOOD SPECIMENOrdering Facility: [facility] Address: [address] [place] [address] Performed By: #### 7 3752-8, 35820-7, 5195-3 ####[facility] LABCLIA [id number] [place] [address] [place] Reagin+T pallidum IgG+IgM Se rPl-Impon 06-13-2024 Reagin and Treponema pallidum IgG and IgM [Interp] Cannot exclude recent Treponemal infection if specimen collected within 7-10 days after appearance of suspect lesions or 2-3 weeks after an exposure. Clinical correlation is required. Normal [facility] Comment on above: Order Comment: Speci men Type: BLOOD SPECIMENOrdering Facility: [facility] Address: [address] [place] [address] Performed By: #### 7 3752-8, 95516-0, 5195-3 ####[facility] LABIA [id number] [place] [address] [place] TYPE + SCREEN PRENATALon ABO A Normal [facility] Comment on above: Order Comment: Speci men Type: BLOOD SPECIMENOrdering Facility: [facility] Address: [address] [place] [address] Result Comment: Trino ected result: Previously reported as Invalid on 06/14/2024 at 11:50 AM EST. Performed By: #### T SPN ####[facility] BANKCLIA [id number] [address] Rh Nom (Bld) Positive Normal [facility] Comment on above: Order Comment: Speci men Type: BLOOD SPECIMENOrdering Facility: [facility] Address: [address] [place] [address] Result Comment: Trino ected result: Previously reported as Invalid on 06/14/2024 at 11:50 AM EST. Performed By: #### T SPN ####[facility] BLOOD BANKIA [id number] [address] TYPE AND SCREEN EXPIRATION 06/16/2024 23:59 Normal [facility] Comment on above: Order Comment: Speci men Type: BLOOD SPECIMENOrdering Facility: [facility] Address: [address] [place] [address] Performed By: #### T SPN ####[facility] BLOOD BANKIA [id number] [address] CNPJie 06-12-2024 CNPN Telephone (OBGYWM) ----- TALI GIBSON ([id number]) 89 F Date Time Provider Department 06/12/24 RACHEL MORALES OBMEGHA During your visit today, we recorded the following information about you: Tabitha Herman 06/12/2024 2:04 PM Signed Patient called asking what all is going to happen at her appointment on 06/13 Also asking about genetic testing and ultrasound Can be reached at [phone] Please advisEsther Grey RN 06/12/2024 2:36 PM Signed Spoke to patient and questions answered. She will try to contact [facility] today regarding carrier screen. Esther Recinos RN Allergies As of Date: 06/12/2024 Noted Allergy Reaction LEXAPRO (ESCITALOPRAM) 11/24/2022 14 - Other: See Comments Comments: Sleeping difficulty Date Reviewed: 05/09/2024 Reviewed by: Glynn Jeong MA - Fully Assessed Reason for Visit: Patient Question [1157] Cmt: What will happen at her apt [...] Status:Closed by ESTHER RECINOS on 06/12/24 Normal [facility] Bacteria Ur Culton Bacteria identified Cx Nom (U) CULTURE, URINE: No growth (<1,000 CFU/ml) Normal [facility] Comment on above: Performed By: #### 6 30-4 ####[facility] LABCLIA [id number] [place] [address] [place] C. trachomatis+N. gonorrhoea e DNA NAHUM+probe Ql (Unsp spec)on 05-09-2024 C. trachomatis rRNA NAHUM+probe Ql (Unsp spec) Not detected Normal Not detected [facility] Comment on above: Order Comment: Speci men Type: SWABOrdering Facility: [facility] Address: [address] [place] [address] Performed By: #### 3 6902-5 ####[facility] LABCLIA [id number] [address] [place] N. gonorrhoeae rRNA NAHUM+probe Ql (Unsp spec) Not detected Normal Not detected [facility] Comment on above: Order Comment: Speci men Type: SWABOrdering Facility: [facility] Address: [address] [place] [address] Performed By: #### 3 6902-5 ####[facility] LABCLIA [id number] [place] [address] [place] POC GRADE FOREMAN ULTRASOUNDon 05-09-20 Indication Viability; confirm cardiac activity [...] Read By: Summer Garduno CNM MATERNAL MEDICINE [facility] Radiology Study observation (narrative) [facility] CBC W Auto Differential pane l (Bld)on 02-23-2023 Basophils (Bld) [#/Vol] 0.03 10*3/uL <0.11 k/uL [facility] Basophils/100 WBC (Bld) 0.4 % [facility] Differential cell count method Nom (Bld) Auto [facility] Eosinophils (Bld) [#/Vol] 0.07 10*3/uL <0.46 k/uL [facility] Eosinophils/100 WBC (Bld) 0.9 % [facility] Erythrocyte distribution width (RBC) [Ratio] 11.9 % 11.5 - 15.0 % [facility] Hematocrit (Bld) [Volume fraction] 44.0 % 36.0 - 46.0 % [facility] Hemoglobin (Bld) [Mass/Vol] 15.1 g/dL 11.5 - 15.5 g/dL [facility] Immature granulocytes (Bld) [#/Vol] <0.10 k/uL [facility] Immature granulocytes/100 WBC (Bld) 0.1 % [facility] Lymphocytes (Bld) [#/Vol] 1.96 10*3/uL 1.00 - 4.00 k/uL [facility] Lymphocytes/100 WBC (Bld) 24.7 % [facility] MCH (RBC) [Entitic mass] 29.8 pg 26.0 - 34.0 pg [facility] MCHC (RBC) [Mass/Vol] 34.3 g/dL 30.5 - 36.0 g/dL [facility] MCV (RBC) [Entitic vol] 87.0 fL 80.0 - 100.0 fL [facility] Monocytes (Bld) [#/Vol] 0.79 10*3/uL <0.87 k/uL [facility] Monocytes/100 WBC (Bld) 10.0 % [facility] Neutrophils (Bld) [#/Vol] 5.07 10*3/uL 1.45 - 7.50 k/uL [facility] Neutrophils/100 WBC (Bld) 63.9 % [facility] Nucleated RBC (Bld) [#/Vol] <0.01 k/uL [facility] Nucleated RBC/100 WBC (Bld) [Ratio] 0.0 /100 WBC [facility] Platelet mean volume (Bld) [Entitic vol] 10.7 fL 9.0 - 12.7 fL [facility] Platelets (Bld) [#/Vol] 228 10*3/uL 150 - 400 k/uL [facility] RBC (Bld) [#/Vol] 5.06 10*6/uL 3.90 - 5.2 0 m/uL [facility] WBC (Bld) [#/Vol] 7.93 10*3/uL 3.70 - 11. 00 k/uL [facility] Comprehensive metabolic 2000 panelon 02-23-2023 Albumin [Mass/Vol] 4.5 g/dL 3.9 - 4.9 g/dL [facility] ALP [Catalytic activity/Vol] 60 U/L 34 - 123 U/L [facility] ALT [Catalytic activity/Vol] 17 U/L 7 - 38 U/L [facility] Anion gap [Moles/Vol] 13 mmol/L 9 - 18 mmol/L [facility] AST [Catalytic activity/Vol] 17 U/L 13 - 35 U/L [facility] Bilirubin [Mass/Vol] 1.2 mg/dL 0.2 - 1 .3 mg/dL [facility] Calcium [Mass/Vol] 9.7 mg/dL 8.5 - 10. 2 mg/dL [facility] Chloride [Moles/Vol] 103 mmol/L 97 - 10 5 mmol/L [facility] CO2 [Moles/Vol] 24 mmol/L 22 - 30 mmol/L [facility] Creatinine [Mass/Vol] 0.71 mg/dL 0.58 - 0.96 mg/dL [facility] Estimated Glomerular Filtration Rate 123 mL/min/1.73m >=60 mL/min/1.73m [facility] Glucose [Mass/Vol] 84 mg/dL 74 - 99 mg/dL [facility] Potassium [Moles/Vol] 4.6 mmol/L 3.7 - 5.1 mmol/L [facility] Protein [Mass/Vol] 7.5 g/dL 6.3 - 8.0 g/dL [facility] Sodium [Moles/Vol] 140 mmol/L 136 - 144 mmol/L [facility] Urea nitrogen [Mass/Vol] 11 mg/dL 7 - 21 mg/dL [facility] FERRITIN BLDon 02-23-2023 Ferritin [Mass/Vol] 68.0 ng/mL 14.7 - 2 05.1 ng/mL [facility] Iron and Iron binding capaci ty panelon 02-23-2023 Iron [Mass/Vol] 52 ug/dL 41 - 186 ug/dL [facility] Iron binding capacity [Mass/Vol] 294 ug/dL 232 - 386 ug/dL [facility] Iron/TIBC [Molar ratio] 17.7 % 15.0 - 57.0 % [facility] TSH BLDon 02-23-2023 TSH Qn 1.250 m[IU]/L 0.270 - 4.200 mIU/L [facility] VITAMIN B12 BLOODon 02-24-20 Cobalamin (Vitamin B12) [Mass/Vol] 368 pg/mL 232 - 1,245 pg/mL [facility] VITAMIN D 25 HYDROXYon 02-23 25-hydroxyvitamin D3 [Mass/Vol] 21.7 ng/mL Low 31.0 - 80.0 ng/mL [facility] CORONAVIRUS 2019 BY PCRon SARS-CoV-2 (COVID-19) RNA NAHUM+probe Ql (Unsp spec) Detected Abnormal Not Detected [facility] Comment on above: Order Comment: ORESTES [...] patient management decisions. Fact sheet for providers: https://www.fda.gov/media/298580/download Fact sheet for patients: https://www.fda.gov/media/060982/download This test has received FDA Emergency Use Authorization (EUA) and has been verified by [facility] ([facility]). This test is only authorized for the duration of time that circumstances exist to justify the authorization of the emergency use of in vitro diagnostic tests for the detection of SARS-CoV-2 virus and/or diagnosis of COVID-19 infection under section 564(b)(1) of the Act, 21 U.S.C. 360bbb-3(b)(1), unless the authorization is terminated or revoked sooner. [facility] is certified under CLIA-88 as qualified to perform high complexity testing. Testing is performed in the [facility] laboratories [place] [address] [place] [address]. +COVID CALLED MEGAN KIRK, 01/02/2021 04:38 Performed By: #### C OV19 #### [facility] [address] [facility] [place] [address] CORONAVIRUS 2019 BY PCRon DATE OF SYMPTOM ONSET [YYYYMMDD]? N/A [facility] Comment on above: Order Comment: ORESTES [employer] EMPLOYEE +COVID CALLED MEGAN KIRK, 01/02/2021 04:38 Performed By: #### C OV19 #### [facility] [address] [facility] [place] [address] Lab Specimen Source Nasal, Nasopharyngeal [facility] Comment on above: Order Comment: ORESTES [employer] EMPLOYEE +COVID CALLED MEGAN KIRK, 01/02/2021 04:38 Performed By: #### C OV19 #### [facility] [address] [place] [address]. [place] [address] Coronavirus 2019 RNA by PCR, Symptomaticon 01-01-2021 Date and time of symptom onset N/A [place] [place]: Coronavirus 2019 RNA by PCR, Symptomatic Detected Abnormal See Below -[facility] [place]: Comment on above: SOURCE: Nasal, [...] make patient management decisions.Fact sheet for providers: https://www.fda.gov/media/156699/downloadFact sheet for patients: https://www.fda.gov/media/699566/downloadThis test has received FDA Emergency Use Authorization (EUA) and has been verified by [facility] ([facility]). This test is only authorized for the duration of time that circumstances exist to justify the authorization of the emergency use of in vitro diagnostic tests for the detection of SARS-CoV-2 virus and/or diagnosis of COVID-19 infection under section 564(b)(1) of the Act, 21 U.S.C. 360bbb-3(b)(1), unless the authorization is terminated or revoked sooner. [facility] is certified under CLIA-88 as qualified to perform high complexity testing. 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 SPECIALIST: Is : no Is : no REVIEW OF SYSTEMS ENMT Throat/Neck: POSITIVE for: throat pain All other systems reviewed and are negative RESULTS/VITAL SIGNS VITAL SIGNS: T PRBP SpO2O2(LPM) %FiO2 Method 16-Jan-2020 13:22:00-36.041153/81 98 PHYSICAL EXAM CONSTITUTIONAL: Well appearing, well [...] ill patient: no Electronic Signatures: Siri Strauss (FINAL INSPECTOR TRUCK TRAILER-[employer] WORKER) (Signed 16-Jan-2020 13:38) Authored: Provider Note - ED v2 Last Updated: 16-Jan-2020 13:38 by Siri Strauss (FINAL INSPECTOR TRUCK TRAILER-[employer] FACTORY WORKER) [facility] Vital Signs Date Time Vital Sign Value Performing Clinician Antonio de la rosa 12-10-2024 17:21-0400 Body height 162.[address] Rachel Morales MD Work Phone: [facility] 12-10-2024 17:21-0400 Body mass index (BMI) [Ratio] 33.3 kg/m2 Dr. Rachel Morales MD Work Phone: [facility] 12-10-2024 17:21-0400 Body weight 87.[address] Rachel Morales MD Work Phone: [facility] 12-10-2024 16:16-0400 Body mass index (BMI) [Ratio] 34.37 kg/m2 Crystal Liao MD Work Phone: [facility] 12-10-2024 16:16-0400 Body weight 88 kg Crystal Liao MD Work Phone: [facility] 12-10-2024 16:16-0400 Diastolic blood pressure 70 mm[Hg] Crystal Liao MD Work Phone: [facility] 12-10-2024 16:16-0400 Systolic blood pressure 120 mm[Hg] Crystal Liao MD Work Phone: [facility] 12-04-2024 14:54-0400 Body mass index (BMI) [Ratio] 34.01 kg/m2 Kirstie Strauss MD Work Phone: [facility] 12-04-2024 14:54-0400 Body weight 87.09 kg Kirstie Strauss MD Work Phone: [facility] 12-04-2024 14:54-0400 Diastolic blood pressure 68 mm[Hg] Kirstie Strauss MD Work Phone: [facility] 12-04-2024 14:54-0400 Systolic blood pressure 120 mm[Hg] Kirstie Strauss MD Work Phone: [facility] 11-30-2024 14:40-0400 Body mass index (BMI) [Ratio] 34.01 kg/m2 Kirstie Strauss MD Work Phone: [facility] 11-30-2024 14:40-0400 Body weight 87.09 kg Kirstie Strauss MD Work Phone: [facility] 11-30-2024 14:40-0400 Diastolic blood pressure 76 mm[Hg] Kirstie Strauss MD Work Phone: [facility] 11-30-2024 14:40-0400 Systolic blood pressure 122 mm[Hg] Kirstie Strauss MD Work Phone: [facility] 11-19-2024 15:06-0400 Body mass index (BMI) [Ratio] 33.3 kg/m2 Summer Garduno FINAL INSPECTOR TRUCK TRAILER.CNM Work Phone: [facility] 11-19-2024 15:06-0400 Body weight 85.28 kg Summer Brycerajiv FINAL INSPECTOR TRUCK TRAILER.CNM Work Phone: [facility] 11-19-2024 15:06-0400 Diastolic blood pressure 76 mm[Hg] Summer Garduno FINAL INSPECTOR TRUCK TRAILER.CNM Work Phone: [facility] 11-19-2024 15:06-0400 Systolic blood pressure 118 mm[Hg] Summer Garduno FINAL INSPECTOR TRUCK TRAILER.CNM Work Phone: [facility] 11-14-2024 15:26-0400 Body mass index (BMI) [Ratio] 33.3 kg/m2 Trinity Burrows MD Work Phone: [facility] 11-14-2024 15:26-0400 Body weight 85.28 kg Trinity Burrows MD Work Phone: [facility] 11-14-2024 15:26-0400 Diastolic blood pressure 68 mm[Hg] Trinity Burrows MD Work Phone: [facility] 11-14-2024 15:26-0400 Systolic blood pressure 114 mm[Hg] Trinity Burrows MD Work Phone: [facility] 11-05-2024 15:00-0400 Body mass index (BMI) [Ratio] 32.95 kg/m2 Libby Bob FINAL INSPECTOR TRUCK TRAILER.CNM Work Phone: [facility] 11-05-2024 15:00-0400 Body weight 84.37 kg Libby Bob APRN.CNM Work Phone: [facility] 11-05-2024 15:00-0400 Diastolic blood pressure 68 mm[Hg] Libby Bob FINAL INSPECTOR TRUCK TRAILER.CNM Work Phone: [facility] 11-05-2024 15:00-0400 Systolic blood pressure 114 mm[Hg] Libby Bob FINAL INSPECTOR TRUCK TRAILER.CNM Work Phone: [facility] 10-19-2024 15:39-0400 Body mass index (BMI) [Ratio] 32.06 kg/m2 Quinn Hacarla FINAL INSPECTOR TRUCK TRAILER.[employer] FA[employer]ORY WORKER Work Phone: [facility] 10-19-2024 15:39-0400 Body weight 82.1 kg Quinn Sharmacarla FINAL INSPECTOR TRUCK TRAILER.[employer] FA[employer]ORY WORKER Work Phone: [facility] 10-19-2024 15:39-0400 Diastolic blood pressure 66 mm[Hg] Quinn Haury FINAL INSPECTOR TRUCK TRAILER.[employer] FACTORY WORKER Work Phone: [facility] 10-19-2024 15:39-0400 Heart rate 98 /min Quinndeanne Davis FINAL INSPECTOR TRUCK TRAILER.[employer] FACTORY WORKER Work Phone: [facility] 10-19-2024 15:39-0400 Systolic blood pressure 110 mm[Hg] Quinn Haury FINAL INSPECTOR TRUCK TRAILER.[employer] FACTORY WORKER Work Phone: [facility] 10-03-2024 10:27-0400 Body mass index (BMI) [Ratio] 31.71 kg/m2 Libby Bob FINAL INSPECTOR TRUCK TRAILER.CNM Work Phone: [facility] 10-03-2024 10:27-0400 Body weight 81.19 kg Libby Bob FINAL INSPECTOR TRUCK TRAILER.CNM Work Phone: [facility] 10-03-2024 10:27-0400 Diastolic blood pressure 72 mm[Hg] Libby Bob FINAL INSPECTOR TRUCK TRAILER.CNM Work Phone: [facility] 10-03-2024 10:27-0400 Systolic blood pressure 110 mm[Hg] Libby Bob FINAL INSPECTOR TRUCK TRAILER.CNM Work Phone: [facility] 09-28-2024 08:56-0400 Body height 157.[address] Rachel Morales MD Work Phone: [facility] 09-28-2024 08:56-0400 Body mass index (BMI) [Ratio] 33.1 kg/m2 Dr. Rachel Morales MD Work Phone: [facility] 09-28-2024 08:56-0400 Body weight 82.[address] Rachel Morales MD Work Phone: [facility] 09-05-2024 15:44-0400 Body mass index (BMI) [Ratio] 31 kg/m2 Crystal Liao MD Work Phone: [facility] 09-05-2024 15:44-0400 Body weight 79.38 kg Crystal Liao MD Work Phone: [facility] 09-05-2024 15:44-0400 Diastolic blood pressure 64 mm[Hg] Crystal Liao MD Work Phone: [facility] 09-05-2024 15:44-0400 Systolic blood pressure 116 mm[Hg] Crystal Liao MD Work Phone: [facility] 08-08-2024 16:06-0400 Body mass index (BMI) [Ratio] 29.76 kg/m2 Libby Bob APRN.CNM Work Phone: [facility] 08-08-2024 16:06-0400 Body weight 76.2 kg Libby Bob FINAL INSPECTOR TRUCK TRAILER.CNM Work Phone: [facility] 08-08-2024 16:06-0400 Diastolic blood pressure 66 mm[Hg] Libby Bob FINAL INSPECTOR TRUCK TRAILER.CNM Work Phone: [facility] 08-08-2024 16:06-0400 Systolic blood pressure 118 mm[Hg] Libby Bob FINAL INSPECTOR TRUCK TRAILER.CNM Work Phone: [facility] 07-11-2024 14:58-0500 Body mass index (BMI) [Ratio] 29.33 kg/m2 Summer Garduno FINAL INSPECTOR TRUCK TRAILER.CNM Work Phone: [facility] 07-11-2024 14:58-0500 Body weight 75.12 kg Summer Garduno FINAL INSPECTOR TRUCK TRAILER.CNM Work Phone: [facility] 07-11-2024 14:58-0500 Diastolic blood pressure 60 mm[Hg] Summer Plotts FINAL INSPECTOR TRUCK TRAILER.CNM Work Phone: [facility] 07-11-2024 14:58-0500 Systolic blood pressure 106 mm[Hg] Summer Plotts FINAL INSPECTOR TRUCK TRAILER.CNM Work Phone: [facility] 06-13-2024 13:11-0500 Body mass index (BMI) [Ratio] 27.99 kg/m2 Rachel Morales MD Work Phone: [facility] 06-13-2024 13:11-0500 Body weight 71.67 kg Rachel Morales MD Work Phone: [facility] 06-13-2024 13:11-0500 Diastolic blood pressure 68 mm[Hg] Rachel Morales MD Work Phone: [facility] 06-13-2024 13:11-0500 Systolic blood pressure 110 mm[Hg] Rachel Morales MD Work Phone: [facility] 05-09-2024 08:36-0500 Body height 160 cm Summer Plotts FINAL INSPECTOR TRUCK TRAILER.CNM Work Phone: [facility] 05-09-2024 08:36-0500 Body mass index (BMI) [Ratio] 27.81 kg/m2 Summer Plotts FINAL INSPECTOR TRUCK TRAILER.CNM Work Phone: [facility] 05-09-2024 08:36-0500 Body weight 71.22 kg Summer Plotts FINAL INSPECTOR TRUCK TRAILER.CNM Work Phone: [facility] 05-09-2024 08:36-0500 Diastolic blood pressure 64 mm[Hg] Summer Plotts FINAL INSPECTOR TRUCK TRAILER.CNM Work Phone: [facility] 05-09-2024 08:36-0500 Systolic blood pressure 118 mm[Hg] Summer Plotts FINAL INSPECTOR TRUCK TRAILER.CNM Work Phone: [facility] 10-26-2023 17:38-0400 Body height 164.8 cm Marah Garcia FINAL INSPECTOR TRUCK TRAILER.[employer] FACTORY WORKER Work Phone: [facility] 10-26-2023 17:38-0400 Body mass index (BMI) [Ratio] 25.02 kg/m2 Marah Podlogar FINAL INSPECTOR TRUCK TRAILER.[employer] FACTORY WORKER Work Phone: [facility] 10-26-2023 17:38-0400 Body weight 67.95 kg Marah Podlogar FINAL INSPECTOR TRUCK TRAILER.[employer] FACTORY WORKER Work Phone: [facility] 10-26-2023 17:38-0400 Diastolic blood pressure 68 mm[Hg] Marah Podlogar FINAL INSPECTOR TRUCK TRAILER.[employer] FACTORY WORKER Work Phone: [facility] 10-26-2023 17:38-0400 Heart rate 77 /min Marah Podlogar FINAL INSPECTOR TRUCK TRAILER.[employer] FACTORY WORKER Work Phone: [facility] 10-26-2023 17:38-0400 Respiratory rate 16 /min Marah Podlogar FINAL INSPECTOR TRUCK TRAILER.[employer] FACTORY WORKER Work Phone: [facility] 10-26-2023 17:38-0400 SaO2% (BldA) [Mass fraction] 98 % Marah Podlogar FINAL INSPECTOR TRUCK TRAILER.[employer] FACTORY WORKER Work Phone: [facility] 10-26-2023 17:38-0400 Systolic blood pressure 96 mm[Hg] Marah Podlogar FINAL INSPECTOR TRUCK TRAILER.[employer] FACTORY WORKER Work Phone: [facility] 10-14-2023 13:16-0400 Body height 162.6 cm Crystal Liao MD Work Phone: [facility] 10-14-2023 13:16-0400 Body mass index (BMI) [Ratio] 25.23 kg/m2 Crystal Liao MD Work Phone: [facility] 10-14-2023 13:16-0400 Body weight 66.68 kg Crystal Liao MD Work Phone: [facility] 10-14-2023 13:16-0400 Diastolic blood pressure 76 mm[Hg] Crystal Liao MD Work Phone: [facility] 10-14-2023 13:16-0400 Systolic blood pressure 120 mm[Hg] Crystal Liao MD Work Phone: [facility] 08-24-2023 17:01-0400 Body weight 66.77 kg Marah Podlogar FINAL INSPECTOR TRUCK TRAILER.[employer] FACTORY WORKER Work Phone: [facility] 08-24-2023 17:01-0400 Diastolic blood pressure 82 mm[Hg] Marah Podlogar FINAL INSPECTOR TRUCK TRAILER.[employer] FACTORY WORKER Work Phone: [facility] 08-24-2023 17:01-0400 Heart rate 79 /min Marah Podlogar FINAL INSPECTOR TRUCK TRAILER.[employer] FACTORY WORKER Work Phone: [facility] 08-24-2023 17:01-0400 Respiratory rate 18 /min Marah Podlogar FINAL INSPECTOR TRUCK TRAILER.[employer] FACTORY WORKER Work Phone: [facility] 08-24-2023 17:01-0400 SaO2% (BldA) [Mass fraction] 98 % Marah Podlogar FINAL INSPECTOR TRUCK TRAILER.[employer] FACTORY WORKER Work Phone: [facility] 08-24-2023 17:01-0400 Systolic blood pressure 118 mm[Hg] Marah Podlogar FINAL INSPECTOR TRUCK TRAILER.[employer] FACTORY WORKER Work Phone: [facility] 04-20-2023 17:54-0500 Body weight 68.49 kg Marah Podlogar FINAL INSPECTOR TRUCK TRAILER.[employer] FACTORY WORKER Work Phone: [facility] 04-20-2023 17:54-0500 Diastolic blood pressure 74 mm[Hg] Marah Podlogar FINAL INSPECTOR TRUCK TRAILER.[employer] FACTORY WORKER Work Phone: [facility] 04-20-2023 17:54-0500 Heart rate 92 /min Marah Podlogar FINAL INSPECTOR TRUCK TRAILER.[employer] FACTORY WORKER Work Phone: [facility] 04-20-2023 17:54-0500 Respiratory rate 16 /min Marah Podlogar FINAL INSPECTOR TRUCK TRAILER.[employer] FACTORY WORKER Work Phone: [facility] 04-20-2023 17:54-0500 SaO2% (BldA) [Mass fraction] 95 % Marah Podlogar FINAL INSPECTOR TRUCK TRAILER.[employer] FACTORY WORKER Work Phone: [facility] 04-20-2023 17:54-0500 Systolic blood pressure 98 mm[Hg] Marah Podlogar FINAL INSPECTOR TRUCK TRAILER.[employer] FACTORY WORKER Work Phone: [facility] 02-23-2023 07:54-0400 Body weight 70.03 kg Marah Podlogar FINAL INSPECTOR TRUCK TRAILER.[employer] FACTORY WORKER Work Phone: [facility] 02-23-2023 07:54-0400 Diastolic blood pressure 80 mm[Hg] Marah Podlogar FINAL INSPECTOR TRUCK TRAILER.[employer] FACTORY WORKER Work Phone: [facility] 02-23-2023 07:54-0400 Heart rate 100 /min Marah Podlogar FINAL INSPECTOR TRUCK TRAILER.[employer] FACTORY WORKER Work Phone: [facility] 02-23-2023 07:54-0400 Respiratory rate 16 /min Marah Podlogar FINAL INSPECTOR TRUCK TRAILER.[employer] FACTORY WORKER Work Phone: [facility] 02-23-2023 07:54-0400 SaO2% (BldA) [Mass fraction] 98 % Marah Podlogar FINAL INSPECTOR TRUCK TRAILER.[employer] FACTORY WORKER Work Phone: [facility] 02-23-2023 07:54-0400 Systolic blood pressure 112 mm[Hg] Marah Podlogar FINAL INSPECTOR TRUCK TRAILER.[employer] FACTORY WORKER Work Phone: [facility] 01-22-2022 14:16-0400 Body weight 69.94 kg Marah Podlogar FINAL INSPECTOR TRUCK TRAILER.[employer] FACTORY WORKER Work Phone: [facility] 01-22-2022 14:16-0400 Diastolic blood pressure 78 mm[Hg] Marah Podlogar FINAL INSPECTOR TRUCK TRAILER.[employer] FACTORY WORKER Work Phone: [facility] 01-22-2022 14:16-0400 Heart rate 96 /min Marah Podlogar FINAL INSPECTOR TRUCK TRAILER.[employer] FACTORY WORKER Work Phone: [facility] 01-22-2022 14:16-0400 Respiratory rate 16 /min Marah Podlogar FINAL INSPECTOR TRUCK TRAILER.[employer] FACTORY WORKER Work Phone: [facility] 01-22-2022 14:16-0400 SaO2% (BldA) [Mass fraction] 98 % Marah Podlogar FINAL INSPECTOR TRUCK TRAILER.[employer] FACTORY WORKER Work Phone: [facility] 01-22-2022 14:16-0400 Systolic blood pressure 106 mm[Hg] Marah Garcia APRN.CNP Work Phone: [facility] Encounters Encounter Date Encounter Type Care Provider Facility Start: 12-17-2024 Evaluation and manag ement of inpatient Summer Garduno Facility:[facility] Start: 12-11-2024 End: 12-11-2024 ambulatory Cheryl Duongkashif GARCIA [facility] Start: 12-11-2024 End: 12-11-2024 Patient encounter procedure Cheryl Duongkashif GARCIA [facility] Comment on above: Population Health Na vigation Outreach (Ob/peds) Start: 12-10-2024 End: 12-10-2024 Patient encounter procedure Summer Garduno CN -[facility] Work Phone: Comment [...] trimester (HCC) Start: 12-04-2024 End: 12-04-2024 ambulatory [facility] Facility:[facility] Start: 12-04-2024 End: 12-07-2024 Telephone encounter Kirstie Strauss MD Work Phone: OB/Gynecology Start: 11-30-2024 End: 11-30-2024 Patient encounter procedure Kirstie Strauss MD Work Phone: OB/Gynecology Comment on above: 36 weeks gestation o f ([facility]) (Primary Dx); Encounter for supervision of high risk in third trimester, antepartum ([facility]); Polyhydramnios affecting in third trimester ([facility]) Start: 11-30-2024 End: 11-30-2024 [facility] Start: 11-27-2024 End: 11-27-2024 Telephone encounter Quinn Davis APRN.CNP Work Phone: OB/Gynecology Comment on above: Appointment Start: 11-19-2024 End: 11-19-2024 Patient encounter procedure Summer Garduno APRN.CNM Work Phone: OB/Gynecology Comment on above: Encounter for superv ision of high risk in third trimester, antepartum (HCC) (Primary Dx); Polyhydramnios affecting in third trimester ([facility]); 35 weeks gestation of ([facility]) Start: 11-19-2024 End: 11-19-2024 ambulatory [facility] Facility:[facility] Start: 11-14-2024 End: 11-14-2024 Patient encounter procedure Trinity Burrows MD Work Phone: OB/Gynecology Comment on above: Encounter for superv ision of high risk in third trimester, antepartum (HCC) (Primary Dx); Polyhydramnios affecting in third trimester ([facility]); Breech presentation, single or unspecified fetus (HCC); Gastroesophageal reflux disease without esophagitis; 34 weeks gestation of ([facility]) Start: 11-14-2024 End: 11-14-2024 ambulatory Summer Garduno APRN.CNM Work Phone: OB/Gynecology Comment on above: Abdominal pain Start: 11-07-2024 End: 11-07-2024 Telephone encounter Libby Bob APRN.CNM Work Phone: OB/Gynecology Start: 11-05-2024 End: 11-05-2024 Patient encounter procedure Whi Tech 1 Perfect [employer] [facility]aternal [facility] Comment on [...] Start: 10-30-2024 End: 10-31-2024 Telephone encounter Summer Garduno APRN.CNM Work Phone: OB/Gynecology Comment on above: Breast Pump Start: 10-19-2024 End: 10-19-2024 Patient encounter procedure Quinn Davis APRN.CNP Work Phone: OB/Gynecology Comment on above: Encounter for superv ision of high risk in third trimester, antepartum (HCC) (Primary Dx); 30 weeks gestation of (HCC); Polyhydramnios affecting in third trimester (HCC); Elevated blood pressure affecting in second trimester, antepartum (HCC); Breech presentation, single or unspecified fetus (HCC); Gastroesophageal reflux disease without esophagitis Start: 10-19-2024 End: 10-19-2024 ambulatory JACKELYN SINGER Facility:[facility] Start: 10-11-2024 End: 10-11-2024 ambulatory JACKELYN SINGER Facility:[facility] Start: 10-03-2024 End: 10-03-2024 Patient encounter procedure Libby Bob APRN.CNM Work Phone: OB/Gynecology Comment on above: Encounter for superv ision of normal first in third trimester (HCC) (Primary Dx); 28 weeks gestation of (HCC); Anxiety with depression; Need for vaccination; Gastroesophageal reflux disease without esophagitis Start: 10-03-2024 End: 10-03-2024 ambulatory JACKELYN SINGER Facility:[facility] Start: 09-28-2024 End: 10-01-2024 Telephone encounter Libby Bob APRN.CNM Work Phone: OB/Gynecology Comment on above: OB Tachycardia Start: 09-28-2024 End: 09-28-2024 ambulatory Nic Cain Facility:[facility] Start: 09-28-2024 End: 09-28-2024 Non-patient / Non-visit Dr. Nic Cain MD -[facility] Work Phone: Start: 09-28-2024 End: 09-28-[address] Rachel Morales MD Work Phone: [facility] Work Phone: Start: 09-28-2024 End: 09-28-[address] Rachel Morales MD -[facility] [place] Work Phone: Start: 09-05-2024 End: 09-05-2024 Patient encounter procedure Crystal Liao MD Work Phone: OB/Gynecology Comment on above: Encounter for superv ision of normal first in second trimester (HCC) (Primary Dx); 24 weeks gestation of (HCC); Screening for diabetes mellitus Start: 09-05-2024 End: 09-05-2024 ambulatory CRYSTAL LIAO Facility:[facility] Start: 08-17-2024 End: 08-17-2024 Refill Marah Garcia APRN.CNP Work Phone: [facility] Comment on above: Refill Request Start: 08-09-2024 End: 08-09-2024 Refill Summer Garduno APRN.CNM Work Phone: OB/Gynecology Comment on above: Med Change Request Start: 08-08-2024 End: 08-08-2024 [facility] Start: 08-08-2024 End: 08-08-2024 Patient encounter procedure Libbyclarissa Bob APRN.CNM Work Phone: OB/Gynecology Comment on above: Encounter for superv ision of normal first in first trimester (Primary Dx); Anxiety and depression; Heartburn during in second trimester Encounter for anatomic survey (Primary Dx); 20 weeks gestation of Start: 08-08-2024 End: 08-08-2024 ambulatory JACKELYN SINGER Facility:[facility] Start: 08-08-2024 End: 10-08-2024 Follow-up encounter Rachel Morales MD Work Phone: OB/Gynecology Start: 07-27-2024 End: 07-30-2024 Refill Marah Garcia 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 Work Phone: [facility] Comment on above: Refill Request Start: 07-11-2024 End: 07-11-2024 ambulatory JACKELYN SINGER Facility:[facility] Start: 07-11-2024 End: 07-11-2024 Patient encounter procedure Summer Garduno APRN.CNDurga Work Phone: OB/Gynecology Comment on above: 16 weeks gestation o f (Primary Dx); Encounter for supervision of normal first in first trimester; Anxiety with depression; Anxiety; Gastroesophageal reflux disease without esophagitis Start: 06-13-2024 End: 06-13-2024 Patient encounter procedure Whi Tech 1 Perfect [employer] Maternal [facility] Comment on above: Encounter for antena christopher screening for malformation using ultrasound (Primary Dx); 12 weeks gestation of Start: 06-13-2024 End: 06-13-2024 ambulatory JACKELYN SINGER Facility:[facility] Start: 06-13-2024 End: 06-13-2024 Patient encounter procedure [...] uestion Start: 05-09-2024 End: 05-09-2024 ambulatory JACKELYN SINGER Facility:[facility] Start: 05-09-2024 End: 05-09-2024 Patient encounter procedure Summer Garduno FINAL INSPECTOR TRUCK TRAILER.CNDurga Work Phone: OB/Gynecology Comment on above: 7 weeks gestation of (Primary Dx); with uncertain dates, antepartum; Encounter for supervision of normal first in first trimester; Gastroesophageal reflux disease without esophagitis; Anxiety; Nausea Start: 04-16-2024 End: 04-17-2024 ambulatory Marah Podlogjennifer FINAL INSPECTOR TRUCK TRAILERANNA MARIE Work Phone: [facility] [place] Comment on above: Anxiety medication Start: 03-14-2024 End: 03-14-2024 Refill Marah Podlogar FINAL INSPECTOR TRUCK TRAILER.[employer] FACTORY WORKER Work Phone: [facility] [place] Comment on above: Refill Request Start: 10-26-2023 End: 10-26-2023 Patient encounter procedure Marah Podlogar FINAL INSPECTOR TRUCK TRAILER.[employer] FACTORY WORKER Work Phone: [facility] [place] Comment on above: Annual physical exam (Primary Dx); Vitamin D insufficiency; Anxiety with depression Start: 10-14-2023 End: 10-14-2023 Patient encounter procedure Crystal Liao MD Work Phone: OB/Gynecology Comment on above: Encounter for gyneco logical examination (general) (routine) without abnormal findings (Primary Dx); Screening for cervical cancer Start: 10-14-2023 End: 10-14-2023 Patient encounter status Crystal Liao MD Work Phone: [facility] Start: 08-24-2023 End: 08-24-2023 Patient encounter procedure Marah Podlogar FINAL INSPECTOR TRUCK TRAILER.[employer] FACTORY WORKER Work Phone: Family [facility] [place] Comment on above: Anxiety with depress ion (Primary Dx); Impacted cerumen of left ear; Heartburn Start: 04-20-2023 End: 04-20-2023 Patient encounter procedure Marah Podlogar FINAL INSPECTOR TRUCK TRAILER.[employer] FACTORY WORKER Work Phone: [facility] [place] Comment on above: Acute bilateral low back pain without sciatica (Primary Dx) Start: 02-25-2023 Telephone encounter Marah Podl ogar FINAL INSPECTOR TRUCK TRAILER.[employer] FACTORY WORKER Work Phone: [facility] [place] Comment on above: Results Start: 02-23-2023 End: 02-23-2023 Patient encounter procedure Marah Podlogar FINAL INSPECTOR TRUCK TRAILER.[employer] FACTORY WORKER Work Phone: [facility] [place] Comment on above: Hair loss (Primary D x); Brain fog; Vitamin D deficiency Start: 11-22-2022 ambulatory Marah Podlogar FINAL INSPECTOR TRUCK TRAILER.[employer] FACTORY WORKER Work Phone: [facility] [place] Comment on above: medication Start: 11-10-2022 End: 11-10-2022 ambulatory Marah Podlogar FINAL INSPECTOR TRUCK TRAILER.[employer] FACTORY WORKER Work Phone: [facility] [place] Comment on above: Anxiety with depress ion (Primary Dx) Start: 11-10-2022 End: 11-10-2022 Telemedicine consultation with patient Marah Podlogar FINAL INSPECTOR TRUCK TRAILER.[employer] FACTORY WORKER Work Phone: [facility] [place] Start: 04-12-2022 Refill Jackelyn Singer MD Work Phone: [facility] [place] Comment on above: Refill Request Start: 01-22-2022 End: 01-22-2022 Patient encounter procedure Marah Podlogar FINAL INSPECTOR TRUCK TRAILER.[employer] FACTORY WORKER Work Phone: [facility] [place] Comment on above: Anxiety and depressi on (Primary Dx) Start: 01-13-2022 Refill Jackelyn Singer MD Work Phone: [facility] [place] Start: 01-09-2022 Refill Marah Jose FINAL INSPECTOR TRUCK TRAILER.[employer] FACTORY WORKER Work Phone: [facility] [place] Comment on above: Refill Request Start: 09-25-2021 Telephone encounter Yusef Singer MD Work Phone: [facility] [place] Comment on above: Results Start: 09-21-2021 Refill Jackelyn Singer MD Work Phone: [facility] [place] Comment on above: Refill Request Start: 01-19-2021 Telephone encounter Yusef Singer MD Work Phone: [facility] [place] Comment on above: Appointment Start: 01-02-2021 Chart Update Skinny blankenship MD Work Phone: [facility] Work Phone: Procedures Date Procedure Procedure Detail [...] Us nuchal francis slucency 1st gestation Summer Garduno FINAL INSPECTOR TRUCK TRAILER.CNM Work Phone: Start: 06-13-2024 Antibody screen TISH SINGER Comment on above: Order Comment: Speci men Type: BLOOD SPECIMENOrdering Facility: [facility] Address: [address] [place] [address] Result Comment: Trino ected result: Previously reported as Invalid on 06/14/2024 at 11:50 AM EST. Performed By: #### T SPN ####CC MAIN BLOOD BANKCLIA [id number] [facility] [id number] [place] [address] [place] Start: 05-09-2024 Us uterus l imited 1 fetuses Summer Garduno FINAL INSPECTOR TRUCK TRAILER.CNM Work Phone: Start: 01-22-2022 Adult depression scr eening assessment Marah Woodardlogjennifer FINAL INSPECTOR TRUCK TRAILER.[employer] FACTORY WORKER Work Phone: Start: 02-02-2021 Adult depression scr eening assessment Jackelyn Singer MD Work Phone: Plan of Treatment Date Care Activity Detail Author Start: 10-03-2034 Urine microalbumin profile DTaP,Tdap,Td Vaccine (8 - Td or Tdap) [facility] Start: 10-13-2026 Screening for malign ant neoplasm of cervix Cervical Cancer Screening [facility] Start: 01-21-2025 Influenza vaccination Influenza Vacc ine (#1) [facility] Start: 12-31-2024 End: 12-31-2024 Patient encounter procedure 12/31/2024 3:10 PM EDT Routine Office Visit OB/Gynecology [address] [place] [phone] Trinity Burrows MD [address] [place] [id number] OB OB/Gynecology Comment on above: OB Start: 12-24-2024 End: 12-24-2024 Patient encounter procedure 12/24/2024 3:15 PM EDT Routine Office Visit OB/Gynecology [address] [place] [id number] Summer Garduno APRN.[facility] [address] [place] [address] OB OB/Gynecology Comment on above: OB Start: 12-17-2024 End: 12-17-2024 Patient encounter procedure 12/17/2024 3:10 PM EDT Routine Office Visit OB/Gynecology [address] [place] [address] Trinity Burrows MD [address] [place] [address] OB OB/Gynecology Comment on above: OB Start: 12-10-2024 Patient discharge [facility] Start: 12-10-2024 Nonstress test [facility] Start: 12-10-2024 Obstetric monitoring [facility] Start: 12-10-2024 Vital signs measurements [facility] Start: 12-10-2024 [facility] Start: 12-10-2024 End: 12-10-2024 Patient encounter procedure 12/10/2024 4:20 PM EDT Routine Office Visit OB/Gynecology [address] [place] [address] Crystal Berry MD [address] [place] [address] OB OB/Gynecology Comment on above: OB Start: 12-04-2024 End: 12-04-2024 Patient encounter procedure Maternal Medicine Comment on above: Growth Growth/OB Start: 11-30-2024 End: 11-30-2024 Patient encounter procedure 11/30/2024 2:40 PM EDT Routine Office Visit OB/Gynecology [address] [place] [address] Kirstie Strauss MD [address] [place] [address] OB OB/Gynecology Comment on above: OB Start: 11-29-2024 End: 11-29-2024 Patient encounter procedure 11/29/2024 3:45 PM EDT Routine Office Visit OB/Gynecology [address] [place] [address] Quinn Davis, FINAL INSPECTOR TRUCK TRAILER.[employer] FACTORY WORKER [address] [place] [address] (Fax) OB OB/Gynecology Comment on above: OB Start: 11-19-2024 End: 11-19-2024 Patient encounter procedure 11/19/2024 3:15 PM EDT Routine Office Visit OB/Gynecology [address] [place] [address] Summer Garduno APRN.CNM [address] [place] [address] (Fax) OB OB/Gynecology Comment on above: OB Start: 11-05-2024 End: 11-05-2024 Patient encounter procedure OB/Gynecology Comment on above: Growth US @3:30 / OB Growth Start: 10-19-2024 End: 10-19-2024 Patient encounter procedure 10/19/2024 3:45 PM EDT Routine Office Visit OB/Gynecology [address] [place] [address] Quinn Davis, FINAL INSPECTOR TRUCK TRAILER.[employer] FACTORY WORKER [address] [place] [address] (Fax) OB OB/Gynecology Comment on above: OB Start: 10-18-2024 End: 10-18-2024 Patient encounter procedure 10/18/2024 11:20 AM EDT Office Visit OB/Gynecology [address] [place] [address] Crystal Berry MD [address] [place] [address] (Fax) Annual OB/Gynecology Comment on above: Annual Start: 10-05-2024 End: 01-04-2025 ANEMIA REFLEX PANEL ANEMIA REFLEX PANEL Lab Routine Encounter for supervision of normal first in second trimester ([facility]) Expected: 10/05/2024, Expires: 01/04/2025 [facility] Comment on above: Expected: 10/05/2024 , Expires: 01/04/2025 Start: 10-05-2024 End: 09-05-2025 GESTATIONAL GLUCOSE SCREEN, 1-HOUR, 50 GRAM, NON-FASTING GESTATIONAL GLUCOSE SCREEN, 1-HOUR, 50 GRAM, NON-FASTING Lab Routine Screening for diabetes mellitus Expected: 10/05/2024, Expires: 09/05/2025 [facility] Work Phone: Comment on above: Expected: 10/05/2024 , Expires: 09/05/2025 Start: 10-05-2024 End: 09-05-2025 SYPHILIS TREPONEMAL W/REFLEX SYPHILIS TREPONEMAL W/REFLEX Lab Routine Encounter for supervision of normal first in second trimester ([facility]) Expected: 10/05/2024, Expires: 09/05/2025 [facility] Comment on above: Expected: 10/05/2024 , Expires: 09/05/2025 Start: 10-03-2024 End: 01-02-2025 Protein/Creatinine [Mass Ratio] in Urine [facility] Work Phone: Comment on above: Expected: 10/03/2024 , Expires: 01/02/2025 Start: 10-03-2024 End: 10-03-2024 Patient encounter procedure 10/03/2024 10:30 AM EDT Routine Office Visit OB/Gynecology [address] [place] [address] Libby Bob APRN.CN [address] [place] [address] OB Routine OB/Gynecology Comment on above: OB Routine Start: 10-03-2024 End: 10-03-2024 ambulatory 10/03/2024 10:15 AM EDT Results Only [place] [facility] Laboratory [address] [place] [address] Glucose Test and LABs [facility] Comment on above: Glucose Test and LAB s Start: 09-28-2024 Nonstress test [facility] Start: 09-28-2024 Obstetric monitoring [facility] Start: 09-28-2024 Vital signs measurements [facility] Start: 09-28-2024 [facility] Start: 09-28-2024 Patient discharge [facility] Start: 09-05-2024 End: 09-05-2024 Patient encounter procedure 09/05/2024 3:50 PM EDT Routine Office Visit OB/Gynecology [address] [place] [address] Crystal Berry MD [address] [place] [address] OB OB/Gynecology Comment on above: OB Start: 08-08-2024 End: 08-08-2024 Patient encounter procedure Maternal Medicine Comment on above: Anatomy Scan OB Routine Start: 07-11-2024 End: 07-11-2024 Patient encounter procedure 07/11/2024 3:15 PM EST Routine Office Visit OB/Gynecology [address] [place] [address] Summer Garduno APRN.CNM [address] [place] [address] OB Routine OB/Gynecology Comment on above: OB Routine Start: 06-13-2024 End: 06-13-2024 Patient encounter procedure 06/13/2024 2:30 PM EST Routine Office Visit Maternal Medicine [address] [place] [address] Nuchal [facility]aternal [facility] Comment on above: Nuchal Start: 06-13-2024 End: 09-12-2024 Chromosome 21 trisomy [Presence] in Blood or Tissue by Cytogenetics [facility] Comment on above: Expected: 06/13/2024 , Expires: 09/12/2024 Start: 06-13-2024 End: 06-13-2025 OBSTETRIC ULTRASOUND WHI OBSTETRIC ULTRASOUND WHI Anc Imaging Routine Encounter for supervision of normal first in first trimester 12 weeks gestation of Expected: 06/13/2024, Expires: 06/13/2025 [facility] Work Phone: Comment on above: Expected: 06/13/2024 , Expires: 06/13/2025 Start: 06-13-2024 End: 06-13-2024 Patient encounter procedure 06/13/2024 1:10 PM EST Routine Office Visit OB/Gynecology [address] [place], [place] [phone] Rachel Morales MD [address] [place], [place] [phone] 1st OB OB/Gynecology Comment on above: 1st OB Start: 05-09-2024 End: 08-08-2024 ANEMIA REFLEX PANEL ANEMIA REFLEX PANEL Lab Routine 7 weeks gestation of Expected: 05/09/2024, Expires: 08/08/2024 [facility] Work Phone: Comment on above: Expected: 05/09/2024 , Expires: 08/08/2024 Start: 05-09-2024 End: 08-08-2024 Hemoglobin A1c in Blood HEMOGLOBIN A1C Lab Routine 7 weeks gestation of Expected: 05/09/2024, Expires: 08/08/2024 [facility] Comment on above: Expected: 05/09/2024 , Expires: 08/08/2024 Start: 05-09-2024 End: 08-08-2024 Hepatitis B virus surface Ag [Presence] in Serum HEPATITIS B SURFACE ANTIGEN Lab Routine 7 weeks gestation of Expected: 05/09/2024, Expires: 08/08/2024 [facility] Comment on above: Expected: 05/09/2024 , Expires: 08/08/2024 Start: 05-09-2024 End: 08-08-2024 Hepatitis C virus Ab [Presence] in Serum HEPATITIS C ANTIBODY IA WITH CONFIRMATION Lab Routine 7 weeks gestation of Expected: 05/09/2024, Expires: 08/08/2024 [facility] Comment on above: Expected: 05/09/2024 , Expires: 08/08/2024 Start: 05-09-2024 End: 08-08-2024 HIV 1+2 Ab [Presence] in Serum or Plasma by Immunoassay HIV 1/2 COMBO WITH REFLEX TO DIFFERENTIATION Lab Routine 7 weeks gestation of Expected: 05/09/2024, Expires: 08/08/2024 [facility] Comment on above: Expected: 05/09/2024 , Expires: 08/08/2024 Start: 05-09-2024 End: 05-09-2025 NUCHAL TRANSLUCENCY WHI NUCHAL TRANSLUCENCY WHI Anc Imaging Routine 7 weeks gestation of Expected: 05/09/2024, Expires: 05/09/2025 [facility] Comment on above: Expected: 05/09/2024 , Expires: 05/09/2025 Start: 05-09-2024 End: 05-09-2025 OBSTETRIC ULTRASOUND WHI OBSTETRIC ULTRASOUND WHI Anc Imaging Routine 7 weeks gestation of Expected: 05/09/2024, Expires: 05/09/2025 [facility] Comment on above: Expected: 05/09/2024 , Expires: 05/09/2025 Start: 05-09-2024 End: 08-08-2024 RUBELLA IGG ANTIBODY RUBELLA IGG ANTIBODY Lab Routine 7 weeks gestation of Expected: 05/09/2024, Expires: 08/08/2024 [facility] Comment on above: Expected: 05/09/2024 , Expires: 08/08/2024 Start: 05-09-2024 End: 08-08-2024 SYPHILIS TREPONEMAL W/REFLEX SYPHILIS TREPONEMAL W/REFLEX Lab Routine 7 weeks gestation of Expected: 05/09/2024, Expires: 08/08/2024 [facility] Comment on above: Expected: 05/09/2024 , Expires: 08/08/2024 Start: 05-09-2024 End: 08-08-2024 TYPE + SCREEN TYPE + SCREEN Blood Bank Routine 7 weeks gestation of Expected: 05/09/2024, Expires: 08/08/2024 [facility] Comment on above: Expected: 05/09/2024 , Expires: 08/08/2024 Start: 01-22-2024 Covid-19 Vaccine () Covid-19 Vaccine () [facility] Start: 01-22-2024 Covid-19 Vaccine () Covid-19 Vaccine () [facility] Start: 01-22-2024 Influenza vaccination [facility] Start: 10-26-2023 End: 10-26-2023 Patient encounter procedure 10/26/2023 5:40 PM EDT [facility] [address] [facility] [place] [place] [address] PodlogarMarah 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 [address] [place] [address] Physical Family Medicine [facility] Comment on above: Physical Start: 10-26-2023 End: 01-25-2024 25-hydroxyvitamin D3 [Mass/volume] in Serum or Plasma VITAMIN D 25 HYDROXY Lab Routine Vitamin D insufficiency Expected: 10/26/2023, Expires: 01/25/2024 [facility] Work Phone: Comment on above: Expected: 10/26/2023 , Expires: 01/25/2024 Start: 06-30-2023 PAP TESTING PAP TESTING [facility] Start: 06-30-2023 Screening for malign ant neoplasm of cervix Pap Testing [facility] Start: 2023 End: 07-27-2023 25-hydroxyvitamin D3 [Mass/volume] in Serum or Plasma VITAMIN D 25 HYDROXY Lab Routine Vitamin D deficiency Expected: 2023, Expires: 07/27/2023 [facility] Work Phone: Comment on above: Expected: 2023 , Expires: 07/27/2023 Start: 01-22-2023 Adult depression screening assessment DEPRESSION SCREENING [facility] Start: 01-21-2023 Covid-19 Vaccine ( season) Covid-19 Vaccine () [facility] Start: 01-21-2023 Influenza vaccination [facility] Start: 02-02-2022 Adult depression screening assessment DEPRESSION SCREENING [facility] Start: 01-21-2022 Influenza vaccination [facility] Start: 11-26-2021 Urine microalbumin profile [facility] Start: 10-09-2021 COVID-19 VACCINE (3 - Booster for Pfizer series) COVID-19 VACCINE (3 - Booster for Pfizer series) [facility] Start: 06-30-2021 CHLAMYDIA SCREENING (18-24) CHLAMYDIA SCREENING (18-24) [facility] Start: 06-30-2021 GC (GONORRHEA) SCREE WARREN (18-24) GC (GONORRHEA) SCREENING (18-24) [facility] Start: 2015 Meningococcal B Vacc ine: Consider Based On Risk (1 of 2 - Patient Seeks Protection) Meningococcal B Vaccine: Consider Based On Risk (1 of 2 - Patient Seeks Protection) [facility] Start: 2014 HPV Vaccine (1 - 3-d ose series) HPV Vaccine (1 - 3-dose series) [facility] Start: 2013 PEDS TO ADULT TRANSI TION ANNUAL ASSESSMENT PEDS TO ADULT TRANSITION ANNUAL ASSESSMENT [facility] Start: 2011 PEDS TO ADULT TRANSI TION INITIAL DISCUSSION PEDS TO ADULT TRANSITION INITIAL DISCUSSION [facility] Start: 2010 HPV VACCINE (1 - 2-d ose series) HPV VACCINE (1 - 2-dose series) [facility] Start: 2009 MENINGOCOCCAL B: Con land measurer based on risk (1 of 2 - Risk Bexsero 2-dose series) MENINGOCOCCAL B: Consider based on risk (1 of 2 - Risk Bexsero 2-dose series) [facility] Start: 2008 HPV VACCINE (1 - 2-d ose series) HPV VACCINE (1 - 2-dose series) [facility] Bacteria identified in Urine by Culture URINE CULTURE Microbiology Routine 7 weeks gestation of 05/09/2024 9:26 AM EST [facility] Chlamydia trachomatis+Neisseria gonorrhoeae DNA [Presence] in Unspecified specimen by NAHUM with probe detection GONORRHEA/CHLAMYDIA NAAT Lab Routine 7 weeks gestation of 05/09/2024 9:26 AM EST [facility] PAP TEST PAP TEST Lab Rou gracy Screening for cervical cancer 10/14/2023 1:43 PM EDT [facility] Work Phone: Patient Education Kick Counts ED False Labor OB Triage: Return to Hospital or Notify Physician if you Experience: [facility] Work Phone: Patient referral [facility] Work Phone: Removal impacted cer umen instrumentation unilat REMOVAL OF IMPACTED CERUMEN - INSTRUMENTATION Procedures Routine Impacted cerumen of left ear Ordered: 08/24/2023 [facility] Work Phone: Comment on above: Ordered: 08/24/2023 ROUTINE, GR OUP B STREPTOCOCCUS BY PCR ROUTINE, GROUP B STREPTOCOCCUS BY PCR Microbiology Routine 36 weeks gestation of (HCC) 11/30/2024 3:42 PM EDT [facility] URINE OB DIP B/O URINE OB DIP B/ O Lab Routine Encounter for supervision of high risk in third trimester, antepartum ([facility]) Polyhydramnios affecting in third trimester ([facility]) 35 weeks gestation of (HCC) Ordered: 11/19/2024 [facility] Work Phone: Comment on above: Ordered: 11/19/2024 URINE OB DIP B/O URINE OB DIP B/ O Lab Routine 36 weeks gestation of (HCC) Encounter for supervision of high risk in third trimester, antepartum ([facility]) Polyhydramnios affecting in third trimester ([facility]) Ordered: 11/30/2024 [facility] Work Phone: Comment on above: Ordered: 11/30/2024 [facility] Immunizations Immunization Date Immunization Notes Care Provider Santy keys 10-03-2024 tetanus toxoid, redu chantell diphtheria toxoid, and acellular pertussis vaccine, adsorbed Libby Bob FINAL INSPECTOR TRUCK TRAILER.CNM Work Phone: [facility] 06-20-2024 Seasonal trivalent influenza vaccine, adjuvanted, preservative free Summer Garduno FINAL INSPECTOR TRUCK TRAILER.CNM Work Phone: [facility] 06-20-2024 influenza virus vaccine, unspecified formulation Quinn Davis FINAL INSPECTOR TRUCK TRAILER.[employer] WORKER Work Phone: [facility] 03-10-2022 influenza, injectabl e, quadrivalent, preservative free Rachel Andrew MD Work Phone: [facility] 03-10-2022 influenza virus vaccine, unspecified formulation Marah Jose VALVERDE Work Phone: [facility] 02-24-2022 COVID-19 booster vaccine, age 12+ yr, bivalent (PFIZER-BIONTECH) Jackelyn Singer MD Work Phone: [facility] 02-24-2022 COVID-19 vaccine, ag e 12+ yr, bivalent (MODERNA) Rachel Morales MD Work Phone: [facility] 04-20-2021 COVID-19 vaccine, ag e 12+ yr (PFIZER-BIONTECH - PURPLE TOP) Jackelyn Singer MD Work Phone: [facility] 05-13-2020 influenza, injectabl e, quadrivalent, preservative free Rachel Morales MD Work Phone: [facility] 02-18-2019 Influenza, injectabl e, Madin Bella Canine Kidney, preservative free, quadrivalent Rachel Morales MD Work Phone: [facility] 12-29-2015 meningococcal polysaccharide (groups A, C, Y and W-135) diphtheria toxoid conjugate vaccine (MCV4P) Jackelyn Singer MD Work Phone: [facility] Work Phone: 12-08-2012 varicella virus vaccine Tarahi elle Singer MD Work Phone: [facility] 11-27-2011 Meningococcal, MCV4, unspecified conjugate formulation(groups A, C, Y and W-135) Jackelyn Singer MD Work Phone: [facility] Work Phone: 11-27-2011 tetanus toxoid, redu chantell diphtheria toxoid, and acellular pertussis vaccine, adsorbed Jackelyn Singer MD Work Phone: [facility] Work Phone: 04-01-2005 influenza virus vaccine, live, attenuated, for intranasal use Jackelyn Singer MD Work Phone: [facility] Work Phone: 10-30-2004 diphtheria, tetanus toxoids and acellular pertussis vaccine Jackelyn Singer MD Work Phone: [facility] Work Phone: 10-30-2004 measles, mumps and rubella virus vaccine Jackelyn Singer MD Work Phone: [facility] Work Phone: 10-30-2004 poliovirus vaccine, inactivated Jackelyn Singer MD Work Phone: [facility] Work Phone: 12-13-2000 haemophilus influenz ae type b vaccine, HbOC conjugate Jackelyn Singer MD Work Phone: [facility] Work Phone: 12-13-2000 pneumococcal conjuga te vaccine, 7 valent Jackelyn Singer MD Work Phone: [facility] Work Phone: 09-06-2000 diphtheria, tetanus toxoids and acellular pertussis vaccine Jackelyn Singer MD Work Phone: [facility] Work Phone: 09-06-2000 hepatitis B vaccine, pediatric or pediatric/adolescent dosage Jackelyn Singer MD Work Phone: [facility] Work Phone: 09-06-2000 poliovirus vaccine, inactivated Jackelyn Singer MD Work Phone: [facility] Work Phone: 05-31-2000 measles, mumps and rubella virus vaccine Jackelyn Singer MD Work Phone: [facility] Work Phone: 05-31-2000 pneumococcal conjuga te vaccine, 7 valent Jackelyn Singer MD Work Phone: [facility] Work Phone: 05-31-2000 varicella virus vaccine Melba Singer MD Work Phone: [facility] Work Phone: 02-29-2000 hepatitis B vaccine, pediatric or pediatric/adolescent dosage Jackelyn Singer MD Work Phone: [facility] Work Phone: 02-29-2000 pneumococcal conjuga te vaccine, 7 valent Jackelyn Singer MD Work Phone: [facility] Work Phone: 1999 diphtheria, tetanus toxoids and acellular pertussis vaccine Jackelyn Singer MD Work Phone: [facility] Work Phone: 1999 haemophilus influenz ae type b vaccine, HbOC conjugate Jackelyn Singer MD Work Phone: [facility] Work Phone: 1999 hepatitis B vaccine, pediatric or pediatric/adolescent dosage Jackelyn Singer MD Work Phone: [facility] Work Phone: 1999 diphtheria, tetanus toxoids and acellular pertussis vaccine Jackelyn Singer MD Work Phone: [facility] Work Phone: 1999 haemophilus influenz ae type b vaccine, HbOC conjugate Jackelyn Singer MD Work Phone: [facility] Work Phone: 1999 poliovirus vaccine, inactivated Jackelyn Singer MD Work Phone: [facility] Work Phone: 1999 diphtheria, tetanus toxoids and acellular pertussis vaccine Jackelyn Singer MD Work Phone: [facility] Work Phone: 1999 haemophilus influenz ae type b vaccine, HbOC conjugate Jackelyn Singer MD Work Phone: [facility] Work Phone: 1999 poliovirus vaccine, inactivated Jackelyn Singer MD Work Phone: [facility] Work Phone: Payers Date Payer Category Payer Self-pay 2018 Unknown MMO MMO [employer] [id number] 2018-Present [phone] [address] [place] [address] PPO [id number] 2018 Private Health Insurance MMO SU[employer] PPO [id number] 2018 Unknown 2018 Unknown [id number] Unknown [id number] Unknown COMMERCIAL OTHER [id number] Unknown [id number] Unknown [id number] Unknown [id number] Unknown [id number] Social History Date Type Detail Facility Start: 04-19-2019 End: 01-22-2022 Tobacco smoking status NHIS Never smoked tobacco [facility] Start: 08-25-2021 End: 12-04-2024 Alcohol intake Current non-drinker of alcohol (finding) [facility] Start: 2000 Sex Assigned At Not on file [facility] Start: 08-07-2021 End: 08-17-2021 Exposure to SARS-CoV-2 (event) Not sure [facility] Start: 01-22-2022 Tobacco use and exposure Smokeless tobacco non-user [facility] Start: 11-09-2022 History SDOH Alcohol Frequency 2 [facility] Start: 11-09-2022 History SDOH Alcohol Binge 1 [facility] Start: 11-09-2022 History SDOH Social Connections Phone 5 [facility] Start: 11-09-2022 History SDOH Social Connections Get Together 3 [facility] Start: 11-09-2022 History SDOH Physical Activity MPS 6 [facility] Start: 11-09-2022 History SDOH Stress 4 [facility] Start: 11-08-2022 End: 08-24-2023 History of Social function [facility] Start: 11-08-2022 End: 08-24-2023 Social connection and isolation panel [facility] Do you belong to any clubs or organizations such as faith groups, unions, fraternal or athletic groups, or school groups? No [facility] Are you now , , , , never or living with a partner? [facility] How often to you hav e a drink containing alcohol? Monthly or less [facility] How many standard dr inks containing alcohol do you have on a typical day? 3 or 4 [facility] How often do you hav e 6 or more drinks on 1 occasion? Never [facility] How hard is it for y ou to pay for the very basics like food, housing, medical care, and heating Not very hard [facility] Adult Depression Screening Assessment 2 [facility] Work Phone: Do you feel stress - tense, restless, nervous, or anxious, or unable to sleep at night because your mind is troubled all the time - these days [OSQ] Rather much [facility] (I/We) worried wheth er (my/our) food would run out before (I/we) got money to buy more. Never true [facility] Start: 05-07-2024 Education 15 [facility] Start: 04-02-2024 [facility] Start: 2000 Sex assigned at Female [facility] Start: 05-07-2024 Gender identity Identifies as female gender (finding) [facility] Start: 05-07-2024 Sexual orientation Heterosexual (finding) [facility] Start: 04-20-2019 [facility] Goals Date Patient Goal Desired Activity /State Personal health goal Functional Status Date Assessment Result Facility 12-26-2014 Are you deaf, or do you have serious difficulty hearing No 12/26/2014 7:59 AM Randy Renteria RN No [facility] 12-26-2014 Are you blind, or do you have serious difficulty seeing, even when wearing glasses No 12/26/2014 7:59 AM Randy Renteria RN No [facility] 12-26-2014 Do you have serious difficulty walking or climbing stairs No 12/26/2014 7:59 AM Randy Renteria RN No [facility] 12-26-2014 Do you have difficul ty dressing or bathing No 12/26/2014 7:59 AM Randy Renteria RN No [facility] 12-26-2014 Because of a physica l, mental, or emotional condition, do you have difficulty doing errands alone such as visiting a physician's office or shopping No 12/26/2014 7:59 AM Randy Renteria RN No [facility] Mental Status Date Assessment Result Facility 12-26-2014 Because of a physica l, mental, or emotional condition, do you have serious difficulty concentrating, remembering, or making decisions No 12/26/2014 7:59 AM Randy Renteria RN No [facility] Clinical Notes 09-21-2021 to 12-11-2024 Cheryl Page MA - 12/11/2024 2:44 PM EDTPrenatal Quick Notes - Crystal Berry MD - 12/10/2024 4:42 PM EDTPrenatal Quick Notes - Crystal Berry MD - 12/10/2024 4:42 PM EDT Note Date & Type Note Facility 12-11-2024 Note HNO ID: [id number] Author: CHERYL PAGE MA Service: ? Author Type: City Bailiff Type: Progress Notes Filed: 12/11/2024 14:47 Note [...] Wang MA December 11, 2024 2:45 PM [facility] 12-11-2024 History of Presen t illness [...] 2024 2:45 PM documented in this encounter [facility] 12-11-2024 Note Patient Outreach (NE TNAV) TALI GIBSON ([id number]) 89 F Date Time Provider Department 12/11/24 [...] Encounter Status:Closed by CHERYL PAGE on 12/11/24 [facility] 12-10-2024 Progress note Formatting of t [...] was discussed with the patient or authorized assistance representative. The patient or authorized assistance representative has agreed to proceed with the sensitive examination. @ 38 weeks Assessment & Plan Encounter for supervision of high risk in third trimester, antepartum (HCC) Orders: URINE OB DIP B/O Polyhydramnios affecting in third trimester (HCC) D/w patient LGA (AC>99%)/Obesity- will do NST today- at [facility] due to time at appt. - reviewed IOL 39-40 weeks pt agreeable and scheduled Orders: URINE OB DIP B/O 38 weeks gestation of (HCC) RTO next week Kick counts and labor reviewed Orders: URINE OB DIP B/O Crystal Cantrell MD [facility] 12-10-2024 Miscellaneous Notes DM-Pt doing well. Denies vaginal Bleeding, Leaking fluid, or regular Contractions. Pt reports good movement Physical Exam: Gen: female in no apparent distress Abd: soft, Gravid. Non tender to palpation. See flow sheet Participation of a fellow, resident, medical student, or advanced practice provider student in performing the sensitive examination was discussed with the patient or authorized assistance representative. The patient or authorized assistance representative has agreed to proceed with the sensitive examination. @ 38 weeks Assessment & Plan Encounter for supervision of high risk in third trimester, antepartum (HCC) Orders: URINE OB DIP B/O Polyhydramnios affecting in third trimester (HCC) D/w patient LGA (AC>99%)/Obesity- will do NST today- at [facility] due to time at appt. - reviewed IOL 39-40 weeks pt agreeable and scheduled Orders: URINE OB DIP B/O 38 weeks gestation of (HCC) RTO next week Kick counts and labor reviewed Orders: URINE OB DIP B/O Crystal Cantrell MD documented in this encounter [facility] 12-10-2024 Instructions Kelly Minor MA - 12/10/2024 4:10 PM EDT SEQUENTIAL SCREENINGS The [facility] offers sequential screenings for women who are [...] It will require an appointment with our petroleum laboratory technician. This is not an ultrasound performed [...] the above symptoms, contact our office at [phone] and ask to speak with a nurse. After hours, you can call doctors registry at [phone] OR call [facility] at [phone] and ask to have the doctor manager contracting paged. If you consider this an emergency, dial 01-21-7 or go to your nearest emergency department. NEED HELP? Are you dealing with a violent or abusive relationship? Are you a victim of rape or sexual assult? Call [facility]) 24 hour Crisis Hotline: 459.302.7100 or 626-232-5091. MANUAL Your Guide to a Healthy manual is now on-line. Visit [email or web address] [email or web address] to download your free copy documented in this encounter [facility] 12-07-2024 Telephone encounter Note FMLA completed and signed by provider 12/07/2024 Idalia Tong MA [facility] 12-07-2024 Miscellaneous Notes FMLA completed and signed by provider 12/07/2024 Idalia Tong MA Received FMLA from patient 12/04/2024, form is completed and in providers mailbox awaiting signature. Idalia Tong MA documented in this encounter [facility] 12-05-2024 Note Indication Evaluation of growth Impression [...] 5 oz EFW by: [employer] (HC-AC-FL) Extended Shoe Repairer Helper 5.4 mm Extremities / Bony Struc [place] [...] providers mailbox awaiting signature. Idalia Tong MA [facility] 12-04-2024 Progress note Formatting of t his note might be different from the original. KJ - S: Tali denies LOF, contractions or vaginal bleeding. O: 37w1d, see flow sheet SENSITIVE EXAM: Sensitive exam not performed. A/P: Assessment & Plan Polyhydramnios affecting in third trimester ([facility]) US today shows vertex, AGA infant at 74% with JERRY of 23. Encounter for supervision of high risk in third trimester, antepartum ([facility]) Orders: URINE OB DIP B/O Group beta Strep positive All questions answered & discussed treatment in labor. 37 weeks gestation of ([facility]) Orders: URINE OB DIP B/O Reviewed labor & FM precautions. Kirstie Strauss MD [facility] 12-04-2024 Miscellaneous Notes KJ - S: Tali denies LOF, contractions or vaginal bleeding. O: 37w1d, see flow sheet SENSITIVE EXAM: Sensitive exam not performed. A/P: Assessment & Plan Polyhydramnios affecting in third trimester ([facility]) US today shows vertex, AGA at 74% with JERRY of 23. Encounter for supervision of high risk in third trimester, antepartum ([facility]) Orders: URINE OB DIP B/O Group beta Strep positive All questions answered & discussed treatment in labor. 37 weeks gestation of ([facility]) Orders: URINE OB DIP B/O Reviewed labor & FM precautions. Kirstie Strauss MD documented in this encounter [facility] 12-04-2024 Instructions Idalia Tong MA - 12/04/2024 2:35 PM EDT SEQUENTIAL SCREENINGS The [facility] offers sequential screenings for women who are [...] It will require an appointment with our petroleum laboratory technician. This is not an ultrasound performed [...] the above symptoms, contact our office at [phone] and ask to speak with a nurse. After hours, you can call doctors registry at [phone] OR call [facility] at [phone] and ask to have the doctor manager contracting paged. If you consider this an emergency, dial 9-9- or go to your nearest emergency department. NEED HELP? Are you dealing with a violent or abusive relationship? Are you a victim of rape or sexual assult? Call [facility] ([place]) 24 hour Crisis Hotline: 461.899.8662 or 126-054-1285. MANUAL Your Guide to a Healthy manual is now on-line. Visit [email or web address] [email or web address] to download your free copy documented in this encounter [facility] 11-30-2024 Progress note Formatting of t his note might be different from the original. KJ - S: Tali denies LOF, contractions or vaginal bleeding. O: 36w4d, see flow sheet SENSITIVE EXAM: The sensitive examination was discussed with the Patient or Patient's Authorized Boiler Helper. As applicable, any other physician, advance practice provider, medical student, or other health professional student that will be observing or involved in the sensitive examination for educational or training purposes was discussed with the Patient or Authorized Boiler Helper. The Patient or Authorized Boiler Helper has agreed to proceed with the sensitive examination. (Sensitive examination includes inspection and/or palpation of the breasts, pelvis, prostate and anorectal regions). A/P: Assessment & Plan 36 weeks gestation of ([facility]) Orders: URINE OB DIP B/O ROUTINE, GROUP B STREPTOCOCCUS BY PCR Encounter for supervision of high risk in third trimester, antepartum ([facility]) Orders: URINE OB DIP B/O Polyhydramnios affecting in third trimester ([facility]) Repeat US next week Orders: URINE OB DIP B/O Reviewed labor & FM precautions Kirstie Strauss MD [facility] 11-30-2024 Miscellaneous Notes KJ - S: Tali denies LOF, contractions or vaginal bleeding. O: 36w4d, see flow sheet SENSITIVE EXAM: The sensitive examination was discussed with the Patient or Patient's Authorized Boiler Helper. As applicable, any other physician, advance practice provider, medical student, or other health professional student that will be observing or involved in the sensitive examination for educational or training purposes was discussed with the Patient or Authorized Boiler Helper. The Patient or Authorized Boiler Helper has agreed to proceed with the sensitive examination. (Sensitive examination includes inspection and/or palpation of the breasts, pelvis, prostate and anorectal regions). A/P: Assessment & Plan 36 weeks gestation of (HCC) Orders: URINE OB DIP B/O ROUTINE, GROUP B STREPTOCOCCUS BY PCR Encounter for supervision of high risk in third trimester, antepartum ([facility]) Orders: URINE OB DIP B/O Polyhydramnios affecting in third trimester ([facility]) Repeat US next week Orders: URINE OB DIP B/O Reviewed labor & FM precautions Kirstie Strauss MD documented in this encounter [facility] 11-30-2024 Instructions Diana Araujo MA - 11/30/2024 2:45 PM EDT SEQUENTIAL SCREENINGS The [facility] offers sequential screenings for women who are [...] It will require an appointment with our petroleum laboratory technician. This is not an ultrasound performed [...] the above symptoms, contact our office at [phone] and ask to speak with a nurse. After hours, you can call doctors registry at [phone] OR call [facility] at [phone] and ask to have the doctor manager contracting paged. If you consider this an emergency, dial 9-1-6 or go to your nearest emergency department. NEED HELP? Are you dealing with a violent or abusive relationship? Are you a victim of rape or sexual assult? Call [facility] ([place]) 24 hour Crisis Hotline: 776.532.6639 or 473-436-6999. MANUAL Your Guide to a Healthy manual is now on-line. Visit [email or web address] ancyGuide to download your free copy documented in this encounter [facility] 11-27-2024 Telephone encounter Note Appt scheduled with KJ 11/30 at 2:40pm. Brian Stratton RN [facility] 11-27-2024 Miscellaneous Notes Appt scheduled with KJ 11/30 at 2:40pm. Brian Stratton RN Ok [...] place Pt this week for appt with CNM/MD. Brian Stratton RN documented in this encounter [facility] 11-27-2024 Telephone encounter Note Ok for any 10 min opening w/ anyone. Schedules are very full right now. We only have so many options we can accommodate. Rachel Morales MD [facility] 11-27-2024 Telephone encounter Note I can see her this afternoon in one of my openings. Rachel Morales MD [facility] 11-27-2024 Telephone encounter Note Call placed to Pt this AM to reschedule her OB appt that is scheduled on 11/29/24 with as Pt is 36w1d. Pt unable to come in to office today. Needs PM appointments d/t work. Please advise where we can place Pt this week for appt with ROBYN/. Brian Stratton, RN T [facility] 11-19-2024 Progress note Formatting of t his [...] RTO 1 week Summer Garduno APRN.CNM T [facility] 11-19-2024 Miscellaneous Notes S: Tali Gibson is [...] Summer Garduno APRN.CNM documented in this encounter [facility] 11-19-2024 Instructions Summer Garduno APRN.CNM - 11/19/2024 [...] make an easy pie crust in the food counter attendant. Add soaked dates to homemade nut butter for a sweet treat. Add dates to art homemade salad dressing. Add dates during easily with these yummy (paleo friendly) bars made from dates. What Is Red Raspberry [place] Tea? Red raspberry leaf tea comes from [...] , and too. How Much Red Raspberry [place] Tea to Drink? With your doctor or accordion repairer s approval, start with 1 cup of [...] because of uterine cramping. Is Red Raspberry [place] Tea the Same as Raspberry [place] Tea? How About Plain Old Raspberry Tea? Sometimes. You really need to look at the ingredients to be sure. Note that there is no difference between red raspberry leaf and raspberry leaf. [employer] Op or [employer] Raspberry [place] Tea are two good brands. The red [...] of RRLT outlined in this article. [employer] www.[employer] I named this 'circuit' after my friend [...] sideways, 2 at a time, (have a hog trader downstairs of you!), take a walk outside [...] the pelvis. Margret Mistry: Circuit Creator - www.[email or web address] Radha Hall, CD, BDT (LOC), LCCE, FACCE: Supporting Content - [email or web address] Quinn Leahy: Photography - [email or web address] Bhumika Hillman CD/CDT (FRANCY): Print and Jacquard Loom Carpet Weaver - [email or web address] [employer] [facility] [email or web address] SEQUENTIAL SCREENINGS The [facility] offers sequential screenings for women who are [...] It will require an appointment with our petroleum laboratory technician. This is not an ultrasound performed [...] the above symptoms, contact our office at [phone] and ask to speak with a nurse. After hours, you can call doctors registry at [phone] OR call [facility] at [phone] and ask to have the doctor manager contracting paged. If you consider this an emergency, dial 9-1-4 or go to your nearest emergency department. NEED HELP? Are you dealing with a violent or abusive relationship? Are you a victim of rape or sexual assult? Call [facility] [place] ([facility] 24 hour Crisis Hotline: 612.301.5905 or 228-911-2890. MANUAL Your Guide to a Healthy manual is now on-line. Visit [email or web address] ancyGuide to download your free copy documented in this encounter [facility] 11-14-2024 Progress note Formatting of t his [...] of high risk in third trimester, antepartum ([facility]) - ICD9: V23.9, ICD10: O09.93 (primary diagnosis) - URINE OB DIP B/O 2. Polyhydramnios affecting in third trimester ([facility]) - ICD9: 657.03, ICD10: O40.3XX0 Repeat US at 36 weeks - URINE OB DIP B/O 3. Breech presentation, single or unspecified fetus ([facility]) - ICD9: 652.20, ICD10: O32.1XX0 Vtx today Has repeat at 36 weeks - URINE OB DIP B/O 4. Gastroesophageal reflux disease without esophagitis - ICD9: 530.81, ICD10: K21.9 - URINE OB DIP B/O 5. 34 weeks gestation of ([facility]) - ICD9: V22.2, ICD10: Z3A.34 - URINE OB DIP B/O Trinity Burrows MD [facility] 11-14-2024 Miscellaneous Notes S: Tali Gibson is [...] of high risk in third trimester, antepartum ([facility]) - ICD9: V23.9, ICD10: O09.93 (primary diagnosis) - URINE OB DIP B/O 2. Polyhydramnios affecting in third trimester ([facility]) - ICD9: 657.03, ICD10: O40.3XX0 Repeat US at 36 weeks - URINE OB DIP B/O 3. Breech presentation, single or unspecified fetus ([facility]) - ICD9: 652.20, ICD10: O32.1XX0 Vtx today Has repeat at 36 weeks - URINE OB DIP B/O 4. Gastroesophageal reflux disease without esophagitis - ICD9: 530.81, ICD10: K21.9 - URINE OB DIP B/O 5. 34 weeks gestation of ([facility]) - ICD9: V22.2, ICD10: Z3A.34 - URINE OB DIP B/O Trinity Burrows MD documented in this encounter [facility] 11-14-2024 Instructions Kelly Minor MA - 11/14/2024 3:21 PM EDT SEQUENTIAL SCREENINGS The [facility] offers sequential screenings for women who are [...] It will require an appointment with our petroleum laboratory technician. This is not an ultrasound performed [...] the above symptoms, contact our office at [phone] and ask to speak with a nurse. After hours, you can call doctors registry at [phone] OR call [facility] at [phone] and ask to have the doctor manager contracting paged. If you consider this an emergency, dial 9-1-9 or go to your nearest emergency department. NEED HELP? Are you dealing with a violent or abusive relationship? Are you a victim of rape or sexual assult? Call [facility] ([place]) 24 hour Crisis Hotline: 651.192.9129 or 211-490-9298. MANUAL Your Guide to a Healthy manual is now on-line. Visit [email or web address] ancyGuide to download your free copy documented in this encounter [facility] 11-14-2024 Telephone encounter Note Patient called back and appointment given for appointment in office. Lanny Bhakta RN [facility] 11-14-2024 Miscellaneous Notes Patient called back and [...] Next appointment is not until 11/19. Lanny Bhkata RN documented in this encounter [facility] 11-14-2024 Telephone encounter Note Patient 34w2d having [...] is not until 11/19. Lanny Bhakta RN [facility] 11-07-2024 Telephone encounter Note Sounds good thank you. Libby Bob APRN.CNM [facility] 11-07-2024 Miscellaneous Notes Sounds good thank you. [...] Smith, Coupons & Savings Tips - GoodRx Cirqlet message sent to patient regarding updating insurance info to submit PA for Doxycycline. Glynn Jeong MA documented in this encounter [facility] 11-07-2024 Telephone encounter Note Called and spoke with patient. Inquired if she picked up the prescription. She did not and does not plan on taking. She did some online research and spoke with a few people and has decided she doesn't feel comfortable taking.Trinity Ortiz, RN [facility] 11-07-2024 Telephone encounter Note Ok. Because this is time sensitive can discuss with her using self pay and good rx. Doxycycline Hyclate DR Smith, Coupons & Savings Tips - GoodRx [facility] 11-07-2024 Telephone encounter Note [employer] message sent to patient regarding updating insurance info to submit PA for Doxycycline. Glynn Jeong MA [facility] 11-06-2024 Telephone encounter Note Sent. Libby Bob APRN.CNM [facility] 11-06-2024 Miscellaneous Notes Sent. Libby Bob APRN.CNM documented in this encounter [facility] 11-06-2024 Note Indication Evaluation of growth Impression [...] 7 oz EFW by: Hadlock (HC-AC-FL) Extended Shoe Repairer Helper 5.1 mm Extremities / Bony Struc [place] [...] M.D. [facility] 11-05-2024 Note HNO ID: [id number] Author: LIBBY BOB APRN.ROBYN Service: ? Author Type: Development Assistant Type: Progress Notes Filed: 11/07/2024 16:54 Note Text: JAMIE-S: Talielgin Gibson is a 24 year old female [...] and when to call Libby Bob APRN.CNM [facility] 11-05-2024 History of Presen t illness [...] Libby Bob APRN.CNM documented in this encounter [facility] 11-05-2024 Instructions Glynn Jeong MA - 11/05/2024 3:01 PM EDT SEQUENTIAL SCREENINGS The [facility] offers sequential screenings for women who are [...] It will require an appointment with our petroleum laboratory technician. This is not an ultrasound performed [...] the above symptoms, contact our office at [phone] and ask to speak with a nurse. After hours, you can call doctors registry at [phone] OR call [facility] at [phone] and ask to have the doctor manager contracting paged. If you consider this an emergency, dial 9-1-1 or go to your nearest emergency department. NEED HELP? Are you dealing with a violent or abusive relationship? Are you a victim of rape or sexual assult? Call [facility] ([place]) 24 hour Crisis Hotline: 403.776.1380 or 227-125-0353. MANUAL Your Guide to a Healthy manual is now on-line. Visit [email or web address] ancyGuide to download your free copy documented in this encounter [facility] 10-31-2024 Telephone encounter Note Signed and faxed. Esther Recinos RN [facility] 10-31-2024 Miscellaneous Notes Signed and faxed. Esther Recinos RN Received breast pump RX from [employer]. To CP to sign. Trinity Ortiz, MAURO documented in this encounter [facility] 10-30-2024 Telephone encounter Note Received breast pump RX from [employer]. To CP to sign. Trinity Ortiz, RN [facility] 10-19-2024 Miscellaneous Notes EH - S: Tali [...] of high risk in third trimester, antepartum ([facility]) - ICD9: V23.9, ICD10: O09.93 (primary diagnosis) - Continue PNV and LDA 2. 30 weeks gestation of ([facility]) - ICD9: V22.2, ICD10: Z3A.30 3. Polyhydramnios affecting in third trimester ([facility]) - ICD9: 657.03, ICD10: O40.3XX0 - MVP 8.6 cm, JERRY 23.9 cm on 10/11 - Growth in 4 weeks 4. Elevated blood pressure affecting in second trimester, antepartum ([facility]) - ICD9: 642.93, ICD10: O16.2 - Has been keeping BP log at home - Averaging 110-120s/70s 5. Breech presentation, single or unspecified fetus ([facility]) - ICD9: 652.20, ICD10: O32.1XX0 - Recheck position at next growth - Discussed animal caregiver and movements to promote cephalic position 6. Gastroesophageal reflux disease without esophagitis - ICD9: 530.81, ICD10: K21.9 - Pepcid not effective - Trial Omeprazole PTL precautions and kick counts reviewed. RTO in 2 weeks or sooner as needed. Quinn Davis APRN.TYLER documented in this encounter [facility] 10-19-2024 Progress note Formatting of t his [...] of high risk in third trimester, antepartum ([facility]) - ICD9: V23.9, ICD10: O09.93 (primary diagnosis) - Continue PNV and LDA 2. 30 weeks gestation of ([facility]) - ICD9: V22.2, ICD10: Z3A.30 3. Polyhydramnios affecting in third trimester ([facility]) - ICD9: 657.03, ICD10: O40.3XX0 - MVP 8.6 cm, JERRY 23.9 cm on 10/11 - Growth in 4 weeks 4. Elevated blood pressure affecting in second trimester, antepartum ([facility]) - ICD9: 642.93, ICD10: O16.2 - Has been keeping BP log at home - Averaging 110-120s/70s 5. Breech presentation, single or unspecified fetus ([facility]) - ICD9: 652.20, ICD10: O32.1XX0 - Recheck position at next growth - Discussed animal caregiver and movements to promote cephalic position 6. Gastroesophageal reflux disease without esophagitis - ICD9: 530.81, ICD10: K21.9 - Pepcid not effective - Trial Omeprazole PTL precautions and kick counts reviewed. RTO in 2 weeks or sooner as needed. Quinn Davis 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 [facility] 10-19-2024 Instructions Barbara Escalera LPN - 10/19/2024 3:34 PM EDT SEQUENTIAL SCREENINGS The [facility] offers sequential screenings for women who are [...] It will require an appointment with our petroleum laboratory technician. This is not an ultrasound performed [...] the above symptoms, contact our office at [phone] and ask to speak with a nurse. After hours, you can call doctors registry at [phone] OR call [facility] at [phone] and ask to have the doctor manager contracting paged. If you consider this an emergency, dial 4 or go to your nearest emergency department. NEED HELP? Are you dealing with a violent or abusive relationship? Are you a victim of rape or sexual assult? Call [facility] ([place]) 24 hour Crisis Hotline: 509.204.3954 or 837-696-0705. MANUAL Your Guide to a Healthy manual is now on-line. Visit [email or web address] ancyGuide to download your free copy documented in this encounter [facility] 10-03-2024 Progress note Formatting of t his [...] RTO in 2 weeks Libby Bob APRN.CNM [facility] 10-03-2024 Miscellaneous Notes JAMIEArisS: Tali Gibson is a 24 year old [...] Libby Bob APRN.CNM documented in this encounter [facility] 10-03-2024 Note HNO ID: [id number] Author: GLYNN JEONG MA Service: ? Author Type: Photostat Operator Helper Type: Progress Notes Filed: 10/03/2024 12:19 Note [...] severely ill: Yes Patient denies history of Guillain-Warne Syndrome (a severe paralytic illness): Yes Tdap Adacel injection was given without incident. See immunizations for details of immunizations administered today. VIS sheet provided: Yes Provider Libby Bob APRN CNM was present in office at time of injection. Glynn Jeong MA [facility] 10-03-2024 History of Presen t illness [...] severely ill: Yes Patient denies history of Guillain-Warne Syndrome (a severe paralytic illness): Yes Tdap Adacel injection was given without incident. See immunizations for details of immunizations administered today. VIS sheet provided: Yes Provider Libby Bob APRN CNM was present in office at time of injection. Glynn Jeong MA documented in this encounter [facility] 10-03-2024 Instructions Libby Bob APRN.ROBYN - 10/03/2024 [...] away for further instructions Day Date Day Date Day Date Start Start Start End End End Minutes [...] the above symptoms, contact our office at [phone] and ask to speak with a nurse. After hours, you can call doctors registry at [phone] OR call [facility] at [phone] and ask to have the doctor manager contracting paged. If you consider this an emergency, dial 9-1-1 or go to your nearest emergency department. NEED HELP? Are you dealing with a violent or abusive relationship? Are you a victim of rape or sexual assult? Call [facility] ([place]) 24 hour Crisis Hotline: 192.836.2548 or 949-947-3200. MANUAL Your Guide to a Healthy manual is now on-line. Visit [email or web address] ancyGuide to download your free copy documented in this encounter [facility] 09-28-2024 Telephone encounter Note Patient was seen at [facility]. Trinity Ortiz RN [facility] 09-28-2024 Miscellaneous Notes Patient was seen at [facility]. Trinity Ortiz RN 27w4d Patient called with [...] Ate a banana with peanut butter and stateless toast sticks this morning. HANNY Ortiz RN documented in this encounter [facility] 09-28-2024 Evaluation note Diagnosis Onset Date Resolution 27 weeks gestation of acute September 28, 2024 8: 48am Tachycardia acute September 28, 2024 8:48am [facility] Work Phone: 1(572) 211-761105-09-2025 Telephone encounter Note* Telephone Encounter - Trinity [...] Ate a banana with peanut butter and stateless toast sticks this morning. HANNY Ortiz RN [facility]04-16-2025 Progress note* Quick Notes - Crystal Berry [...] 50 GRAM, NON-FASTING; Future Crystal Cantrell MD [facility]04-16-2025 Miscellaneous Notes* Quick Notes - Crystal Berry [...] Future Crystal Cantrell MD [facility] Instructions* Patient Instructions* Kelly Minor MA - 09/05/2024 3:35 PM EDT SEQUENTIAL SCREENINGS The [facility] offers sequential screenings for women who are [...] testing. It will require an appointment withour petroleum laboratory technician. This is not an ultrasound performed [...] the above symptoms, contact our office at [phone] and ask to speak with anurse. After hours, you can call doctors registry at [phone] OR call [facility] at [phone] ask to have the doctor manager contracting paged. If you consider this an emergency, dial 9-1-6 or go to your nearest emergency department. NEED HELP? Are you dealing with a violent or abusive relationship? Are you a victim of rape or sexual assult? Call [facility] ([place]) 24 hour Crisis Hotline: 910.132.2281 or 409-611-9699. MANUAL Your Guide to a Healthy manual is now on-line. Visit [email or web address] to download your free copy [facility] Telephone encounter Note * Telephone Encounter - [...] Pike LPN August 17, 2024 3:21 PM [facility]03-28-2025 Miscellaneous Notes* Telephone Encounter - Isael Pike [...] 17, 2024 3:21 PM [facility] Telephone encounter Note * Telephone Encounter - Lanny Bhakta RN - 08/09/2024 12:42 PM EDT Request received from pharmacy for 90 day Rx. Patient 20w3d last seen in office on 08/08. Lanny Bhakta RN [facility]03-20-2025 Miscellaneous Notes* Telephone Encounter - Lanny Bhakta RN - 08/09/2024 12:42 PM EDT Request received from pharmacy for 90 day Rx. Patient 20w3d last seen in office on 08/08. Lanny Bhakta RN [facility] Progress note* Result Encounter Note - Rachel Morales MD - 08/08/2024 4:52 PM EDT Anatomy ultrasound reviewed. No abnormalities identified. Follow up as clinically indicated. Pleaseplace copy in ob chart. Rachel Morales MD [facility]03-19-2025 Miscellaneous Notes* Result Encounter Note - Rachel Morales MD - 08/08/2024 4:52 PM EDT Anatomy ultrasound reviewed. No abnormalities identified. Follow up as clinically indicated. Pleaseplace copy in ob chart. Rachel Morales MD [facility] Progress note* Quick Notes - Libby Bob [...] RTO in 4 week Libby Bob APRN.CNM [facility]03-19-2025 Miscellaneous Notes* Quick Notes - Libby Bob [...] week Libby Bob APRN.CNM [facility] Telephone encounter Note * Telephone Encounter - [...] Alvarado LPN July 27, 2024 2:52 PM [facility]03-07-2025 Miscellaneous Notes* Telephone Encounter - Tabitha Alvarado [...] 27, 2024 2:52 PM [facility] Progress note* Quick Notes - Summer Garduno [...] for anatomy US with SARAH Garduno APRN.CNM [facility]02-19-2025 Miscellaneous Notes* Quick Notes - Summer Garduno [...] with SARAH Garduno APRN.CNM [facility] Instructions* Patient Instructions* Cheryl Mejia MA - 07/11/2024 2:57 PM EST SEQUENTIAL SCREENINGS The [facility] offers sequential screenings for women who are [...] testing. It will require an appointment withour petroleum laboratory technician. This is not an ultrasound performed [...] the above symptoms, contact our office at [phone] and ask to speak with anurse. After hours, you can call doctors registry at [phone] OR call [facility] at [phone] ask to have the doctor manager contracting paged. If you consider this an emergency, dial 9-1-1 or go to your nearest emergency department. NEED HELP? Are you dealing with a violent or abusive relationship? Are you a victim of rape or sexual assult? Call [facility] ([place]) 24 hour Crisis Hotline: 143.199.7713 or 263-489-7963. MANUAL Your Guide to a Healthy manual is now on-line. Visit [email or web address] to download your free copy [facility] Progress note* Quick Notes - Rachel Morales [...] first trimester Orders: OBSTETRIC ULTRASOUND WHI; Future [id number] PLUS; Future 12 weeks gestation of Orders: OBSTETRIC ULTRASOUND WHI; Future Rachel Morales M.D. [facility]01-22-2025 Miscellaneous Notes* Quick Notes - Rachel Morales [...] first trimester Orders: OBSTETRIC ULTRASOUND WHI; Future [id number] PLUS; Future 12 weeks gestation of Orders: OBSTETRIC ULTRASOUND WHI; Future <!--RTF_E--> Rachel Morales M.D. [facility] Instructions* Patient Instructions* Diana Araujo MA - 06/13/2024 1:09 PM EST SEQUENTIAL SCREENINGS The [facility] offers sequential screenings for women who are [...] testing. It will require an appointment withour petroleum laboratory technician. This is not an ultrasound performed [...] the above symptoms, contact our office at [phone] and ask to speak with anurse. After hours, you can call doctors registry at [phone] OR call [facility] at [phone] ask to have the doctor manager contracting paged. If you consider this an emergency, dial 9-1-5 or go to your nearest emergency department. NEED HELP? Are you dealing with a violent or abusive relationship? Are you a victim of rape or sexual assult? Call [facility] ([facility] 24 hour Crisis Hotline: 336.610.9269 or 194-108-8885. MANUAL Your Guide to a Healthy manual is now on-line. Visit [email or web address] to download your free copy [facility] Telephone encounter Note * Telephone Encounter - Esther Recinos RN - 06/12/2024 2:36 PM EST Spoke to patient and questions answered. She will try to contact [facility] today regarding carrier screen. Esther Recinos RN [facility]01-21-2025 Miscellaneous Notes* Telephone Encounter - Esther Recinos RN - 06/12/2024 2:36 PM EST Spoke to patient and questions answered. She will try to contact [facility] today regarding carrier screen. Esther Recinos RN * Telephone Encounter - Tabitha Herman - 06/12/2024 2:01 PM EST Patient called asking what all is going to happen at her appointment on 06/13 Also asking about genetic testing and ultrasound Can be reached at [phone] Please advise [facility] Telephone encounter Note * Telephone Encounter - Tabitha Herman - 06/12/2024 2:01 PM EST Patient called asking what all is going to happen at her appointment on 06/13 Also asking about genetic testing and ultrasound Can be reached at [phone] Please advise [facility] Work Phone: 1(151) 576-798112-30-2024 Telephone encounter Note* Telephone Encounter - Trinity Ortiz RN - 05/21/2024 3:05 PM EST Patient notified. Trinity Ortiz RN [facility]12-30-2024 Miscellaneous Notes* Telephone Encounter - Trinity Ortiz [...] 05/21/2024 11:45 AM EST Please see Pt's Binary Th[employer] message and address. [employer] message sent to Pt re: safe medications to help with sleep in . Brian Stratton RN documented [facility] encounterAccess [facility] [place] Telephone encounter Note * Telephone Encounter - Brian Stratton RN - 05/21/2024 2:57 PM EST Left message for patient to call office. Brian Stratton RN [facility]12-30-2024 Telephone encounter Note* Telephone Encounter - Crystal [...] 1/2 tab at night for sleepif needed. [facility] Work Phone: [phone] Telephone encounter Note* Telephone Encounter - Brian Stratton RN - 05/21/2024 11:45 AM EST Please see Pt's Vendor Registryt message and address. [employer] message sent to Pt re: safe medications to help with sleep in . Brian Stratton RN [facility]12-18-2024 Progress note* Quick Notes - Summer Garduno APRN.CNM - 05/09/2024 9:20 AM EST Patient seen for NOB. See progress note. Summer Garduno APRN.CNM [facility]12-18-2024 Miscellaneous Notes* Quick Notes - Summer Garduno APRN.CNM - 05/09/2024 9:20 AM EST Patient seen for NOB. See progress note. Summer Garduno APRN.CNM documented in this encounterAccess [facility] [place]12-18-2024 NoteHNO ID: [id number] Author: GLYNN JEONG MA Service: ? Author Type: Photostat Operator Helper Type: Progress Notes Filed: 05/09/2024 09:25 Note Text: OB point of care ultrasound was performed. See imaging tab for details. Glynn Jeong [facility]12-18-2024 History of Present illness Narrative* Glynn Jeong MA - 05/09/2024 7:57 AM EST OB point of care ultrasound was performed. See imaging tab for details. 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 As applicable, any other physician, advance practice provider, medical student, or other health professional student that will be observing or involved in the sensitive examination for educational or training purposes was discussed with the Patient or Authorized Boiler Helper. The Patient or Authorized Boiler Helper has agreed to proceed with the sensitive [...] Your guide to a health and the Premium Representative. Reviewed midwifery and consumer loan manager services that are available. 2) Screening: Hemoglobin [...] Follow up in 4 weeks for NT , SARAH, and Collette Garduno APRN.CNM documented in this encounterAccess [facility] [place]12-16-2024 NoteHNO ID: [id number] Author: SUMMER GARDUNO APRN.CNM Service: ? 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 [email or web address] Please select the following link to access the [facility] Your Guide to a Healthy . [email or web address] documented in this encounterAccess [facility] [place]10-23-2024 Telephone encounter Note * Telephone Encounter - [...] Duff LPN March 14, 2024 2:44 PM [facility] Miscellaneous Notes* Telephone Encounter - Autumn Duff [...] 14, 2024 2:44 PM documented in this encounterAccess [facility] [place]06-05-2024 History of Present illness Narrative* PodlogarMarah 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 - 10/26/2023 5:40 PM EDT 10/26/2023 Patient [...] incontinence, Feels she is urainting more frequently GRADE FOREMAN: Negative for abnormal vaginal bleeding, abnormal vaginal [...] Tdap) due on 11/26/2021 Covid-19 Vaccine( - season) due on 01/21/2023 Pap Testing due [...] counseling - follow-up as needed Marah Garcia 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 Prescription instructions reviewed with patient as applicable. Patient advised if symptoms do not improve or if symptoms worsen sooner, to contact their primary care physician. Potential red flag symptoms discussed with the patient. Reviewed appropriate action plan to take if red flag symptoms occur. Patient agreeable to treatment plan. documented in this encounterAccess [facility] [place]05-24-2024 History of Present illness Narrative* Crystal Berry MD - 10/14/2023 1:12 PM EDT Technical Healthcare Consultant offered: Patient declines. Tali is a 23 [...] L0 SAB0 IAB0 Ectopic0 Multiple0 Live Births0 Supervisory Cbp Officer History LMP: 09/30/2023, Having periods Age at Menarche: Age at First : Age at Menopause: Supervisory Cbp Officer History Comments: Sexual Activity: Yes; Male Contraception: [...] external genitalia normal, normal Bartholin's glands, urethra, Jermyn's glands, no vulvar lesions, no cervical lesions, [...] reviewed Crystal Cantrell MD documented in this encounterAccess [facility] [place]04-03-2024 History of Present illness Narrative* PodlogarMarah 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 - 08/24/2023 5:03 PM EDT 08/24/2023 Patient presents with: Anxiety Ear Problem: Would like ears cleaned SUBJECTIVE: This is a 23 year old that is here today for Above Complaints.. Wants to get back on daily medicine for anxiety. Is currently seeing counselor at [facility] in [place]. Recently switched buildings at her job.Taking Vistaril [...] - FAMOTIDINE 20 MG TABLET Marah Garcia, FINAL INSPECTOR TRUCK TRAILER.[employer] FACTORY WORKER Prescription instructions reviewed with patient as applicable. [...] Level: 4 - Moderate documented in this encounterAccess [facility] [place]11-29-2023 History of Present illness Narrative* Marah Garcia APRN.CNP - 04/20/2023 5:50 PM EST 04/20/2023 Patient [...] Vaccine(1) due on 01/21/2023 Covid-19 Vaccine(4 - 2022-24 season) due on 01/21/2023 Pap Testing due [...] ER with red flag symptoms Marah Podlogar, FINAL INSPECTOR TRUCK TRAILER.[employer] FACTORY WORKER Prescription instructions reviewed with patient as applicable. [...] which included preparing to see the patient, [id number] patient care, completing clinical documentation, obtaining and/or reviewing separately obtained history, performing a medically appropriate examination, counseling and educating the pat ient/family/caregiver, and ordering medications, tests, or procedures. documented in this encounterAccess [facility] [place]10-06-2023 Miscellaneous Notes* Telephone Encounter - Pratibha Sanchez - 02/25/2023 9:13 AM EDT Pt informed, verbalized understanding Pratibha Sanchez * Telephone Encounter - Marah Garcia APRN.CNP - 02/25/2023 8:53 AM EDT Prescription sent to requested pharmacy. Marah Garcia APRN.CNP * Telephone Encounter - Kaitlynn Key LPN - 02/25/2023 8:27 AM EDT Patient notified of message below. Asking if you could send the medication to [facility] in [place] on [address] [employer]. Kaitlynn Key LPN * Telephone Encounter - Marah Garcia APRN.CNP - 02/25/2023 6:44 AM EDT Vitamin D low, will replace with 89299 units weekly. Will send in prescription. Is to take one tablet WEEKLY for 12 weeks then repeat level one week after completion. The rest of her blood work is normal. Marah Garcia APRN.CNP documented in this encounterAccess Hospital [place]10-04-2023 History of Present illness Narrative* Marah Garcia APRN.TYLER - 02/23/2023 7:55 AM EDT 02/23/2023 Patient [...] - VITAMIN D 25 HYDROXY Marah Podlogar, FINAL INSPECTOR TRUCK TRAILER.WO[employer]ODU[employer] FACTORY WORKER Prescription instructions reviewed with patient as applicable. [...] which included preparing to see the patient, [id number] patient care, completing clinical documentation, obtaining and/or reviewing separately obtained history, performing a medically appropriate examination, counseling and educating the pat ient/family/caregiver, and ordering medications, tests, or procedures. documented in this encounterAccess Hospital [place]06-21-2023 Instructions* Patient Instructions* Marah Garcia APRN.CNP - 11/10/2022 6:06 PM EDT Counseling and Psychiatry Services [facility] [address] [place] [address] *counseling [facility] [address] [facility], [address] [facility] [address] *counseling [address] [address] *counseling [facility] [address] [place], [place] [phone] *counseling and psychiatry [address] [place] [address] *[address] [address] *counseling [facility] [address] [facility] [phone] *counseling [place] [address] [place] [address] *[facility]ing [facility] [employer] [address] [place] [address] [facility] [address] [place] [address], [address] [place] [address] *counseling [facility] [address] [place] [address] [facility] [address] [place], [place] [phone] *counseling [facility] [address] [facility] [address] [place] [address] [employer] [address] [facility] [place] [address] [place] [address] *counseling [employer] [address] [place] [address] *counseling [facility] [address] [address] [place] [address] *counseling and psychiatry [employer] [address] [facility] [address] [place], [place] [address] *psychiatry [facility] [phone] *grief counseling, individual and groups *If you ever experience a mental health crisis please call [phone] 911, Please verify with insurance provider for coverage documented in this encounterAccess Hospital [place]06-21-2023 History of Present illness Narrative* Marah Garcia APRN.CNP - 11/10/2022 5:56 PM EDT 11/10/2022 Patient presents with: Depression I have communicated my name and active licensure. The patient's identity and physical location wereverified at the time of this visit. Either the patient or their legal assistance representative has been informed of the risks [...] if symptoms fail to improve Marah Garcia 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 Prescription instructions reviewed with patient as applicable. [...] which included preparing to see the patient, [id number] patient care, completing clinical documentation, obtaining and/or reviewing separately obtained history, performing a medically appropriate examination, counseling and educating the pat ient/family/caregiver, and ordering medications, tests, or procedures. documented in this encounterAccess Hospital [place]11-21-2022 Miscellaneous Notes* Telephone Encounter - Michelle Duff Pss - 04/12/2022 11:50 AM EST Patient has [...] patient. Michelle Duff Pss documented in this encounterAccess Hospital [place]09-02-2022 History of Present illness Narrative* Marah Garcia 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 - 01/22/2022 2:33 PM EDT 01/22/2022 Patient [...] - follow-up yearly and as needed Marah Podlogar, FINAL INSPECTOR TRUCK TRAILER.WO[employer] FACTORY WORKER Prescription instructions reviewed with patient as applicable. [...] which included preparing to see the patient, [id number]-[id number] patient care, completing clinical documentation, obtaining and/or reviewing separately obtained history, performing a medically appropriate examination, counseling and educating the pat ient/family/caregiver, and ordering medications, tests, or procedures. documented in this encounterAccess Hospital [place]08-24-2022 Miscellaneous Notes* Telephone Encounter - Анна Pollard - 01/13/2022 3:52 PM EDT Patient called and scheduled her appt for 01/22. Patient is asking if she can get her refill complete. Please return call to patient. documented in this encounterAccess Hospital [place]08-20-2022 Miscellaneous Notes* Telephone Encounter - Jackelyn Singer [...] advise. Margret Johansen Pss documented in this encounterAccess Hospital [place]05-06-2022 Miscellaneous Notes* Telephone Encounter - Bren Blood RN - 09/25/2021 10:00 AM EDT Patient notified of results and provider's instructions. Patient verbalizes understanding. Bren Blood RN * Telephone Encounter - Natty Perry Ma - 09/25/2021 9:53 AM EDT Tried calling patient no answer and vm not set up Natty Perry Ma * Telephone Encounter - Natty Perry Ma - 09/25/2021 9:53 AM EDT ----- Message from Jackelyn Singer MD sent at 09/25/2021 9:00 AM EDT ----- Lactose intolerance testing and celiac disease testing both negative. documented in this encounterAccess Hospital [place]05-06-2022 Miscellaneous Notes* Telephone Encounter - Anny Mcgovern [...] dietary changes as discussed. documented in this encounterAccess Hospital [place]05-02-2022 Miscellaneous Notes* Telephone Encounter - Durga Wang [...] you. Durga Wang RN [facility]* Diagnosis Heartburn documented in this encounter [facility]* Diagnosis Heartburn [facility] in this encounter [facility]* Diagnosis Heartburn [facility]* Diagnosis Anxiety and depression- Primary Dysthymic disorder documented in this encounter [facility] note* Diagnosis Heartburn [facility]* Diagnosis Anxiety with depression- Primary [facility]* Diagnosis Hair loss- Primary Alopecia, unspecified Brain fog Vitamin D deficiency Unspecified vitamin D deficiency [facility] Diagnosis Vitamin D deficiency- Primary Unspecified vitamin D deficiency documented in this encounter [facility]* Diagnosis Acute bilateral low back pain without sciatica- Primary [facility]* Diagnosis Anxiety with depression- Primary Impacted cerumen of left ear Impacted cerumen Heartburn [facility]* Diagnosis Encounter for gynecological examination (general) (routine) without abnormal findings- Primary Screening for cervical cancer Screening for malignant neoplasm of the cervix [facility] this [facility]* Diagnosis Annual physical exam- Primary Routine general medical examination at a health care facility Vitamin D insufficiency Unspecified vitamin D deficiency Anxiety with depression documented in this encounter [facility]* Diagnosis Anxiety with depression documented in this encounter [facility]* Diagnosis 7 weeks gestation of - Primary state, incidental with uncertain dates, antepartum state, incidental Encounter for supervision of normal first in first trimester Supervision of normal first Gastroesophageal reflux disease without esophagitis Esophageal reflux Anxiety Anxiety state, unspecified Nausea Nausea alone [facility]* Diagnosis Encounter for supervision of normal first in first trimester- Primary Supervision of normal first 12 weeks gestation of state, incidental Encounter for screening of mother Unspecified screening * Assessment & Plan Note - Rachel Morales MD - 06/13/2024 1:31 PM EST Associated Problem(s): Encounter for supervision of normal first in first trimester Orders: OBSTETRIC ULTRASOUND WHI; Future [id number] PLUS; Future [facility]* Diagnosis Encounter for supervision of normal first in first trimester- Primary Supervision of normal first 12 weeks gestation of state, incidental Encounter for screening of mother Unspecified screening Encounter for screening for malformation using ultrasound- Primary 12 weeks gestation of state, incidental [facility]* Diagnosis Encounter for supervision of normal [...] esophagitis Esophageal reflux documented in this encounter [facility] note* Diagnosis Encounter for supervision of normal first in first trimester- Primary Supervision of normal first 12 weeks gestation of state, incidental Encounter for screening of mother Unspecified screening Heartburn documented in this encounter [facility] note* Diagnosis Encounter for supervision of normal first in first trimester- Primary Supervision of normal first 12 weeks gestation of state, incidental Encounter for screening of mother Unspecified screening Encounter for supervision of normal first in first trimester- Primary Supervision of normal first Anxiety and depression Dysthymic disorder Heartburn during in second trimester documented in this encounter [facility] note* Diagnosis Encounter for supervision of normal first in first trimester- Primary Supervision of normal first 12 weeks gestation of state, incidental Encounter for screening of mother Unspecified screening Encounter for anatomic survey- Primary 20 weeks gestation of state, incidental documented in this encounter [facility] note* Diagnosis Encounter for supervision of normal first in first trimester- Primary Supervision of normal first 12 weeks gestation of state, incidental Encounter for screening of mother Unspecified screening Anxiety with depression documented in this encounter [facility] note* Diagnosis Encounter for supervision of normal first in first trimester (HCC)- Primary Supervision of normal first 12 weeks gestation of (HCC) state, incidental Encounter for screening of mother ([facility]) Unspecified screening Heartburn documented in this encounter [facility] note* Diagnosis Encounter for supervision of normal first in first trimester (HCC)- Primary Supervision of normal first 12 weeks gestation of (HCC) state, incidental Encounter for screening of mother ([facility]) Unspecified screening Encounter for supervision of normal first in second trimester (HCC)- Primary Supervision of normal first 24 weeks gestation of ([facility]) state, incidental Screening for diabetes mellitus * Assessment & Plan Note - Crystal Berry MD - 09/05/2024 4:28 PM EDT Associated Problem(s): Encounter for supervision of normal first in first trimester (HCC) Orders: SYPHILIS TREPONEMAL W/REFLEX; Future ANEMIA REFLEX PANEL; Future documented in this encounter [facility] noteNo assessment information availableWCleveland [facility] Work Phone: Evaluation note* Diagnosis Encounter for supervision of normal first in first trimester ([facility])- Primary Supervision of normal first 12 weeks gestation of ([facility]) state, incidental Encounter for screening of mother ([facility]) Unspecified screening Encounter for supervision of normal first in second trimester ([facility])- Primary Supervision of normal first 24 weeks gestation of ([facility]) state, incidental Screening for diabetes mellitus Encounter for supervision of normal first in third trimester ([facility])- Primary Supervision of normal first 28 weeks gestation of ([facility]) state, incidental Anxiety with depression Need for vaccination Need for prophylactic vaccination and inoculation against unspecified single disease Gastroesophageal reflux disease without esophagitis Esophageal reflux documented in this encounter [facility] note* Diagnosis Encounter for supervision of normal first in first trimester ([facility])- Primary Supervision of normal first 12 weeks gestation of ([facility]) state, incidental Encounter for screening of mother ([facility]) Unspecified screening Encounter for supervision of normal first in second trimester ([facility])- Primary Supervision of normal first 24 weeks gestation of ([facility]) state, incidental Screening for diabetes mellitus Encounter for supervision of high risk in third trimester, antepartum ([facility])- Primary 30 weeks gestation of ([facility]) state, incidental Polyhydramnios affecting in third trimester ([facility]) Elevated blood pressure affecting in second trimester, antepartum ([facility]) Breech presentation, single or unspecified fetus ([facility]) Gastroesophageal reflux disease without esophagitis Esophageal reflux documented in this encounter [facility] note* Diagnosis Encounter for supervision of normal first in first trimester ([facility])- Primary Supervision of normal first 12 weeks gestation of ([facility]) state, incidental Encounter for screening of mother ([facility]) Unspecified screening Encounter for supervision of normal first in second trimester ([facility])- Primary Supervision of normal first 24 weeks gestation of ([facility]) state, incidental Screening for diabetes mellitus Elevated blood pressure affecting in second trimester, antepartum ([facility]) Polyhydramnios affecting in third trimester (HCC) Supervision of high risk in third trimester ([facility]) Unspecified high-risk [facility]* Diagnosis Encounter for supervision of normal first in first trimester ([facility])- Primary Supervision of normal first 12 weeks gestation of ([facility]) state, incidental Encounter for screening of mother ([facility]) Unspecified screening Encounter for supervision of normal first in second trimester ([facility])- Primary Supervision of normal first 24 weeks gestation of ([facility]) state, incidental Screening for diabetes mellitus Encounter for supervision of high risk in third trimester, antepartum ([facility])- Primary 33 weeks gestation of ([facility]) state, incidental Polyhydramnios affecting in third trimester ([facility]) Breech presentation, single or unspecified fetus (HCC) Gastroesophageal reflux disease without esophagitis Esophageal reflux Tick bite, unspecified site, initial encounter [facility] this [facility]* Diagnosis Encounter for supervision of normal first in first trimester ([facility])- Primary Supervision of normal first 12 weeks gestation of ([facility]) state, incidental Encounter for screening of mother ([facility]) Unspecified screening Encounter for supervision of normal first in second trimester ([facility])- Primary Supervision of normal first 24 weeks gestation of ([facility]) state, incidental Screening for diabetes mellitus Encounter for supervision of high risk in third trimester, antepartum ([facility])- Primary Polyhydramnios affecting in third trimester ([facility]) Breech presentation, single or unspecified fetus ([facility]) Gastroesophageal reflux disease without esophagitis Esophageal reflux 34 weeks gestation of ([facility]) state, incidental [facility] this [facility]* Diagnosis Encounter for supervision of normal first in first trimester ([facility])- Primary Supervision of normal first 12 weeks gestation of ([facility]) state, incidental Encounter for screening of mother ([facility]) Unspecified screening Encounter for supervision of normal first in second trimester ([facility])- Primary Supervision of normal first 24 weeks gestation of ([facility]) state, incidental Screening for diabetes mellitus Encounter for supervision of high risk in third trimester, antepartum ([facility])- Primary Polyhydramnios affecting in third trimester ([facility]) 35 weeks gestation of ([facility]) state, incidental documented in this encounter [facility] note* Diagnosis Encounter for supervision of normal first in first trimester (HCC)- Primary Supervision of normal first 12 weeks gestation of ([facility]) state, incidental Encounter for screening of mother ([facility]) Unspecified screening Encounter for supervision of normal first in second trimester ([facility])- Primary Supervision of normal first 24 weeks gestation of ([facility]) state, incidental Screening for diabetes mellitus 36 weeks gestation of ([facility])- Primary state, incidental Encounter for supervision of high risk in third trimester, antepartum ([facility]) Polyhydramnios affecting in third trimester ([facility]) * Assessment & Plan Note - Kirstie Strauss MD - 11/30/2024 4:12 PM EDTAssociated Problem(s): Polyhydramnios affecting in third trimester ([facility]) Repeat US next week Orders: URINE OB DIP B/O [facility] Diagnosis Encounter for supervision of normal first in first trimester ([facility])- Primary Supervision of normal first 12 weeks gestation of ([facility]) state, incidental Encounter for screening of mother ([facility]) Unspecified screening Encounter for supervision of normal first in second trimester ([facility])- Primary Supervision of normal first 24 weeks gestation of ([facility]) state, incidental Screening for diabetes mellitus 36 weeks gestation of ([facility])- Primary state, incidental Encounter for supervision of high risk in third trimester, antepartum ([facility]) Polyhydramnios affecting in third trimester ([facility]) Polyhydramnios affecting in third trimester ([facility])- Primary Encounter for supervision of high risk in third trimester, antepartum ([facility]) Group beta Strep positive 37 weeks gestation of ([facility]) state, incidental * Assessment & Plan Note - Kirstie Strauss MD - 12/04/2024 3:04 PM EDTAssociated Problem(s): Polyhydramnios affecting in third trimester ([facility]) US today shows vertex, AGA infant at 74% with JERRY of 23. * Assessment & Plan Note - Kirstie Strauss MD - 12/04/2024 3:04 PM EDTAssociated Problem(s): Acid reflux All questions answered & discussed treatment in labor. documented in this encounter [facility] note* Diagnosis Encounter for supervision of normal first in first trimester ([facility])- Primary Supervision of normal first 12 weeks gestation of ([facility]) state, incidental Encounter for screening of mother ([facility]) Unspecified screening Encounter for supervision of normal first in second trimester ([facility])- Primary Supervision of normal first 24 weeks gestation of ([facility]) state, incidental Screening for diabetes mellitus 36 weeks gestation of ([facility])- Primary state, incidental Encounter for supervision of high risk in third trimester, antepartum ([facility]) Polyhydramnios affecting in third trimester ([facility]) Elevated blood pressure affecting in second trimester, antepartum ([facility]) Polyhydramnios affecting in third trimester ([facility]) Supervision of high risk in third trimester ([facility]) Unspecified high-risk Polyhydramnios affecting in third trimester ([facility])- Primary Encounter for supervision of high risk in third trimester, antepartum ([facility]) Group beta Strep positive 37 weeks gestation of ([facility]) state, incidental documented in this encounter [facility] note* Diagnosis Encounter for supervision of normal first in first trimester ([facility])- Primary Supervision of normal first 12 weeks gestation of ([facility]) state, incidental Encounter for screening of mother ([facility]) Unspecified screening Encounter for supervision of normal first in second trimester ([facility])- Primary Supervision of normal first 24 weeks gestation of ([facility]) state, incidental Screening for diabetes mellitus 36 weeks gestation of ([facility])- Primary state, incidental Encounter for supervision of high risk in third trimester, antepartum ([facility]) Polyhydramnios affecting in third trimester ([facility]) Polyhydramnios affecting in third trimester ([facility])- Primary Encounter for supervision of high risk in third trimester, antepartum ([facility]) Group beta Strep positive 37 weeks gestation of ([facility]) state, incidental Encounter for supervision of high risk in third trimester, antepartum ([facility])- Primary Polyhydramnios affecting in third trimester ([facility]CC) 38 weeks gestation of ([facility]) state, incidental * Assessment & Plan Note - Crystal Berry MD - 12/10/2024 4:44 PM EDT Associated Problem(s): Polyhydramnios affecting in third trimester (HCC) D/w patient LGA (AC>99%)/Obesity- will do NST today- at [facility] due to time at appt. - reviewed IOL 39-40 weeks pt agreeable and scheduled Orders: URINE OB DIP B/O documented in this encounter [facility] for referral (narrative)* Diagnostic Procedure Only (Routine) - Authorized Specialty Diagnoses / Procedures Referred By Contac t Referred To Contact [facility] Diagnoses 7 weeks gestation of Procedures NUCHAL TRANSLUCENCY WHI US NUCHAL TRANSLUCENCY GESTATION Summer Garduno APRN.CNM [address] [place] [address] [facility] [place] [address] Referral ID Status Reason Start Date Expiration Date Visits Requested Visits Authorized [id number] Authorized Auto-Generat ed Referral 4 05/09/2025 1 1 * Diagnostic Procedure Only (Routine) - New Request Specialty Diagnoses / Procedures Referred By Contac t Referred To Contact [facility] Diagnoses 7 weeks gestation of Procedures OBSTETRIC ULTRASOUND WHI US PREG UTERUS AFTER 1ST TRIMEST GESTATION Summer Garduno APRN.CNM [address] [place] [address] [facility] [place] [address] Referral ID Status Reason Start Date Expiration Date Visits Requested Visits Authorized [id number] New Request Auto-Generat ed Referral 4 05/09/2025 1 1 [facility] for referral (narrative)* Diagnostic Procedure Only (Routine) - Authorized Specialty Diagnoses / Procedures Referred By Percy bedoya Referred To Contact [facility] Diagnoses Encounter for supervision of normal first in first trimester 12 weeks gestation of Procedures OBSTETRIC ULTRASOUND WHI US PREG UTERUS AFTER 1ST TRIMEST GESTATION Rachel Morales MD [address] [place] [address] [facility] [address] [place] [address] Referral ID Status Reason Start Date Expiration Date Visits Requested Visits Authorized [id number] Authorized Auto-Generat ed Referral 06/13/2024 06/13/2025 1 1 [facility]No reason for referral information availableWCleveland [facility] Work Phone: Summary Purpose Family History [...] section and content) DATE CREATED AUTHOR 01/03/2021 [facility] DATE CREATED AUTHOR AUTHOR'S ORGANIZ ATION 12/15/2024 [facility] DATE CREATED AUTHOR AUTHOR'S ORGANIZ ATION 12/17/2024 [facility] Source Comments (unrecognize d section and content) In the event this informatio n is protected by the Federal Confidentiality of Alcohol and Drug Abuse Patient Records regulations: The Federal rules restrict any use of the information to criminally investigate or prosecute any alcohol or drug abuse patient.[facility] the event this information is protected by the Federal Confidentiality of Alcohol and Drug Abuse Patient Records regulations: The Federal rules restrict any use of the information to criminally investigate or prosecute any alcohol or drug abuse patient.[facility]In the event this information is protected by the Federal Confidentiality of Alcohol and Drug Abuse Patient Records regulations: The Federal rules restrict any use of the information to criminally investigate or prosecute any alcohol or drug abuse patient.[facility]In the event this information is protected by the Federal Confidentiality of Alcohol and Drug Abuse Patient Records regulations: The Federal rules restrict any use of the information to criminally investigate or prosecute any alcohol or drug abuse patient.[facility] DaytonIn the event this information is protected by the Federal Confidentiality of Alcohol and Drug Abuse Patient Records regulations: The Federal rules restrict any use of the information to criminally investigate or prosecute any alcohol or drug abuse patient.[facility] DaytonIn the event this information is protected by the Federal Confidentiality of Alcohol and Drug Abuse Patient Records regulations: The Federal rules restrict any use of the information to criminally investigate or prosecute any alcohol or drug abuse patient.[facility] DaytonIn the event this information is protected by the Federal Confidentiality of Alcohol and Drug Abuse Patient Records regulations: The Federal rules restrict any use of the information to criminally investigate or prosecute any alcohol or drug abuse patient.[facility] DaytonIn the event this information is protected by the Federal Confidentiality of Alcohol and Drug Abuse Patient Records regulations: The Federal rules restrict any use of the information to criminally investigate or prosecute any alcohol or drug abuse patient.[facility] DaytonIn the event this information is protected by the Federal Confidentiality of Alcohol and Drug Abuse Patient Records regulations: The Federal rules restrict any use of the information to criminally investigate or prosecute any alcohol or drug abuse patient.[facility] DaytonIn the event this information is protected by the Federal Confidentiality of Alcohol and Drug Abuse Patient Records regulations: The Federal rules restrict any use of the information to criminally investigate or prosecute any alcohol or drug abuse patient.[facility] DaytonIn the event this information is protected by the Federal Confidentiality of Alcohol and Drug Abuse Patient Records regulations: The Federal rules restrict any use of the information to criminally investigate or prosecute any alcohol or drug abuse patient.[facility] DaytonIn the event this information is protected by the Federal Confidentiality of Alcohol and Drug Abuse Patient Records regulations: The Federal rules restrict any use of the information to criminally investigate or prosecute any alcohol or drug abuse patient.[facility] DaytonIn the event this information is protected by the Federal Confidentiality of Alcohol and Drug Abuse Patient Records regulations: The Federal rules restrict any use of the information to criminally investigate or prosecute any alcohol or drug abuse patient.[facility] DaytonIn the event this information is protected by the Federal Confidentiality of Alcohol and Drug Abuse Patient Records regulations: The Federal rules restrict any use of the information to criminally investigate or prosecute any alcohol or drug abuse patient.[facility] DaytonIn the event this information is protected by the Federal Confidentiality of Alcohol and Drug Abuse Patient Records regulations: The Federal rules restrict any use of the information to criminally investigate or prosecute any alcohol or drug abuse patient.[facility] DaytonIn the event this information is protected by the Federal Confidentiality of Alcohol and Drug Abuse Patient Records regulations: The Federal rules restrict any use of the information to criminally investigate or prosecute any alcohol or drug abuse patient.[facility] DaytonIn the event this information is protected by the Federal Confidentiality of Alcohol and Drug Abuse Patient Records regulations: The Federal rules restrict any use of the information to criminally investigate or prosecute any alcohol or drug abuse patient.[facility] DaytonIn the event this information is protected by the Federal Confidentiality of Alcohol and Drug Abuse Patient Records regulations: The Federal rules restrict any use of the information to criminally investigate or prosecute any alcohol or drug abuse patient.[facility] DaytonIn the event this information is protected by the Federal Confidentiality of Alcohol and Drug Abuse Patient Records regulations: The Federal rules restrict any use of the information to criminally investigate or prosecute any alcohol or drug abuse patient.[facility] DaytonIn the event this information is protected by the Federal Confidentiality of Alcohol and Drug Abuse Patient Records regulations: The Federal rules restrict any use of the information to criminally investigate or prosecute any alcohol or drug abuse patient.[facility] DaytonIn the event this information is protected by the Federal Confidentiality of Alcohol and Drug Abuse Patient Records regulations: The Federal rules restrict any use of the information to criminally investigate or prosecute any alcohol or drug abuse patient.[facility] DaytonIn the event this information is protected by the Federal Confidentiality of Alcohol and Drug Abuse Patient Records regulations: The Federal rules restrict any use of the information to criminally investigate or prosecute any alcohol or drug abuse patient.[facility] DaytonIn the event this information is protected by the Federal Confidentiality of Alcohol and Drug Abuse Patient Records regulations: The Federal rules restrict any use of the information to criminally investigate or prosecute any alcohol or drug abuse patient.[facility] DaytonIn the event this information is protected by the Federal Confidentiality of Alcohol and Drug Abuse Patient Records regulations: The Federal rules restrict any use of the information to criminally investigate or prosecute any alcohol or drug abuse patient.[facility] DaytonIn the event this information is protected by the Federal Confidentiality of Alcohol and Drug Abuse Patient Records regulations: The Federal rules restrict any use of the information to criminally investigate or prosecute any alcohol or drug abuse patient.[facility] DaytonIn the event this information is protected by the Federal Confidentiality of Alcohol and Drug Abuse Patient Records regulations: The Federal rules restrict any use of the information to criminally investigate or prosecute any alcohol or drug abuse patient.[facility] DaytonIn the event this information is protected by the Federal Confidentiality of Alcohol and Drug Abuse Patient Records regulations: The Federal rules restrict any use of the information to criminally investigate or prosecute any alcohol or drug abuse patient.[facility] DaytonIn the event this information is protected by the Federal Confidentiality of Alcohol and Drug Abuse Patient Records regulations: The Federal rules restrict any use of the information to criminally investigate or prosecute any alcohol or drug abuse patient.[facility] DaytonIn the event this information is protected by the Federal Confidentiality of Alcohol and Drug Abuse Patient Records regulations: The Federal rules restrict any use of the information to criminally investigate or prosecute any alcohol or drug abuse patient.[facility] DaytonIn the event this information is protected by the Federal Confidentiality of Alcohol and Drug Abuse Patient Records regulations: The Federal rules restrict any use of the information to criminally investigate or prosecute any alcohol or drug abuse patient.[facility] DaytonIn the event this information is protected by the Federal Confidentiality of Alcohol and Drug Abuse Patient Records regulations: The Federal rules restrict any use of the information to criminally investigate or prosecute any alcohol or drug abuse patient.[facility] DaytonIn the event this information is protected by the Federal Confidentiality of Alcohol and Drug Abuse Patient Records regulations: The Federal rules restrict any use of the information to criminally investigate or prosecute any alcohol or drug abuse patient.[facility] DaytonIn the event this information is protected by the Federal Confidentiality of Alcohol and Drug Abuse Patient Records regulations: The Federal rules restrict any use of the information to criminally investigate or prosecute any alcohol or drug abuse patient.[facility] DaytonIn the event this information is protected by the Federal Confidentiality of Alcohol and Drug Abuse Patient Records regulations: The Federal rules restrict any use of the information to criminally investigate or prosecute any alcohol or drug abuse patient.[facility] DaytonIn the event this information is protected by the Federal Confidentiality of Alcohol and Drug Abuse Patient Records regulations: The Federal rules restrict any use of the information to criminally investigate or prosecute any alcohol or drug abuse patient.[facility] DaytonIn the event this information is protected by the Federal Confidentiality of Alcohol and Drug Abuse Patient Records regulations: The Federal rules restrict any use of the information to criminally investigate or prosecute any alcohol or drug abuse patient.[facility] DaytonIn the event this information is protected by the Federal Confidentiality of Alcohol and Drug Abuse Patient Records regulations: The Federal rules restrict any use of the information to criminally investigate or prosecute any alcohol or drug abuse patient.[facility] DaytonIn the event this information is protected by the Federal Confidentiality of Alcohol and Drug Abuse Patient Records regulations: The Federal rules restrict any use of the information to criminally investigate or prosecute any alcohol or drug abuse patient.[facility] DaytonIn the event this information is protected by the Federal Confidentiality of Alcohol and Drug Abuse Patient Records regulations: The Federal rules restrict any use of the information to criminally investigate or prosecute any alcohol or drug abuse patient.[facility] DaytonIn the event this information is protected by the Federal Confidentiality of Alcohol and Drug Abuse Patient Records regulations: The Federal rules restrict any use of the information to criminally investigate or prosecute any alcohol or drug abuse patient.[facility] DaytonIn the event this information is protected by the Federal Confidentiality of Alcohol and Drug Abuse Patient Records regulations: The Federal rules restrict any use of the information to criminally investigate or prosecute any alcohol or drug abuse patient.[facility] DaytonIn the event this information is protected by the Federal Confidentiality of Alcohol and Drug Abuse Patient Records regulations: The Federal rules restrict any use of the information to criminally investigate or prosecute any alcohol or drug abuse patient.[facility] DaytonIn the event this information is protected by the Federal Confidentiality of Alcohol and Drug Abuse Patient Records regulations: The Federal rules restrict any use of the information to criminally investigate or prosecute any alcohol or drug abuse patient.[facility] DaytonIn the event this information is protected by the Federal Confidentiality of Alcohol and Drug Abuse Patient Records regulations: The Federal rules restrict any use of the information to criminally investigate or prosecute any alcohol or drug abuse patient.[facility] DaytonIn the event this information is protected by the Federal Confidentiality of Alcohol and Drug Abuse Patient Records regulations: The Federal rules restrict any use of the information to criminally investigate or prosecute any alcohol or drug abuse patient.[facility] DaytonIn the event this information is protected by the Federal Confidentiality of Alcohol and Drug Abuse Patient Records regulations: The Federal rules restrict any use of the information to criminally investigate or prosecute any alcohol or drug abuse patient.[facility] DaytonIn the event this information is protected by the Federal Confidentiality of Alcohol and Drug Abuse Patient Records regulations: The Federal rules restrict any use of the information to criminally investigate or prosecute any alcohol or drug abuse patient.[facility] DaytonIn the event this information is protected by the Federal Confidentiality of Alcohol and Drug Abuse Patient Records regulations: The Federal rules restrict any use of the information to criminally investigate or prosecute any alcohol or drug abuse patient.[facility] DaytonIn the event this information is protected by the Federal Confidentiality of Alcohol and Drug Abuse Patient Records regulations: The Federal rules restrict any use of the information to criminally investigate or prosecute any alcohol or drug abuse patient.[facility] DaytonIn the event this information is protected by the Federal Confidentiality of Alcohol and Drug Abuse Patient Records regulations: The Federal rules restrict any use of the information to criminally investigate or prosecute any alcohol or drug abuse patient.[facility] Reason for Visit (unrecogniz ed section and [...] [place] Specialty Diagnoses / Procedures Referred By Contac t Referred To Contact [facility] Diagnoses 7 weeks gestation of Procedures NUCHAL TRANSLUCENCY WHI US NUCHAL TRANSLUCENCY 1ST GESTATION Summer Garduno APRN.[facility] [address] [place] [address] [address] Referral ID Status Reason Start Date Expiration Date V isits Requested Visits Authorized [id number] Closed Auto-Generate d Referral 05/09/2024 05/09/2025 1 1 Reason Onset Date Comments Care 07/11/2024 Reason Onset Date Comments Refill Request 07/27/2024 Specialty Diagnoses / Procedures Referred By Contac t Referred To Contact [facility] Diagnoses Encounter for supervision of normal first in first trimester 12 weeks gestation of Procedures OBSTETRIC ULTRASOUND WHI US PREG UTERUS AFTER 1ST TRIMEST GESTATION Rachel Morales MD [address] [place] [address] Phone: tel: fax: [address] [address] Referral ID Status Reason Start Date Expiration Date V isits Requested Visits Authorized [id number] Closed Auto-Generate d Referral 06/13/2024 06/13/2025 1 1 Reason Comments Med Change Request Reason Onset Date Comments Refill Request 08/17/2024 Reason Onset Date Comments Care 09/05/2024 Reason Comments OB Tachycardia Reason Onset Date Comments Care 10/03/2024 Reason Onset Date Comments Care 10/19/2024 Reason Comments Breast Pump Specialty Diagnoses / Procedures Referred By Contnico t Referred To Contact [facility] Diagnoses Elevated blood pressure affecting in second trimester, antepartum (HCC) Polyhydramnios affecting in third trimester (HCC) Supervision of high risk in third trimester ([facility]) Procedures OBSTETRIC ULTRASOUND WHI US PREG UTERUS AFTER 1ST TRIMEST GESTATION Rachel Morales MD [address] [place] [address] Phone: tel: fax: [facility] [address] [place] [address] Referral ID Status Reason Start Date Expiration Date V isits Requested Visits Authorized [id number] Closed Auto-Generate d Referral 10/12/2024 10/12/2025 3 1 Reason Onset Date Comments Care 11/05/2024 Reason Onset Date Comments Care 11/14/2024 Reason Onset Date Comments Care 11/19/2024 Reason Onset Date Comments Care 11/30/2024 Reason Onset Date Comments Care 12/04/2024 Reason Onset Date Comments Care 12/10/2024 Reason Onset Date Comments Population Health Navigation Outreach 12/11/2024 Ob/peds Care Teams (unrecognized sec tion and content) Bioengineer Relationship Specialty Start Date End Date Jackelyn Singer MD [address] [place], [place] [id number] PCP - General Family Practice 07/28/20 Bioengineer Relationship Specialty Start Date End Date Jackelyn Singer MD [address] [place], [place] [id number] PCP - General Family Practice 07/28/20 Bioengineer Relationship Specialty Start Date End Date Jackelyn Singer MD [address] [place], [place] [id number] PCP - General Family Practice 07/28/20 Bioengineer Relationship Specialty Start Date End Date Jackelyn Singer MD [address] [place] [id number] PCP - General Family Practice 07/28/20 Bioengineer Relationship Specialty Start Date End Date Jackelyn Singer MD [address] [place] [address] PCP - General Family Practice 07/28/20 Bioengineer Relationship Specialty Start Date End Date Jackelyn Singer MD [address] [place] [address] PCP - General Family Medicine 07/28/20 Bioengineer Relationship Specialty Start Date End Date Jackelyn Singer MD [address] [place] [address] PCP - General Family Medicine 07/28/20 Bioengineer Relationship Specialty Start Date End Date Jackelyn Singer MD [address] [place] [address] PCP - General Family Medicine 07/28/20 Bioengineer Relationship Specialty Start Date End Date Jackelyn Singer MD [address] [place] [address] PCP - General Family Medicine 07/28/20 Bioengineer Relationship Specialty Start Date End Date Jackelyn Singer MD [address] [place] [address] PCP - General Family Medicine 07/28/20 Bioengineer Relationship Specialty Start Date End Date Jackelyn Singer MD [address] [place] [address] PCP - General Family Medicine 07/28/20 Bioengineer Relationship Specialty Start Date End Date Jackelyn Singer MD [address] [place] [address] PCP - General Family Medicine 07/28/20 Bioengineer Relationship Specialty Start Date End Date Jackelyn Singer MD [address] [place] [address] PCP - General Family Medicine 07/28/20 Bioengineer Relationship Specialty Start Date End Date Jackelyn Singer MD [address] [place] [address] PCP - General Family Medicine 07/28/20 Podlogar, ASHOK [employer] FACTORY WORKER [address] [place] [address] [facility] 04/28/24 Bioengineer Relationship Specialty Start Date End Date Jackelyn Singer MD [address] [place] [address] PCP - General Family Medicine 07/28/20 Podlogar, Marah, FINAL INSPECTOR TRUCK TRAILER.[employer] FA[employer]ORY WORKER [address] [place] [address] [facility] 04/28/24 Bioengineer Relationship Specialty Start Date End Date Jackelyn Singer MD [address] [place] [address] PCP - General Family Medicine 07/28/20 Podlogar, Marah, FINAL INSPECTOR TRUCK TRAILER.[employer] FA[employer]ORY WORKER [address] [place] [address] [facility] 04/28/24 Bioengineer Relationship Specialty Start Date End Date Jackelyn Singer MD [address] [place] [address] PCP - General Family Medicine 07/28/20 PodlogarMarah 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 [address] [place] [address] [facility] 04/28/24 Bioengineer Relationship Specialty Start Date End Date Jackelyn Singer MD [address] [place] [address] PCP - General Family Medicine 07/28/20 PodlogarMarah 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 [address] [place] [address] [facility] 04/28/24 Bioengineer Relationship Specialty Start Date End Date Jackelyn Singer MD [address] [place] [address] PCP - General Family Medicine 07/28/20 PodlogarMarah 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 [address] [place] [address] [facility] 04/28/24 Bioengineer Relationship Specialty Start Date End Date Jackelyn Singer MD [address] [place] [address] PCP - General Family Medicine 07/28/20 PodlogarMarah 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 [address] [place] [address] [facility] 04/28/24 Rand Ashley 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 [address] [place] [address] [facility] Bioengineer Relationship Specialty Start Date End Date Jackelyn Singer MD [address] [place] [address] PCP - General Family Medicine 07/28/20 Podlogar, Marah FINAL INSPECTOR TRUCK TRAILER.[employer] FA[employer]ORY WORKER [address] [place] [address] [facility] 04/28/24 Rand Ashley FINAL INSPECTOR TRUCK TRAILER.[employer] FACTORY WORKER [address] [place] [address] [facility] 08/03/24 Bioengineer Relationship Specialty Start Date End Date Jackelyn Singer MD [address] [place] [address] PCP - General Family Medicine 07/28/20 Podlogar, Marah FINAL INSPECTOR TRUCK TRAILER.[employer] FACTORY WORKER [address] [place] [address] [facility] 04/28/24 Rand Ashley FINAL INSPECTOR TRUCK TRAILER.[employer] FACTORY WORKER [address] [place] [address] [facility] 08/13/24 Bioengineer Relationship Specialty Start Date End Date Jackelyn Singer MD [address] [place] [address] PCP - General Family Medicine 07/28/20 Podlogar, Marah, FINAL INSPECTOR TRUCK TRAILER.[employer] FA[employer]ORY WORKER [address] [place] [address] [facility] 04/28/24 Rand Ashley 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 [address] [place], [place] [address] [facility] 08/13/24 Team Status: Active Member Role Status [...] September 28, 2024 End: September 28, 2024 Bioengineer Relationship Specialty Start Date End Date Jackelyn Singer MD [address] [place], [place] [address] PCP - General Family Medicine 07/28/20 PodlogarMarah, FINAL INSPECTOR TRUCK TRAILER.[employer] FA[employer]ORY WORKER [address] [place], [place] [address] [facility] 04/28/24 Rand Ashley 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 [address] [place], [place] [address] [facility] 08/13/24 Bioengineer Relationship Specialty Start Date End Date Jackelyn Singer MD [address] [facility] [place], [place] [address] PCP - General Family Medicine 07/28/20 Podlogar, Marah FINAL INSPECTOR TRUCK TRAILER.[employer] FACTORY WORKER [address] [facility] [place] [address] [facility] Family Medicine 04/28/24 Rand Ashley 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 [address] [place] [address] [facility]/24 Bioengineer Relationship Specialty Start Date End Date Jackelyn Singer MD [address] [place] [address] PCP - General Family Medicine 07/28/20 Podlogar, Mraah, FINAL INSPECTOR TRUCK TRAILER.[employer] FACTORY WORKER [address] [place] [address] [facility] 04/28/24 Rand Ashley, FINAL INSPECTOR TRUCK TRAILER.[employer] FACTORY WORKER [address] [place] [address] [facility] 08/03/24 08/12/24 Rand Ashley, FINAL INSPECTOR TRUCK TRAILER.[employer] FACTORY WORKER [address] [place] [address] [facility] 08/13/24 Bioengineer Relationship Specialty Start Date End Date Jackelyn Singer MD [address] [place] [address] PCP - General Family Medicine 07/28/20 Podlogar, Marah, FINAL INSPECTOR TRUCK TRAILER.[employer] FACTORY WORKER [address] [place] [address] [facility] Medicine 04/28/24 Bioengineer Relationship Specialty Start Date End Date Jackelyn Singer MD [address] [place] [address] PCP - General Family Medicine 07/28/20 Podlogar, Marah, FINAL INSPECTOR TRUCK TRAILER.[employer] FACTORY WORKER [address] [facility] [place] [address] [facility] 04/28/24 Bioengineer Relationship Specialty Start Date End Date Jackelyn Singer MD [address] [place] [address] PCP - General Family Medicine 07/28/20 PodlogarMarah 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 [address] [place] [address] [facility] 04/28/24 Rand Ashley 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 [address] [place] [address] [facility] 11/01/24 Bioengineer Relationship Specialty Start Date End Date Jackelyn Singer MD [address] [place] [address] PCP - General Family Medicine 07/28/20 PodlogarMarah 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 [address] [place] [address] [facility] 04/28/24 Rand Ashley 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 [address] [place] [address] [facility] 11/01/24 Bioengineer Relationship Specialty Start Date End Date Jackelyn Singer MD [address] [place] [address] PCP - General Family Medicine 07/28/20 Podlogar, KORY Crystal.[employer] FACTORY WORKER [address] [place] [address] [facility] 04/28/24 Rand Ashley 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 [address] [place] [address] [facility]01/24 Bioengineer Relationship Specialty Start Date End Date Jackelyn Singer MD [address] [place] [address] PCP - General Family Medicine 07/28/20 PodlogarMarah 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 [address] [place] [address] [facility] 04/28/24 Rand Ashley 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 [address] [place] [address] [facility] 11/01/24 Bioengineer Relationship Specialty Start Date End Date Jackelyn Singer MD [address] [place] [address] PCP - General Family Medicine 07/28/20 PodlogarMarah FINAL INSPECTOR TRUCK TRAILER.[employer] FACTORY WORKER [address] [place] [address] [facility] 04/28/24 Rand Ashley FINAL INSPECTOR TRUCK TRAILER.[employer] FACTORY WORKER [address] [place] [address] [facility] 11/01/24 Bioengineer Relationship Specialty Start Date End Date Jackelyn Singer MD [address] [place] [address] PCP - General Family Medicine 07/28/20 Podlogar, Marah FINAL INSPECTOR TRUCK TRAILER.[employer] FACTORY WORKER [address] [place] [address] [facility] 04/28/24 Rand Ashley FINAL INSPECTOR TRUCK TRAILER.[employer] FACTORY WORKER [address] [place] [address] [facility] 11/01/24 Bioengineer Relationship Specialty Start Date End Date Jackelyn Singer MD [address] [place] [address] PCP - General Family Medicine 07/28/20 Podlogar, Marah FINAL INSPECTOR TRUCK TRAILER.[employer] FACTORY WORKER [address] [place] [address] [facility] 04/28/24 Rand Ashley FINAL INSPECTOR TRUCK TRAILER.[employer] FACTORY WORKER [address] [place] [address] [facility] 11/01/24 Bioengineer Relationship Specialty Start Date End Date Jackelyn Singer MD [address] [place] [address] PCP - General Family Medicine 07/28/20 PodlogarMarah FINAL INSPECTOR TRUCK TRAILER.[employer] FACTORY WORKER [address] [place] [address] [facility] 04/28/24 Rand Ashley FINAL INSPECTOR TRUCK TRAILER.[employer] FACTORY WORKER [address] [place] [address] [facility] Family Medicine 11/01/24 Bioengineer Relationship Specialty Start Date End Date Jackelyn Singer MD [address] [facility] [place] [address] PCP - General Family Medicine 07/28/20 PodlogarMarah 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 [address] [facility] [place] [address] [facility] 04/28/24 Rand Ashley 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 [address] [place] [address] [facility] 11/01/24 Bioengineer Relationship Specialty Start Date End Date Jackelyn Singer MD [address] [facility] [place] [address] PCP - General Family Medicine 07/28/20 PodlogarMarah 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 [address] [facility] [place] [address] [facility] 04/28/24 Rand Ashley 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 [address] [place] [address] [facility] 11/01/24 Bioengineer Relationship Specialty Start Date End Date Jackelyn Singer MD [address] [facility] [place] [address] PCP - General Family Medicine 07/28/20 PodlogarMarah 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 [address] [facility] [place] [address] [facility] 04/28/24 Rand Ashley 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 [address] [place], [place] [address] [facility] 11/01/24 Bioengineer Relationship Specialty Start Date End Date Jackelyn Singer MD [address] [place], [place] [address] PCP - General Family Medicine 07/28/20 PodMarah cho 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 [address] [place], [place] [address] [facility] 04/28/24 Rand Ashley 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 [address] [place], [place] [address] [facility] 11/01/24 Team Status: Active Member [...] December 10, 2024 End: December 10, 2024 Bioengineer Relationship Specialty Start Date End Date Jackelyn Singer MD [address] [place], [place] [address] PCP - General Family Medicine 07/28/20 PodlogMarah rodriguez 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 [address] [place] [address] [facility] 04/28/24 Rand Ashley 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 [address] [place] [address] [facility] 11/01/24 Bioengineer Relationship Specialty Start Date End Date Jackelyn Singer MD [address] [place] [address] PCP - General Family Medicine 07/28/20 VancelogMarah rodriguez 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 [address] [place] [address] [facility] 04/28/24 Rand Ashley 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 [facility] [place] [address] [facility] 11/01/24 Goals (unrecognized section and [...] BE BASED ON THE PRIMARY CLINICAL RECORDS. [facility]. provides no warranty or guarantee of the accuracy or completeness of information in this document.
[2024-12-17 04:58] LABS: Hematocrit 35.9 % (37-47); Hemoglobin 12.3 g/dL (12.0-15.0); Immature Granulocytes Count 0.090 X10^3/uL (0.0-0.0); Mean Corp Hgb Conc 34.3 g/dL (32-36); Mean Corpuscular Volume 82.5 fL (81-99); Mean Platelet Vol. 11.1 fl (6.2-12.0); NRBC Flagged by Analyzer 0 % (0-5); Platelet Count 251 K/mm3 (150-450); RBC Distribution Width CV 13.0 % (11.6-14.6); RBC Distribution Width SD 39.0 fl (35.1-43.9); Red Blood Count 4.35 M/mm3 (4.2-5.4); White Blood Count 14.3 K/mm3 (4.4-11.0)
[2024-12-17] MEDS: Penicillin G Pot 5,000,000 UNITS in 0.9% Normal Saline (100mL MB+) 100 ML 150 UNITS IV (05:04)
[2024-12-17 05:24] LABS: Syphilis Antibodies Nonreactive (Nonreactive)
[2024-12-17] MEDS: fentaNYL-bupivacaine (epidural) 100 ML BAG EPIDURAL (05:45)
--- NOTE | 2024-12-17 07:39 | PCM.HP.OB ---
HPI - General General Date of Admission: 12/17/24 HPI Narrative GEORGE CRAIG, is a 24 F at 39 weeks who presents in spontaneous labor. Maternal Data Information VIKTOR Calculator Estimated Delivery Date Method Current WG Current Estimate 12/24/24 Manual 39w 0d PFSH PFSH Home Medications ?Medication ?Instructions ?Recorded ?Last Taken ?Type vitamin 1 tab PO DAILY 09/28/24 09/27/24 History no.76-iron,carbonyl 29 mg iron-folic acid 1 mg tablet (Prenatabs Rx) aspirin 81 mg tablet,delayed 81 mg PO DAILY 12/17/24 Unknown History release sertraline 50 mg tablet 50 mg PO DAILY 12/17/24 Unknown History Allergy/AdvReac Type Severity Reaction Status Date / Time escitalopram (From [email or web address]) AdvReac Mild insomnia Verified 12/17/24 03:23 Surgical History (Updated 12/17/24 @ 04:01 by Evon Pérez) [place] teeth removed Social History Smoking Status: Never smoker History Elective abortions Hx Para 0 Spontaneous abortions Hx # Term Pregnancies Ectopic pregnancies Hx # Pregnancies Multiple births # of living children NST FHR Rate Baby A Baseline: 120 Variability:: Moderate Accelerations:: 15 x 15 Decelerations:: None NST Reactive:: Yes FHR Category:: Category I Uterine Activity:: TOCO reading every 2-3 minutes ROS Eyes Eyes: Denies blurry vision, change in vision or spots in vision ENT HEENT: Denies dizziness or headache(s) Cardiovascular Cardiovascular: Denies abdominal pain, chest pain or dyspnea Respiratory/Chest Respiratory/Chest: Denies cough, dyspnea, shortness of breath at rest or shortness of breath with exertion Gastrointestinal Gastrointestinal: Denies abdominal pain, diarrhea or vomiting Genitourinary Genitourinary: Denies change in urinary stream, difficulty urinating or dysuria Musculoskeletal Musculoskeletal: Reports none Integumentary Integumentary: Denies rash Neurologic Neurologic: Denies dizziness, headache(s), memory loss or weakness Psychiatric Psychiatric: Reports none Vital Signs Vital Signs Vital Signs: 12/17/24 03:17 12/17/24 03:17 12/17/24 03:17 Temperature Temperature Source Pulse Rate 103 H Respiratory Rate Blood Pressure 165/80 H BP Systolic 165 BP Diastolic 80 Pulse Ox 99 12/17/24 03:18 12/17/24 03:18 12/17/24 03:35 Temperature Temperature Source Pulse Rate 93 Respiratory Rate Blood Pressure 150/72 H 118/72 BP Systolic 150 118 BP Diastolic 72 72 Pulse Ox 12/17/24 03:35 12/17/24 03:49 12/17/24 03:49 Temperature Temperature Source Pulse Rate 100 108 H Respiratory Rate Blood Pressure 119/70 BP Systolic 119 BP Diastolic 70 Pulse Ox 12/17/24 03:51 12/17/24 03:51 12/17/24 03:56 Temperature Temperature Source Pulse Rate 107 H 103 H Respiratory Rate Blood Pressure BP Systolic BP Diastolic Pulse Ox 98 12/17/24 03:56 12/17/24 05:12 12/17/24 05:12 Temperature Temperature Source Pulse Rate 96 Respiratory Rate Blood Pressure BP Systolic BP Diastolic Pulse Ox 97 98 12/17/24 05:15 12/17/24 05:15 12/17/24 05:17 Temperature Temperature Source Pulse Rate 105 H 103 H Respiratory Rate Blood Pressure 135/82 H BP Systolic 135 BP Diastolic 82 Pulse Ox 12/17/24 05:17 12/17/24 05:20 12/17/24 05:20 Temperature Temperature Source Pulse Rate 105 H Respiratory Rate Blood Pressure 124/74 H BP Systolic 124 BP Diastolic 74 Pulse Ox 100 12/17/24 05:22 12/17/24 05:22 12/17/24 05:25 Temperature Temperature Source Pulse Rate 98 Respiratory Rate Blood Pressure 127/74 H BP Systolic 127 BP Diastolic 74 Pulse Ox 100 12/17/24 05:25 12/17/24 05:27 12/17/24 05:27 Temperature Temperature Source Pulse Rate 98 101 H Respiratory Rate Blood Pressure BP Systolic BP Diastolic Pulse Ox 100 12/17/24 05:30 12/17/24 05:30 12/17/24 05:30 Temperature Temperature Source Pulse Rate 104 H Respiratory Rate Blood Pressure 125/71 H BP Systolic 125 BP Diastolic 71 Pulse Ox 89 12/17/24 05:32 12/17/24 05:32 12/17/24 05:35 Temperature Temperature Source Pulse Rate 96 Respiratory Rate Blood Pressure 126/90 H BP Systolic 126 BP Diastolic 90 Pulse Ox 100 12/17/24 05:35 12/17/24 05:37 12/17/24 05:37 Temperature Temperature Source Pulse Rate 99 107 H Respiratory Rate Blood Pressure BP Systolic BP Diastolic Pulse Ox 100 12/17/24 05:40 12/17/24 05:40 12/17/24 05:42 Temperature Temperature Source Pulse Rate 100 100 Respiratory Rate Blood Pressure 128/76 H BP Systolic 128 BP Diastolic 76 Pulse Ox 12/17/24 05:42 12/17/24 05:46 12/17/24 05:46 Temperature Temperature Source Pulse Rate 102 H Respiratory Rate Blood Pressure 128/76 H BP Systolic 128 BP Diastolic 76 Pulse Ox 100 12/17/24 05:47 12/17/24 05:47 12/17/24 05:51 Temperature Temperature Source Pulse Rate 107 H Respiratory Rate Blood Pressure 141/73 H BP Systolic 141 BP Diastolic 73 Pulse Ox 100 12/17/24 05:51 12/17/24 05:52 12/17/24 05:52 Temperature Temperature Source Pulse Rate 109 H 104 H Respiratory Rate Blood Pressure BP Systolic BP Diastolic Pulse Ox 90 12/17/24 05:54 12/17/24 05:54 12/17/24 05:54 Temperature 98.0 F Temperature Source Temporal Pulse Rate Respiratory Rate 16 Blood Pressure BP Systolic BP Diastolic Pulse Ox 12/17/24 05:56 12/17/24 05:56 12/17/24 05:58 Temperature Temperature Source Pulse Rate 108 H 99 Respiratory Rate Blood Pressure 148/77 H BP Systolic 148 BP Diastolic 77 Pulse Ox 12/17/24 05:58 12/17/24 06:02 12/17/24 06:02 Temperature Temperature Source Pulse Rate 108 H Respiratory Rate Blood Pressure BP Systolic BP Diastolic Pulse Ox 96 94 12/17/24 06:03 12/17/24 06:03 12/17/24 06:05 Temperature Temperature Source Pulse Rate 103 H Respiratory Rate Blood Pressure 142/67 H BP Systolic 142 BP Diastolic 67 Pulse Ox 96 12/17/24 06:05 12/17/24 06:08 12/17/24 06:08 Temperature Temperature Source Pulse Rate 107 H 103 H Respiratory Rate Blood Pressure BP Systolic BP Diastolic Pulse Ox 95 12/17/24 06:11 12/17/24 06:11 12/17/24 06:13 Temperature Temperature Source Pulse Rate 94 101 H Respiratory Rate Blood Pressure 143/87 H BP Systolic 143 BP Diastolic 87 Pulse Ox 12/17/24 06:13 12/17/24 06:14 12/17/24 06:14 Temperature Temperature Source Pulse Rate 101 H Respiratory Rate Blood Pressure BP Systolic BP Diastolic Pulse Ox 95 94 12/17/24 06:15 12/17/24 06:15 12/17/24 06:18 Temperature Temperature Source Pulse Rate 97 103 H Respiratory Rate Blood Pressure 137/82 H BP Systolic 137 BP Diastolic 82 Pulse Ox 12/17/24 06:18 12/17/24 06:21 12/17/24 06:21 Temperature Temperature Source Pulse Rate 104 H Respiratory Rate Blood Pressure 140/72 H BP Systolic 140 BP Diastolic 72 Pulse Ox 93 12/17/24 06:23 12/17/24 06:23 12/17/24 07:17 Temperature Temperature Source Pulse Rate 96 Respiratory Rate Blood Pressure 110/57 L BP Systolic 110 BP Diastolic 57 Pulse Ox 92 12/17/24 07:17 Temperature Temperature Source Pulse Rate 87 Respiratory Rate Blood Pressure BP Systolic BP Diastolic Pulse Ox Weight Weight: 190 lb 14.725 oz Body Mass Index (BMI) 33.8 Physical Exam Const alert, oriented x3 and no apparent distress General Appearance: cooperative Orientation / Consciousness: awake Exam Limitations: no limitations HEENT normocephalic Head and Scalp: normal to inspection Eyes General Eye: normal appearance of both eyes Neck full ROM and no lymphadenopathy Lymph Lymphatic: no lymphadenopathy noted Chest inspection of chest normal Resp normal respiratory effort, normal air movement and clear to auscultation bilaterally Effort and Inspection: able to speak in complete sentences and symmetric chest movement Cardio regular rate and regular rhythm GI normal to inspection, nondistended, normoactive bowel sounds Manual OB Exam: presentation cephalic Back/Spine normal ROM Extremity full ROM and no calf tenderness Skin no rashes or lesions noted General Skin Exam: no breakdown Neuro oriented x3 and CN's II-XII intact bilaterally Psych mental status grossly normal and thought process normal Labs Labs Labs: Blood Type A POSITIVE Antibody Screen NEGATIVE Hct 35.9 % (37-47) L Hgb 12.3 g/dL (12.0-15.0) Syphilis Total Ab Nonreactive (Nonreactive) Assessment & Plan (1) Spontaneous onset of labor: (2) Spontaneous rupture of amniotic membranes: (3) Positive GBS test: (4) 39 weeks gestation of : PLAN: Plan CE /-1 Forebag ruptured for clear fluid IUPC placed to monitor contractions Start Pitocin at 2 mu / min and increase per policy Comfortable with epidural
[2024-12-17] MEDS: Oxytocin 15 Units/NS 250ml 15 UNITS/250 ML IV.SOLN 2 UNITS IV (08:08)
[2024-12-17] MEDS: Penicillin G 3,000,000 Units 50 ML 100 UNITS IV (08:42)
--- NOTE | 2024-12-17 09:28 | EX.PCM.OBVAG ---
Assessment & Plan (1) Positive GBS test: (2) Polyhydramnios: QUALIFIERS: Fetus number: single or unspecified fetus Trimester: third trimester Qualified Code(s): O40.3XX0 - Polyhydramnios, third trimester, not applicable or unspecified (3) (spontaneous vaginal delivery): Maternal Data Information VIKTOR Calculator Estimated Delivery Date Method Current WG Current Estimate 12/24/24 Manual 39w 0d Gestational age: 39 Vaginal Delivery Maternal Presentation Maternal Presentation: Active Labor Type of Induction: Pitocin and Amniotomy Vaginal Delivery Information Procedure Performed: Spontaneous Vaginal Delivery Surgeon/Practitioner: Trinity Burrows Date of Procedure: 12/17/24 Pre-Procedure Diagnosis: Labor Post-Procedure Diagnosis: Type of anesthesia: Epidural Estimated Blood Loss: 150 cc Time of Delivery: 08:18 Findings Description of procedure: Presented in active labor. AROM of possible forebag at 5cm. Pitocin augmentation for 15-20 and then discontinued due to decel. Found to be completely dilated. Pushed for less than 30 minutes and delivered over an intact perineum. The was a tight cord around the neck x 1. Cord was clamped and cut on the perineum. The anterior and posterior shoulders were then delivered easily. The cord was also around the right hand. The infant cried on delivery. There was terminal meconium. The placenta was delivered with gentle traction. There were no lacerations to repair. All sponge and instrument counts were correct. Presentation: Vertex and DEYANIRA Amniotic Membrane Rupture Type: Artificial Amniotic Fluid Description: Clear and Other (terminal mec) Placental Delivery Description: Spontaneous Placenta Disposition: [facility] Specimen collected: No Cord Vessel Description: 3 Vessels Cord Entanglement: Around neck x 1, tight and Other (around right hand) Nuchal Cord Compression: With compression A Gender: Female (1 minute): 8 (5 minute): 9 Delayed Cord Clamping: No [employer] Keeper supervisor calibration: No Post Vaginal Deli Medications given after delivery: IV Pitocin Episiotomy Description: None Laceration: None Complication Complications: No
[2024-12-17] MEDS: Oxytocin 15 Units/NS 250ml 15 UNITS/250 ML IV.SOLN 83 UNITS IV (09:52)
[2024-12-17] MEDS: 0.9% Saline Lock 10 ML Syringe IV (12:53)
[2024-12-17] MEDS: Benzocaine/Lanolin/Aloe Vera 85 GM Spray 1 SPRAY TOPICAL (18:20)
[2024-12-18 00:27] VITALS: BP 138/69; PULSE 95; PULSE 97; PULSE 98; RESP 16; TEMP 36.5; O2SAT 98
[2024-12-18 04:25] VITALS: BP 124/65; PULSE 86; PULSE 89; PULSE 90; RESP 16; TEMP 36.6; O2SAT 98
--- NOTE | 2024-12-18 06:36 | PCM.PN.OB ---
Subjective Subjective Doing well. Ambulating and voiding without difficulty. Mild lochia. Breast feeding but difficulty latching. Supplementing with formula. Objective Data Objective Data Vital Signs: Vital Signs Temp Pulse Resp BP Pulse Ox O2 Del Method 98 F 89 16 124/65 H 98 Room Air 12/18/24 04:25 12/18/24 04:25 12/18/24 04:25 12/18/24 04:25 12/18/24 04:25 12/18/24 04:25 Oxygen Delivery Method Room Air Weight: 86.6 kg Body Mass Index (BMI) 33.8 Intake & Output: Intake and Output for Last 24 Hours 12/16/24 12/17/24 12/18/24 23:59 23:59 23:59 Intake Total 2359.71 / 2359.71 Output Total 1400 / 1400 Balance 959.71 / 959.71 Lab / Micro Data 12/17/24 04:40 Labs: Laboratory Results - last 24 hr 12/17/24 04:40: Blood Type A POSITIVE, Antibody Screen NEGATIVE ROS Constitutional Constitutional: Denies headache(s) Cardiovascular Cardiovascular: Denies chest pain or dyspnea Gastrointestinal Gastrointestinal: Denies nausea or vomiting Genitourinary Genitourinary: Denies dysuria Physical Exam Const alert, oriented x3 and no apparent distress General Appearance: cooperative and comfortable Eyes PERRL and EOMs intact bilaterally Resp normal respiratory effort GI soft to palpation and non-tender Uterus Palpation: uterus fundus firm ( below umbilicus) Extremity normal to inspection and full ROM Neuro oriented x3 and CN's II-XII intact bilaterally Psych mental status grossly normal Assessment & Plan (1) (spontaneous vaginal delivery): PLAN: Plan help today
[2024-12-18 07:30] VITALS: BP 129/76; PULSE 94
[2024-12-18 07:51] VITALS: BP 129/76; PULSE 80; RESP 16; TEMP 36.6; O2SAT 98
[2024-12-18 14:29] VITALS: BP 115/71; PULSE 101; PULSE 94; O2SAT 99
[2024-12-18 14:53] VITALS: BP 115/74; PULSE 100; RESP 16; TEMP 36.8; O2SAT 98
--- NOTE | 2024-12-18 17:24 | PCM.DC ---
Discharge Instructions DC O2, CPAP, BIPAP needs Home O2 Discharge instructions: No Dressing / Incision Discharge Activity: May Shower May resume sexual activity in: 6 weeks Follow Up Care Please Follow Up With: Trinity Burrows MD When: Follow up with our office in 1-2 and 6 weeks or as needed. [phone] call or send a [facility] [employer] message for questions. Test Results: Test results from this visit will be discussed in further detail at your follow-up appointment, if applicable. Discharge Plan Admission Admit Date/Time: 12/17/24 04:32 Primary Reason for Your Visit: Vaginal delivery Attending Provider: Trinity Burrows Primary Care Provider: Yusef Singer Discharge Orders/Prescriptions Prescriptions: Discontinued aspirin 81 mg tablet,delayed release (DR/EC) 81 mg PO DAILY No Action Prenatabs Rx 29 mg iron- 1 mg tablet 1 tab PO DAILY sertraline 50 mg tablet 50 mg PO DAILY Referrals / Follow Up: Yusef Singer MD [Primary Care Provider] - Disposition Disposition (needs filled in before D/C Order can be placed): Home, Self Care
--- NOTE | 2024-12-24 12:03 | NURSING ---
Patient was seen for visit on 12/19/24. Patient denies any headaches, visual changes, baby blues, or flu like symptoms. States her bleeding is getting better. See assessment for feeds. is going well and milk was starting to come in. Denied any questions or concerns.
== END 2024-12-18 18:40 | disposition home or self-care (01) | DRG 807 ==
LOC: WPOUT 04:33 → WP 04:33
PROVIDERS: Admitting Provider Obstetrics & Gynecology; PCP Family Medicine; Referring Provider Advanced Practice Midwife; Visit Provider Obstetrics & Gynecology
DX: O40.3XX0 Polyhydramnios, third trimester, not applicable or unspecified (principal); Z37.0 Single live birth; B95.1 Streptococcus, group B, as the cause of diseases classified elsewhere; O99.824 Streptococcus B carrier state complicating childbirth; Z3A.39 39 weeks gestation of pregnancy; Z79.82 Long term (current) use of aspirin; O69.1XX0 Labor and delivery complicated by cord around neck, with compression, not applicable or unspecified
CPT/HCPCS: 59025; 59050; 85025; 86780; 86850; 86900; 86901; 99221; A4216; G0378